=== PATIENT | male | born 1965 | race Caucasian/White ===

== ENCOUNTER → 2018-04-23 20:00 | Outpatient (CLI) | payer OTHER, SELFPAY | PROVIDERS: Family Provider Student in an Organized Health Care Education/Training Program; PCP Student in an Organized Health Care Education/Training Program; Visit Provider Student in an Organized Health Care Education/Training Program | DX: G47.33 Obstructive sleep apnea (adult) (pediatric) (principal); Z79.899 Other long term (current) drug therapy | CPT/HCPCS: 95811 ==

== ENCOUNTER → 2018-09-21 17:04 | Outpatient (CLI) | payer OTHER, SELFPAY ==
--- NOTE | 2018-09-21 17:30 | MRI_ITS ---
STUDY: MRI RIGHT KNEE REASON FOR EXAM: Male, 52 years old. Generalized right knee pain, osteoarthritis. TECHNIQUE: Standardized fat and water weighted pulse sequences were obtained in all 3 orthogonal planes. COMPARISON: None. FINDINGS: Several sequences are somewhat degraded by patient motion. There is an equivocal, small tear of the medial meniscus versus motion artifact seen only on series 3, proton density weighted sagittal images. There is equivocal extension to the inferior articular surface. Normal hyaline cartilage of the medial femorotibial compartment. Normal medial femoral condyle and tibial plateau. Normal medial collateral ligamentous complex (MCL). Normal distal semimembranosus, gracilis and semitendinosus tendons. Normal lateral meniscus. Normal hyaline cartilage of the lateral femorotibial compartment. Normal lateral femoral condyle and tibial plateau. Normal proximal tibiofibular articulation. Normal lateral collateral (fibular) ligament. Normal popliteus tendon. Normal biceps femoris tendon. Normal anterior cruciate ligament (ACL). Normal posterior cruciate ligament (PCL). Normal congruent patellofemoral articulation. Normal hyaline cartilage of the patellofemoral compartment. Normal medial and lateral patellar retinaculum. Normal quadriceps tendon. Normal patellar tendon. Normal Hoffa's fat pad. There is a small joint effusion. The soft tissues are unremarkable. The otherwise visualized osseous structures are unremarkable. MRI/Lower Ext Joint Only (Routine) IMPRESSION: 1. Equivocal medial meniscal tear versus motion artifact. 2. Small joint effusion, otherwise negative study. Electronically Signed: Beata Briggs MD at 23:53 EST Tel , Service support ,
== END ==
PROVIDERS: Family Provider Student in an Organized Health Care Education/Training Program; PCP Student in an Organized Health Care Education/Training Program; Referring Provider Physician Assistant Surgical; Visit Provider Physician Assistant Surgical
DX: M17.11 Unilateral primary osteoarthritis, right knee (principal)
CPT/HCPCS: 73721

== ENCOUNTER 2019-03-18 12:59 | Emergency (ER) | payer OTHER, SELFPAY ==
[2019-03-18 13:00] VITALS: BP 168/86; PULSE 86; RESP 15; TEMP 36.4; O2SAT 97; BMI 67.0
--- NOTE | 2019-03-18 13:17 | ED.VIS.GEN ---
History of Present Illness Chief Complaint: GI Bleed Informant: Patient Onset: Days - 3 Context: Onset with activity Timing: Continuous Current Severity: Mild Maximum Severity: Mild Narrative: Patient presents with painless GI bleeding. He is reporting red blood per rectum started about 3 days ago. He has a history of hemorrhoids but this does not feel like his external hemorrhoids. He has no weakness he does not feel lightheaded. He has no abdominal pain nausea or vomiting no recent diarrhea. He had a colonoscopy about 4 years ago and was told that it was okay and they would see him in 10 years. Past Medical History - Allergies and Home Meds Allergies/Adverse Reactions: Allergies No Known Allergies Allergy (Verified 08/04/17 11:03) Primary Care Physician: Nuno Lowe DO [Primary Care Provider] - Prior records reviewed: Yes Past Medical History: - - Noncontributory Surgical History: no surgical history Smoking Status: Current every day smoker Review of Systems General: Denies: Fever Cardiovascular: Denies: Chest pain Respiratory: Denies: Dyspnea Gastrointestinal: Reports: Hematochezia. Denies: Abdominal pain, Nausea Genitourinary: Denies: Dysuria Musculoskeletal: Denies: Myalgias Neurological: Denies: Weakness Hematologic: Denies: Easy bruising Physical Exam Vital Signs/Narrative: Vital Signs Temp Pulse Resp BP Pulse Ox 03/18/19 13:00 97.6 F L 86 15 168/86 H 97 General: Well nourished ENT: Moist mucous membranes Cardiovascular: Regular rate Respiratory: No distress, CTA bilaterally Abdomen: Soft, Nontender, Nondistended Rectal: - - External hemorrhoids are seen however nonbleeding. Back: Nontender. Negative for: Normal Inspection Extremities: Nontender Skin: Normal color, No rash. Negative for: Pallor Neurological: Alert Diagnostic/Tx/Re-eval - Medical Decision Making An anoscopy was performed by me. There is an anterior internal hemorrhoid which showed active bleeding especially with an anoscopy instrumentation. ED Disposition - Plan for ED Patient: Disposition: Home or Assisted Living Diagnosis: Internal hemorrhoid Instructions: Hemorrhoids Prescriptions: Docusate Sodium [Colace] 100 mg PO DAILY #30 cap Prescription Printed Referrals: Yusuf Hinojosa MD [NON-STAFF] - 3-5 Days
== END 2019-03-18 13:31 | disposition home or self-care (01) ==
LOC: ED 13:24
PROVIDERS: Emergency Provider Emergency Medicine; Family Provider Student in an Organized Health Care Education/Training Program; PCP Student in an Organized Health Care Education/Training Program
DX: K64.8 Other hemorrhoids (principal); F17.200 Nicotine dependence, unspecified, uncomplicated
CPT/HCPCS: 99282

== ENCOUNTER 2022-09-13 09:32 | Emergency (ER) | payer OTHER, SELFPAY ==
[2022-09-13 09:33] VITALS: BP 168/76; PULSE 84; RESP 14; TEMP 36.3; O2SAT 99; BMI 32.6
--- NOTE | 2022-09-13 10:09 | CT_ITS ---
STUDY: CT ABDOMEN AND PELVIS WITH CONTRAST REASON FOR EXAM: Male, 56 years old. One day history of abdominal pain. RADIATION DOSAGE (If Supplied By Facility): CTDIvol = ( 16.20 ) mGy, DLP = ( 1238.49 ) mGycm TECHNIQUE: Transaxial images were obtained from the dome of the diaphragm to the symphysis pubis without oral contrast. IV 100mL Isovue-300 was administered. Sagittal and coronal images were reconstructed. Individualized dose optimization techniques were used for this CT. COMPARISON: None. FINDINGS: Mild degree of increased linear markings at the lung bases suggest leveling atelectasis and/or scarring. Coronary artery calcification. Normal liver. Normal gallbladder and extrahepatic biliary system. Normal spleen. Normal pancreas. Normal bilateral adrenal glands. Normal right kidney. Normal left kidney. Normal visualized stomach. Normal small intestine. There is diverticulosis, with thickening of the colon wall, and pericolonic inflammation changes consistent with acute diverticulitis. The appendix is visualized and appears normal. There is diffuse atherosclerotic calcification of the abdominal aorta, without a demonstrated aneurysm. Normal inferior vena cava. Normal retroperitoneum. Normal urinary bladder. Normal abdominal wall. There are mild degenerative changes of the visualized lumbar spine. The patient is status post bilateral total hip replacement causing beam hardening artifact in the pelvis. CT/Abdomen/Pelvis W IV Cont ONLY IMPRESSION: Sigmoid diverticulosis with increased markings in the surrounding peritoneal fat in keeping with noncomplicated acute sigmoid diverticulitis. Electronically Signed: Cahpincito Prasad MD at 11:24 EST ,
--- NOTE | 2022-09-13 10:10 | EDS_ITS ---
HPI HPI - GI History of Present Illness Chief Complaint: Abd Pain Narrative Narrative: 56-year-old male presenting with abdominal pain. He states it began yesterday centrally in the midline of his lower abdomen. He states now it seems to radiate bilaterally to the lower abdomen. He has not had any diarrhea. He states he had a normal bowel movement today. He has a history of BPH but states he is able to urinate without difficulty and does not have any dysuria. Last night he noted he had a temperature of 100 ?F and took some Tylenol. This morning he woke up and stated he was feeling a little bit better until he started to walk and he noted the pain again in the lower abdomen. He states walking makes this worse. Sitting and resting makes it better. He states that when he stands up he has to stand up slowly because he feels like something is stretching. He has no history of abdominal surgeries. No history of diverticulitis. No black or bloody stools. PFSH PFSH Medical History no medical history Home Medications lisinopril 10 mg tablet 10 mg PO DAILY 05/24/15 [History Last Taken 08/08/17 05:00] simvastatin 40 mg tablet 40 mg PO QHS 05/24/15 [History Last Taken Unknown] Levothyroxine Sodium 112 mcg PO DAILY 05/17/17 [History Last Taken 05/31/17 06:15] cholecalciferol (vitamin D3) 50 mcg (2,000 unit) capsule (Vitamin D3) 4,000 unit PO DAILY 08/02/17 [History Last Taken Unknown] magnesium oxide 500 mg capsule 500 mg PO DAILY 08/02/17 [History Last Taken Unknown] docusate sodium 100 mg capsule 100 mg PO DAILY #30 caps 03/18/19 [Rx Last Taken Unknown] amoxicillin 875 mg-potassium clavulanate 125 mg tablet 1 tab PO BID 12 days #24 tabs 09/13/22 [Rx Last Taken Unknown] hydrocodone-acetaminophen 5-325mg 5mg-325mg 1 tab PO Q6H PRN pain 3 days #10 tabs 09/13/22 [Rx Last Taken Unknown] ondansetron 4 mg disintegrating tablet 4 mg PO Q8H PRN nausea and vomiting #10 tabs 09/13/22 [Rx Last Taken Unknown] Allergy/AdvReac Type Severity Reaction Status Date / Time No Known Allergies Allergy Verified 09/13/22 09:35 Surgical History no surgical history Social History Smoking Status: Current every day smoker tobacco type: cigarettes ROS ROS ED Review of Systems ROS Unobtainable: Denies due to encephalopathy Constitutional Constitutional ED: Reports fever(s) ENT ENT ED: Denies rhinorrhea or sore throat Cardiovascular Cardiovascular: Denies palpitations Respiratory/Chest Respiratory/Chest: Denies cough or dyspnea Gastrointestinal Gastrointestinal: Reports abdominal pain; Denies constipation, diarrhea, melena, nausea or vomiting Genitourinary Genitourinary ED: Denies dysuria or hematuria Musculoskeletal Musculoskeletal: Denies arthralgias Integumentary Denies abscess or Abrasions Neurologic Neurologic: Denies headache(s) or paresthesias Psychiatric Psychiatric: Denies anxiety or depression Endocrine Endocrinology: Denies polydipsia or polyphagia EXAM Physical Exam Const Vital Signs: 09/13/22 09:33 09/13/22 11:38 Temperature 97.3 F L 98.9 F Temperature Source Temporal Oral Pulse Rate 84 71 Respiratory Rate 14 19 H Blood Pressure 168/76 H Blood Pressure Mean 106 Pulse Ox 99 94 Oxygen Delivery Method Room Air Room Air Positive well nourished General Appearance ED: NAD; Negative for pallor HEENT Reports moist mucous membranes Eyes PERRL and EOMs intact bilaterally General Eye ED: Negative for pale conjunctiva or scleral icterus Neck no lymphadenopathy Resp normal respiratory effort and clear to auscultation bilaterally Cardio regular rate and regular rhythm GI GI Narrative: Tender in the bilateral lower quadrants and in the midline. Abdomen is nondistended. No rebound or guarding. Back/Spine no CVA tenderness Neuro CN's II-XII intact bilaterally Sensorium / Orientation: alert Motor Exam: strength 5/5 throughout Psych mental status grossly normal Skin no wounds General Skin Exam: Negative for jaundice or pallor MDM MDM MDM Narrative Medical decision making narrative: Patient presenting with abdominal pain. He is concerned that he had a temperature of 100 ?F last night. Has not had a return of this. He states initially this morning he thought his pain was getting better but as he was walked around he notices getting worse. He has pain throughout the lower abdomen. Patient was medicated with 4 mg of morphine and 4 mg of Zofran. CBC was obtained and there is no evidence of leukocytosis. Hemoglobin macular stable. Platelets are normal. Renal function electrolytes within normal limits. LFTs and lipase are also within normal limits. Urinalysis is negative for infection. CT of the abdomen pelvis with IV contrast was obtained and does show acute uncomplicated diverticulitis. Given the patient is well-appearing with normal vital signs and normal lab work-up I feel he is stable for discharge home. He is amenable to this. I will start him on Augmentin in the ER. He is given pain and nausea medicine for home. Impression: 1. Acute uncomplicated diverticulitis 2. Fever Lab Data Labs: Laboratory Results - last 24 hr 09/13/22 09/13/22 09/13/22 09:50 10:20 10:20 WBC 10.5 RBC 4.64 Hgb 14.6 Hct 43.1 MCV 92.9 MCH 31.5 MCHC 33.9 RDW Std Deviation 42.2 RDW Coeff of Joaquin 12.4 Plt Count 226 MPV 8.4 Immature Gran % (Auto) 0.300 Neut % (Auto) 66.5 Lymph % (Auto) 18.1 L [place] % (Auto) 13.1 H Eos % (Auto) 1.6 Baso % (Auto) 0.4 Absolute Neuts (auto) 7.0 Absolute Lymphs (auto) 1.89 Nucleated RBC % 0 Sodium 138 Potassium 3.9 Chloride 102 Carbon Dioxide 27.0 Anion Gap 9 BUN 19 H Creatinine 0.96 Estim Creat Clear Calc 82.14 Est GFR (MDRD) Af Amer 104 Est GFR (MDRD) Non-Af 86 BUN/Creatinine Ratio 19.8 Glucose 97 Calcium 9.4 Total Bilirubin 1.00 AST 19 ALT 33 Alkaline Phosphatase 65 Total Protein 7.3 Albumin 3.7 Globulin 3.6 Albumin/Globulin Ratio 1.0 Lipase 119 Urine Color Yellow Urine Clarity Sl Cldy Urine pH 7.0 Ur Specific [place] 1.005 Urine Protein Negative Urine Glucose (UA) Normal Urine Ketones Negative Urine Occult Blood Negative Urine Nitrite Negative Urine Bilirubin Negative Urine Urobilinogen 1 H Ur Leukocyte Esterase Negative Urine RBC 0 SEEN Urine WBC 0 SEEN Ur Squamous Epith Cells 0 SEEN Urine Bacteria 0 SEEN Urine Mucus 0 SEEN Radiography Diagnostic Testing: Clinical Impression(s) from Imaging Studies Abdomen/Pelvis CT 09/13/22 10:09 IMPRESSION: Sigmoid diverticulosis with increased markings in the surrounding peritoneal fat in keeping with noncomplicated acute sigmoid diverticulitis. Electronically Signed: [place] Prasad MD at 11:24 EST , Discharge Plan Triage Chief Complaint: Abd Pain ED Provider: Vikash King Dx/Rx/DC Orders Instructions: ED Diverticulitis Prescriptions: New amoxicillin-pot clavulanate 875-125 mg tablet 1 tab PO BID 12 Days Qty: 24 0RF hydrocodone-acetaminophen 5-325 mg tablet 1 tab PO Q6H PRN (Reason: pain) 3 Days Qty: 10 0RF ondansetron 4 mg tablet,disintegrating 4 mg PO Q8H PRN (Reason: nausea and vomiting) Qty: 10 0RF No Action simvastatin 40 MG tablet 40 mg PO QHS lisinopril 10 MG tablet 10 mg PO DAILY Levothyroxine Sodium 112 MCG tablet 112 mcg PO DAILY magnesium oxide 500 MG capsule 500 mg PO DAILY cholecalciferol (vitamin D3) [Vitamin D3] 2,000 UNIT capsule 4,000 unit PO DAILY docusate sodium 100 MG capsule 100 mg PO DAILY Qty: 30 0RF Primary Care Provider: Nuno Lowe Referrals: Nuno Lowe DO [Primary Care Provider] - Disposition Disposition: Home, Self Care
[2022-09-13] MEDS: Ondansetron 4 MG/2 ML Vial IV (10:20)
[2022-09-13] MEDS: Morphine 4 MG/ML Syringe IV (10:20)
[2022-09-13 10:27] LABS: Absolute Lymphocyte Count 1.89 X10^3/uL (0.83-4.51); Basophil# 0.04 X10^3/uL; Basophil% 0.4 % (0-1); Eosinophil# 0.17 X10^3/uL; Eosinophils% 1.6 % (0-5); Hematocrit 43.1 % (40-54); Hemoglobin 14.6 g/dL (13.0-16.5); Lymphocyte # 1.89 X10^3/ul (0.83-4.51); Lymphocyte % 18.1 % (19-41); Mean Corp Hgb Conc 33.9 g/dL (32-36); Mean Corpuscular Hgb 31.5 pg (27.0-32.0); Mean Corpuscular Volume 92.9 fL (80-94); Mean Platelet Vol. 8.4 fl (6.2-12.0); Monocyte# 1.37 X10^3/uL; Monocyte% 13.1 % (0-10); NRBC Flagged by Analyzer 0 % (0-5); Neutrophil # 6.97 X10^3/uL (2.7-7.7); Neutrophil % 66.5 % (47-70); Platelet Count 226 K/mm3 (150-450); RBC Distribution Width CV 12.4 % (11.6-14.6); RBC Distribution Width SD 42.2 fl (35.1-43.9); Red Blood Count 4.64 M/mm3 (4.6-6.2); White Blood Count 10.5 K/mm3 (4.4-11.0)
[2022-09-13 10:27] LABS: Bacteria 0 SEEN /hpf (None Seen); Mucous, Urine 0 SEEN /hpf (<or=2+); Red Blood Cells-Urine 0 SEEN /hpf (0-5); Squamous Epithelial Cells - UA 0 SEEN /hpf (0-5); White Blood Cells 0 SEEN /hpf (0-5)
[2022-09-13 10:34] LABS: Color, Urine Yellow (Yellow); Glucose, Dipstick Normal (Normal); Ketone-Dipstick Negative (Negative); Leukocyte Esterase-Dipstick Negative /ul (Negative); Nitrite-Dipstick Negative (Negative); Occult Blood-Urine Negative /ul (Negative); Protein-Dipstick Negative (Negative); Specific Gravity, Urine 1.005 (1.002-1.030); Urine Bilirubin Dipstick Negative (Negative); Urine Clarity Sl Cldy (Clear); Urine Urobilinogen 1 mg/dl (Normal)
[2022-09-13 10:45] LABS: AST(SGOT) 19 U/L (15-37); Alanine Aminotransfer ALT/SGPT 33 U/L (16-61); Albumin, Serum 3.7 g/dL (3.2-5.0); Alkaline Phosphatase 65 U/L (45-117); Anion Gap 9 (5-15); BUN 19 mg/dL (7-18); BUN/Creat Ratio 19.8 RATIO (10-20); Calcium,Total 9.4 mg/dL (8.5-10.1); Chloride 102 mmol/L (98-107); Creatinine, Serum 0.96 mg/dL (0.70-1.30); EST Glomerular Filtration Rate 86 mL/min (>60); Est Glom Filt Rate - Afr Amer 104 mL/min (>60); Estimated Creatinine Clearance 82.14 ml/min; Globulin 3.6 g/dL (2.2-4.2); Glucose 97 mg/dL (74-106); Lipase 119 U/L (73-393); Potassium 3.9 mmol/L (3.5-5.1); Protein, Total 7.3 g/dL (6.4-8.2); Sodium Level 138 mmol/L (136-145)
[2022-09-13 11:38] VITALS: PULSE 71; RESP 19; TEMP 37.2; O2SAT 94
[2022-09-13 12:10] VITALS: RESP 19; O2SAT 94
[2022-09-13] MEDS: Amox/Clavulanate 875 MG Tablet PO (12:17)
== END 2022-09-13 12:21 | disposition home or self-care (01) ==
PROVIDERS: Emergency Provider Student in an Organized Health Care Education/Training Program; PCP Student in an Organized Health Care Education/Training Program; Visit Provider Student in an Organized Health Care Education/Training Program
DX: K57.92 Diverticulitis of intestine, part unspecified, without perforation or abscess without bleeding (principal); F17.210 Nicotine dependence, cigarettes, uncomplicated; R11.0 Nausea
CPT/HCPCS: 74177; 80053; 81001; 83690; 85025; 96374; 96375; 99284; Q9967; A4216; J2405

== ENCOUNTER 2023-01-07 15:41 | Emergency (ER) | payer OTHER, SELFPAY ==
[2023-01-07 15:42] VITALS: BP 157/90; PULSE 89; RESP 16; TEMP 36.2; O2SAT 98; BMI 32.5
--- NOTE | 2023-01-07 16:09 | EDS_ITS ---
HPI History of Present Illness Chief Complaint: Wound Check Informant: patient and spouse/S.O. Narrative Narrative: Patient presents with 2 days of penile and scrotal redness/swelling. It is all itchy. It is sore where the swelling is around the thurman of the glans and base of the penis there just proximal to that, that is where the swelling is the worst. He saw urgent care and was prescribed clotrimazole, he has been using that for 1 day, and he states they prescribed him a antimicrobial topical to use if the first 1 does not work and diagnosed him with balanitis. He had regular vaginal intercourse with his significant other the night before this st arted. They have been for a long time and they are both monogamous with each other, with no history of STDs. She has used no agents in her vulva or vagina recently that she can think of, and she has had no discharge or infection. The patient presents here now saying that the swelling is more prominent, and in addition he has 2 patches of pruritic redness on his face that were not there yesterday. He states he spread the antibiotic cream on the patches on his face and came here. No fevers or chills, no systemic symptoms, no trouble urinating. He is not a diabetic. [facility] Medical History HTN (hypertension) Urinary bladder disorder Home Medications lisinopril 10 mg tablet 10 mg PO DAILY 05/24/15 [History Last Taken 08/08/17 05:00] simvastatin 40 mg tablet 40 mg PO QHS 05/24/15 [History Last Taken Unknown] Levothyroxine Sodium 112 mcg PO DAILY 05/17/17 [History Last Taken 05/31/17 06:15] cholecalciferol (vitamin D3) 50 mcg (2,000 unit) capsule (Vitamin D3) 4,000 unit PO DAILY 08/02/17 [History Last Taken Unknown] magnesium oxide 500 mg capsule 500 mg PO DAILY 08/02/17 [History Last Taken Unknown] fluconazole 150 mg tablet 150 mg PO DAILY #1 TAB 01/07/23 [Rx Last Taken Unknown] prednisone 20 mg tablet 40 mg PO DAILY #10 TABLETS 01/07/23 [Rx Last Taken Unknown] Allergy/AdvReac Type Severity Reaction Status Date / Time No Known Allergies Allergy Verified 01/07/23 15:44 Social History Smoking Status: Current every day smoker tobacco type: cigarettes ROS ROS ED Constitutional Constitutional ED: Reports chills and fever(s) Eyes Eyes: Denies blurry vision or change in vision Cardiovascular Cardiovascular: Denies chest pain or palpitations Respiratory/Chest Respiratory/Chest: Denies cough or dyspnea Gastrointestinal Gastrointestinal: Denies abdominal pain, diarrhea, melena, nausea or vomiting Genitourinary Genitourinary ED: Reports as per HPI; Denies dysuria or hematuria Musculoskeletal Musculoskeletal: Denies back pain, myalgias or neck pain Integumentary Denies abscess or rash Neurologic Neurologic: Denies headache(s), paresthesias or weakness EXAM Physical Exam Const Vital Signs: 01/07/23 15:42 Temperature 97.1 F L Temperature Source Temporal Pulse Rate 89 Respiratory Rate 16 Blood Pressure 157/90 H Blood Pressure Mean 112 Pulse Ox 98 Oxygen Delivery Method Room Air Positive well nourished and well developed General Appearance ED: well developed Eyes PERRL and EOMs intact bilaterally Resp normal respiratory effort GI normal to inspection, nondistended, normoactive bowel sounds, non-tender and non-distended Narrative: Mild diffuse swelling of the entire scrotum and penile shaft and erythema/hype remia, the most edematous area is in a ring at the shaft of the penis just proximal to the thurman radiata, and this area is mildly tender. There is no abscess. The erythema extends proximally onto the mons pubis, as well as into the groin bilaterally, with fairly well-circumscribed edges in these areas at the edges are a little more hyperemic, there is no discharge, and there is no tenderness in the groins or the mons. There is no tenderness in the scrotum, testicles, or in the perineum, nor is there any subcutaneous emphysema. No palpable hernias examined while standing. Back/Spine no CVA tenderness Back/Spine Narrative: F ROM Neuro oriented x3, CN's II-XII intact bilaterally and no sensory deficits noted Motor Exam: strength 5/5 throughout Psych mental status grossly normal Skin Skin Narrative: There are 2 nontender patches of erythema on his face, 1 on his left cheek and 1 at the angle of his right jaw, they are not well-circumscribed, they are slightly raised, and not fluctuant with no other rashes except for the exam see above. MDM MDM MDM Narrative Medical decision making narrative: The areas of erythema on the groin bilaterally and the mons pubis are consistent with tinea. It is unknown if this started on the glans or not, the patient states he noticed his penis and scrotum involved simultaneously when he first noticed this, I think it is probably all fungal and I agree with the topical clotrimazole. There is no way to know why he has 2 patches of itchy redness on his face and nowhere else. He does not have any systemic symptoms and his vital signs are unremarkable, a little hypertensive, but he is anxious as is his spouse understandably. I think putting him on prednisone may help with the symptoms, possibly the swelling. I am also prescribing him a clotrimazole. I do not think this is an acute bacterial infection, but we discussed the signs and symptoms of that, and if he gets worse on the prednisone to return to the ER immediately and discontinue it. Otherwise I would follow-up with urology if it does not resolve. Certainly some type of contact dermatitis is in the differential as well. I do not think he needs ancillary testing emergently at this time and this does not look like Dalton's gangrene. Discharge Plan Triage Chief Complaint: Wound Check ED Provider: Pantera Ji Dx/Rx/DC Orders Clinical Impression: Tinea of scrotum Instructions: ED Fungal Skin Infection (Tinea), ED Tinea Cruris, Jock Itch Prescriptions: New fluconazole 150 mg tablet 150 mg PO DAILY Qty: 1 0RF Rx Instructions: 1 tab po once prednisone 20 mg tablet 40 mg PO DAILY Qty: 10 0RF No Action simvastatin 40 MG tablet 40 mg PO QHS lisinopril 10 MG tablet 10 mg PO DAILY Levothyroxine Sodium 112 MCG tablet 112 mcg PO DAILY magnesium oxide 500 MG capsule 500 mg PO DAILY cholecalciferol (vitamin D3) [Vitamin D3] 2,000 UNIT capsule 4,000 unit PO DAILY Primary Care Provider: Nuno Lowe Referrals: Nuno Lowe DO [Primary Care Provider] - Goyo Cisneros MD [Med Staff - Active Staff] - 1 Week if not improving Activity Restrictions/Additional Instructions: Take the fluconazole when you get it. You already had a dose of prednisone for today 01/07, so start that prescription tomorrow. Continue the clotrimazole topically 2-3 times daily. Disposition Disposition: Home, Self Care
[2023-01-07] MEDS: predniSONE 20 MG Tablet 40 MG PO (16:29)
== END 2023-01-07 17:36 | disposition home or self-care (01) ==
PROVIDERS: Emergency Provider Emergency Medicine; PCP Student in an Organized Health Care Education/Training Program; Visit Provider Emergency Medicine
DX: N50.89 Other specified disorders of the male genital organs (principal); I10 Essential (primary) hypertension; F17.210 Nicotine dependence, cigarettes, uncomplicated; Z79.899 Other long term (current) drug therapy
CPT/HCPCS: 99282

== ENCOUNTER 2025-05-11 08:15 | Emergency (ER) | payer OTHER, SELFPAY ==
[2025-05-11 08:16] VITALS: BP 155/69; PULSE 67; RESP 17; TEMP 35.9; O2SAT 100; BMI 31.4
--- NOTE | 2025-05-11 08:19 | ED.VIS.BACK ---
HPI History of Present Illness Chief Complaint: [facility] Medical History HTN (hypertension) Urinary bladder disorder Home Medications ?Medication ?Instructions ?Recorded ?Last Taken ?Type lisinopril 10 mg tablet 10 mg PO DAILY 05/24/15 08/08/17 05:00 History simvastatin 40 mg tablet 40 mg PO QHS 05/24/15 Unknown History Levothyroxine Sodium 112 mcg PO DAILY 05/17/17 05/31/17 06:15 History cholecalciferol (vitamin D3) 50 4,000 unit PO DAILY 08/02/17 Unknown History mcg (2,000 unit) capsule (Vitamin D3) magnesium oxide 500 mg capsule 500 mg PO DAILY 08/02/17 Unknown History fluconazole 150 mg tablet 150 mg PO DAILY #1 TAB 01/07/23 Unknown Rx prednisone 20 mg tablet 40 mg (2 x 20 mg) PO DAILY #10 01/07/23 Unknown Rx TABLETS oxycodone 5 mg tablet 5 mg PO Q6H PRN pain 3 days #12 05/11/25 Unknown Rx tabs prednisone 50 mg tablet 50 mg PO DAILY 5 days #5 tabs 05/11/25 Unknown Rx prednisone 50 mg tablet 50 mg PO DAILY 5 days #5 tabs 05/11/25 Unknown Rx Allergy/AdvReac Type Severity Reaction Status Date / Time No Known Allergies Allergy Verified 01/07/23 15:44 Social History Smoking Status: Current every day smoker tobacco type: cigarettes EXAM Physical Exam Const Vital Signs: 05/11/25 08:16 Temperature 96.7 F L Temperature Source Temporal Pulse Rate 67 Respiratory Rate 17 Blood Pressure 155/69 H Blood Pressure Mean 97 Pulse Ox 100 Oxygen Delivery Method Room Air MDM MDM MDM Narrative Medical decision making narrative: HISTORY OF PRESENT ILLNESS: Chief complaint: Back pain 59-year-old male history of hypertension, hyperlipidemia presents with back pain. Denies injury. States back pain began a couple 3 weeks ago. Patient denies falls or trauma. Notes pain is worse with movement especially with minor movements or with coughing laughing twisting. Patient denies any saddle anesthesia, urinary retention, bowel or bladder incontinence, lower extremity weakness, fever or IV drug use, no recent spinal manipulation or surgery, no recent urinary catheterization. REVIEW OF SYSTEMS: Pertinent positives: Back pain Pertinent negatives: As per [facility] PHYSICAL EXAM: Nursing triage notes reviewed, Vital signs reviewed Constitutional: please see [facility] Lungs: Clear to auscultation, No wheezing or rales. No increased work of breathing, no conversational dyspnea, no accessory muscle use, no nasal flaring. No respiratory distress noted Heart: Regular rate and rhythm, No murmurs, No rubs and No gallops, 2+ distal pulses (radial, femoral, posterior tibial) in all extremities Abdomen: Soft, there is no tenderness, rigidity, rebound or guarding, no obvious peritoneal signs, no palpable pulsatile abdominal masses, no auscultated abdominal bruit : No CVAT Extremities: No edema Back: TTP over right back musculature approximately L1/L2 level. No step-off deformities noted to the spine Neuro: Intact sensation L1-S1 dermatomal distributions. Intact 5/5 strength in hip flexion (T12-L3). Knee extension (L2-L4). Ankle dorsiflexion (L4-L5). Ankle plantar flexion (S1). Great toe extension (L5). 2+ patellar and Achilles DTRs. Skin: No rash or lesions noted MEDICAL DECISION MAKING: Chief Complaint: please see [facility] External records reviewed: Reviewed prior imaging: Reviewed x-ray of the lumbar spine from 2015 which showed no acute fracture. Degenerative changes were noted at that time Factors affecting care: n as per [facility] Social determinants of health: Denies IV drugs History obtained from others: Consults: none [facility] Narrative: The patient was initially hemodynamically stable, afebrile and nontoxic-appearing. No concerning historical factors. Exam without obvious step-off deformities. No focal neurologic deficits. I considered the following differential diagnosis: Musculoskeletal back pain, back fracture/dislocation, space-occupying lesion spine (epidural abscess, epidural hematoma amongst others) Imaging is indicated this time as there is no trauma and patient has no focal deficits. Attempted symptomatic control with Tylenol, narcotics, anti-inflammatories. Patient noted he is on meloxicam I encouraged him to continue patient notes he has a follow-up with his primary doctor in 2 weeks. Strict return precautions will be discussed. No indication for admission or transfer at this time. The patient and/or family, caregivers express understanding. The patient and/or family, caregivers agrees with the plan. Shared decision making: I will have a discussion with the patient and or visitors regarding risk/benefits of further testing or admission. They will be made aware of of the risk/benefits inherent in this decision they will be given the opportunity to voice understanding. Total critical care time today provided was at least 0 minutes. This excludes separately billable procedures. Critical care time (if documented) is secondary to the patient having high probability of clinically significant/life threatening deterioration in the patient's condition which required my urgent intervention. Impression: 1. Low back pain 2. History of hypertension Dispo: Discharge home This note was generated with [employer] dictation software. It may contain incorrect words, spelling, and punctuation that were not noted in review of the chart prior to signing. Discharge Plan Triage Chief Complaint: Back ED Provider: Matti Wright Dx/Rx/DC Orders Instructions: Back Exercises: Lower Back Stretch, ED Back Pain (Acute or Chronic) Prescriptions: New prednisone 50 mg tablet 50 mg PO DAILY 5 Days Qty: 5 0RF oxycodone 5 mg tablet 5 mg PO Q6H PRN (Reason: pain) 3 Days Qty: 12 0RF prednisone 50 mg tablet 50 mg PO DAILY 5 Days Qty: 5 0RF No Action simvastatin 40 MG tablet 40 mg PO QHS lisinopril 10 MG tablet 10 mg PO DAILY Levothyroxine Sodium 112 MCG tablet 112 mcg PO DAILY magnesium oxide 500 MG capsule 500 mg PO DAILY cholecalciferol (vitamin D3) [Vitamin D3] 2,000 UNIT capsule 4,000 unit PO DAILY fluconazole 150 mg tablet 150 mg PO DAILY Qty: 1 0RF Rx Instructions: 1 tab po once prednisone 20 mg tablet 40 mg PO DAILY Qty: 10 0RF Primary Care Provider: Nuno Lowe Referrals: Lamine Sánchez MD [Med Staff - Active Staff] - Nuno Lowe DO [Primary Care Provider] - Activity Restrictions/Additional Instructions: Thank you for trusting us with your care today! Your presentation is consistent with musculoskeletal back pain. Please take Tylenol (2 pills, 650 mg) every 6 hours as needed for pain and fever control. Please continue take meloxicam for anti-inflammatory effect. Please begin taking prednisone which is also an anti-inflammatory. Please use lidocaine patches. You can obtain these from any pharmacy or drugstore under the brand name Salonpas. Please take oxycodone for breakthrough pain if the above regimen does not control your symptoms. Please return to the emergency department if your symptoms change or worsen. Specifically if you develop bowel or bladder incontinence, urinary retention, decreased movement or sensation in your arms or legs. Please begin doing very mild stretching exercises to improve mobility. Once your pain is under better control your mobility has increased please perform very mild strengthening exercises. Over the long-term losing weight will improve your back pain. Please follow with your primary care physician for further outpatient evaluation and management. Print Language: Citizen [place] Disposition Disposition: Home, Self Care
[2025-05-11] MEDS: Lidocaine 5% Patch 1 PATCH TOPICAL (08:42)
--- OUTSIDE RECORDS SUMMARY | 2025-05-11 08:45 | XMS RPT_ITS | CCD ---
Author Organization [facility] Care Team Providers Care Migr[employer] Name Role Phone Nuno Lowe DO Primary Care Provider Nuno Lowe Primary Care Unavailable Vikash King Attending Unavailable Nuno Lowe Primary Care Unavailable Pantera Ji Attending Unavailable Nuno Lowe DO Primary Care Provider Unavailable Primary Care Provider Unavailconnor e HEATHER LUZ THOMAZ A Attending Unavaila ble Nuno Lowe DO Primary Care Provider BOO RODRIGUEZAZ A Referring Unavaila ble LOWENUNO Primary Care Unavailable HEATHER LUZ, THOMAZ A Referring Unavaila ble LOWENUNO Primary Care Unavailable HEATHER LUZ, THOMAZ A Referring Unavaila ble LOWENUNO Primary Care Unavailable Nuno Lowe DO Primary Care Provider NUNO LOWE Primary Care Unavailable HEATHER LUZ, THOMAZ A Attending Unavaila ble LOWENUNO Primary Care Unavailable HEATHER LUZ, THOMAZ A Attending Unavaila ble MYNOR NUNO L Primary Care Unavailable LISA PÉREZ Attending Unavailable NUNO LOWE Primary Care Unavailable Montoya COMMERCIAL CONSTRUCTION SUPERINTENDENT.Marissa DEXTER Unavailable Nevaeh COMMERCIAL CONSTRUCTION SUPERINTENDENT.Astrid DEXTER Unavailable Montoya COMMERCIAL CONSTRUCTION SUPERINTENDENT.Marissa DEXTER Unavailable Danica COMMERCIAL CONSTRUCTION SUPERINTENDENT.Kaylin DEXTER Unavailable NUNO LOWE Primary Care Unavailable ALEXY ENRIQUEZ Attending Unavailabl e NUNO LOWE Referring Unavailable NUNO LOWE Primary Care Unavailable NUNO LOWE Attending Unavailable LOWE, NUNO L Primary Care Unavailable LOWENUNO L Primary Care Unavailable LOWENUNO L Referring Unavailable LOWENUNO L Primary Care Unavailable LOWENUNO L Referring Unavailable LOWENUNO L Primary Care Unavailable LOWE, NUNO L Referring Unavailable LOWE, NUNO L Primary Care Unavailable LOWENUNO L Referring Unavailable LOWENUNO L Primary Care Unavailable LOWENUNO L Referring Unavailable LOWENUNO L Primary Care Unavailable ALEXY ENRIQUEZ Attending UnavailFLORI Buchanan Attending Unava ilable NUNO LOWE Primary Care Unavailable LOWENUNO Referring Unavailable MARISSA MONTOYA Referring Unavailabl e LOWENUNO CHOU Primary Care Unavailable LOWENUNO SUAREZ Attending Unavailable LOWENUNO Primary Care Unavailable LOWENUNO Primary Care Unavailable ALEXY ENRIQUEZ Referring Unavailabl e LOWENUNO CHOU Primary Care Unavailable SELF Referring Unavailable NUNO LOWE Attending Unavailable Medications Current Medications Medication Drug Class(es) Dates Sig (Normalized) Sig (Original) amoxicillin 875 mg / clavulanate 125 mg oral tablet (16 sources) Penicillin-class Antibacterial Start: 10-23-2024 End: 11-02-2024 take 1 tablet by mouth twice daily amoxicillin-clav ulanate potassium (AUGMENTIN) 875-125 mg per tablet Indications: Acute otitis media, right Take 1 tablet by mouth two times a day for 10 days. 20 tablet 10/23/2024 11/02/2024 Active Start: 08-07-2024 End: 08-17-2024 take 1 tablet by mouth twice daily amoxicillin-clavulanate potassium (AUGMENTIN) 875-125 mg per tablet Indications: Acute otitis media, right Take 1 tablet by mouth two times a day for 10 days. 20 tablet 08/07/2024 08/17/2024 Start: 07-23-2024 End: 08-02-2024 take 1 tablet by mouth twice daily amoxicillin-clavulanate potassium (AUGMENTIN) 875-125 mg per tablet Indications: Acute otitis media, right Take 1 tablet by mouth two times a day for 10 days. 20 tablet 07/23/2024 08/02/2024 Active Start: 05-10-2023 End: 05-15-2023 take 1 tablet by mouth twice daily amoxicillin-clavulanic acid (AUGMENTIN) 875-125 mg per tablet Indications: Rhinosinusitis Take 1 tablet by mouth twice daily for 5 days. 10 tablet 0 05/10/2023 05/15/2023 Active Start: 10-19-2022 End: 10-29-2022 take 1 tablet by mouth twice daily amoxicillin-clavulanic acid (AUGMENTIN) 875-125 mg per tablet Take 1 tablet by mouth twice daily for 10 days. 20 tablet 0 10/19/2022 10/29/2022 Active Start: 09-13-2022 End: 10-19-2022 amoxicillin-clavulanic acid (AUGMENTIN) 875-125 mg per tablet Take by mouth. 0 09/13/2022 10/19/2022 Discontinued Start: 09-13-2022 take 1 tablet by roderick th twice daily Amoxicillin-Pot Clavulanate Active 1 TABLET PO TWICE A DAY 03 09September 13, 2022 12:00am Comment on above: Take by mouth. Take 1 tablet by roderick th twice daily for 10 days. Take 1 tablet by roderick th twice daily for 5 days. 12 hr buPROPion hydrochloride 100 mg extended release oral tablet (11 sources) Aminoketone Start: take 1 tablet by mouth twice daily buPROPion SR (WELLBUTRIN SR) 100 mg 12 hr tablet Take 1 tablet by mouth two times a day. 180 tablet 04/28/2025 Active Start: 04-28-2021 End: 04-19-2023 take 1 tablet by mouth once daily buPROPion XL (WELLBUTRIN XL) 150 mg 24 hr tablet Take 1 tablet by mouth once daily. 30 tablet 4 04/28/2021 04/19/2023 Discontinued Comment on above: Take 1 tablet by roderick th once daily. cholecalciferol 0.05 mg oral capsule (2 sources) Vitamin D Start: 017 take 2 capsules by mouth once daily Cholecalciferol (Vitamin D3) (Vitamin D3) 2,000 UNIT capsule Active 4000 UNIT PO DAILY August 02, 2017 1:00am citalopram 10 mg oral tablet (3 sources) Serotonin Reuptake Inhibitor Start: 025 take 1 tablet by mouth once daily in the evening, then take 2 tablets by mouth once daily at bedtime citalopram hydrobromide (CELEXA) 10 mg tablet Indications: Situational stress Take 1 tablet PO daily in the evening x 2 weeks then increase to 2 tablets PO daily at bedtime 180 tablet 1 01/29/2025 Active clotrimazole 10 mg/ml topical cream (7 sources) Azole Antifungal Start: clotrimazole (Lotrimin) 1 % cream APPLY TO THE AFFECTED AREA(S) TWICE DAILY FOR 7 DAYS 01/06/2023 Active COMPOUNDED PRESCRIPTION (20 sources) Start: 018 COMPOUNDED PRESCRIPTION Indications: LULU (obstructive sleep apnea) Bipap pressure settings 17/11 with F&P nasal mask interface and heated humidity Dx: LULU on Bipap 1 Device 05/01/2018 Active Start: 05-01-2018 COMPOUNDED PRE SCRIPTION Indications: LULU (obstructive sleep apnea) Bipap pressure settings 17/11 with F&P nasal mask interface and heated humidity Dx: LULU on Bipap 1 Device 0 05/01/2018 Active Comment on above: Bipap pressure setti ngs 17/11 with F&P nasal mask interface and heated humidity Dx: LULU on Bipap docusate sodium 100 mg oral capsule (1 source) Start: take 100 mg by mouth once daily Docusate Sodium Active 100 MG PO DAILY March 17, 2019 11:00pm finasteride 5 mg oral tablet (20 sources) 5-alpha Reductase Inhibitor Start: End: take 1 tablet by mouth once daily finasteride (Proscar) 5 mg tablet Take 1 tablet (5 mg) by mouth once daily. 10/17/2023 Active Comment on above: Take 1 tablet by roderick once daily. fluconazole 150 mg oral tablet (1 source) Azole Antifungal Start: take 1 tablet by mouth once daily Fluconazole Active 150 MG PO DAILY January 07, 2023 12:00am 1 tab po once fluticasone propionate 0.05 mg/actuat metered dose nasal spray (7 sources) Corticosteroid Start: End: take 2 spray(s) nasal route once daily at bedtime fluticasone (Flonase) 50 mcg/actuation nasal spray Indications: Nasal congestion Administer 2 sprays into each nostril once daily at bedtime. Shake gently. Before first use, prime pump. After use, clean tip and replace cap. 16 g 2 2023 Active Inhalational Spacing Device (1 source) Start: End: 023 Inhalational Spacing Device 1 Device one time only for 1 dose. 1 Each 0 05/10/2023 05/10/2023 Active Comment on above: 1 Device one time on ly for 1 dose. levothyroxine sodium 0.125 mg oral tablet (20 sources) l-Thyroxine Start: 024 levothyroxine (SYNTHROID) 125 mcg tablet Indications: Acquired hypothyroidism 2 tablets 2 days (Mon, Thurs) and 1 tablet 4 days a week. On an empty stomach. 114 tablet 3 07/23/2024 Active Start: 03-16-2023 levothyroxine (Synthroid, Levoxyl) 125 mcg tablet TAKE 2 TABLETS BY MOUTH MON, THURS, SAT AND 1 TABLET MON,MON,MON, MON A WEEK ON AN EMPTY STOMACH. 03/16/2023 Active Start: 09-17-2021 End: 07-23-2024 levothyroxine (SYNTHROID) 12 5 mcg tablet Indications: Acquired hypothyroidism 2 tablets 3 day (Mon, Thurs, Sat) and 1 tablet 4 days a week. On an empty stomach. 126 tablet 3 07/16/2024 07/23/2024 Discontinued Start: 05-17-2017 take 112 ug by mouth once daily Levothyroxine Sodium Active 112 MCG PO DAILY May 17, 2017 12:00am Comment on above: 2 tablets 3 day (Mon , Thurs, Sat) and 1 tablet 4 days a week. On an empty stomach. lisinopril 10 mg oral tablet (20 sources) Angiotensin Converting Enzyme Inhibitor Start: 5 End: 4 take 1 tablet by mouth once daily lisinopril (ZESTRIL) 10 mg tablet Indications: Essential hypertension Take 1 tablet by mouth once daily. 90 tablet 3 07/23/2024 Active Comment on above: Take 1 tablet by roderick once daily. magnesium oxide 500 mg oral capsule (2 sources) Start: 7 take 500 mg by mouth once daily Magnesium Oxide Active 500 MG PO DAILY August 02, 2017 1:00am meloxicam 15 mg oral tablet (20 sources) Nonsteroidal Anti-inflammatory Drug Start: 2 End: 4 take 1 tablet by mouth once daily at mealtime meloxicam (MOBIC) 15 mg tablet Take 1 tablet by mouth once daily. With food. 90 tablet 1 07/23/2024 Active Start: 05-17-2017 End: 06-01-2017 take 15 mg by mouth once daily Meloxicam Discontinued 15 MG PO DAILY May 17, 2017 12:00am June 01, 2017 9:49am Start: 04-21-2016 End: 05-05-2016 take 7.5 mg by mouth once daily Meloxicam Discontinued 7.5 MG PO DAILY April 21, 2016 12:00am May 05, 2016 9:36am Comment on above: Take 1 tablet by roderick th once daily. For sciatica, With food. Take 1 tablet by roderick th once daily. With food. olopatadine 1 mg/ml ophthalmic solution (1 source) Histamine-1 Receptor Inhibitor Start: 2 End: 2 take 1 drop(s) into the eye(s) twice daily olopatadine (PATANOL) 0.1 % ophthalmic solution Indications: Allergic conjunctivitis of right eye Use 1 Drop in the right eye twice daily for 30 days. 5 mL 0 12/15/2021 01/14/2022 Active Comment on above: Use 1 Drop in the ri ght eye twice daily for 30 days. predniSONE 20 mg oral tablet (2 sources) Start: 3 End: 3 take 2 tablets by mouth once daily predniSONE (DELTASONE) 20 mg tablet Indications: Acute cough Take 2 tablets by mouth once daily for 5 days. 10 tablet 0 05/10/2023 05/15/2023 Active Start: 01-07-2023 take 40 mg by mouth once daily Prednisone Active 40 MG PO DAILY January 07, 2023 12:00am Comment on above: Take 2 tablets by mo ut once daily for 5 days. simvastatin 20 mg oral tablet (20 sources) HMG-CoA Reductase Inhibitor Start: 3 End: 4 take 1 tablet by mouth once daily at bedtime simvastatin (ZOCOR) 20 mg tablet Indications: Familial combined hyperlipidemia Take 1 tablet by mouth daily at bedtime. 90 tablet 3 07/23/2024 Active Start: 09-17-2021 End: 04-19-2023 take 1 tablet by mouth once daily at bedtime simvastatin (Zocor) 10 mg tablet Take 1 tablet (10 mg) by mouth once daily at bedtime. 03/16/2023 Active Start: 05-24-2015 take 40 mg by mouth at bedtime Simvastatin Active 40 MG PO AT BEDTIME May 24, 2015 12:00am Comment on above: Take 1 tablet by roderick th daily at bedtime. solifenacin succinate 10 mg oral tablet (20 sources) Cholinergic Muscarinic Antagonist Start: End: take 1 tablet by mouth once daily solifenacin (VESICARE) 10 mg tablet Indications: Urinary frequency Take 1 tablet by mouth once daily. 90 tablet 3 01/28/2025 07/27/2025 Active Start: 07-04-2024 End: 01-19-2025 take 1 tablet by mouth once daily solifenacin (VESICARE) 10 mg tablet Take 1 tablet by mouth once daily. 90 tablet 3 07/23/2024 01/19/2025 Active Start: 01-03-2024 End: 07-01-2024 take 1 tablet by mouth once daily solifenacin (VESICARE) 10 mg tablet Take 1 tablet by mouth once daily. 30 tablet 5 01/03/2024 07/01/2024 Active Start: 10-27-2023 End: 02-24-2024 take 1 tablet by mouth once daily solifenacin (VESICARE) 5 mg tablet Take 1 tablet by mouth once daily. 30 tablet 3 10/27/2023 01/03/2024 Discontinued Comment on above: Take 1 tablet by roderick th once daily. tadalafil 20 mg oral tablet (2 sources) Phosphodiesterase 5 Inhibitor Start: End: take 1 tablet by mouth once daily as needed Tadalafil (CIALIS) 20 mg tablet Take 1 tablet by mouth once daily as needed. Take 1-2 hours before sexual activity. 15 tablet 1 03/05/2025 04/04/2025 Active tamsulosin hydrochloride 0.4 mg oral capsule (20 sources) alpha-Adrenergic Vika Start: 023 End: 025 take 1 capsule by mouth once daily tamsulosin (FLOMAX) 0.4 mg Indications: Benign prostatic hyperplasia with lower urinary tract symptoms, symptom details unspecified Take 1 capsule by mouth once daily. For urination 90 capsule 3 03/05/2025 Active Start: 10-12-2021 End: 10-19-2022 take 1 capsule by mouth twice daily tamsulosin (FLOMAX) 0.4 mg Take 1 capsule by mouth twice daily. For urination 180 capsule 3 10/12/2021 10/19/2022 Discontinued Comment on above: Take 1 capsule by mo [facility] twice daily. For urination Take 1 capsule by mo [facility] once daily. For urination terazosin 2 mg oral capsule (11 sources) alpha-Adrenergic Vika Start: 10-19-19 End: 04-19-20 take 1 capsule by mouth once daily at bedtime terazosin (Hytrin) 2 mg capsule TAKE 1 CAPSULE BY MOUTH DAILY AT BEDTIME. FOR PROSTATE 03/16/2023 Active Comment on above: Take 1 capsule by [facility] daily at bedtime. For prostate terbinafine 250 mg oral tablet (20 sources) Allylamine Antifungal Start: 04-19-20 End: 07-23-20 24 take 1 tablet by mouth once daily terbinafine HCl (LAMISIL) 250 mg tablet Indications: Onychomycosis Take 1 tablet by mouth once daily. For toenails 90 tablet 1 07/23/2024 Active Comment on above: Take 1 tablet by [facility] once daily. For toenails traZODone hydrochloride 50 mg oral tablet (20 sources) Serotonin Reuptake Inhibitor Start: 10-12-19 End: 07-23-20 24 take 1-3 tablets by mouth once daily at bedtime traZODone (DESYREL) 50 mg tablet Indications: Chronic insomnia Take 1-3 tablets by mouth daily at bedtime. 90 tablet 3 07/23/2024 Active Comment on above: Take 1-3 tablets by mouth daily at bedtime. Completed/Discontinued Medications Medication Drug Class(es) Dates Sig (Normalized) Sig (Original) acetaminophen 325 mg / HYDROcodone bitartrate 5 mg oral tablet (9 sources) Opioid Agonist Start: 09-13-2022 End: 04-19-2023 take 1 tablet by mouth every six hours as needed for pain HYDROcodone-acetami nophen (NORCO) 5-325 mg per tablet TAKE 1 TABLET BY MOUTH EVERY 6 HOURS NEEDED FOR PAIN FOR 3 DAYS 0 09/13/2022 04/19/2023 Discontinued Start: 09-13-2022 take 1 tablet by roderick th every six hours Hydrocodone-Acetaminophen Active 1 TABLE T PO EVERY 6 HOURS 10 September 13, 2022 Start: 05-17-2017 End: 06-01-2017 Hydrocodone-Acetaminophen (N orco 5-325 Tablet) 1 EACH tablet Discontinued 1 EACH PO EVERY 8 HOURS NEEDED May 17, 2017 12:00am June 01, 2017 9:50am Comment on above: TAKE 1 TABLET BY RODERICK TH EVERY 6 HOURS NEEDED FOR PAIN FOR 3 DAYS acetaminophen 325 mg / oxyCODONE hydrochloride 5 mg oral tablet (2 sources) Opioid Agonist Start: End: take 1 tablet by mouth every four hours as needed Oxycodone-Acetamino phen Discontinued 1 - 2 TABLET PO EVERY 4 HOURS NEEDED January 28, 2016 12:00am May 05, 2016 9:36am [id number] 200 actuat albuterol 0.09 mg/actuat metered dose inhaler (6 sources) beta2-Adrenergic Agonist Start: End: take 2 puff(s) by inhalation every six hours as needed for wheezing albuterol HFA (PROVENTIL HFA, VENTOLIN HFA) 90 mcg/actuation inhaler Indications: Acute cough Inhale 2 Puffs as instructed every 6 hours as needed for wheezing/shortness of breath. 1 Each 0 05/10/2023 10/23/2023 Discontinued Comment on above: Inhale 2 Puffs as in structed every 6 hours as needed for wheezing/shortness of breath. cephalexin 500 mg oral capsule (5 sources) Cephalosporin Antibacterial Start: End: cephALEXin 500 mg cap(s) (KEFLEX) Start: 01-03-2024 End: 01-03-2024 cephALEXin 500 mg cap(s) (KE FLEX) Start: 01-03-2024 End: 01-03-2024 cephALEXin 500 mg cap(s) (KE FLEX) diazePAM 10 mg oral tablet (6 sources) Benzodiazepine Start: 07-23-2024 End: 07-23-2024 take 1-2 tablets by mouth once diazePAM (VALIUM) 10 mg tablet Indications: Cognitive impairment, mild, so stated , Headache, worsening Take 1-2 tablets by mouth once in interventional radiology for 1 dose. Before MRI 2 tablet 07/23/2024 07/23/2024 Start: 11-29-2023 diazePAM (Hernan um) 2 mg tablet Indications: Anxiety prior to you CT scan. No driving allowed after you have taken this medication 1 tablet 11/29/2023 Active iohexol (OMNIPaque) 350 mg iodine/mL solution 68 mL (2 sources) Start: 12-08-2023 End: 12-08-2023 iohexol (OMNIPaque) 350 mg iodine/mL solution 68 mL iv contrast (will be provided with radiology test) (2 sources) Start: 07-23-2024 End: 07-24-2024 inject 1 dose intravenously once iv contrast (will be provided with radiology test) Indications: Cognitive impairment, mild, so stated , Headache, worsening , History of head injury MRI Brain Inject, intravenously, once for 1 dose.No IV access, insert saline lock prior to beginning of sedation, infusion, injection of imaging exam.Discontinue saline lock post exam. If Pt. has a central line or IVAD, may access for administration according to line specific nursing protocol.Once exam is complete flush line and de-access according to line specific nursing protocol in the MR contrast administration guidelines link 1 Each 07/23/2024 07/24/2024 Start: 07-23-2024 End: 07-24-2024 inject 1 dose intravenously once iv contrast (will be provided with radiology test) Indications: Cognitive impairment, mild, so stated , Headache, worsening , History of head injury MRI Brain Inject, intravenously, once for 1 dose.No IV access, insert saline lock prior to beginning of sedation, infusion, injection of imaging exam.Discontinue saline lock post exam. If Pt. has a central line or IVAD, may access for administration according to line specific nursing protocol.Once exam is complete flush line and de-access according to line specific nursing protocol in the MR contrast administration guidelines link 1 Each 07/23/2024 07/24/2024 Active lidocaine hydrochloride 0.02 mg/mg topical gel (5 sources) Antiarrhythmic, Amide Local Anesthetic Start: 01-11-2024 End: 02-10-2024 lidocaine urojet 2 % 11 mL topical gel (GLYDO) Start: 01-03-2024 End: 01-03-2024 lidocaine urojet 2 % 11 mL t opical gel (GLYDO) Start: 01-03-2024 End: 01-03-2024 lidocaine urojet 2 % 11 mL t opical gel (GLYDO) mupirocin 0.02 mg/mg topical ointment (8 sources) RNA Synthetase Inhibitor Antibacterial Start: 10-23-2023 End: 01-21-2024 mupirocin (BACTROBAN) 2 % ointment Apply to affected area once daily. 15 g 2 10/23/2023 01/21/2024 Discontinued (Discontinued by Patient) Start: 01-06-2023 End: 2023 mupirocin (Bactroban) 2 % oi ntment APPLY TO THE AFFECTED AREA(S) THREE TIMES DAILY FOR 10 DAYS 0 01/06/2023 2023 Discontinued (Therapy completed) Comment on above: Apply to affected ar ea once daily. ondansetron 4 mg disintegrating oral tablet (7 sources) Serotonin-3 Receptor Antagonist Start: End: ondansetron orally disintegrating (ZOFRAN ODT) 4 mg disintegrating tablet Take by mouth. 0 09/13/2022 04/19/2023 Discontinued Comment on above: Take by mouth. perflutren lipid microspheres 1.3 mL in NaCl (PF) 0.9% 10 mL injection (DEFINITY) (20 sources) Start: 023 End: perflutren lipid microspheres 1.3 mL in NaCl (PF) 0.9% 10 mL injection (DEFINITY) sildenafil 100 mg oral tablet (9 sources) Phosphodiesterase 5 Inhibitor Start: 024 End: sildenafil (VIAGRA) 100 mg tablet Indications: erectile dysfunction Take 1 tablet by mouth as needed (30-60 minutes prior to sexual activity). 10 tablet 2 08/14/2024 03/05/2025 Discontinued 125 ml sodium chloride 9 mg/ml prefilled syringe (20 sources) Start: End: sodium chloride 0.9 % (flush) 10 mL (BD POSIFLUSH) varenicline 0.5 mg oral tablet (18 sources) Partial Cholinergic Nicotinic Agonist Start: End: take 1 tablet by mouth once daily varenicline (CHANTIX STARTING MONTH BOX) 0.5 mg (11)- 1 mg (42) tablet Take 0.5 mg by mouth once daily on Days 1 through 3, THEN 0.5 mg twice daily on Days 4 through 7, THEN 1 mg twice daily on Day 8 and thereafter 53 tablet 04/19/2023 10/23/2023 Discontinued Start: 04-19-2023 End: 10-23-2023 take 1 tablet by mouth twice daily varenicline (CHANTIX CONTINUING MONTH BOX) 1 mg tablet Take 1 tablet by mouth twice daily. 60 tablet 11 04/19/2023 10/23/2023 Discontinued Comment on above: Take 0.5 mg by mouth once daily on Days 1 through 3, THEN 0.5 mg twice daily on Days 4 through 7, THEN 1 mg twice daily on Day 8 and thereafter Take 1 tablet by roderick th twice daily. Problems Active Problems Problem Classification Problem Date Documented Date Episodic/Chronic Adjustment disorders (3 sources) Stress; Translations: [Reaction to severe stress, unspecified] Onset: 01-29-2025 01-29-2025 Chronic Cardiac and circulatory congenital anomalies (1 source) Stenosis of abdominal aorta; Translations: [Coarctation of aorta] 08-02-2024 Chronic Disorders of lipid metabolism (20 sources) Familial combined hyperlipidemia; Translations: [Other hyperlipidemia] Onset: 04-28-2015 07-06-2016 Chronic Diverticulosis and diverticulitis (4 sources) Diverticulitis; Translations: [Diverticulitis of intestine, part unspecified, without perforation or abscess without bleeding] Onset: 09-14-2022 Chronic Essential hypertension (20 sources) Essential hypertension; Translations: [Essential (primary) hypertension] Onset: 04-28-2015 04-28-2015 Chronic Headache; including migraine (1 source) Headache; including migraine; Translations: [Headache, worsening] Onset: 07-27-2024 Hyperplasia of prostate (20 sources) Benign prostatic hyperplasia; Translations: [Benign prostatic hyperplasia with lower urinary tract symptoms] Onset: 01-18-2024 Chronic Immunizations and screening for infectious disease (1 source) Needs influenza immunization; Translations: [Encounter for immunization] Episodic Inflammation; infection of eye (except that caused by tuberculosis or sexually transmitteddisease) (1 source) Allergic conjunctivitis of right eye; Translations: [Acute atopic conjunctivitis, right eye] Episodic Miscellaneous mental health disorders (20 sources) Chronic insomnia; Translations: [Psychophysiologic insomnia] Onset: 07-27-2024 Chronic Nutritional deficiencies (7 sources) Vitamin D deficiency; Translations: [Vitamin D deficiency, unspecified] Onset: 10-24-2024 10-23-2024 Chronic Other connective tissue disease (2 sources) Swelling of left lower limb; Translations: [Other specified soft tissue disorders] 05-09-2016 Episodic Other diseases of bladder and urethra (6 sources) Overactive bladder; Translations: [Overactive bladder] 10-27-2023 Chronic Other diseases of bladder and urethra (1 source) Overactive bladder; Translations: [Overactive bladder] Onset: 01-18-2024 Chronic Other hereditary and degenerative nervous system conditions (20 sources) Impaired cognition; Translations: [Mild cognitive impairment, so stated] Onset: 07-27-2024 07-23-2024 Chronic Other hereditary and degenerative nervous system conditions (1 source) Mild cognitive impairment, so stated; Translations: [Cognitive impairment, mild, so stated] Onset: 07-27-2024 Chronic Other lower respiratory disease (2 sources) Cough; Translations: [Acute cough] 05-10-2023 Episodic Other lower respiratory disease (1 source) Dyspnea on exertion; Translations: [Other forms of dyspnea] 06-21-2023 Episodic Other male genital disorders (3 sources) Male erectile dysfunction, unspecified; Translations: [Impotence of organic origin] Onset: 03-05-2025 08-14-2024 Chronic Other male genital disorders (1 source) Other specified disorders of the male genital organs; Translations: [Other specified disorders of the male genital organs] Onset: 01-11-2023 Episodic Other nervous system disorders (1 source) Other chronic pain; Translations: [Chronic midline low back pain without sciatica] Onset: 07-23-2024 Chronic Other nutritional; endocrine; and metabolic disorders (7 sources) Obesity; Translations: [Other obesity due to excess calories] Onset: 12-27-2017 09-24-2021 Chronic Other nutritional; endocrine; and metabolic disorders (20 sources) Obesity caused by energy imbalance; Translations: [Other obesity due to excess calories] Onset: 12-27-2017 09-24-2021 Chronic Other nutritional; endocrine; and metabolic disorders (2 sources) Localized adiposity; Translations: [Localized adiposity] 05-10-2023 Chronic Other nutritional; endocrine; and metabolic disorders (1 source) Body mass index 30+ - obesity; Translations: [Body mass index (BMI) 34.0-34.9, adult] 2023 Chronic Other nutritional; endocrine; and metabolic disorders (2 sources) Body mass index (BMI) 34.0-34.9, adult; Translations: [Body mass index (BMI) 34.0-34.9, adult] Onset: 2023 Chronic Other nutritional; endocrine; and metabolic disorders (2 sources) Obesity, unspecified; Translations: [Obesity, unspecified] Onset: 04-15-2024 Chronic Other nutritional; endocrine; and metabolic disorders (2 sources) Body mass index (BMI) 33.0-33.9, adult; Translations: [Body mass index (BMI) 33.0-33.9, adult] Onset: 04-15-2024 Chronic Other screening for suspected conditions (not mental disorders or infectious disease) (20 sources) Patient encounter status; Translations: [Encounter for screening for malignant neoplasm of prostate] Onset: 12-27-2017 12-27-2017 Episodic Other upper respiratory disease (1 source) Chronic rhinitis; Translations: [Unspecified sinusitis (chronic)] 05-10-2023 Chronic Other upper respiratory disease (2 sources) Nasal congestion; Translations: [Nasal congestion] Onset: 2023 2023 Episodic Other upper respiratory disease (1 source) Nasal congestion; Translations: [Nasal congestion] Onset: 2023 Episodic Other upper respiratory disease (2 sources) Other specified disorders of nose and nasal sinuses; Translations: [Other specified disorders of nose and nasal sinuses] Onset: 03-27-2024 Episodic Residual codes; unclassified (20 sources) Sleep apnea; Translations: [Sleep apnea, unspecified] Onset: 04-28-2015 04-28-2015 Chronic Residual codes; unclassified (20 sources) Obstructive sleep apnea syndrome; Translations: [Obstructive sleep apnea (adult) (pediatric)] Onset: 07-11-2016 07-11-2016 Chronic Residual codes; unclassified (2 sources) Obstructive sleep apnea (adult) (pediatric); Translations: [Obstructive sleep apnea (adult) (pediatric)] Onset: 2023 Chronic Substance-related disorders (1 source) Smoker; Translations: [Nicotine dependence, unspecified, uncomplicated] 06-21-2023 Chronic Thyroid disorders (20 sources) Acquired hypothyroidism; Translations: [Hypothyroidism, unspecified] Onset: 04-28-2015 04-28-2015 Chronic Unclassified (1 source) F/U 3 Month Onset: 01-28-2025 Unclassified (1 source) Chronic midline low back pain without sciatica; Translations: [Chronic midline low back pain without sciatica] Onset: 07-23-2024 Past or Other Problems Problem Classification Problem Date Documented Da te Episodic/Chronic Diabetes mellitus without complication (7 sources) Hyperglycemia; Translations: [Hyperglycemia, unspecified] Onset: 10-24-2024 10-23-2024 Episodic Genitourinary symptoms and ill-defined conditions (20 sources) Increased frequency of urination; Translations: [Frequency of micturition] Onset: 12-27-2017 12-27-2017 Episodic Headache; including migraine (20 sources) Headache; Translations: [Headache, worsening] Onset: 07-27-2024 07-23-2024 Episodic Hemorrhoids (20 sources) Internal hemorrhoids; Translations: [Other hemorrhoids] Onset: 04-08-2019 04-08-2019 Episodic Mycoses (20 sources) Tinea cruris; Translations: [Tinea cruris] Onset: 07-27-2024 01-07-2023 Episodic Nutritional deficiencies (7 sources) Cobalamin deficiency; Translations: [Deficiency of other specified B group vitamins] Onset: 10-24-2024 10-23-2024 Episodic Other injuries and conditions due to external causes (20 sources) H/O: head injury; Translations: [Personal history of other (healed) physical injury and trauma] Onset: 07-27-2024 07-23-2024 Episodic Other injuries and conditions due to external causes (1 source) Personal history of other (healed) physical injury and trauma; Translations: [History of head injury] Onset: 07-27-2024 Episodic Other lower respiratory disease (20 sources) Persistent cough; Translations: [Persistent cough for 3 weeks or longer] Onset: 12-27-2017 12-27-2017 Episodic Other skin disorders (20 sources) Mass of neck; Translations: [Localized swelling, mass and lump, neck] Onset: 07-27-2024 2023 Episodic Other skin disorders (5 sources) Localized swelling, mass and lump, neck; Translations: [Localized swelling, mass and lump, neck] Onset: 2023 Episodic Other upper respiratory disease (1 source) Nasal obstruction; Translations: [Other specified disorders of nose and nasal sinuses] 03-27-2024 Episodic Otitis media and related conditions (8 sources) Acute right otitis media; Translations: [Otitis media, unspecified, right ear] Onset: 10-24-2024 07-23-2024 Episodic Residual codes; unclassified (20 sources) Family history of cancer of colon; Translations: [Family history of malignant neoplasm of digestive organs] Onset: 09-24-2021 09-24-2021 Episodic Residual codes; unclassified (8 sources) Poor short-term memory ; Translations: [Other amnesia] Onset: 10-24-2024 08-07-2024 Episodic Residual codes; unclassified (1 source) Other amnesia; Translations: [Memory loss, short term] Onset: 09-27-2024 Episodic Residual codes; unclassified (1 source) Acquired absence of other specified parts of digestive tract; Translations: [History of parotid gland excision] Onset: 07-27-2024 Episodic Screening and history of mental health and substance abuse codes (20 sources) Ex-smoker; Translations: [Personal history of nicotine dependence] Onset: 09-24-2021 09-24-2021 Episodic Skin and subcutaneous tissue infections (20 sources) Abscess of perineum; Translations: [Cutaneous abscess of perineum] Onset: 10-28-2016 10-28-2016 Episodic Spondylosis; intervertebral disc disorders; other back problems (20 sources) Acute back pain with sciatica; Translations: [Lumbago with sciatica, left side] Onset: 07-27-2024 Episodic Unclassified (7 sources) Onset: 2023 Resolved: 03-27-2024 2023 Results Test Name Value Interpretation Reference Range Facility [facility] GRUPO JACKSON ([id number]) 1965 M Date Time Provider Department 04/25/25 NUNO LOWE [facility] During your visit today, we recorded the following information about you: Ericka Badillo RN 04/25/2025 2:36 PM Signed Pt's called in and reports Pt was asking about quitting drinking and states he has talks to Dr Lowe about this before. She said she had recommended him starting on a medication to help with this. Please call and advise. BETH Gonzáles Jordan L, DO 04/28/2025 5:25 PM Signed He has been told to slowly work on cutting back on alcohol intake, not abruptly quit alcohol use since he is a most days a week alcohol intake person. If he abruptly quits drinking alcohol, he has a risk of seizures/wernicke encephalopathy and other complications. He is going to start a low dose of medication as below twice a day and f/u in office Nuno Lowe DO The following approved medication requests have been transmitted electronically. Requested Prescriptions Signed Prescriptions Disp Refills buPROPion SR (WELLBUTRIN SR) 100 mg 12 hr tablet 180 tablet 0 Sig: Take 1 tablet by mouth two times a day. Authorizing Provider: NUNO LOWE DO Babulski, Amanda, RN 04/28/2025 6:09 PM Signed Pt's called and is notified of providers message and instructions. She voices understanding. Pt scheduled with Dr Lowe 05/28/25. Ericka Badillo RN Allergies As of Date: 04/25/2025 (No Known Allergies) Date Reviewed: 03/05/2025 Reviewed by: Vikki Chambers MA - Fully Assessed Reason for Visit: Patient Update [1234] Order(s):buPROPion SR (WELLBUTRIN SR) 100 mg 12 hr tabletTake 1 tablet by mouth two times a day.Disp: 180 tabletRfl: 0 Prescriptions as of 04/28/2025 - buPROPion SR (WELLBUTRIN SR) 100 mg 12 hr tablet Take 1 tablet by mouth two times a day. - tamsulosin (FLOMAX) 0.4 mg Take 1 capsule by mouth once daily. For urination - citalopram hydrobromide (CELEXA) 10 mg tablet Take 1 tablet PO daily in the evening x 2 weeks then increase to 2 tablets PO daily at bedtime - solifenacin (VESICARE) 10 mg tablet Take 1 tablet by mouth once daily. - lisinopril (ZESTRIL) 10 mg tablet Take 1 tablet by mouth once daily. - simvastatin (ZOCOR) 20 mg tablet Take 1 tablet by mouth daily at bedtime. - terbinafine HCl (LAMISIL) 250 mg tablet Take 1 tablet by mouth once daily. For toenails - levothyroxine (SYNTHROID) 125 mcg tablet 2 tablets 2 days (Mon, Thurs) and 1 tablet 4 days a week. On an empty stomach. - meloxicam (MOBIC) 15 mg tablet Take 1 tablet by mouth once daily. With food. - traZODone (DESYREL) 50 mg tablet Take 1-3 tablets by mouth daily at bedtime. 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] 04/28/2015 Sleep apnea [G47.30] 04/28/2015 Essential hypertension [I10] LULU on CPAP [G47.33] 07/11/2016 Perineal abscess [L02.215] 10/28/2016 Class 1 obesity due to excess calories with bod*12/27/2017 Persistent cough for 3 weeks or longer [R05.3] 12/27/2017 Screening for prostate cancer [Z12.5] 12/27/2017 Urinary frequency [R35.0] 12/27/2017 LULU (obstructive sleep apnea) [G47.33] 06/26/2018 Colon cancer screening [Z12.11] 01/08/2019 Dyslipidemia [E78.5] 04/08/2019 Internal hemorrhoids [K64.8] 04/08/2019 Former smoker [Z87.891] 09/24/2021 Family hx of colon cancer [Z80.0] 09/24/2021 Cognitive impairment, mild, so stated [G31.84] 07/27/2024 Chronic insomnia [F51.04] 07/27/2024 Benign prostatic hyperplasia with lower urinary*07/27/2024 Onychomycosis [B35.1] 07/27/2024 Chronic midline low back pain without sciatica *07/27/2024 Headache, worsening [R51.9] 07/27/2024 History of head injury [Z87.828] 07/27/2024 Proteinuria [R80.9] 07/27/2024 History of parotid gland excision [Z90.49] 07/27/2024 Mass of right side of neck [R22.1] 07/27/2024 Memory loss, short term [R41.3] 10/24/2024 Acute otitis media, right [H66.91] 10/24/2024 Hyperglycemia [R73.9] 10/24/2024 Vitamin D deficiency [E55.9] 10/24/2024 Vitamin B12 deficiency [E53.8] 10/24/2024 Pure hypercholesterolemia [E78.00] 10/24/2024 Situational stress [F43.9] 01/29/2025 Prescriptions ordered this encounter Disp Refills Start End BUPROPION HCL SR 100 MG TABLET,12 HR* 180 * 0 04/28/2025 Route: PO Sig: Take 1 tablet by mouth two times a day. Encounter Status:Closed by ERICKA BADILLO on 04/28/25 [facility] CNOVon 03-05-2025 CNOV Office Visit (UROLMD ) -- GRUPO JACKSON ([id number]) 1965 M Date Time Provider Department 03/05/25 9:15 AM ALEXY ENRIQUEZ [facility]ROSEBASTIAN During your visit today, we recorded the following information about you: Weight Height 97.1 kg 1.727 m Alexy Enriquez MD 03/05/2025 6:33 PM Signed [facility] UROLOGY ESTABLISHED PATIENT [facility]IN[facility]IENT INFO: Grupo Jackson AGE: [age] year old PCP: Nuno Lowe DO IMPRESSION/PLAN: 1. Benign prostatic hyperplasia with lower urinary tract symptoms, symptom details unspecified - ICD9: 600.01, ICD10: N40.1 (primary diagnosis) - Continue taking Flomax (tamsulosin) one tablet at bedtime; refill has been sent to [facility]. - Continue taking solifenacin one tablet each morning to help control urinary frequency; contact the office when you need a refill. 2. Erectile dysfunction, unspecified erectile dysfunction type - ICD9: 607.84, ICD10: N52.9 - Trial tadalafil (Cialis) 20 mg--take one tablet in the afternoon as needed for erectile function; prescription sent to [facility] (french cost ~$10-$15 per tablet). 3. Screening for genitourinary condition - ICD9: V81.6, ICD10: Z13.89 REASON FOR VISIT: Medication review and follow-up regarding BPH and ED HPI: Grupo Jackson returns for continuing evaluation and management. BPH: - Last visit was in August. - Currently taking Flomax at bedtime and solifenacin in the morning. - Experiences urinary frequency, especially after consuming coffee. - Can go up to 2 hours without urination if staying busy and limiting fluid intake. - Drinks Gatorade frequently. - Reports occasional dry mouth. ED: - Currently taking sildenafil 100 mg PRN, minimal benefit. - Reports difficulty with timing due to the short duration of action. - Experiences difficulty achieving climax. - Previously on finasteride, which caused decreased ejaculate volume. INTERNATIONAL PROSTATE SYMPTOM SCORE (I-PSS) 1)INCOMPLETE EMPTYING Over the past month, how often have you had a sensation of not emptying your bladder completely after you finished urinating? SCORE: 0- Not at all 2)FREQUENCY Over the past month, how often have you had to urinate again less than two hours after you finished urinating? SCORE: 3- About half the time 3)INTERMITTENCY Over the past month, how often have you found you stopped and started again several times when you urinated? SCORE: 1- Less than 1 time in 5 4)URGENCY Over the past month, how often have you found it difficult to postpone urination? SCORE: 1- Less than 1 time in 5 5)WEAK STREAM Over the past month, how often have you had a weak stream? SCORE: 0- Not at all 6)STRAINING Over the past month, how often have you had to push or strain to begin urination SCORE: 0- Not at all 7)NOCTURIA Over the past month, how many times did you most typically get up to urinate from the time you went to bed at night until the time you get up in the morning? SCORE:1 TOTAL I-PSS SCORE: 6 QUALITY OF LIFE DUE TO URINARY SYMPTOMS If you were to spend the rest of yur life with your urinary condition just the way it is now, how would you feel about that? 2- Mostly Satisfied UROLOGICAL DATA: Urinalysis: GLUCOSE UA (POCT) Negative 03/05/2025 BILIRUBIN UA (POCT) Negative 03/05/2025 KETONE UA (POCT) Negative 03/05/2025 SPECIFIC GRAVITY UA (POCT) 1.020 03/05/2025 HEMOGLOBIN/BLOOD UA (POCT) Negative 03/05/2025 PH UA (POCT) 7.5 03/05/2025 PROTEIN UA (POCT) Negative 03/05/2025 UROBILINOGEN UA (POCT) 1.0 03/05/2025 NITRITE UA (POCT) Negative 03/05/2025 LEUKOCYTES UA (POCT) Negative 03/05/2025 COLOR UA (POCT) Yellow 03/05/2025 CLARITY UA (POCT) Clear 03/05/2025 Post Void Residual, Ultrasound: 0 cc, empties well OTHER DATA: PSA Screening (ng/mL) Date Value 01/23/2025 1.33 10/17/2023 0.61 10/08/2022 1.49 04/17/2021 1.66 11/21/2020 1.33 04/03/2019 1.75 02/08/2018 0.97 No results found for: ISOPSA Creatinine Date Value Ref Range Status 10/17/2024 0.91 0.73 - 1.22 mg/dL Final 07/18/2024 0.88 0.73 - 1.22 mg/dL Final 10/17/2023 0.98 0.73 - 1.22 mg/dL Final 04/10/2023 0.95 0.73 - 1.22 mg/dL Final No results found for: TESTOST, TESTFREE PMHx/PSHx: see above, otherwise unchanged Rx: reviewed and unchanged ROS: see above, otherwise unchanged Labs: None Imaging: None MEDICATIONS: Current Outpatient Medications Medication Sig citalopram hydrobromide (CELEXA) 10 mg tablet Take 1 tablet PO daily in the evening x 2 weeks then increase to 2 tablets PO daily at bedtime solifenacin (VESICARE) 10 mg tablet Take 1 tablet by mouth once daily. lisinopril (ZESTRIL) 10 mg tablet Take 1 tablet by mouth once daily. simvastatin (ZOCOR) 20 mg tablet Take 1 tablet by mouth daily at bedtime. terbinafin (more content not included)... Normal [facility] UA DIP, URINE (POC)on 2024 BILIRUBIN UA (POCT) Negative Negative [facility] CLARITY UA (POCT) Clear [facility] COLOR UA (POCT) Yellow [facility] GLUCOSE UA (POCT) Negative Negative mg/dL [facility] Hemoglobin Ql (U) Negative Negative [facility] KETONE UA (POCT) Negative Negative mg/dL [facility] LEUKOCYTES UA (POCT) Negative Negative [facility] NITRITE UA (POCT) Negative Negative [facility] PH UA (POCT) 7.5 4.5 - 8.0 [facility] Protein Ql (U) Negative Negative mg/dL [facility] SPECIFIC GRAVITY UA (POCT) 1.02 1.005 - 1.030 [facility] UROBILINOGEN UA (POCT) 1 Natalia l E.U./dL [facility] Location:[facility], [address], [place], [address] [facility] POINT OF CARE [facility] CNOVon 01-28-2025 CNOV Office Visit (FAMPWS ) -- GRUPO JACKSON ([id number]) 1965 M Date Time Provider Department 01/28/25 3:00 PM NUNO LOWE FAMPWS During your visit today, we recorded the following information about you: Temperature Pulse Respiration Blood pressure 97.4 degrees 64/minute 16/minute 110/60 Weight 97.5 kg Nuno Lowe, 01/29/2025 10:19 PM Signed CC:Grupo Javier Jackson is a 59 year old male who presents to the office for follow up HPI: Seen last in office on 07/23/2024 as below Memory concerns, sometimes forgetfulness with acute memory changes. Sometimes not remembering short term. Father was diagnosed with dementia- symptoms in early 60s- worsened after anesthesia from prostate surgery. Sister also with dementia in her mid/late 60s. Has been getting some intermittent headaches, also a few episodes of dizziness, no head injuries. No obvious concussions in the past. Hx of parotid tumor, right side of face/jaw, hx of resection by ENT, feels like this may be growing again BPH, stable, taking flomax LULU, use of CPAP, feels like this helps with sleep. Does have some daytime fatigue HTN, using medications as prescribed. No CP or dyspnea or palpitations or syncope. + dizziness + Fatigue Hypothyroidism, taking synthroid as prescribed. Has some fatigue HPL, taking zocor as prescribed at 20 mg at bedtime, no SE with medication Alcohol use, admits that he drinks too much alcohol and drinks alcohol on a daily /nightly basis a few beers. He isn't currently willing to cut back or down on use. Left ear pressure and mild dizziness the last few days, no head injuries, no fevers or chills. No head injuries Currently Memory concerns, was further evaluated by Neurologist and doesn't feel that he has dementia. He also wants him to cut back on his alcohol intake Alcohol use, states that he is slowly cutting back on alcohol intake. Has had some stressors recently with his daughter Susanne and feels this is affecting his coping ability. No SI or HI. Has a lot of stress with work as well. Willing to start on medication to help him with managing his symptoms. Susanne and her daughter are now living with him and his and younger daughter. BPH, stable, taking flomax LULU, use of CPAP, feels like this helps with sleep. Does have some daytime fatigue HTN, using medications as prescribed. No CP or dyspnea or palpitations or syncope. + dizziness + Fatigue Diagnosed with overactive bladder and started on vesicare with benefit. Did have bladder testing and saw Urologist. PAST MEDICAL HISTORY Diagnosis Date Acquired hypothyroidism Acute diverticulitis 08/2022 BPH (benign prostatic hyperplasia) Essential hypertension Hyperlipidemia LULU on CPAP [facility] PAST SURGICAL HISTORY Procedure Laterality Date ANESTHESIA TOTAL HIP ARTHROPLASTY Left 05/04/2016 Dr. Manjeet Smith ANESTHESIA TOTAL HIP ARTHROPLASTY Right 05/31/2017 Dr. Manjeet Smith; dx: R hip avascular necrosis COLONOSCOPY Herman COLONOSCOPY 10/04/2021 benign hyperplastic polyps. repeat in 5 years based on family history of colon cancer LIGATE INTERNAL HEMORRHOIDS; SINGLE 2019, banding, internal hemorrhoids, Dr. Joaquin PAST SURGICAL HISTORY OF 2002 left thumb PAST SURGICAL HISTORY OF Right 08/08/2017 total parotidectomy; Dr. De Souza Current Outpatient Medications Medication Sig solifenacin (VESICARE) 10 mg tablet Take 1 tablet by mouth once daily. sildenafil (VIAGRA) 100 mg tablet Take 1 tablet by mouth as needed (30-60 minutes prior to sexual activity). lisinopril (ZESTRIL) 10 mg tablet Take 1 tablet by mouth once daily. simvastatin (ZOCOR) 20 mg tablet Take 1 tablet by mouth daily at bedtime. terbinafine HCl (LAMISIL) 250 mg tablet Take 1 tablet by mouth once daily. For toenails levothyroxine (SYNTHROID) 125 mcg tablet 2 tablets 2 days (Mon, Thurs) and 1 tablet 4 days a week. On an empty stomach. tamsulosin (FLOMAX) 0.4 mg Take 1 capsule by mouth once daily. For urination meloxicam (MOBIC) 15 mg tablet Take 1 tablet by mouth once daily. With food. traZODone (DESYREL) 50 mg tablet Take 1-3 tablets by mouth daily at bedtime. COMPOUNDED PRESCRIPTION Bipap pressure settings 17/ with FANDP nasal mask interface and heated humidity Dx: LULU on Bipap (Patient taking differently: Bipap pressure settings 17/ with FANDP nasal mask interface and heated humidity Dx: LULU on Bipap Not using daily) No current facility-administered medications for this visit. ALLERGIES No Known Allergies Social History Tobacco Use Smoking status: Every Day Current packs/day: 0.00 Average packs/day: 0.3 packs/day for 44.0 years (13.2 ttl pk-yrs) Types: Cigarettes Start date: 09/11/1979 Last attempt to quit: 2023 Years since quittin.3 Passive exposure: Never Smokeless tobacco: Never Vaping Use Vaping (more content not included)... Normal [facility] 25(OH)D3 [facility] 25-hydroxyvitamin D3 [Mass/Vol] 46.7 ng/mL Normal 31.0-80.0 [facility] Comment on above: Order Comment: Amrita gonzalez Type: BLOOD SPECIMENOrdering Facility: [facility] Address: [address] [place] [address] Result Comment: Clas sification of 25 [place] Vitamin D status: Deficiency/Insufficiency: < or = 30 ng/ml. Sufficiency/Optimal Levels: 31-80 ng/mL Toxicity: > 100 ng/mL. Test performed by chemiluminescent immunoassay. Performed By: #### 1 989-3 ####[facility] LAB[facility] [id number] [place] [address] [place] HbA1c (Bld)on 01-23-2025 Average glucose Estimated from glycated hemoglobin (Bld) [Mass/Vol] 100 mg/dL Normal [facility] Comment on above: Order Comment: Amrita gonzalez Type: BLOOD SPECIMEN [facility] Address: [address] [place] [address] Result Comment: eAG: (Estimated average glucose) is a calculated value from HgbA1c and is sales representative electric service of the average blood glucose level in the last 2-3 month period. Performed By: #### 5 8410-2 #### [facility] CLIA [id number] [address] [place] [address] [place] HbA1c (Bld) [Mass fraction] 5.1 % Normal 4.3-5.6 [facility] Comment on above: Order Comment: Amrita gonzalez Type: BLOOD SPECIMEN [facility] Address: [address] [place] [address] Result Comment: Amer [place] Diabetes Association guidelines indicate that patients with HgbA1c in the range 5.7-6.4% are at increased risk for development of diabetes, and intervention by lifestyle modification may be beneficial. HgbA1c greater or equal to 6.5% is considered diagnostic of diabetes. Performed By: #### 5 8410-2 #### [facility] CLIA [id number] [address] [place] [address] [place] Lipid 1996 panelon 5 Cholesterol [Mass/Vol] 216 mg/dL High <200 [facility] Comment on above: Order Comment: Amrita gonzalez Type: BLOOD SPECIMEN [facility] Address: [address] [place] [address] Result Comment: <200 mg/dL, Desirable 200-239 mg/dL, Borderline high >239 mg/dL, High Performed By: #### 5 8410-2 #### [facility] CLIA [id number] [address] [place] [address] [place] Cholesterol in HDL [Mass/Vol] 58 mg/dL Normal >39 [facility] Comment on above: Order Comment: Amrita gonzalez Type: BLOOD SPECIMEN [facility] Address: [address] [place] [address] Result Comment: 40-5 9 mg/dL, Acceptable >59 mg/dL, High: Negative risk factor for coronary heart disease <40 mg/dL, Low: Positive risk factor for coronary heart disease Performed By: #### 5 8410-2 #### [facility] CLIA [id number] [address] [place] [address] [place] Cholesterol in LDL [Mass/Vol] 126 mg/dL High <100 [facility] Comment on above: Order Comment: Speci men Type: BLOOD SPECIMEN [facility] Address: [address] [place] [address] Result Comment: <100 mg/dL, Optimal 100-129 mg/dL, Near optimal/above optimal 130-159 mg/dL, Borderline high 160-189 mg/dL, High >189 mg/dL, Very high Secondary prevention optimal LDL Cholesterol levels are recommended to be <70 mg/dL LDL cholesterol is calculated using the Liang-NIH equation. Performed By: #### 5 8410-2 #### [facility] CLIA [id number] [address] [place] [address] [place] Cholesterol in LDL/Cholesterol in HDL [Mass ratio] 2.17 {ratio} Normal <2.54 [facility] Comment on above: Order Comment: Speci men Type: BLOOD SPECIMEN [facility] Address: [address] [place] [address] Result Comment: Evangelina leong: 1. National Cholesterol Education Program ATP III Guideline At-A-Glance Quick Desk Reference: National Heart, Lung, and Blood [place]. National Institutes of Health. 2001: NIH Publication No. 01-3305. 2. An International Atherosclerosis Society position paper: global recommendations for the management of dyslipidemia: executive summary, Atherosclerosis. 2014: 232(2):410-413. Performed By: #### 5 8410-2 #### [facility] CLIA [id number] [address] [place] [address] [place] Cholesterol in VLDL [Mass/Vol] 32 mg/dL High <30 [facility] Comment on above: Order Comment: Speci men Type: BLOOD SPECIMEN [facility] Address: [address] [place] [address] Performed By: #### 5 8410-2 #### [facility] CLIA [id number] [address] [place] [address] [place] Cholesterol non HDL [Mass/Vol] 158 mg/dL High <130 [facility] Comment on above: Order Comment: Speci men Type: BLOOD SPECIMEN [facility] Address: [address] [place] [address] Result Comment: <130 mg/dL, Optimal 130-159 mg/dL, Near optimal/above optimal 160-189 mg/dL, Borderline high 190-219 mg/dL, High >219 mg/dL, Very high Secondary prevention optimal non HDL Cholesterol levels are recommended to be <100 mg/dL Performed By: #### 5 8410-2 #### [facility] CLIA [id number] [address] [place] [address] [place] Cholesterol.total/Chol esterol in HDL [Mass ratio] 3.72 {ratio} Normal <5.10 [facility] Comment on above: Order Comment: Speci men Type: BLOOD SPECIMEN [facility] Address: [address] [place] [address] Performed By: #### 5 8410-2 #### [facility] CLIA [id number] [address] [place] [address] [place] FASTING TIME 12 hrs Normal [facility] Comment on above: Order Comment: Speci men Type: BLOOD SPECIMEN [facility] Address: [address] [place] [address] Performed By: #### 5 8410-2 #### [facility] CLIA [id number] [address] [place] [address] [place] Triglyceride [Mass/Vol] 185 mg/dL High <150 [facility] Comment on above: Order Comment: Speci men Type: BLOOD SPECIMEN [facility] Address: [address] [place], [place] [id number] Result Comment: <150 mg/dL, Normal 150-199 mg/dL, Borderline high 200-499 mg/dL, High >499 mg/dL, Very high Performed By: #### 5 8410-2 #### [facility] CLIA [id number] [address] [place] [address] [place] PSA/PROSTATE SPECIFIC ANTIGE N SCREENINGon 01-23-2025 Prostate specific Ag [Mass/Vol] 1.33 ng/mL Normal <2.60 [facility] Comment on above: Order Comment: Speci men Type: BLOOD SPECIMEN [facility] Address: [address] [place] [address] Result Comment: Tota l PSA test methodology used is the Electrochemiluminescence Immunoassay by Terrance Captora. Total PSA values by differing methodologies cannot be interchanged. Performed By: #### 5 8410-2 #### [facility] IA [id number] [address] [place] [address] [place] T4 Free SerPl-mCncon 025 Free T4 [Mass/Vol] 2.1 ng/dL High 0.9-1.7 [facility] Comment on above: Order Comment: Speci men Type: BLOOD SPECIMEN [facility] Address: [address] [place] [address] Performed By: #### 5 8410-2 #### [facility] IA [id number] [address] [place] [address] [place] TSH SerPl-aCncon 01-23-2025 TSH Qn 0.814 m[IU]/L Normal 0.270-4.200 [facility] Comment on above: Order Comment: Speci men Type: BLOOD SPECIMEN [facility] Address: [address] [place] [address] Performed By: #### 5 8410-2 #### [facility] IA [id number] [address] [place] [address] [place] Vit B12 SerPl-mCncon 025 Cobalamin (Vitamin B12) [Mass/Vol] 646 pg/mL Normal 232-1245 [facility] Comment on above: Order Comment: Speci men Type: BLOOD SPECIMEN [facility] Address: [address] [place] [address] Performed By: #### 5 8410-2 #### [facility] CLIA [id number] [address] [place] [address] [id number] [address] [place] [facility] CNOVon 10-23-2024 CNOV Office Visit (FAMPWS ) -- GRUPO JACKSON ([id number]) 1965 M Date Time Provider Department 10/23/24 3:00 PM [facility] your visit today, we recorded the following information about you: Pulse Respiration Blood pressure Weight 60/minute 16/minute 122/72 98.9 kg Nuno Lowe, 10/23/2024 3:27 PM Signed Klarissa technique on right ear Eustachian tube to help it drain. Nuno Lowe DO 10/24/2024 9:58 AM Signed CC: Grupo Javier Jackson is a 58 year old male who presents to the office for follow up HPI: Seen in the office last in Jul 2024 as below Memory concerns, sometimes forgetfulness with acute memory changes. Sometimes not remembering short term. Father was diagnosed with dementia- symptoms in early 60s- worsened after anesthesia from prostate surgery. Sister also with dementia in her mid/late 60s. Has been getting some intermittent headaches, also a few episodes of dizziness, no head injuries. No obvious concussions in the past. Hx of parotid tumor, right side of face/jaw, hx of resection by ENT, feels like this may be growing again BPH, stable, taking flomax LULU, use of CPAP, feels like this helps with sleep. Does have some daytime fatigue HTN, using medications as prescribed. No CP or dyspnea or palpitations or syncope. + dizziness + Fatigue Hypothyroidism, taking synthroid as prescribed. Has some fatigue HPL, taking zocor as prescribed at 20 mg at bedtime, no SE with medication Alcohol use, admits that he drinks too much alcohol and drinks alcohol on a daily /nightly basis a few beers. He isn't currently willing to cut back or down on use. Left ear pressure and mild dizziness the last few days, no head injuries, no fevers or chills. No head injuries Currently Right ear pressure, fullness feeling, present the last few weeks, did have URI. No fevers or chills or drainage from ears that he is aware of. Alcohol use. Has cut back to 1-2 tall boy beers 2-3 days a week. He isn't willing to quit yet. Feels better about the amount he is drinking Cognitive decline/memory loss- saw Neurologist for evaluation- feels that he liekly has normal aging related memory decline- not dementia at this time. Recommended that he cut back on alcohol use Urologist appt recently for BPH symptoms and urinary symptoms. Taking mediation as prescribed Some fatigue HTN, well controlled Hypothyroidism, taking synthroid PAST MEDICAL HISTORY Diagnosis Date Acquired hypothyroidism Acute diverticulitis 08/2022 BPH (benign prostatic hyperplasia) Essential hypertension Hyperlipidemia LULU on CPAP [facility] PAST SURGICAL HISTORY Procedure Laterality Date ANESTHESIA TOTAL HIP ARTHROPLASTY Left 05/04/2016 Dr. Manjeet Smith ANESTHESIA TOTAL HIP ARTHROPLASTY Right 05/31/2017 Dr. Manjeet Smith; dx: R hip avascular necrosis COLONOSCOPY Herman COLONOSCOPY 10/04/2021 benign hyperplastic polyps. repeat in 5 years based on family history of colon cancer LIGATE INTERNAL HEMORRHOIDS; SINGLE 2019, banding, internal hemorrhoids, Dr. Joaquin PAST SURGICAL HISTORY OF 2002 left thumb PAST SURGICAL HISTORY OF Right 08/08/2017 total parotidectomy; Dr. De Souza Current Outpatient Medications Medication Sig amoxicillin-clavulanate potassium (AUGMENTIN) 875-125 mg per tablet Take 1 tablet by mouth two times a day for 10 days. sildenafil (VIAGRA) 100 mg tablet Take 1 tablet by mouth as needed (30-60 minutes prior to sexual activity). lisinopril (ZESTRIL) 10 mg tablet Take 1 tablet by mouth once daily. simvastatin (ZOCOR) 20 mg tablet Take 1 tablet by mouth daily at bedtime. terbinafine HCl (LAMISIL) 250 mg tablet Take 1 tablet by mouth once daily. For toenails levothyroxine (SYNTHROID) 125 mcg tablet 2 tablets 2 days (Mon, Thurs) and 1 tablet 4 days a week. On an empty stomach. tamsulosin (FLOMAX) 0.4 mg Take 1 capsule by mouth once daily. For urination meloxicam (MOBIC) 15 mg tablet Take 1 tablet by mouth once daily. With food. traZODone (DESYREL) 50 mg tablet Take 1-3 tablets by mouth daily at bedtime. solifenacin (VESICARE) 10 mg tablet Take 1 tablet by mouth once daily. COMPOUNDED PRESCRIPTION Bipap pressure settings 17/ with FANDP nasal mask interface and heated humidity Dx: LULU on Bipap (Patient taking differently: Bipap pressure settings 17/ with FANDP nasal mask interface and heated humidity Dx: LULU on Bipap Not using daily) No current facility-administered medications for this visit. ALLERGIES No Known Allergies Social History Tobacco Use Smoking status: Every Day Current packs/day: 0.00 Average packs/day: 0.3 packs/day for 44.0 years (13.2 ttl pk-yrs) Types: Cigarettes Start date: 09/11/1979 Last attempt to quit: 2023 Years since quittin.1 Passive exposure: Never Smokeless tobacco: Never Vaping Use Vaping sta (more content not included)... Normal [facility] CBC W Auto Differential pane l (Bld)on 10-17-2024 Basophils (Bld) [#/Vol] 0.05 10*3/uL Normal <0.11 [facility] Comment on above: Order Comment: Speci men Type: BLOOD SPECIMEN [facility] Address: [address] [place] [address] Performed By: #### 5 8410-2 #### [facility] CLIA [id number] [address] [place], [place] [address] [address] [place] Basophils/100 WBC (Bld) 0.5 % Normal [facility] Comment on above: Order Comment: Speci men Type: BLOOD SPECIMEN [facility] Address: [address] [place] [address] Performed By: #### 5 8410-2 #### [facility] CLIA [id number] [address] [place] [address] [place] Differential cell count method Nom (Bld) Auto Normal [facility] Comment on above: Order Comment: Speci men Type: BLOOD SPECIMEN [facility] Address: [address] [place] [address] Performed By: #### 5 8410-2 #### [facility] CLIA [id number] [address] [place] [address] [place] Eosinophils (Bld) [#/Vol] 0.13 10*3/uL Normal <0.46 [facility] Comment on above: Order Comment: Speci men Type: BLOOD SPECIMEN [facility] Address: [address] [place] [address] Performed By: #### 5 8410-2 #### [facility] CLIA [id number] [address] [place] [address] [place] Eosinophils/100 WBC (Bld) 1.4 % Normal [facility] Comment on above: Order Comment: Speci men Type: BLOOD SPECIMEN [facility] Address: [address] [place] [address] Performed By: #### 5 8410-2 #### [facility] CLIA [id number] [address] [place] [address] [place] Erythrocyte distribution width (RBC) [Ratio] 11.8 % Normal 11.5-15.0 [facility] Comment on above: Order Comment: Speci men Type: BLOOD SPECIMEN [facility] Address: [address] [place] [address] Performed By: #### 5 8410-2 #### [facility] CLIA [id number] [address] [place] [address] [place] Hematocrit (Bld) [Volume fraction] 45.4 % Normal 39.0-51.0 [facility] Comment on above: Order Comment: Speci men Type: BLOOD SPECIMEN [facility] Address: [address] [place] [address] Performed By: #### 5 8410-2 #### [facility] CLIA [id number] [address] [place] [address] [place] Hemoglobin (Bld) [Mass/Vol] 15.2 g/dL Normal 13.0-17.0 [facility] Comment on above: Order Comment: Speci men Type: BLOOD SPECIMEN [facility] Address: [address] [place] [address] Performed By: #### 5 8410-2 #### [facility] CLIA [id number] [address] [place] [address] [place] Immature granulocytes (Bld) [#/Vol] 0.04 10*3/uL Normal <0.10 [facility] Comment on above: Order Comment: Speci men Type: BLOOD SPECIMEN [facility] Address: [address] [place] [address] Performed By: #### 5 8410-2 #### [facility] CLIA [id number] [address] [place] [address] [place] Immature granulocytes/100 WBC (Bld) 0.4 % Normal [facility] Comment on above: Order Comment: Speci men Type: BLOOD SPECIMEN [facility] Address: [address] [place] [address] Performed By: #### 5 8410-2 #### [facility] CLIA [id number] [address] [place] [address] [place] Lymphocytes (Bld) [#/Vol] 2.27 10*3/uL Normal 1.00-4.00 [facility] Comment on above: Order Comment: Speci men Type: BLOOD SPECIMEN [facility] Address: [address] [place] [address] Performed By: #### 5 8410-2 #### [facility] CLIA [id number] [address] [place] [address] [place] Lymphocytes/100 WBC (Bld) 24.5 % Normal [facility] Comment on above: Order Comment: Speci men Type: BLOOD SPECIMEN [facility] Address: [address] [place] [address] Performed By: #### 5 8410-2 #### [facility] CLIA [id number] [address] [place] [address] [place] MCH (RBC) [Entitic mass] 31.7 pg Normal 26.0-34.0 [facility] Comment on above: Order Comment: Speci men Type: BLOOD SPECIMEN [facility] Address: [address] [place] [address] Performed By: #### 5 8410-2 #### [facility] CLIA [id number] [address] [place] [address] [place] MCHC (RBC) [Mass/Vol] 33.5 g/dL Normal 30.5-36.0 [facility] Comment on above: Order Comment: Speci men Type: BLOOD SPECIMEN [facility] Address: [address] [place] [address] Performed By: #### 5 8410-2 #### [facility] CLIA [id number] [address] [place] [address] [place] MCV (RBC) [Entitic vol] 94.8 fL Normal 80.0-100.0 [facility] Comment on above: Order Comment: Speci men Type: BLOOD SPECIMEN [facility] Address: [address] [place] [address] Performed By: #### 5 8410-2 #### [facility] CLIA [id number] [address] [place] [address] [place] Monocytes (Bld) [#/Vol] 1.02 10*3/uL High <0.87 [facility] Comment on above: Order Comment: Speci men Type: BLOOD SPECIMEN [facility] Address: [address] [place] [address] Performed By: #### 5 8410-2 #### [facility] CLIA [id number] [address] [place] [address] [place] Monocytes/100 WBC (Bld) 11.0 % Normal [facility] Comment on above: Order Comment: Speci men Type: BLOOD SPECIMEN [facility] Address: [address] [place] [address] Performed By: #### 5 8410-2 #### [facility] CLIA [id number] [address] [place] [address] [place] Neutrophils (Bld) [#/Vol] 5.77 10*3/uL Normal 1.45-7.50 [facility] Comment on above: Order Comment: Speci men Type: BLOOD SPECIMEN [facility] Address: [address] [place] [address] Performed By: #### 5 8410-2 #### [facility] CLIA [id number] [address] [place] [address] [place] Neutrophils/100 WBC (Bld) 62.2 % Normal [facility] Comment on above: Order Comment: Speci men Type: BLOOD SPECIMEN [facility] Address: [address] [place] [address] Performed By: #### 5 8410-2 #### [facility] CLIA [id number] [address] [place] [address] [place] Nucleated RBC (Bld) [#/Vol] 10*3/uL Normal <0.01 [facility] Comment on above: Order Comment: Speci men Type: BLOOD SPECIMEN [facility] Address: [address] [place] [address] Performed By: #### 5 8410-2 #### [facility] CLIA [id number] [address] [place] [address] [place] Nucleated RBC/100 WBC (Bld) [Ratio] 0.0 /100 WBC Normal [facility] Comment on above: Order Comment: Speci men Type: BLOOD SPECIMEN [facility] Address: [address] [place] [address] Performed By: #### 5 8410-2 #### [facility] CLIA [id number] [address] [place] [address] [place] Platelet mean volume (Bld) [Entitic vol] 8.8 fL Low 9.0-12.7 [facility] Comment on above: Order Comment: Speci men Type: BLOOD SPECIMEN [facility] Address: [address] [place] [address] Performed By: #### 5 8410-2 #### [facility] CLIA [id number] [address] [place] [address] [place] Platelets (Bld) [#/Vol] 287 10*3/uL Normal 150-400 [facility] Comment on above: Order Comment: Speci men Type: BLOOD SPECIMEN [facility] Address: [address] [place] [address] Performed By: #### 5 8410-2 #### [facility] CLIA [id number] [address] [place] [address] [place] RBC (Bld) [#/Vol] 4.79 10*6/uL Normal 4.20-6.00 [facility] Comment on above: Order Comment: Speci men Type: BLOOD SPECIMEN [facility] Address: [address] [place] [address] Performed By: #### 5 8410-2 #### [facility] CLIA [id number] [address] [place] [address] [place] WBC (Bld) [#/Vol] 9.28 10*3/uL Normal 3.70-11.00 [facility] Comment on above: Order Comment: Speci men Type: BLOOD SPECIMEN [facility] Address: [address] [place] [address] Performed By: #### 5 8410-2 #### [facility] CLIA [id number] [address] [place] [address] [place] Comprehensive metabolic 2000 panelon 10-17-2024 Albumin [Mass/Vol] 4.5 g/dL Normal 3.9-4.9 [facility] Comment on above: Order Comment: Speci men Type: BLOOD SPECIMENOrdering Facility: [facility] Address: [address] [place] [address] Performed By: #### 2 4323-8, 2131-9, 4-7, 3016-3 ####[facility] [id number] [place] [address] [place] ALP [Catalytic activity/Vol] 77 U/L Normal 38-113 [facility] Comment on above: Order Comment: Speci men Type: BLOOD SPECIMENOrdering Facility: [facility] Address: [address] [place] [address] Performed By: #### 2 4323-8, 2131-9, 3023-7, 6-3 ####[facility] [id number] [place] [address] [place] ALT [Catalytic activity/Vol] 32 U/L Normal 10-54 [facility] Comment on above: Order Comment: Speci men Type: BLOOD SPECIMENOrdering Facility: [facility] Address: [address] [place] [address] Performed By: #### 2 4323-8, 2-9, 4-7, 3016-3 ####[facility] [id number] [place] [id number] [place] Anion gap [Moles/Vol] 12 mmol/L Normal 8-15 [facility] Comment on above: Order Comment: Speci men Type: BLOOD SPECIMENOrdering Facility: [facility] Address: [address] [place] [address] Performed By: #### 2 4323-8, 2-9, 3024-7, 3016-3 ####[facility] [id number] [place] [address] [place] AST [Catalytic activity/Vol] 22 U/L Normal 14-40 [facility] Comment on above: Order Comment: Speci men Type: BLOOD SPECIMENOrdering Facility: [facility] Address: [address] [place] [address] Performed By: #### 2 4323-8, 2-9, 4-7, 3016-3 ####[facility] [id number] [place] [address] [place] Bilirubin [Mass/Vol] 0.3 mg/dL Normal 0.2-1.3 [facility] Comment on above: Order Comment: Speci men Type: BLOOD SPECIMENOrdering Facility: [facility] Address: [address] [place] [address] Performed By: #### 2 4323-8, 2131-9, 3024-7, 3016-3 ####[facility] [id number] [place] [address] [place] Calcium [Mass/Vol] 9.9 mg/dL Normal 8.5-10.2 [facility] Comment on above: Order Comment: Speci men Type: BLOOD SPECIMENOrdering Facility: [facility] Address: [address] [place] [address] Performed By: #### 2 4323-8, 2-9, 3024-7, 3016-3 ####[facility] [id number] [place] [id number] [place] Chloride [Moles/Vol] 102 mmol/L Normal 98-107 [facility] Comment on above: Order Comment: Speci men Type: BLOOD SPECIMENOrdering Facility: [facility] Address: [address] [place] [address] Performed By: #### 2 4323-8, 2132-9, 3024-7, 3016-3 ####[facility] [id number] [place] [address] [place] CO2 [Moles/Vol] 26 mmol/L Normal 22-30 [facility] Comment on above: Order Comment: Speci men Type: BLOOD SPECIMENOrdering Facility: [facility] Address: [address] [place] [address] Performed By: #### 2 4323-8, 2132-9, 3024-7, 3016-3 ####[facility] [id number] [place] [address] [place] Creatinine [Mass/Vol] 0.91 mg/dL Normal 0.73-1.22 [facility] Comment on above: Order Comment: Speci men Type: BLOOD SPECIMENOrdering Facility: [facility] Address: [address] [place] [address] Performed By: #### 2 4323-8, 2132-9, 3024-7, 3016-3 ####[facility] [id number] [place] [address] [place] Creatinine and Glomerular filtration rate.predicted panel (S/P/Bld) 97 mL/min/1.73m??? Normal >=60 [facility] Comment on above: Order Comment: Speci men Type: BLOOD SPECIMENOrdering Facility: [facility] Address: [address] [place] [address] Result Comment: Kianna mated Glomerular Filtration Rate (eGFR) is calculated using the 2020 CKD-EPI creatinine equation. This equation utilizes serum creatinine, sex, and age as parameters. The creatinine assay has traceable calibration to isotope dilution-mass spectrometry. Refer to KDIGO guidelines for clinical interpretation. In patients with unstable renal function, e.g. those with acute kidney injury, the eGFR may not accurately reflect actual GFR. Performed By: #### 2 4323-8, 9, 3023-7, 6-3 ####[facility] LABCLIA [id number] [facility] [address] [address] [place] Glucose [Mass/Vol] 90 mg/dL Normal 74-99 [facility] Comment on above: Order Comment: Amrita gonzalez Type: BLOOD SPECIMENOrdering Facility: [facility] Address: [address] [place] [address] Result Comment: The [place] Diabetes Association (ADA) provides guidance for cutoff values for fasting glucose and random glucose. The ADA defines fasting as no caloric intake for at least 8 hours. Fasting plasma glucose results between 100 to 125 mg/dL indicate increased risk for diabetes (prediabetes). Fasting plasma glucose results greater than or equal to 126 mg/dL meet the criteria for diagnosis of diabetes. In the absence of unequivocal hyperglycemia, results should be confirmed by repeat testing. In a patient with classic symptoms of hyperglycemia or hyperglycemic crisis, random plasma glucose results greater than or equal to 200 mg/dL meet the criteria for diagnosis of diabetes. Reference: Standards of Medical Care in Diabetes 2016, [place] Diabetes Association. Diabetes Care. 2016.39(Suppl 1). Performed By: #### 2 4323-8, 9, 3023-7, 6-3 ####[facility] LABCLIA [id number] [facility] [address] [address] [place] Potassium [Moles/Vol] 4.2 mmol/L Normal 3.7-5.1 [facility] Comment on above: Order Comment: Amrita gonzalez Type: BLOOD SPECIMENOrdering Facility: [facility] Address: [address] [place] [address] Performed By: #### 2 4323-8, 9, 3023-7, 6-3 ####[facility] LABCLIA [id number] [address] [address] [place] Protein [Mass/Vol] 7.3 g/dL Normal 6.3-8.0 [facility] Comment on above: Order Comment: Speci men Type: BLOOD SPECIMENOrdering Facility: [facility] Address: [address] [place], [place] [address] Performed By: #### 2 4323-8, 2131-9, 3023-7, 6-3 ####[facility] LABCLIA [id number] [place] [id number] [place] Sodium [Moles/Vol] 140 mmol/L Normal 136-144 [facility] Comment on above: Order Comment: Speci men Type: BLOOD SPECIMENOrdering Facility: [facility] Address: [address] [place] [address] Performed By: #### 2 4323-8, 9, 3023-7, 6-3 ####[facility] LABCLIA [id number] [place] [id number] [place] Urea nitrogen [Mass/Vol] 18 mg/dL Normal 9-24 [facility] Comment on above: Order Comment: Speci men Type: BLOOD SPECIMENOrdering Facility: [facility] Address: [address] [place], [place] [address] Performed By: #### 2 4323-8, 2131-9, 3023-7, 6-3 ####[facility] LABCLIA [id number] [place] [id number] [place] T4 Free SerPl-mCncon 025 Free T4 [Mass/Vol] 1.8 ng/dL High 0.9-1.7 [facility] Comment on above: Order Comment: Speci men Type: BLOOD SPECIMENOrdering Facility: [facility] Address: [address] [place] [address] Performed By: #### 2 4323-8, 2131-9, 3023-7, 6-3 ####[facility] LABCLIA [id number] [place] [address] [place] TSH SerPl-aCncon 10-17-2024 TSH Qn 1.680 m[IU]/L Normal 0.270-4.200 [facility] Comment on above: Order Comment: Speci men Type: BLOOD SPECIMENOrdering Facility: [facility] Address: [address] [place] [address] Performed By: #### 2 4323-8, 2132-9, 3024-7, 3016-3 ####[facility] LABIA [id number] [place] [address] [facility] [place] Vit B12 SerPl-mCncon 025 Cobalamin (Vitamin B12) [Mass/Vol] 498 pg/mL Normal 232-1245 [facility] Comment on above: Order Comment: Speci men Type: BLOOD SPECIMENOrdering Facility: [facility] Address: [address] [place] [address] Performed By: #### 2 4323-8, 2132-9, 3024-7, 3016-3 ####[facility] LABIA [id number] [address] [place] CNPGloria 10-14-2024 [facility] GRUPO JACKSON ([id number]) 1965 M Date Time Provider Department 10/14/24 [facility] During your visit today, we recorded the following information about you: Tamiko Stone RN 10/15/2024 4:59 PM Signed See [employer] message from 10/14/24. Thank you. Marissa Montoya APRN.SEMICONDUCTOR MANUFACTURING TECHNICIAN 10/17/2024 8:10 AM Signed This was address in [facility]. Thank you, Marissa Montoya APRN.SEMICONDUCTOR MANUFACTURING TECHNICIAN Allergies As of Date: 10/14/2024 (No Known Allergies) Date Reviewed: 09/27/2024 Reviewed by: Monique Laureano MA - Fully Assessed Reason for Visit: Orders [681] Prescriptions as of 10/17/2024 - sildenafil (VIAGRA) 100 mg tablet Take 1 tablet by mouth as needed (30-60 minutes prior to sexual activity). - lisinopril (ZESTRIL) 10 mg tablet Take 1 tablet by mouth once daily. - simvastatin (ZOCOR) 20 mg tablet Take 1 tablet by mouth daily at bedtime. - terbinafine HCl (LAMISIL) 250 mg tablet Take 1 tablet by mouth once daily. For toenails - levothyroxine (SYNTHROID) 125 mcg tablet 2 tablets 2 days (Mon, Thurs) and 1 tablet 4 days a week. On an empty stomach. - tamsulosin (FLOMAX) 0.4 mg Take 1 capsule by mouth once daily. For urination - meloxicam (MOBIC) 15 mg tablet Take 1 tablet by mouth once daily. With food. - traZODone (DESYREL) 50 mg tablet Take 1-3 tablets by mouth daily at bedtime. - solifenacin (VESICARE) 10 mg tablet Take 1 tablet by mouth once daily. 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] 04/28/2015 Sleep apnea [G47.30] 04/28/2015 Essential hypertension [I10] LULU on CPAP [G47.33] 07/11/2016 Perineal abscess [L02.215] 10/28/2016 Class 1 obesity due to excess calories with bod*12/27/2017 Persistent cough for 3 weeks or longer [R05.3] 12/27/2017 Screening for prostate cancer [Z12.5] 12/27/2017 Urinary frequency [R35.0] 12/27/2017 LULU (obstructive sleep apnea) [G47.33] 06/26/2018 Colon cancer screening [Z12.11] 01/08/2019 Dyslipidemia [E78.5] 04/08/2019 Internal hemorrhoids [K64.8] 04/08/2019 Former smoker [Z87.891] 09/24/2021 Family hx of colon cancer [Z80.0] 09/24/2021 Cognitive impairment, mild, so stated [G31.84] 07/27/2024 Chronic insomnia [F51.04] 07/27/2024 Benign prostatic hyperplasia with lower urinary*07/27/2024 Onychomycosis [B35.1] 07/27/2024 Chronic midline low back pain without sciatica *07/27/2024 Headache, worsening [R51.9] 07/27/2024 History of head injury [Z87.828] 07/27/2024 Proteinuria [R80.9] 07/27/2024 History of parotid gland excision [Z90.49] 07/27/2024 Mass of right side of neck [R22.1] 07/27/2024 Encounter Status:Closed by MARISSA MONTOYA on 10/17/24 [facility] CNOVon 09-27-2024 CNOV Office Visit (NEURST ) -- GRUPO JACKSON ([id number]) 1965 M Date Time Provider Department 09/27/24 8:30 AM FLORI MARTIN During your visit today, we recorded the following information about you: Pulse Blood pressure Weight Height 64/minute 128/70 95 kg 1.727 m Monique Laureano MA 09/27/2024 9:31 AM Signed Flori Martin MD 09/27/2024 9:31 AM Signed 08:39 - 09:28 Chart Review Parenthetic [comments] and tinted emphasis mine. Consultation is requested for an opinion regarding the evaluation and treatment of Grupo Jackson. My final impression and recommendations will be communicated back to the referring physician by way of the shared medical record or letter via [place] mail. Grupo Jackson is referred by Dr. Nuno Lowe, 08/07/24, for short term memory loss and abnormal CT brain. Since then, MRI brain wwo has shown: No acute findings. No acute infarction, intracranial hemorrhage, intracranial mass lesion or abnormal intracranial enhancement...minimal chronic microvascular ischemia...mild generalized parenchymal volume loss.... ====== Problem List includes HTN, HLD, LULU (uses BiPAP - he has been doing better using it, per Ms. Jackson), and hypothyroidism (07/18/24 T4 mildly elevated at 2.0; T3 and TSH normal). Medication List includes trazodone (he takes this about half the time; he does not wake hung over from it; he did when he was using melatonin). and solifenacin (he did not note any change with its shinto a year ago). ====== He has not [facility] ====== With that preamble, Chief Complaint: Grupo Jackson is a 58 year old right handed male who presents with memory difficulty. History of Present Illness The patient's father began to develop dementia around age 60. The patient's sister has begun to develop memory problems at about age 70. Mrs. Jackson accompanies the patient, and thinks that it has been a problem the past 5 years. He won't remember things that his has told him - sometimes. He hasn't missed any scheduled things and consults his calendar. 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 He has no trouble with computers; he works crossword puzzles on his phone. He has always been quick with doing math with his head. PAST MEDICAL HISTORY Diagnosis Date Acquired hypothyroidism Acute diverticulitis 08/2022 BPH (benign prostatic hyperplasia) Essential hypertension Hyperlipidemia LULU on CPAP [facility] Current Outpatient Medications Medication Sig sildenafil (VIAGRA) 100 mg tablet Take 1 tablet by mouth as needed (30-60 minutes prior to sexual activity). lisinopril (ZESTRIL) 10 mg tablet Take 1 tablet by mouth once daily. simvastatin (ZOCOR) 20 mg tablet Take 1 tablet by mouth daily at bedtime. terbinafine HCl (LAMISIL) 250 mg tablet Take 1 tablet by mouth once daily. For toenails levothyroxine (SYNTHROID) 125 mcg tablet 2 tablets 2 days (Mon, Thurs) and 1 tablet 4 days a week. On an empty stomach. tamsulosin (FLOMAX) 0.4 mg Take 1 capsule by mouth once daily. For urination meloxicam (MOBIC) 15 mg tablet Take 1 tablet by mouth once daily. With food. traZODone (DESYREL) 50 mg tablet Take 1-3 tablets by mouth daily at bedtime. solifenacin (VESICARE) 10 mg tablet Take 1 tablet by mouth once daily. COMPOUNDED PRESCRIPTION Bipap pressure settings 17/11 with FANDP nasal mask interface and heated humidity Dx: LULU on Bipap (Patient taking differently: Bipap pressure settings 17/11 with FANDP nasal mask interface and heated humidity Dx: LULU on Bipap Not using daily) No current facility-administered medications for this visit. ALLERGIES No Known Allergies Social History Tobacco Use Smoking status: Every Day Current packs/day: 0.00 Average packs/day: 0.3 packs/day for 44.0 years (13.2 ttl pk-yrs) Types: Cigarettes Start date: 09/11/1979 Last attempt to quit: 2023 Years since quittin.0 Passive exposure: Never Smokeless tobacco: Never Vaping Use Vaping status: Never Used Substance Use Topics Alcohol use: Yes Comment: Occasional Drug use: No FAMILY HISTORY Problem Relation Age of Onset Cancer Mother Lung Diabetes Father Heart disease Father Valvular other (Other) Father 70 Dementia Alzheimer's Disease Sister 70 dementia Review of Systems: As above. PHYSICAL EXAM General: Alert, conversant, appropriate, middle aged, MALE, in no apparent distress. Vital Signs: BP 128/70 Pulse 64 Ht 172.7 cm (5' 8) Wt 95 kg (209 lb 7 oz) BMI 31.84 kg/m? - reviewed. Cardiovascular: Carotids 2 and symmetric without bruits. Neurologic: Cranial Nerves: Olfaction normal to orange extract. Monocular visual moore intact to finger counting. Funduscopic reveals flat disc (more content not included)... Normal [facility] HISTORY PHYSICALon HISTORY PHYSICAL HNO ID: [id number] Author: FLORI MARTIN MD Service: ? Author Type: Physician Type: H&P Filed: 09/27/2024 09:31 Note Text: 08:39 - 09:28 Chart Review Parenthetic [comments] and tinted emphasis mine. Consultation is requested for an opinion regarding the evaluation and treatment of Grupo Jackson. My final impression and recommendations will be communicated back to the referring physician by way of the shared medical record or letter via [place] mail. Grupo Jackson is referred by Dr. Nuno Lowe, 08/07/24, for short term memory loss and abnormal CT brain. Since then, MRI brain wwo has shown: No acute findings. No acute infarction, intracranial hemorrhage, intracranial mass lesion or abnormal intracranial enhancement...minimal chronic microvascular ischemia...mild generalized parenchymal volume loss.... ====== Problem List includes HTN, HLD, LULU (uses BiPAP - he has been doing better using it, per Ms. Jackson), and hypothyroidism (07/18/24 T4 mildly elevated at 2.0; T3 and TSH normal). Medication List includes trazodone (he takes this about half the time; he does not wake hung over from it; he did when he was using melatonin). and solifenacin (he did not note any change with its shinto a year ago). ====== He has not had a B12 level in [facility]. ====== With that preamble, Chief Complaint: Grupo Jackson is a 58 year old right handed male who presents with memory difficulty. History of Present Illness The patient's father began to develop dementia around age 60. The patient's sister has begun to develop memory problems at about age 70. Mrs. Jackson accompanies the patient, and thinks that it has been a problem the past 5 years. He won't remember things that his has told him - sometimes. He hasn't missed any scheduled things and consults his calendar. 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 He has no trouble with computers; he works crossword puzzles on his phone. He has always been quick with doing math with his head. PAST MEDICAL HISTORY Diagnosis Date Acquired hypothyroidism Acute diverticulitis 08/2022 BPH (benign prostatic hyperplasia) Essential hypertension Hyperlipidemia LULU on CPAP [facility] Current Outpatient Medications Medication Sig sildenafil (VIAGRA) 100 mg tablet Take 1 tablet by mouth as needed (30-60 minutes prior to sexual activity). lisinopril (ZESTRIL) 10 mg tablet Take 1 tablet by mouth once daily. simvastatin (ZOCOR) 20 mg tablet Take 1 tablet by mouth daily at bedtime. terbinafine HCl (LAMISIL) 250 mg tablet Take 1 tablet by mouth once daily. For toenails levothyroxine (SYNTHROID) 125 mcg tablet 2 tablets 2 days (Mon, Thurs) and 1 tablet 4 days a week. On an empty stomach. tamsulosin (FLOMAX) 0.4 mg Take 1 capsule by mouth once daily. For urination meloxicam (MOBIC) 15 mg tablet Take 1 tablet by mouth once daily. With food. traZODone (DESYREL) 50 mg tablet Take 1-3 tablets by mouth daily at bedtime. solifenacin (VESICARE) 10 mg tablet Take 1 tablet by mouth once daily. COMPOUNDED PRESCRIPTION Bipap pressure settings 17/11 with FANDP nasal mask interface and heated humidity Dx: LULU on Bipap (Patient taking differently: Bipap pressure settings 17/11 with FANDP nasal mask interface and heated humidity Dx: LULU on Bipap Not using daily) No current facility-administered medications for this visit. ALLERGIES No Known Allergies Social History Tobacco Use Smoking status: Every Day Current packs/day: 0.00 Average packs/day: 0.3 packs/day for 44.0 years (13.2 ttl pk-yrs) Types: Cigarettes Start date: 09/11/1979 Last attempt to quit: 2023 Years since quittin.0 Passive exposure: Never Smokeless tobacco: Never Vaping Use Vaping status: Never Used Substance Use Topics Alcohol use: Yes Comment: Occasional Drug use: No FAMILY HISTORY Problem Relation Age of Onset Cancer Mother Lung Diabetes Father Heart disease Father Valvular other (Other) Father 70 Dementia Alzheimer's Disease Sister 70 dementia Review of Systems: As above. PHYSICAL EXAM General: Alert, conversant, appropriate, middle aged, MALE, in no apparent distress. Vital Signs: BP 128/70 Pulse 64 Ht 172.7 cm (5' 8) Wt 95 kg (209 lb 7 oz) BMI 31.84 kg/m? - reviewed. Cardiovascular: Carotids 2 and symmetric without bruits. Neurologic: Cranial Nerves: Olfaction normal to orange extract. Monocular visual moore intact to finger counting. Funduscopic reveals flat discs. Pupils equal, round and reactive to light. Pursuit eye movements normal. Facial sensation normal to pin. Facies symmetric. Hearing normal to 1024 Hz tuning fork. Palatal movement, phonation, and resonation normal. Trapezius and SCM 5/5 and symmetric. Tongue movement symmetric. Sensory: Normal on testing pin, vibration, and j (more content not included)... Normal [facility] HISTORY PHYSICALon HISTORY PHYSICAL HNO ID: [id number] Author: FLORI MARTIN MD Service: ? Author Type: Physician Type: H&P Filed: 09/26/2024 18:23 Note Text: Chart Review Parenthetic [comments] and tinted emphasis mine. Consultation is requested for an opinion regarding the evaluation and treatment of Grupo Jackson. My final impression and recommendations will be communicated back to the referring physician by way of the shared medical record or letter via [place] mail. Grupo Jackson is referred by Dr. Nuno Lowe, 08/07/24, for short term memory loss and abnormal CT brain. Since then, MRI brain [facility] has shown: No acute findings. No acute infarction, intracranial hemorrhage, intracranial mass lesion or abnormal intracranial enhancement...minimal chronic microvascular ischemia...mild generalized parenchymal volume loss.... ====== Problem List includes HTN, HLD, LULU, and hypothyroidism (07/18/24 T4 mildly elevated at 2.0; T3 and TSH normal). Medication List includes trazodone and lolifenacin. ====== He has not had a B12 level in [facility] or [facility]. ====== Flori Martin MD Normal [facility] Sabrina [facility]20[facility] WILBERTGRUPO BENITES ([id number]) 1965 M Date Time Provider Department 08/26/24 NUNO LOWEWS During your visit today, we recorded the following information about you: Nuno Lowe DO 08/26/2024 12:54 PM Signed Please inform patient that his lumbar xray shows Minimal grade 1 retrolisthesis at L4-5. Mild disc space narrowing L4-5 and L2-3. Scattered osteophytes and facet arthrosis. 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 Can consider lumbar PHYSICAL THERAPY and pain mgmt for injections in future if needed. DO Jerry Cunningham Linda M, LPN 08/26/2024 2:31 PM Signed Spoke with pt gave information provided. Pt voices understanding. Allergies As of Date: 08/26/2024 (No Known Allergies) Date Reviewed: 08/14/2024 Reviewed by: Nery Barker LPN - Fully Assessed Prescriptions as of 08/26/2024 - sildenafil (VIAGRA) 100 mg tablet Take 1 tablet by mouth as needed (30-60 minutes prior to sexual activity). - lisinopril (ZESTRIL) 10 mg tablet Take 1 tablet by mouth once daily. - simvastatin (ZOCOR) 20 mg tablet Take 1 tablet by mouth daily at bedtime. - terbinafine HCl (LAMISIL) 250 mg tablet Take 1 tablet by mouth once daily. For toenails - levothyroxine (SYNTHROID) 125 mcg tablet 2 tablets 2 days (Mon, Th) and 1 tablet 4 days a week. On an empty stomach. - tamsulosin (FLOMAX) 0.4 mg Take 1 capsule by mouth once daily. For urination - meloxicam (MOBIC) 15 mg tablet Take 1 tablet by mouth once daily. With food. - traZODone (DESYREL) 50 mg tablet Take 1-3 tablets by mouth daily at bedtime. - solifenacin (VESICARE) 10 mg tablet Take 1 tablet by mouth once daily. 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] 04/28/2015 Sleep apnea [G47.30] 04/28/2015 Essential hypertension [I10] LULU on CPAP [G47.33] 07/11/2016 Perineal abscess [L02.215] 10/28/2016 Class 1 obesity due to excess calories with bod*12/27/2017 Persistent cough for 3 weeks or longer [R05.3] 12/27/2017 Screening for prostate cancer [Z12.5] 12/27/2017 Urinary frequency [R35.0] 12/27/2017 LULU (obstructive sleep apnea) [G47.33] 06/26/2018 Colon cancer screening [Z12.11] 01/08/2019 Dyslipidemia [E78.5] 04/08/2019 Internal hemorrhoids [K64.8] 04/08/2019 Former smoker [Z87.891] 09/24/2021 Family hx of colon cancer [Z80.0] 09/24/2021 Cognitive impairment, mild, so stated [G31.84] 07/27/2024 Chronic insomnia [F51.04] 07/27/2024 Benign prostatic hyperplasia with lower urinary*07/27/2024 Onychomycosis [B35.1] 07/27/2024 Chronic midline low back pain without sciatica *07/27/2024 Headache, worsening [R51.9] 07/27/2024 History of head injury [Z87.828] 07/27/2024 Proteinuria [R80.9] 07/27/2024 History of parotid gland excision [Z90.49] 07/27/2024 Mass of right side of neck [R22.1] 07/27/2024 Encounter Status:Closed by KAYLAH BRODERICK on 08/26/24 [facility] CNOVon 08-14-2024 CNOV Office Visit (UROLMD ) -- GRUPO JACKSON ([id number]) 1965 M Date Time Provider Department 08/14/24 9:00 AM ALEXY ENIRQUEZ UROSEBASTIAN During your visit today, we recorded the following information about you: Weight Height 95.3 kg 1.727 m Alexy Enriquez MD 10/06/2024 10:09 PM Signed [facility] UROLOGY ESTABLISHED PATIENT CLIN[facility] PATIENT INFO: Grupo Jackson AGE: [age] year old PCP: Nuno Lowe DO IMPRESSION/PLAN: 1. Overactive bladder - ICD9: 596.51, ICD10: N32.81 (primary diagnosis) Remain on Vesicare 2. Benign prostatic hyperplasia with lower urinary tract symptoms, symptom details unspecified - ICD9: 600.01, ICD10: N40.1 - Remain on Tamsulosin 3. Prostate cancer screening - ICD9: V76.44, ICD10: Z12.5 4. Erectile dysfunction, unspecified erectile dysfunction type - ICD9: 607.84, ICD10: N52.9 - Begin trial of Sildenafil Visit complexity inherent to evaluation and management associated with medical care services that serve as the continuing focal point for all needed health care services and/or with medical care services that are part of ongoing care related to a patient?s single, serious condition or a complex condition. REASON FOR VISIT: Follow up HPI: Grupo Jackson returns for continuing evaluation and management. He returns after 6 months. Remains compliant with current medication. Has been experiencing ED symptoms. Would like to begin some treatment. INTERNATIONAL PROSTATE SYMPTOM SCORE (I-PSS) 1)INCOMPLETE EMPTYING Over the past month, how often have you had a sensation of not emptying your bladder completely after you finished urinating? SCORE: 1- Less than 1 time in 5 2)FREQUENCY Over the past month, how often have you had to urinate again less than two hours after you finished urinating? SCORE: 4- More than half the time 3)INTERMITTENCY Over the past month, how often have you found you stopped and started again several times when you urinated? SCORE: 0- Not at all 4)URGENCY Over the past month, how often have you found it difficult to postpone urination? SCORE: 2- less than half the time 5)WEAK STREAM Over the past month, how often have you had a weak stream? SCORE: 2- less than half the time 6)STRAINING Over the past month, how often have you had to push or strain to begin urination SCORE: 0- Not at all 7)NOCTURIA Over the past month, how many times did you most typically get up to urinate from the time you went to bed at night until the time you get up in the morning? SCORE:1 TOTAL I-PSS SCORE: 13 QUALITY OF LIFE DUE TO URINARY SYMPTOMS If you were to spend the rest of yur life with your urinary condition just the way it is now, how would you feel about that? 3- Mixed- equally satisfied and dissatisfied UROLOGICAL DATA: Urinalysis: GLUCOSE UA (POCT) Negative 02/14/2024 BILIRUBIN UA (POCT) Negative 02/14/2024 KETONE UA (POCT) Negative 02/14/2024 SPECIFIC GRAVITY UA (POCT) 1.015 02/14/2024 HEMOGLOBIN/BLOOD UA (POCT) Negative 02/14/2024 PH UA (POCT) 7.0 02/14/2024 PROTEIN UA (POCT) Negative 02/14/2024 UROBILINOGEN UA (POCT) 4.0 02/14/2024 NITRITE UA (POCT) Negative 02/14/2024 LEUKOCYTES UA (POCT) Negative 02/14/2024 COLOR UA (POCT) Yellow 02/14/2024 CLARITY UA (POCT) Clear 02/14/2024 Post Void Residual, Ultrasound: 0 cc, empties well OTHER DATA: PSA Screening (ng/mL) Date Value 10/17/2023 0.61 10/08/2022 1.49 04/17/2021 1.66 11/21/2020 1.33 04/03/2019 1.75 02/08/2018 0.97 No results found for: ISOPSA Creatinine Date Value Ref Range Status 07/18/2024 0.88 0.73 - 1.22 mg/dL Final 10/17/2023 0.98 0.73 - 1.22 mg/dL Final 04/10/2023 0.95 0.73 - 1.22 mg/dL Final 10/08/2022 0.96 0.73 - 1.22 mg/dL Final No results found for: TESTOST, TESTFREE PMHx/PSHx: see above, otherwise unchanged Rx: reviewed and unchanged ROS: see above, otherwise unchanged Labs: None Imaging: None MEDICATIONS: Current Outpatient Medications Medication Sig lisinopril (ZESTRIL) 10 mg tablet Take 1 tablet by mouth once daily. simvastatin (ZOCOR) 20 mg tablet Take 1 tablet by mouth daily at bedtime. terbinafine HCl (LAMISIL) 250 mg tablet Take 1 tablet by mouth once daily. For toenails levothyroxine (SYNTHROID) 125 mcg tablet 2 tablets 2 days (Mon, Th) and 1 tablet 4 days a week. On an empty stomach. tamsulosin (FLOMAX) 0.4 mg Take 1 capsule by mouth once daily. For urination meloxicam (MOBIC) 15 mg tablet Take 1 tablet by mouth once daily. With food. traZODone (DESYREL) 50 mg tablet Take 1-3 tablets by mouth daily at bedtime. solifenacin (VESICARE) 10 mg tablet Take 1 tablet by mouth once daily. sildenafil (VIAGRA) 100 mg tablet Take 1 tablet by mouth as needed (30-60 minutes prior to sexual activity). COMPOUNDED PRESCRIPTION Bipap pressure settings 28/07 with FANDP calixto (more content not included)... Normal [facility] Abdominal Aorta for vladislav estevez 08-09-2024 IMPRESSION: No sonographic evidence of AAA. Skin Therapist: PSCB Transcribe Date/Time: Aug 09 2024 8:16A Dictated by : ATIYA ALEGRE MD This examination was interpreted and the report reviewed and electronically signed by: ATIYA ALEGRE MD on Aug 09 2024 8:17AM [facility] DIVISION OF RADIOLOGY * * *Final Report* * * DATE OF EXAM: Aug 09 2024 7:27AM [facility] 1028 - US SCREENING AAA / PROCEDURE REASON: Screening for AAA (abdominal aortic aneurysm) * * * * Physician Interpretation * * * * EXAMINATION: SCREENING ABDOMINAL AORTA ULTRASOUND HISTORY: Screening. TECHNIQUE: Sonography of the abdominal aorta was performed. Images were obtained and stored in a permanent archive. MQ: USAOS_1 COMPARISON: None RESULT: AORTA (AP x TV): Proximal: 1.8 cm x 2.0 cm Mid (level of renal arteries): 1.5 cm x 1.7 cm Distal:1.3 cm x 1.6 cm Common Iliac Arteries (AP x TV): Right:0.9 cm x 1.0 cm Left: 0.9 cm x 1.0 cm Atherosclerotic plaque: present DIVISION OF RADIOLOGY Provider, [facility] - 08/09/2024 * * *Final Report* * * DATE OF EXAM: Aug 09 2024 7:27AM [facility] 1028 - US SCREENING AAA / PROCEDURE REASON: Screening for AAA (abdominal aortic aneurysm) * * * * Physician Interpretation * * * * EXAMINATION: SCREENING ABDOMINAL AORTA ULTRASOUND HISTORY: Screening. TECHNIQUE: Sonography of the abdominal aorta was performed. Images were obtained and stored in a permanent archive. MQ: USAOS_1 COMPARISON: None RESULT: AORTA (AP x TV): Proximal: 1.8 cm x 2.0 cm Mid (level of renal arteries): 1.5 cm x 1.7 cm Distal:1.3 cm x 1.6 cm Common Iliac Arteries (AP x TV): Right:0.9 cm x 1.0 cm Left: 0.9 cm x 1.0 cm Atherosclerotic plaque: present IMPRESSION IMPRESSION: No sonographic evidence of AAA. Skin Therapist: PSCB Transcribe Date/Time: Aug 09 2024 8:16A Dictated by : ATIYA ALEGRE MD This examination was interpreted and the report reviewed and electronically signed by: ATIYA ALEGRE MD on Aug 09 2024 8:17AM EST [facility] Radiology Study observation (narrative) [facility] US Abdominal Aorta for scree ningOrdered By: [facility] Provider on 08-09-2024 [facility] US SCREENING AAAon US SCREENING AAA * * *Final Report* * * DATE OF EXAM: Aug 09 2024 7:27AM [facility] 1028 - US SCREENING AAA / PROCEDURE REASON: Screening for AAA (abdominal aortic aneurysm) * * * * Physician Interpretation * * * * EXAMINATION: SCREENING ABDOMINAL AORTA ULTRASOUND HISTORY: Screening. TECHNIQUE: Sonography of the abdominal aorta was performed. Images were obtained and stored in a permanent archive. MQ: USAOS_1 COMPARISON: None RESULT: AORTA (AP x TV): Proximal: 1.8 cm x 2.0 cm Mid (level of renal arteries): 1.5 cm x 1.7 cm Distal:1.3 cm x 1.6 cm Common Iliac Arteries (AP x TV): Right:0.9 cm x 1.0 cm Left: 0.9 cm x 1.0 cm Atherosclerotic plaque: present IMPRESSION: No sonographic evidence of AAA. Skin Therapist: PSCB Transcribe Date/Time: Aug 09 2024 8:16A Dictated by : ATIYA ALEGRE MD This examination was interpreted and the report reviewed and electronically signed by: ATIYA ALEGRE MD on Aug 09 2024 8:17AM EST [id number] Normal [facility] 08-07-2024 [facility] [place] ([id number]) 1965 M Date Time Provider Department 08/07/24 [facility] LOWE [facility] During your visit today, we recorded the following information about you: Caroline Garza LPN 08/07/2024 12:15 PM Addendum When patient was last into office he was diagnosed with a right ear infection and was treated with augmentin. He finished the antibiotic on Monday. Symptoms did improve while on antibiotics but within the last day the pain has returned. questions if he should start another antibiotic wait until after CT scan. CT is scheduled for today 2:00 PM. Please advise. Nuno Lowe DO 08/07/2024 12:37 PM Signed Okay to continue augmentin for 10 more days, sometimes this takes a longer course of rx Please inform Nuno Lowe DO The following approved medication requests have been transmitted electronically. Requested Prescriptions Signed Prescriptions Disp Refills amoxicillin-clavulanate potassium (AUGMENTIN) 875-125 mg per tablet 20 tablet 0 Sig: Take 1 tablet by mouth two times a day for 10 days. Authorizing Provider: NUNO LOWE DO Holiday, [place], MA 08/07/2024 12:40 PM Signed Pt informed, verbalized understanding Anya Flores MA Allergies As of Date: 08/07/2024 (No Known Allergies) Date Reviewed: 02/14/2024 Reviewed by: Vikki Chambers MA - Fully Assessed Reason for Visit: Ear Problem [38] Visit Diagnosis:Acute otitis media, right [H66.91] Order(s):amoxicillin-clavu lanate potassium (AUGMENTIN) 875-125 mg per tabletTake 1 tablet by mouth two times a day for 10 days.Disp: 20 tabletRfl: 0 Prescriptions as of 08/07/2024 - amoxicillin-clavulanate potassium (AUGMENTIN) 875-125 mg per tablet Take 1 tablet by mouth two times a day for 10 days. - lisinopril (ZESTRIL) 10 mg tablet Take 1 tablet by mouth once daily. - simvastatin (ZOCOR) 20 mg tablet Take 1 tablet by mouth daily at bedtime. - terbinafine HCl (LAMISIL) 250 mg tablet Take 1 tablet by mouth once daily. For toenails - levothyroxine (SYNTHROID) 125 mcg tablet 2 tablets 2 days (Mon, Th) and 1 tablet 4 days a week. On an empty stomach. - tamsulosin (FLOMAX) 0.4 mg Take 1 capsule by mouth once daily. For urination - meloxicam (MOBIC) 15 mg tablet Take 1 tablet by mouth once daily. With food. - traZODone (DESYREL) 50 mg tablet Take 1-3 tablets by mouth daily at bedtime. - solifenacin (VESICARE) 10 mg tablet Take 1 tablet by mouth once daily. 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] 04/28/2015 Sleep apnea [G47.30] 04/28/2015 Essential hypertension [I10] LULU on CPAP [G47.33] 07/11/2016 Perineal abscess [L02.215] 10/28/2016 Class 1 obesity due to excess calories with bod*12/27/2017 Persistent cough for 3 weeks or longer [R05.3] 12/27/2017 Screening for prostate cancer [Z12.5] 12/27/2017 Urinary frequency [R35.0] 12/27/2017 LULU (obstructive sleep apnea) [G47.33] 06/26/2018 Colon cancer screening [Z12.11] 01/08/2019 Dyslipidemia [E78.5] 04/08/2019 Internal hemorrhoids [K64.8] 04/08/2019 Former smoker [Z87.891] 09/24/2021 Family hx of colon cancer [Z80.0] 09/24/2021 Cognitive impairment, mild, so stated [G31.84] 07/27/2024 Chronic insomnia [F51.04] 07/27/2024 Benign prostatic hyperplasia with lower urinary*07/27/2024 Onychomycosis [B35.1] 07/27/2024 Chronic midline low back pain without sciatica *07/27/2024 Headache, worsening [R51.9] 07/27/2024 History of head injury [Z87.828] 07/27/2024 Proteinuria [R80.9] 07/27/2024 History of parotid gland excision [Z90.49] 07/27/2024 Mass of right side of neck [R22.1] 07/27/2024 Prescriptions ordered this encounter Disp Refills Start End AMOXICILLIN 875 MG-POTASSIUM CLAVULA* 20 t* 0 08/07/2024 08/17/2024 Route: ORAL Sig: Take 1 tablet by mouth two times a day for 10 days. Medications Discontinued During This Encounter Prescriptions - amoxicillin-clavulanate potassium (AUGMENTIN) 875-125 mg per tablet (Discontinued) Take 1 tablet by mouth two times a day for 10 days. Encounter Status:Closed by ANYA FLORES on 08/07/24 Normal [facility] Telephone ([facility]) -- [place] ([id number]) 1965 M Date Time Provider Department 08/07/24 NUNO LOWE [facility] During your visit today, we recorded the following information about you: Nuno Lowe DO 08/07/2024 2:50 PM Signed Please inform patient that his CTbrain showed Overall no acute findings but does show chronic findings as below Chronic Change: Scattered punctate foci of increased T2 and FLAIR signal are noted in the supratentorial white matter which is a nonspecific finding, but likely represents minimal chronic microvascular ischemia. Parenchyma: There is mild generalized parenchymal volume loss. The brain parenchyma is otherwise within normal limits of signal intensity and morphology. I would like him to see a Neurologist for further testing/evaluation to make sure no other testing such as MRI brain or neurologic studies in office are needed due to his family hx DO Jerry Cunningham Linda M, LPN 08/09/2024 10:56 AM Signed Spoke with pt gave information provided. Pt voices understanding. Please assist in scheduling with neurology. Carola Thakur 08/09/2024 2:54 PM Signed Patient contacted and scheduled in [facility] Allergies As of Date: 08/07/2024 (No Known Allergies) Date Reviewed: 02/14/2024 Reviewed by: Vikki Chambers MA - Fully Assessed Primary Visit Diagnosis:Memory loss, short term [R41.3] Other Visit Diagnosis:Abnormal CT of brain [R90.89] Order(s):CONSULT TO NEUROLOGY [9019] Order #: [id number]: 1 FUTURE Prescriptions as of 08/09/2024 - amoxicillin-clavulanate potassium (AUGMENTIN) 875-125 mg per tablet Take 1 tablet by mouth two times a day for 10 days. - lisinopril (ZESTRIL) 10 mg tablet Take 1 tablet by mouth once daily. - simvastatin (ZOCOR) 20 mg tablet Take 1 tablet by mouth daily at bedtime. - terbinafine HCl (LAMISIL) 250 mg tablet Take 1 tablet by mouth once daily. For toenails - levothyroxine (SYNTHROID) 125 mcg tablet 2 tablets 2 days (Mon, Th) and 1 tablet 4 days a week. On an empty stomach. - tamsulosin (FLOMAX) 0.4 mg Take 1 capsule by mouth once daily. For urination - meloxicam (MOBIC) 15 mg tablet Take 1 tablet by mouth once daily. With food. - traZODone (DESYREL) 50 mg tablet Take 1-3 tablets by mouth daily at bedtime. - solifenacin (VESICARE) 10 mg tablet Take 1 tablet by mouth once daily. 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] 04/28/2015 Sleep apnea [G47.30] 04/28/2015 Essential hypertension [I10] LULU on CPAP [G47.33] 07/11/2016 Perineal abscess [L02.215] 10/28/2016 Class 1 obesity due to excess calories with bod*12/27/2017 Persistent cough for 3 weeks or longer [R05.3] 12/27/2017 Screening for prostate cancer [Z12.5] 12/27/2017 Urinary frequency [R35.0] 12/27/2017 LULU (obstructive sleep apnea) [G47.33] 06/26/2018 Colon cancer screening [Z12.11] 01/08/2019 Dyslipidemia [E78.5] 04/08/2019 Internal hemorrhoids [K64.8] 04/08/2019 Former smoker [Z87.891] 09/24/2021 Family hx of colon cancer [Z80.0] 09/24/2021 Cognitive impairment, mild, so stated [G31.84] 07/27/2024 Chronic insomnia [F51.04] 07/27/2024 Benign prostatic hyperplasia with lower urinary*07/27/2024 Onychomycosis [B35.1] 07/27/2024 Chronic midline low back pain without sciatica *07/27/2024 Headache, worsening [R51.9] 07/27/2024 History of head injury [Z87.828] 07/27/2024 Proteinuria [R80.9] 07/27/2024 History of parotid gland excision [Z90.49] 07/27/2024 Mass of right side of neck [R22.1] 07/27/2024 Encounter Status:Closed by CAROLA THAKUR on 08/09/[address] [facility] [address] NECK SOFT TISSUE WO IVCON on 08-07-2024 CT NECK SOFT TISSUE WO IVCON * * *Final Report* * * DATE OF EXAM: Aug 07 2024 2:25PM [facility] 0509 - CT NECK SOFT TISSUE WO IVCON / PROCEDURE REASON: multiple diagnoses * * * * Physician Interpretation * * * * Examination: CT scan of the soft tissue neck without contrast. Dose-Length Product (DLP): 926 mGy*cm. CT Dose Reduction Employed: Automated exposure control(AEC) and iterative recon Clinical indication: History of prior lesion. Comparison: 07/12/[address] Findings: Postoperative/posttreatmen t changes: Postoperative changes consisting of partial resection of the RIGHT parotid gland. Along the margins of the operative site there is loss of normal tissue planes as well as linear soft tissue thickening which most likely reflects scar tissue. When compared with the previous preoperative examination, there has been gross total resection of the previously identified large parotid mass. Nasal and oral cavities are unremarkable. Pharyngeal mucosal space is normal. Parotid and submandibular glands are otherwise unremarkable. Thyroid gland is homogeneous. Subcentimeter punctate calcification present within the RIGHT lobe of thyroid. Remainder of the fascial spaces of the neck and their contents are normal. There is no lymphadenopathy by size criteria. Imaged intracranial contents are unremarkable. Imaged portions of the lungs are grossly clear. Infraglottic airway is patent. Osseous structures are unremarkable. Remote nasal bone fracture. Imaged paranasal sinuses are clear. Skull base and orbits unremarkable. Impression: Postoperative changes as above. No lymphadenopathy or mass. Skin Therapist: ОЛЬГА Transcribe Date/Time: Aug 07 2024 3:51P Dictated by : HARRIET RUDD MD This examination was interpreted and the report reviewed and electronically signed by: HARRIET RUDD MD on Aug 07 2024 4:18PM EST [id number] Normal [facility] CT Neck WO contraston 2023 * * *Final Report* * * DATE OF EXAM: Aug 07 2024 2:25PM [facility] 0[facility] - CT NECK SOFT TISSUE WO IVCON / PROCEDURE REASON: multiple diagnoses * * * * Physician Interpretation * * * * Examination: CT scan of the soft tissue neck without contrast. Dose-Length Product (DLP): 926 mGy*cm. CT Dose Reduction Employed: Automated exposure control(AEC) and iterative recon Clinical indication: History of prior lesion. Comparison: 07/12/[address] Findings: Postoperative/posttreatmen t changes: Postoperative changes consisting of partial resection of the RIGHT parotid gland. Along the margins of the operative site there is loss of normal tissue planes as well as linear soft tissue thickening which most likely reflects scar tissue. When compared with the previous preoperative examination, there has been gross total resection of the previously identified large parotid mass. Nasal and oral cavities are unremarkable. Pharyngeal mucosal space is normal. Parotid and submandibular glands are otherwise unremarkable. Thyroid gland is homogeneous. Subcentimeter punctate calcification present within the RIGHT lobe of thyroid. Remainder of the fascial spaces of the neck and their contents are normal. There is no lymphadenopathy by size criteria. Imaged intracranial contents are unremarkable. Imaged portions of the lungs are grossly clear. Infraglottic airway is patent. Osseous structures are unremarkable. Remote nasal bone fracture. Imaged paranasal sinuses are clear. Skull base and orbits unremarkable. Impression: Postoperative changes as above. No lymphadenopathy or mass. Skin Therapist: [facility] Transcribe Date/Time: Aug 07 2024 3:51P Dictated by : HARRIET RUDD MD This examination was interpreted and the report reviewed and electronically signed by: HARRIET RUDD MD on Aug 07 2024 4:18PM [facility] DIVISION OF RADIOLOGY Provider, Abbi Villarreal - 08/07/2024 * * *Final Report* * * DATE OF EXAM: Aug 07 2024 2:25PM [facility] - CT NECK SOFT TISSUE WO IVCON / PROCEDURE REASON: multiple diagnoses * * * * Physician Interpretation * * * * Examination: CT scan of the soft tissue neck without contrast. Dose-Length Product (DLP): 926 mGy*cm. CT Dose Reduction Employed: Automated exposure control(AEC) and iterative recon Clinical indication: History of prior lesion. Comparison: 07/12/[address] Findings: Postoperative/posttreatmen t changes: Postoperative changes consisting of partial resection of the RIGHT parotid gland. Along the margins of the operative site there is loss of normal tissue planes as well as linear soft tissue thickening which most likely reflects scar tissue. When compared with the previous preoperative examination, there has been gross total resection of the previously identified large parotid mass. Nasal and oral cavities are unremarkable. Pharyngeal mucosal space is normal. Parotid and submandibular glands are otherwise unremarkable. Thyroid gland is homogeneous. Subcentimeter punctate calcification present within the RIGHT lobe of thyroid. Remainder of the fascial spaces of the neck and their contents are normal. There is no lymphadenopathy by size criteria. Imaged intracranial contents are unremarkable. Imaged portions of the lungs are grossly clear. Infraglottic airway is patent. Osseous structures are unremarkable. Remote nasal bone fracture. Imaged paranasal sinuses are clear. Skull base and orbits unremarkable. Impression: Postoperative changes as above. No lymphadenopathy or mass. Skin Therapist: PSCB Transcribe Date/Time: Aug 07 2024 3:51P Dictated by : HARRIET RUDD MD This examination was interpreted and the report reviewed and electronically signed by: HARRIET RUDD MD on Aug 07 2024 4:18PM EST [facility] CT Neck WO contrastOrdered B y: [facility] Provider on 08-07-2024 [facility] MR Brain WO and W contrast I Von 08-07-2024 IMPRESSION: No acute findings. No acute infarction, intracranial hemorrhage, intracranial mass lesion or abnormal intracranial enhancement. . Skin Therapist: ОЛЬГА Transcribe Date/Time: Aug 07 2024 2:39P Dictated by : ALEX GONZALEZ MD This examination was interpreted and the report reviewed and electronically signed by: ALEX GONZALEZ MD on Aug 07 2024 2:45PM [facility] DIVISION OF RADIOLOGY * * *Final Report* * * DATE OF EXAM: Aug 07 2024 1:55PM [facility] - MRI BRAIN WO/W IVCON / PROCEDURE REASON: multiple diagnoses * * * * Physician Interpretation * * * * EXAMINATION: MRI BRAIN WO/W IVCON HISTORY: Cognitive impairment, mild, so stated Headache, worsening History of head injury TECHNIQUE: Routine brain MRI protocol without and with contrast including diffusion and gradient echo images. M: [id number] MR Contrast: Dotarem Contrast Dose: 19 cc Route of Administration: IV COMPARISON: None. RESULT: Acute Change: No evidence of an acute intracranial process. Hemorrhage: No evidence of prior parenchymal hemorrhage on the susceptibility weighted sequences. Mass Lesion/ Mass Effect: No evidence of an intracranial mass or extra-axial fluid collection. No significant mass effect.. There is no evidence of abnormal intracranial enhancement. Chronic Change: Scattered punctate foci of increased T2 and FLAIR signal are noted in the supratentorial white matter which is a nonspecific finding, but likely represents minimal chronic microvascular ischemia. Parenchyma: There is mild generalized parenchymal volume loss. The brain parenchyma is otherwise within normal limits of signal intensity and morphology. Ventricles: Ventriculomegaly corresponds to the degree of parenchymal volume loss. Skull Base: Hypothalamic and pituitary region are grossly normal. Craniocervical junction is normal. No significant marrow replacement process. Vasculature: Major intracranial arterial structures and dural venous sinuses demonstrate typical flow voids, suggesting patency by spin echo criteria. Other: Small retention cyst in the inferior aspect of left maxillary sinus. The visualized paranasal sinuses and mastoid air cells are otherwise clear. The orbits and extracranial soft tissues are unremarkable. DIVISION OF RADIOLOGY Provider, Abbi Villarreal - 08/07/2024 * * *Final Report* * * DATE OF EXAM: Aug 07 2024 1:55PM [facility] - MRI BRAIN WO/W IVCON / PROCEDURE REASON: multiple diagnoses * * * * Physician Interpretation * * * * EXAMINATION: MRI BRAIN WO/W IVCON HISTORY: Cognitive impairment, mild, so stated Headache, worsening History of head injury TECHNIQUE: Routine brain MRI protocol without and with contrast including diffusion and gradient echo images. M: [id number] MR Contrast: Dotarem Contrast Dose: 19 cc Route of Administration: IV COMPARISON: None. RESULT: Acute Change: No evidence of an acute intracranial process. Hemorrhage: No evidence of prior parenchymal hemorrhage on the susceptibility weighted sequences. Mass Lesion/ Mass Effect: No evidence of an intracranial mass or extra-axial fluid collection. No significant mass effect.. There is no evidence of abnormal intracranial enhancement. Chronic Change: Scattered punctate foci of increased T2 and FLAIR signal are noted in the supratentorial white matter which is a nonspecific finding, but likely represents minimal chronic microvascular ischemia. Parenchyma: There is mild generalized parenchymal volume loss. The brain parenchyma is otherwise within normal limits of signal intensity and morphology. Ventricles: Ventriculomegaly corresponds to the degree of parenchymal volume loss. Skull Base: Hypothalamic and pituitary region are grossly normal. Craniocervical junction is normal. No significant marrow replacement process. Vasculature: Major intracranial arterial structures and dural venous sinuses demonstrate typical flow voids, suggesting patency by spin echo criteria. Other: Small retention cyst in the inferior aspect of left maxillary sinus. The visualized paranasal sinuses and mastoid air cells are otherwise clear. The orbits and extracranial soft tissues are unremarkable. IMPRESSION IMPRESSION: No acute findings. No acute infarction, intracranial hemorrhage, intracranial mass lesion or abnormal intracranial enhancement. . Skin Therapist: ОЛЬГА Transcribe Date/Time: Aug 07 2024 2:39P Dictated by : ALEX GONZALEZ MD This examination was interpreted and the report reviewed and electronically signed by: ALEX GONZALEZ MD on Aug 07 2024 2:45PM [facility] MR Brain WO and W contrast I VOrdered By: Ccf Provider on 08-07-2024 [facility] MRI BRAIN WO/W IVCONon 08-07 MRI BRAIN WO/W IVCON * * *Final Report* * * DATE OF EXAM: Aug 07 2024 1:55PM [facility] 0295 - MRI BRAIN WO/W IVCON / PROCEDURE REASON: multiple diagnoses * * * * Physician Interpretation * * * * EXAMINATION: MRI BRAIN WO/W IVCON HISTORY: Cognitive impairment, mild, so stated Headache, worsening History of head injury TECHNIQUE: Routine brain MRI protocol without and with contrast including diffusion and gradient echo images. M: [id number] MR Contrast: Dotarem Contrast Dose: 19 cc Route of Administration: IV COMPARISON: None. RESULT: Acute Change: No evidence of an acute intracranial process. Hemorrhage: No evidence of prior parenchymal hemorrhage on the susceptibility weighted sequences. Mass Lesion/ Mass Effect: No evidence of an intracranial mass or extra-axial fluid collection. No significant mass effect.. There is no evidence of abnormal intracranial enhancement. Chronic Change: Scattered punctate foci of increased T2 and FLAIR signal are noted in the supratentorial white matter which is a nonspecific finding, but likely represents minimal chronic microvascular ischemia. Parenchyma: There is mild generalized parenchymal volume loss. The brain parenchyma is otherwise within normal limits of signal intensity and morphology. Ventricles: Ventriculomegaly corresponds to the degree of parenchymal volume loss. Skull Base: Hypothalamic and pituitary region are grossly normal. Craniocervical junction is normal. No significant marrow replacement process. Vasculature: Major intracranial arterial structures and dural venous sinuses demonstrate typical flow voids, suggesting patency by spin echo criteria. Other: Small retention cyst in the inferior aspect of left maxillary sinus. The visualized paranasal sinuses and mastoid air cells are otherwise clear. The orbits and extracranial soft tissues are unremarkable. IMPRESSION: No acute findings. No acute infarction, intracranial hemorrhage, intracranial mass lesion or abnormal intracranial enhancement. . Skin Therapist: PSCB Transcribe Date/Time: Aug 07 2024 2:39P Dictated by : ALEX GONZALEZ MD This examination was interpreted and the report reviewed and electronically signed by: ALEX GONZALEZ MD on Aug 07 2024 2:45PM EST [id number] Normal [facility] No Panel Informationon 08-07 Radiology Study observation (narrative) [facility] Sabrina 08-02-2024 ISACCN Telephone (COUMWS) -- GRUPO JACKSON ([id number]) 1965 Curt Date Time Provider Department 08/02/24 NUNO LOWE COUMWS During your visit today, we recorded the following information about you: Estefania Veragra RN 08/02/2024 8:37 AM Signed Patients spouse is calling in asking for results on patients xray that he had completed on 07/23/24. Please review and advise and contact spouse back with information. Nuno Lowe, 08/02/2024 9:41 AM Signed Please inform patient or spouse that his lumbar xray shows some osteoarthritis and degenerative disc changes of the spine as below. It also shows concerns for plaque in the aorta. Would recommend abdominal US to make sure no start on an abdominal aneurysm as well. Xrays also document a previous fracture of a rib in the past as well as his hip surgeries Can consider PHYSICAL THERAPY or pain mgmt for injections in low back if interested Xr lumbar: Minimal grade 1 retrolisthesis at L4-5. Mild disc space narrowing L4-5 and L2-3. Scattered osteophytes and facet arthrosis. Atheromatous calcification of the aorta. Partially imaged bilateral acetabular screws in this patient who has known bilateral hip arthroplasties. Remote fracture deformity of the right 10th posterior rib. DO Jerry Cunningham Linda M, [place] 08/02/2024 2:23 PM Signed Left message to return call. Gaetano Rosales RN 08/02/2024 2:31 PM Signed Patient calls and notified of results and providers instructions. Patient verbalizes understanding. Transferred to schedule US. BETH Newman Krystle, RN 08/02/2024 2:49 PM Signed Spouse returns call to review results and message. Reviewed and all questions answered. US scheduled for 08/09/2024. Spouse will call back if any further questions or if patient decides to want to go forward with physical therapy or pain injections. Gaetano Rosales RN Allergies As of Date: 08/02/2024 (No Known Allergies) Date Reviewed: 02/14/2024 Reviewed by: Vikki Chambers MA - Fully Assessed Reason for Visit: Results [95] Cmt: xray from 07/23 Primary Visit Diagnosis:Stenosis of abdominal aorta [Q25.1] Order(s):US ABD AORTA [[id number]] Order #: [id number] FUTURE Prescriptions as of 08/02/2024 - lisinopril (ZESTRIL) 10 mg tablet Take 1 tablet by mouth once daily. - simvastatin (ZOCOR) 20 mg tablet Take 1 tablet by mouth daily at bedtime. - terbinafine HCl (LAMISIL) 250 mg tablet Take 1 tablet by mouth once daily. For toenails - levothyroxine (SYNTHROID) 125 mcg tablet 2 tablets 2 days (Mon, Th) and 1 tablet 4 days a week. On an empty stomach. - tamsulosin (FLOMAX) 0.4 mg Take 1 capsule by mouth once daily. For urination - meloxicam (MOBIC) 15 mg tablet Take 1 tablet by mouth once daily. With food. - traZODone (DESYREL) 50 mg tablet Take 1-3 tablets by mouth daily at bedtime. - solifenacin (VESICARE) 10 mg tablet Take 1 tablet by mouth once daily. - amoxicillin-clavulanate potassium (AUGMENTIN) 875-125 mg per tablet Take 1 tablet by mouth two times a day for 10 days. 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] 04/28/2015 Sleep apnea [G47.30] 04/28/2015 Essential hypertension [I10] LULU on CPAP [G47.33] 07/11/2016 Perineal abscess [L02.215] 10/28/2016 Class 1 obesity due to excess calories with bod*12/27/2017 Persistent cough for 3 weeks or longer [R05.3] 12/27/2017 Screening for prostate cancer [Z12.5] 12/27/2017 Urinary frequency [R35.0] 12/27/2017 LULU (obstructive sleep apnea) [G47.33] 06/26/2018 Colon cancer screening [Z12.11] 01/08/2019 Dyslipidemia [E78.5] 04/08/2019 Internal hemorrhoids [K64.8] 04/08/2019 Former smoker [Z87.891] 09/24/2021 Family hx of colon cancer [Z80.0] 09/24/2021 Cognitive impairment, mild, so stated [G31.84] 07/27/2024 Chronic insomnia [F51.04] 07/27/2024 Benign prostatic hyperplasia with lower urinary*07/27/2024 Onychomycosis [B35.1] 07/27/2024 Chronic midline low back pain without sciatica *07/27/2024 Headache, worsening [R51.9] 07/27/2024 History of head injury [Z87.828] 07/27/2024 Proteinuria [R80.9] 07/27/2024 History of parotid gland excision [Z90.49] 07/27/2024 Mass of right side of neck [R22.1] 07/27/2024 Encounter Status:Closed by GAETANO ROSALES on 08/02/24 [facility] CNOVon 07-23-2024 CNOV Office Visit (FAMPWS ) -- WILBERTKAMARIGRUPO Javier ([id number]) 1965 M Date Time Provider Department 07/23/24 8:40 AM NUNO LOWE FAMPWS During your visit today, we recorded the following information about you: Temperature Pulse Respiration Blood pressure 97.4 degrees 80/minute 20/minute 128/64 Weight 97.5 kg Nuno Lowe DO 07/27/2024 11:01 AM Signed CC: Grupo Herrera Renetta is a 58 year old male who presents to the office for follow up HPI: Memory concerns, sometimes forgetfulness with acute memory changes. Sometimes not remembering short term. Father was diagnosed with dementia- symptoms in early 60s- worsened after anesthesia from prostate surgery. Sister also with dementia in her mid/late 60s. Has been getting some intermittent headaches, also a few episodes of dizziness, no head injuries. No obvious concussions in the past. Hx of parotid tumor, right side of face/jaw, hx of resection by ENT, feels like this may be growing again BPH, stable, taking flomax LULU, use of CPAP, feels like this helps with sleep. Does have some daytime fatigue HTN, using medications as prescribed. No CP or dyspnea or palpitations or syncope. + dizziness + Fatigue Hypothyroidism, taking synthroid as prescribed. Has some fatigue HPL, taking zocor as prescribed at 20 mg at bedtime, no SE with medication Alcohol use, admits that he drinks too much alcohol and drinks alcohol on a daily /nightly basis a few beers. He isn't currently willing to cut back or down on use. Left ear pressure and mild dizziness the last few days, no head injuries, no fevers or chills. No head injuries PAST MEDICAL HISTORY Diagnosis Date Acquired hypothyroidism Acute diverticulitis 08/2022 BPH (benign prostatic hyperplasia) Essential hypertension Hyperlipidemia LULU on CPAP [facility] PAST SURGICAL HISTORY Procedure Laterality Date ANESTHESIA TOTAL HIP ARTHROPLASTY Left 05/04/2016 Dr. Manjeet Smith ANESTHESIA TOTAL HIP ARTHROPLASTY Right 05/31/2017 Dr. Manjeet Smith; dx: R hip avascular necrosis COLONOSCOPY Herman COLONOSCOPY 10/04/2021 benign hyperplastic polyps. repeat in 5 years based on family history of colon cancer LIGATE INTERNAL HEMORRHOIDS; SINGLE 2019, banding, internal hemorrhoids, Dr. Joaquin PAST SURGICAL HISTORY OF 2001 left thumb PAST SURGICAL HISTORY OF Right 08/08/2017 total parotidectomy; Dr. De Souza Current Outpatient Medications Medication Sig levothyroxine (SYNTHROID) 125 mcg tablet 2 tablets 3 day (Mon, Th, Sat) and 1 tablet 4 days a week. On an empty stomach. solifenacin (VESICARE) 10 mg tablet Take 1 tablet by mouth once daily. terbinafine HCl (LAMISIL) 250 mg tablet Take 1 tablet by mouth once daily. For toenails traZODone (DESYREL) 50 mg tablet Take 1-3 tablets by mouth daily at bedtime. finasteride (PROSCAR) 5 mg tablet Take 1 tablet by mouth once daily. lisinopril (ZESTRIL) 10 mg tablet Take 1 tablet by mouth once daily. tamsulosin (FLOMAX) 0.4 mg Take 1 capsule by mouth once daily. For urination simvastatin (ZOCOR) 20 mg tablet Take 1 tablet by mouth daily at bedtime. meloxicam (MOBIC) 15 mg tablet Take 1 tablet by mouth once daily. With food. COMPOUNDED PRESCRIPTION Bipap pressure settings 17/ with FANDP nasal mask interface and heated humidity Dx: LULU on Bipap (Patient taking differently: Bipap pressure settings 17/ with FANDP nasal mask interface and heated humidity Dx: LULU on Bipap Not using daily) Current Facility-Administered Medications Medication Dose Route Frequency perflutren lipid microspheres 1.3 mL in NaCl (PF) 0.9% 10 mL injection (DEFINITY) INTRAVENOUS DIRECTED PRN sodium chloride 0.9 % (flush) 10 mL (BD POSIFLUSH) 10 mL INTRAVENOUS DIRECTED PRN ALLERGIES No Known Allergies Social History Tobacco Use Smoking status: Every Day Current packs/day: 0.00 Average packs/day: 0.3 packs/day for 44.0 years (13.2 ttl pk-yrs) Types: Cigarettes Start date: 09/11/1979 Last attempt to quit: 2023 Years since quittin.8 Passive exposure: Never Smokeless tobacco: Never Vaping Use Vaping status: Never Used Substance Use Topics Alcohol use: Yes Comment: Occasional Drug use: No ROS: See HPI PE: BP 128/64 Pulse 80 Temp (Src) 97.4 (Temporal) Resp 20 Wt 215 lb (97.5kg) Gen: AANDOX3, NAD, non-toxic appearing HEENT: PERRLA, EOMs intact b/l, nares without drainage, pharynx without erythema, exudate, lesions, or drainage. Uvula midline. MMM, EAC wnl b/l, left TM wnl, right TM with erythema and fluid Neck: No LAD, no thyromegaly, no meningismus. + thickening and mass like area at angle of right jaw and inferior to right jaw with TTP without signs of warmth or abscess CV: RRR, no murmur, normal s1s2 Lungs: CTA b/l, no wheezing Obese central No edema legs, normal peripheral pulses Skin: No rashe (more content not included)... Normal [facility] Urinalysis complete panel (U )on 07-23-2024 Bacteria LM.HPF (Urine sed) [#/Area] Negative Negative /HPF [facility] Bilirubin Ql (U) Negative Negative [facility] Clarity (Unsp spec) Clear Clear [facility] Color (U) Yellow Yellow [facility] Epithelial cells LM.HPF (Urine sed) [#/Area] None Seen /HPF [facility] Glucose Test strip (U) [Mass/Vol] Negative Negative [facility] Hemoglobin Ql (U) Negative Negative [facility] Hyaline casts (Urine sed) [#/Area] 0 /[LPF] 0 /LPF [facility] Interpretation and review of laboratory results Abnormal [facility] Ketones Ql (U) Negative Negative [facility] Leukocyte esterase Test strip Ql (U) Negative Negative [facility] Nitrite Ql (U) Negative Negative [facility] pH (U) 8.0 [pH] NINF - 8.5 [facility] Protein (U) [Mass/Vol] Trace Abnormal Negative [facility] RBC LM.HPF (Urine sed) [#/Area] 0-2 /HPF 0-2 /HPF [facility] Specific gravity (U) [Rel density] 1.020 1.005 - 1.030 [facility] Urobilinogen Ql (U) 1.0 EU/dL 0.2-1.0 EU/dL [facility] WBC LM.HPF (Urine sed) [#/Area] 0-5 /HPF 0-5 /HPF [facility] This test was marion thompson and its performance characteristics determined by [facility] Pathology and Laboratory Medicine [place] ([facility]). It has not been cleared or approved by the FDA. -[facility] is regulated under CLIA as qualified to perform high-complexity testing. This test is used for clinical purposes. It should not be regarded as investigational or for research. [facility] Bacteria LM.HPF (Urine sed) [#/Area] Negative Normal Negative [facility] Comment on above: Order Comment: Speci men Type: URINE SPECIMENOrdering Facility: [facility] Address: [address] [place] [address] Performed By: #### 2 4356-8 ####[facility] LABCLIA [id number] [place] [address] [place] Bilirubin Ql (U) Negative Normal Negative [facility] Comment on above: Order Comment: Speci men Type: URINE SPECIMENOrdering Facility: [facility] Address: [address] [place] [address] Performed By: #### 2 4356-8 ####[facility] LABCLIA [id number] [place] [address] [place] Clarity (Unsp spec) Clear Normal Clear [facility] Comment on above: Order Comment: Speci men Type: URINE SPECIMENOrdering Facility: [facility] Address: [address] [place] [address] Performed By: #### 2 4356-8 ####[facility] LABIA [id number] [place] [address] [place] Color (U) Yellow Normal Yellow [facility] Comment on above: Order Comment: Speci men Type: URINE SPECIMENOrdering Facility: [facility] Address: [address] [place] [address] Performed By: #### 2 4356-8 ####[facility] LABIA [id number] [place] [address] [place] Epithelial cells LM.HPF (Urine sed) [#/Area] None Seen Normal [facility] Comment on above: Order Comment: Speci men Type: URINE SPECIMENOrdering Facility: [facility] Address: [address] [place] [address] Performed By: #### 2 4356-8 ####[facility] LABIA [id number] [place] [address] [place] Glucose Test strip (U) [Mass/Vol] Negative Normal Negative [facility] Comment on above: Order Comment: Speci men Type: URINE SPECIMENOrdering Facility: [facility] Address: [address] [place] [address] Performed By: #### 2 4356-8 ####[facility] LABCLIA [id number] [place] [address] [place] Hemoglobin Ql (U) Negative Normal Negative [facility] Comment on above: Order Comment: Speci men Type: URINE SPECIMENOrdering Facility: [facility] Address: [address] [place] [address] Performed By: #### 2 4356-8 ####[facility] LABCLIA [id number] [place] [address] [place] Hyaline casts (Urine sed) [#/Area] 0 /[LPF] Normal 0 /LPF [facility] Comment on above: Order Comment: Speci men Type: URINE SPECIMENOrdering Facility: [facility] Address: [address] [place] [address] Performed By: #### 2 4356-8 ####[facility] LABCLIA [id number] [place] [address] [place] Ketones Ql (U) Negative Normal Negative [facility] Comment on above: Order Comment: Speci men Type: URINE SPECIMENOrdering Facility: [facility] Address: [address] [place] [address] Performed By: #### 2 4356-8 ####[facility] LABCLIA [id number] [place] [address] [place] Leukocyte esterase Test strip Ql (U) Negative Normal Negative [facility] Comment on above: Order Comment: Speci men Type: URINE SPECIMENOrdering Facility: [facility] Address: [address] [place] [address] Performed By: #### 2 4356-8 ####[facility] LABCLIA [id number] [place] [address] [place] Nitrite Ql (U) Negative Normal Negative [facility] Comment on above: Order Comment: Speci men Type: URINE SPECIMENOrdering Facility: [facility] Address: [address] [place] [address] Performed By: #### 2 4356-8 ####[facility] LABIA [id number] [place] [address] [place] pH (U) 8.0 [pH] Normal <8.5 [facility] Comment on above: Order Comment: Speci men Type: URINE SPECIMENOrdering Facility: [facility] Address: [address] [place] [address] Performed By: #### 2 4356-8 ####[facility] LABIA [id number] [place] [address] [place] Protein (U) [Mass/Vol] Trace Abnormal Negative [facility] Comment on above: Order Comment: Speci men Type: URINE SPECIMENOrdering Facility: [facility] Address: [address] [place] [address] Performed By: #### 2 4356-8 ####[facility] LABIA [id number] [place] [address] [place] RBC LM.HPF (Urine sed) [#/Area] 0-2 /HPF Normal 0-2 /HPF [facility] Comment on above: Order Comment: Speci men Type: URINE SPECIMENOrdering Facility: [facility] Address: [address] [place] [address] Performed By: #### 2 4356-8 ####[facility] LABIA [id number] [place] [address] [place] Specific gravity (U) [Rel density] 1.020 Normal 1.005-1.030 [facility] Comment on above: Order Comment: Speci men Type: URINE SPECIMENOrdering Facility: [facility] Address: [address] [place] [address] Performed By: #### 2 4356-8 ####[facility] LABIA [id number] [place] [address] [place] Urobilinogen Ql (U) 1.0 EU/dL Normal 0.2-1.0 EU/dL [facility] Comment on above: Order Comment: Speci men Type: URINE SPECIMENOrdering Facility: [facility] Address: [address] [place] [address] Performed By: #### 2 4356-8 ####[facility] LABCLIA [id number] [address] [place] WBC LM.HPF (Urine sed) [#/Area] 0-5 /HPF Normal 0-5 /HPF [facility] Comment on above: Order Comment: Speci men Type: URINE SPECIMENOrdering Facility: [facility] Address: [address] [place] [address] Performed By: #### 2 4356-8 ####[facility] LABIA [id number] [address] [place] XR LUMBAR 3V AP/LAT/L5-S1on 07-23-2024 XR LUMBAR 3V AP/LAT/L5-S1 * * *Final Report* * * DATE OF EXAM: Jul 23 2024 10:14AM WOX [id number] - XR LUMBAR 3V AP/LAT/L5-S1 / PROCEDURE REASON: multiple diagnoses * * * * Physician Interpretation * * * * EXAMINATION / TECHNIQUE: XR LUMBAR 3V AP/LAT/L5-S1 HISTORY: pain fro 6 weeks all across lower lumbar no inj Chronic midline low back pain without sciatica Chronic midline low back pain without sciatica . COMPARISON: CT abdomen/pelvis 12/12/17 RESULT: Lumbar vertebrae demonstrate normal height. Minimal grade 1 retrolisthesis at L4-5. Mild disc space narrowing L4-5 and L2-3. Scattered osteophytes and facet arthrosis. Atheromatous calcification of the aorta. Partially imaged bilateral acetabular screws in this patient who has known bilateral hip arthroplasties. Remote fracture deformity of the right 10th posterior rib. Scattered colonic stool. Counting reference: Lumbosacral junction. For the purposes of this report, L4-5 is considered the level of the iliac crest and assume there are 5 lumbar-type vertebrae. Anatomic variant: None. IMPRESSION: Degenerative changes without acute osseous findings. Skin Therapist: ОЛЬГА Transcribe Date/Time: Jul 28 2024 8:04A Dictated by : ANDRES SALMERON MD This examination was interpreted and the report reviewed and electronically signed by: ANDRES SALMERON MD on Jul 28 2024 8:08AM EST [id number] Normal [facility] CBC panel Auto (Bld)on 07-18 Erythrocyte distribution width (RBC) [Ratio] 11.9 % Normal 11.5-15.0 [facility] Comment on above: Order Comment: Speci men Type: BLOOD SPECIMEN [facility] Address: [address] [place] [address] Performed By: #### 5 8410-2 #### [facility] CLIA [id number] [address] [place] [address] [place] Hematocrit (Bld) [Volume fraction] 48.9 % Normal 39.0-51.0 [facility] Comment on above: Order Comment: Speci men Type: BLOOD SPECIMEN [facility] Address: [address] [place] [address] Performed By: #### 5 8410-2 #### [facility] CLIA [id number] [address] [place] [address] [place] Hemoglobin (Bld) [Mass/Vol] 16.0 g/dL Normal 13.0-17.0 [facility] Comment on above: Order Comment: Speci men Type: BLOOD SPECIMEN [facility] Address: [address] [place] [address] Performed By: #### 5 8410-2 #### [facility] CLIA [id number] [address] [place] [address] [place] MCH (RBC) [Entitic mass] 31.7 pg Normal 26.0-34.0 [facility] Comment on above: Order Comment: Speci men Type: BLOOD SPECIMEN [facility] Address: [address] [place], [place] [address] Performed By: #### 5 8410-2 #### [facility] CLIA [id number] [address] [place] [address] [place] MCHC (RBC) [Mass/Vol] 32.7 g/dL Normal 30.5-36.0 [facility] Comment on above: Order Comment: Speci men Type: BLOOD SPECIMEN [facility] Address: [address] [place] [address] Performed By: #### 5 8410-2 #### [facility] CLIA [id number] [address] [place] [address] [place] MCV (RBC) [Entitic vol] 97.0 fL Normal 80.0-100.0 [facility] Comment on above: Order Comment: Speci men Type: BLOOD SPECIMEN [facility] Address: [address] [place] [address] Performed By: #### 5 8410-2 #### [facility] CLIA [id number] [address] [place] [address] [place] Nucleated RBC (Bld) [#/Vol] 10*3/uL Normal <0.01 [facility] Comment on above: Order Comment: Speci men Type: BLOOD SPECIMEN [facility] Address: [address] [place] [address] Performed By: #### 5 8410-2 #### [facility] CLIA [id number] [address] [place] [address] [place] Platelet mean volume (Bld) [Entitic vol] 8.9 fL Low 9.0-12.7 [facility] Comment on above: Order Comment: Speci men Type: BLOOD SPECIMEN [facility] Address: [address] [place] [address] Performed By: #### 5 8410-2 #### [facility] CLIA [id number] [address] [place] [address] [place] Platelets (Bld) [#/Vol] 279 10*3/uL Normal 150-400 [facility] Comment on above: Order Comment: Speci men Type: BLOOD SPECIMEN [facility] Address: [address] [place] [address] Performed By: #### 5 8410-2 #### [facility] CLIA [id number] [address] [place] [address] [place] RBC (Bld) [#/Vol] 5.04 10*6/uL Normal 4.20-6.00 [facility] Comment on above: Order Comment: Speci men Type: BLOOD SPECIMEN [facility] Address: [address] [place] [address] Performed By: #### 5 8410-2 #### [facility] CLIA [id number] [address] [place] [address] [place] WBC (Bld) [#/Vol] 7.13 10*3/uL Normal 3.70-11.00 [facility] Comment on above: Order Comment: Speci men Type: BLOOD SPECIMEN [facility] Address: [address] [place] [address] Performed By: #### 5 8410-2 #### [facility] CLIA [id number] [address] [place] [address] [place] Comprehensive metabolic 2000 panelon 07-18-2024 Albumin [Mass/Vol] 4.5 g/dL Normal 3.9-4.9 [facility] Comment on above: Order Comment: Speci men Type: BLOOD SPECIMENOrdering Facility: [facility] Address: [address] [place] [address] Performed By: #### 3 051-0, 3024-7, 64496-1, 79981-5 ####[facility] [id number] [place] [address] [place] ALP [Catalytic activity/Vol] 71 U/L Normal 38-113 [facility] Comment on above: Order Comment: Speci men Type: BLOOD SPECIMENOrdering Facility: [facility] Address: [address] [place] [address] Performed By: #### 3 051-0, 3024-7, 19326-8, 66341-7 ####[facility] [id number] [place] [address] [place] ALT [Catalytic activity/Vol] 26 U/L Normal 10-54 [facility] Comment on above: Order Comment: Speci men Type: BLOOD SPECIMENOrdering Facility: [facility] Address: [address] [place] [address] Performed By: #### 3 051-0, 3024-7, 76258-4, 63699-7 ####[facility]IA [id number] [place] [address] [place] Anion gap [Moles/Vol] 14 mmol/L Normal 8-15 [facility] Comment on above: Order Comment: Speci men Type: BLOOD SPECIMENOrdering Facility: [facility] Address: [address] [place] [address] Performed By: #### 3 051-0, 3024-7, 45382-7, 68864-9 ####[facility] [id number] [place] [address] [place] AST [Catalytic activity/Vol] 24 U/L Normal 14-40 [facility] Comment on above: Order Comment: Speci men Type: BLOOD SPECIMENOrdering Facility: [facility] Address: [address] [place] [address] Performed By: #### 3 051-0, 3024-7, 41985-1, 90510-8 ####[facility]IA [id number] [place] [address] [place] Bilirubin [Mass/Vol] 0.4 mg/dL Normal 0.2-1.3 [facility] Comment on above: Order Comment: Speci men Type: BLOOD SPECIMENOrdering Facility: [facility] Address: [address] [place] [address] Performed By: #### 3 051-0, 3024-7, 49310-8, 43624-6 ####[facility] [id number] [place] [address] [place] Calcium [Mass/Vol] 9.7 mg/dL Normal 8.5-10.2 [facility] Comment on above: Order Comment: Speci men Type: BLOOD SPECIMENOrdering Facility: [facility] Address: [address] [place] [address] Performed By: #### 3 051-0, 3024-7, 54423-3, 63800-6 ####[facility] [id number] [place] [address] [place] Chloride [Moles/Vol] 101 mmol/L Normal 98-107 [facility] Comment on above: Order Comment: Speci men Type: BLOOD SPECIMENOrdering Facility: [facility] Address: [address] [place] [address] Performed By: #### 3 051-0, 3024-7, 11253-0, 81880-0 ####[facility] [id number] [place] [address] [place] CO2 [Moles/Vol] 25 mmol/L Normal 22-30 [facility] Comment on above: Order Comment: Speci men Type: BLOOD SPECIMENOrdering Facility: [facility] Address: [address] [place] [address] Performed By: #### 3 051-0, 3024-7, 31702-2, 20009-1 ####[facility] [id number] [facility] [place] [address] [place] Creatinine [Mass/Vol] 0.88 mg/dL Normal 0.73-1.22 [facility] Comment on above: Order Comment: Amrita gonzalez Type: BLOOD SPECIMENOrdering Facility: [facility] Address: [address] [place] [address] Performed By: #### 3 051-0, 3024-7, 30611-4, 90327-6 ####[facility] [id number] [place] [address] [place] Creatinine and Glomerular filtration rate.predicted panel (S/P/Bld) 99 mL/min/1.73m??? Normal >=60 [facility] Comment on above: Order Comment: Amrita gonzalez Type: BLOOD SPECIMENOrdering Facility: [facility] Address: [address] [place] [address] Result Comment: Kianna mated Glomerular Filtration Rate (eGFR) is calculated using the 2020 CKD-EPI creatinine equation. This equation utilizes serum creatinine, sex, and age as parameters. The creatinine assay has traceable calibration to isotope dilution-mass spectrometry. Refer to KDIGO guidelines for clinical interpretation. In patients with unstable renal function, e.g. those with acute kidney injury, the eGFR may not accurately reflect actual GFR. Performed By: #### 3 051-0, 3024-7, 03374-3, 39051-4 ####[facility] [id number] [place] [address] [place] Glucose [Mass/Vol] 98 mg/dL Normal 74-99 [facility] Comment on above: Order Comment: Amrita gonzalez Type: BLOOD SPECIMENOrdering Facility: [facility] Address: [address] [place] [address] Result Comment: The [place] Diabetes Association (ADA) provides guidance for cutoff values for fasting glucose and random glucose. The ADA defines fasting as no caloric intake for at least 8 hours. Fasting plasma glucose results between 100 to 125 mg/dL indicate increased risk for diabetes (prediabetes). Fasting plasma glucose results greater than or equal to 126 mg/dL meet the criteria for diagnosis of diabetes. In the absence of unequivocal hyperglycemia, results should be confirmed by repeat testing. In a patient with classic symptoms of hyperglycemia or hyperglycemic crisis, random plasma glucose results greater than or equal to 200 mg/dL meet the criteria for diagnosis of diabetes. Reference: Standards of Medical Care in Diabetes 2016, [place] [employer] Association. Diabetes Care. 2016.39(Suppl 1). Performed By: #### 3 051-0, 3024-7, 64861-2, 93091-6 ####[facility] [id number] [place] [address] [place] Potassium [Moles/Vol] 4.2 mmol/L Normal 3.7-5.1 [facility] Comment on above: Order Comment: Speci men Type: BLOOD SPECIMENOrdering Facility: [facility] Address: [address] [place] [address] Performed By: #### 3 051-0, 3024-7, 32985-0, 75667-0 ####[facility] [id number] [place] [address] [place] Protein [Mass/Vol] 7.0 g/dL Normal 6.3-8.0 [facility] Comment on above: Order Comment: Amrita gonzalez Type: BLOOD SPECIMENOrdering Facility: [facility] Address: [address] [place] [address] Performed By: #### 3 051-0, 3024-7, 61359-4, 40825-2 ####[facility] [id number] [place] [address] [place] Sodium [Moles/Vol] 140 mmol/L Normal 136-144 [facility] Comment on above: Order Comment: Codyi men Type: BLOOD SPECIMENOrdering Facility: [facility] Address: [address] [place] [address] Performed By: #### 3 051-0, 3024-7, 93094-7, 17585-4 ####[facility]IA [id number] [place] [address] [place] Urea nitrogen [Mass/Vol] 16 mg/dL Normal 9-24 [facility] Comment on above: Order Comment: Speci men Type: BLOOD SPECIMENOrdering Facility: [facility] Address: [address] [place] [address] Performed By: #### 3 051-0, 3024-7, 24977-1, 91225-6 ####[facility]IA [id number] [place] [address] [place] Lipid 1996 panelon 4 Cholesterol [Mass/Vol] 211 mg/dL High <200 [facility] Comment on above: Order Comment: Speci men Type: BLOOD SPECIMENOrdering Facility: [facility] Address: [address] [place] [address] Result Comment: <200 mg/dL, Desirable 200-239 mg/dL, Borderline high >239 mg/dL, High Performed By: #### 3 051-0, 3024-7, 68016-3, 23643-6 ####[facility] [id number] [address] [place] Cholesterol in HDL [Mass/Vol] 53 mg/dL Normal >39 [facility] Comment on above: Order Comment: Speci men Type: BLOOD SPECIMENOrdering Facility: [facility] Address: [address] [place] [address] Result Comment: 40-5 9 mg/dL, Acceptable >59 mg/dL, High: Negative risk factor for coronary heart disease <40 mg/dL, Low: Positive risk factor for coronary heart disease Performed By: #### 3 051-0, 3024-7, 54658-1, 18052-5 ####[facility] [id number] [address] [place] Cholesterol in LDL [Mass/Vol] 124 mg/dL High <100 [facility] Comment on above: Order Comment: Speci men Type: BLOOD SPECIMENOrdering Facility: [facility] Address: [address] [place], [place] [address] Result Comment: <100 mg/dL, Optimal 100-129 mg/dL, Near optimal/above optimal 130-159 mg/dL, Borderline high 160-189 mg/dL, High >189 mg/dL, Very high Secondary prevention optimal LDL Cholesterol levels are recommended to be < 70 mg/dL Performed By: #### 3 051-0, 3024-7, 82486-7, 99476-9 ####[facility] [id number] [place] [address] [place] Cholesterol in LDL/Cholesterol in HDL [Mass ratio] 2.34 {ratio} Normal <2.54 [facility] Comment on above: Order Comment: Speci men Type: BLOOD SPECIMENOrdering Facility: [facility] Address: [address] [place] [address] Result Comment: Refe donnace: 1. National Cholesterol Education Program ATP III Guideline At-A-Glance Quick Desk Reference: National Heart, Lung, and Blood [place]. National Institutes of Health. 2001: NIH Publication No. 01-3305. 2. An International Atherosclerosis Society position paper: global recommendations for the management of dyslipidemia: executive summary, Atherosclerosis. 2014: 232(2):410-413. Performed By: #### 3 051-0, 3024-7, 60884-1, 24175-5 ####[facility] [id number] [place] [address] [place] Cholesterol in VLDL [Mass/Vol] 34 mg/dL High <30 [facility] Comment on above: Order Comment: Speci men Type: BLOOD SPECIMENOrdering Facility: [facility] Address: [address] [place] [address] Performed By: #### 3 051-0, 302-7, 85832-3, 40132-6 ####[facility] [id number] [facility] [place] [address] [place] Cholesterol non HDL [Mass/Vol] 158 mg/dL High <130 [facility] Comment on above: Order Comment: Speci men Type: BLOOD SPECIMENOrdering Facility: [facility] Address: [address] [place] [address] Result Comment: <130 mg/dL, Optimal 130-159 mg/dL, Near optimal/above optimal 160-189 mg/dL, Borderline high 190-219 mg/dL, High >219 mg/dL, Very high Secondary prevention optimal non HDL Cholesterol levels are recommended to be <100 mg/dL Performed By: #### 3 051-0, 3024-7, 86865-5, 69308-5 ####[facility]IA [id number] [place] [address] [place] Cholesterol.total/Chol esterol in HDL [Mass ratio] 3.98 {ratio} Normal <5.10 [facility] Comment on above: Order Comment: Speci men Type: BLOOD SPECIMENOrdering Facility: [facility] Address: [address] [place] [address] Performed By: #### 3 051-0, 3024-7, 69195-3, 56310-4 ####[facility]IA [id number] [place] [address] [place] FASTING TIME 12 hrs Normal [facility] Comment on above: Order Comment: Speci men Type: BLOOD SPECIMENOrdering Facility: [facility] Address: [address] [place] [address] Performed By: #### 3 051-0, 3024-7, 85505-3, 74872-0 ####[facility]IA [id number] [place] [address] [place] Triglyceride [Mass/Vol] 169 mg/dL High <150 [facility] Comment on above: Order Comment: Speci men Type: BLOOD SPECIMENOrdering Facility: [facility] Address: [address] [place] [address] Result Comment: <150 mg/dL, Normal 150-199 mg/dL, Borderline high 200-499 mg/dL, High >499 mg/dL, Very high Performed By: #### 3 051-0, 3024-7, 10485-1, 81811-7 ####[facility]CLIA [id number] [place] [address] [place] T3Free SerPl-mCncon 07-18-20 24 Free T3 [Mass/Vol] 2.5 pg/mL Normal 2.3-4.1 [facility] Comment on above: Order Comment: Speci men Type: BLOOD SPECIMEN [facility] Address: [address] [place] [address] Performed By: #### 5 8410-2 #### [facility] CLIA [id number] [address] [place] [address] [place] T4 Free SerPl-mCncon 024 Free T4 [Mass/Vol] 2.0 ng/dL High 0.9-1.7 [facility] Comment on above: Order Comment: Speci men Type: BLOOD SPECIMENOrdering Facility: [facility] Address: [address] [place] [address] Performed By: #### 3 051-0, 3024-7, 05725-4, 76052-4 ####[facility]CLIA [id number] [place] [address] [place] TSH SerPl-aCncon 07-18-2024 TSH Qn 1.840 m[IU]/L Normal 0.270-4.200 [facility] Comment on above: Order Comment: Speci men Type: BLOOD SPECIMENOrdering Facility: [facility] Address: [address] [place] [address] Performed By: #### 3 016-3 ####[facility] [id number] [place] [address] [place] UA DIP, URINE (POC)on 2023 BILIRUBIN UA (POCT) Negative Negative [facility] CLARITY UA (POCT) Clear [facility] COLOR UA (POCT) Yellow [facility] GLUCOSE UA (POCT) Negative Negative mg/dL [facility] Hemoglobin Ql (U) Negative Negative [facility] Interpretation and review of laboratory results Abnormal [facility] KETONE UA (POCT) Negative Negative mg/dL [facility] LEUKOCYTES UA (POCT) Negative Negative [facility] NITRITE UA (POCT) Negative Negative [facility] PH UA (POCT) 7.0 4.5 - 8.0 [facility] Protein Ql (U) Negative Negative mg/dL [facility] SPECIFIC GRAVITY UA (POCT) 1.015 1.005 - 1.030 [facility] UROBILINOGEN UA (POCT) 4.0 Abnormal Natalia l E.U./dL [facility] Location:[address], [address] [place] [address] POINT OF CARE [facility] CNOVon 01-18-2024 CNOV Office Visit (UROLAE ) -- GRUPO JACKSON ([id number]) 1965 M Date Time Provider Department 01/18/24 1:00 PM PROC URODYNAMICS UROLAE During your visit today, we recorded the following information about you: Katharine Vargas RN 01/18/2024 12:47 PM Signed POST PROCEDURE INSTRUCTIONS [employer] January 18, 2024 Increase your fluid intake. FOLLOW UP APPOINTMENT: 02/14/24 at 9:[address] Lara in the [address] [place] [address] office. WHEN TO CALL THE DOCTOR: If you develop fever (over 101 degrees) or chills. If you cannot urinate or empty your bladder. If you develop symptoms of a urinary tract infection such as burning or pain with urination, increased frequency of urination or foul smelling urine If you have any other questions or problems. Office phone number; [phone] Katharine Vargas RN 01/18/2024 1:42 PM Signed [employer] [id number] 1965 January 18, 2024 Diagnoses: Urinary Urgency Urinary Frequency UA done: No Procedure Performed: Multichannel urodynamic testing including multichannel cystometrogram, uroflowmetry, pressure voiding study, and EMG. Was a uroflow done at some point during the study: Yes Was a cystometrogram performed: Yes Was a UPP done: No Was an EMG done: Yes Was an intraabdominal pressure recorded: Yes Where were pressure catheters placed: Bladder and Rectum Procedure: The patient verified medications and allergies. The procedure was explained to the patient. Immediately prior to the test the patient was given Keflex 500 mg #1 by mouth and Lidocaine 2% jelly 11 ml to urethra per order. UNIVERSAL PROTOCOL / SAFETY CHECKLIST A moment to CARE: Completed Procedure to be performed: Urodynamics Sign in Communication: Completed Time Out: Team Confirms the Correct Patient, Correct Procedure, Correct Site and Site Marking, Correct Position (if applicable), Prep and Dry Time (if applicable). Time: 1300 Affirmation of Time Out: N/A Sign Out Discussion: Completed Urodynamic Findings: Uroflow : Patient arrived with a minaya catheter- No. Patient voided 109.1 ml; Curve: Intermittent Post void residual 25 ml QMAX 38.5 ; QAVG 9.5 . Cystometrogram: The patient had a cystometrogram EMG: Yes First Sensation 131 ml First desire 172 ml Strong Desire 255 ml Capacity 268 ml The patient did not leak with cough. no destrusor contractions Instability associated with urge: No Instability associated with leakage: No Pressure-Flow Voiding Study: EMG: Yes Void 300.6 ml; Curve: Intermittent Post void residual: <10 ml Maximum detrusor pressure 51.5 Cm H20 Maximum flow rate: 22.2 ml/sec Average flow rate: 11.4 ml/sec UDS notes: Patient off Vesicare x7 days Plan: Patient will follow up with provider to discuss plan of care and results. Patient tolerated the procedure well. Home going instructions given. Patient able to repeat back understanding of instructions. Katharine Vargas RN cc: MD Serg Baldwin Petar, MD 01/22/2024 8:07 AM Signed [facility] PHYSICIAN INTERPRETATION: Urodynamics Interpretation: A 6 Fr catheter was placed and secured to the patient's penis with tape and a separate rectal catheter was placed for intra-abdominal pressure measurements. The study was then run to yield results as follows: Uroflow: Intermittent and large voided volume PVR: Low CMG: The FS and FD: normal range Bladder compliance: normal Detrusor overactivity: terminal Total tolerated volume was 269ml Stress incontinence demonstrated with Valsalva during filling: No PRESSURE-FLOW VOIDING STUDY: Voided: 300ml Maximum flow rate - 22.2 ml/sec Average flow rate - 11.4 ml/sec Max voiding detrusor pressure of 51.5 cm/H2O Pressure Flow phase: Pdet max with flow was normal Abdominal strain:No and Yes EMG: DESD or abnormal patterns noted: No Impression: PFS favors unobstructed flow Terminal detrusor overactivity with low capacity Dx OAB Continue OAB pathway Héctor Ulrich MD Allergies As of Date: 01/18/2024 (No Known Allergies) Date Reviewed: 01/18/2024 Reviewed by: Katharine Vargas RN - Fully Assessed Reason for Visit: Urinary Frequency [1086] Cmt: UDS Urinary Urgency [2827] Primary Visit Diagnosis:Benign prostatic hyperplasia with lower urinary tract symptoms, symptom details unspecified [N40.1] Other Visit Diagnoses:Overactive bladder [N32.81] Urgency of urination [R39.15] Prescriptions as of 01/22/2024 - traZODone (DESYREL) 50 mg tablet Take 1-3 tablets by mouth daily at bedtime. - solifenacin (VESICARE) 10 mg tablet Take 1 tablet by mouth once daily. - finasteride (PROSCAR) 5 mg tablet Take 1 tablet by mouth once daily. - lisinopril (ZESTRIL) 10 mg tablet Take 1 tablet by mouth once daily. - levothyroxine (SYNTHROID) 125 mcg tablet 2 tablets (more content not included)... Normal [facility] UA DIP, URINE (POC)on 2023 BILIRUBIN UA (POCT) Negative Negative [facility] CLARITY UA (POCT) Clear [facility] COLOR UA (POCT) Yellow [facility] GLUCOSE UA (POCT) Negative Negative mg/dL [facility] Hemoglobin Ql (U) Negative Negative [facility] KETONE UA (POCT) Negative Negative mg/dL [facility] LEUKOCYTES UA (POCT) Negative Negative [facility] NITRITE UA (POCT) Negative Negative [facility] PH UA (POCT) 7.0 4.5 - 8.0 [facility] Protein Ql (U) Negative Negative mg/dL [facility] SPECIFIC GRAVITY UA (POCT) 1.015 1.005 - 1.030 [facility] UROBILINOGEN UA (POCT) 1.0 Natalia l E.U./dL [facility] Location:[facility], [address] [place], [address] [facility] POINT OF CARE [facility] US Prostate transrectalon [facility] Radiology Study observation (narrative) [facility] CT SOFT TISSUE NECK W IV CON TRASTon 11-22-2023 CT SOFT TISSUE NECK W IV CONTRAST Interpreted By: Cora Maloney, STUDY: CT SOFT TISSUE NECK W IV CONTRAST INDICATION: Signs/Symptoms:right neck mass COMPARISON: None ACCESSION NUMBER(S): [id number] ORDERING CLINICIAN: LELO LUZ TECHNIQUE: Helically acquired axial CT images of the neck after administration of intravenous contrast, with sagittal and coronal reformats. FINDINGS: SOFT TISSUES: No evidence of any solid or cystic masses in the neck. ORAL CAVITY: Oral cavity appears normal. PHARYNX/HYPOPHARYNX/LARYNX : Normal mucosal contours. No abnormal enhancement. SALIVARY GLANDS: Status post right parotidectomy. Soft tissue density along the resection cavity margins are thought to represent postsurgical changes. No focal mass visualized though evaluation is limited given lack of previous imaging. Left parotid gland and bilateral submandibular glands are normal. LYMPH NODES: There is no lymphadenopathy by imaging size criteria. THYROID GLAND: Thyroid tissue is atrophic. Subcentimeter calcified nodules noted. VASCULATURE: Atherosclerotic disease of bilateral carotid bifurcations with at least moderate luminal stenosis on the right in mild luminal stenosis on the left. VISUALIZED BRAIN: Limited evaluation demonstrates no acute abnormalities. ORBITS: Unremarkable. BONES: Visualized osseous structures demonstrate no acute abnormalities. The visualized paranasal sinuses, tympanic cavities, and mastoid air cells are clear. UPPER CHEST: Visualized upper lungs are clear. IMPRESSION: Status post right parotidectomy.Soft tissue density along the resection cavity margins are thought to represent postsurgical changes. No focal mass visualized though evaluation is limited given lack of previous imaging. No focal neck mass visualized. Thyroid tissue is atrophic. Subcentimeter calcified nodules noted. Atherosclerotic disease of bilateral carotid bifurcations with at least moderate luminal stenosis on the right in mild luminal stenosis on the left. Signed by: Cora Maloney 12/08/2023 2:35 PM Dictation workstation: [id number] [facility] UA DIP, URINE (POC)on 2023 BILIRUBIN UA (POCT) Negative Negative [facility] CLARITY UA (POCT) Clear [facility] COLOR UA (POCT) Yellow [facility] GLUCOSE UA (POCT) Negative Negative mg/dL [facility] Hemoglobin Ql (U) Negative Negative [facility] KETONE UA (POCT) Negative Negative mg/dL [facility] LEUKOCYTES UA (POCT) Negative Negative [facility] NITRITE UA (POCT) Negative Negative [facility] PH UA (POCT) 7.0 4.5 - 8.0 [facility] Protein Ql (U) Negative Negative mg/dL [facility] SPECIFIC GRAVITY UA (POCT) 1.025 1.005 - 1.030 [facility] UROBILINOGEN UA (POCT) 1.0 E.U./dL Natalia l E.U./dL [facility] CNPNon 06-27-2023 CNPN Telephone (AGCARDPOB ) -- WILBERTGRUPO BENITES Javier ( ) 1965 M Date Time Provider Department 06/27/23 BALJEET LOCK During your visit today, we recorded the following information about you: Madai Cruz LPN 06/27/2023 4:55 PM Signed ----- Message from Baljeet Lock MD sent at 06/27/2023 4:33 PM EDT ----- Can you please let Mr. Jackson know that his Echocardiogram revealed normal LV function and no significant valve disease. Thanks, MD Nancy Zhao Taylor, LPN 06/27/2023 4:58 PM Signed Left message for Mr. Jackson to call [facility] for test results. [facility] phone number provided. BARRINGTON Singh Susan M, RN 06/28/2023 8:18 AM Signed Spoke with patient and notified of Dr. Lock's message. Patient voiced understanding. Gutierrez Hall RN Allergies As of Date: 06/27/2023 (No Known Allergies) Date Reviewed: 06/21/2023 Reviewed by: Clemente Hidalgo MD - Fully Assessed Reason for Visit: Results [95] Prescriptions as of 06/28/2023 - albuterol HFA (PROVENTIL HFA, VENTOLIN HFA) 90 mcg/actuation inhaler Inhale 2 Puffs as instructed every 6 hours as needed for wheezing/shortness of breath. - simvastatin (ZOCOR) 20 mg tablet Take 1 tablet by mouth daily at bedtime. - finasteride (PROSCAR) 5 mg tablet Take 1 tablet by mouth once daily. - varenicline (CHANTIX STARTING MONTH BOX) 0.5 mg (11)- 1 mg (42) tablet Take 0.5 mg by mouth once daily on Days 1 through 3, THEN 0.5 mg twice daily on Days 4 through 7, THEN 1 mg twice daily on Day 8 and thereafter - varenicline (CHANTIX CONTINUING MONTH BOX) 1 mg tablet Take 1 tablet by mouth twice daily. - terbinafine HCl (LAMISIL) 250 mg tablet Take 1 tablet by mouth once daily. For toenails - tamsulosin (FLOMAX) 0.4 mg Take 1 capsule by mouth once daily. For urination - meloxicam (MOBIC) 15 mg tablet Take 1 tablet by mouth once daily. With food. - traZODone (DESYREL) 50 mg tablet Take 1-3 tablets by mouth daily at bedtime. - lisinopril (ZESTRIL) 10 mg tablet Take 1 tablet by mouth once daily. - levothyroxine (SYNTHROID) 125 mcg tablet 2 tablets 3 day (Mon, Thurs, Sat) and 1 tablet 4 days a week. On an empty stomach. - meloxicam (MOBIC) 15 mg tablet Take 1 tablet by mouth once daily. For sciatica, With food. 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] 04/28/2015 Sleep apnea [G47.30] 04/28/2015 Essential hypertension [I10] LULU on CPAP [G47.33] 07/11/2016 Perineal abscess [L02.215] 10/28/2016 Class 1 obesity due to excess calories with bod*12/27/2017 Persistent cough for 3 weeks or longer [R05.3] 12/27/2017 Screening for prostate cancer [Z12.5] 12/27/2017 Urinary frequency [R35.0] 12/27/2017 LULU (obstructive sleep apnea) [G47.33] 06/26/2018 Colon cancer screening [Z12.11] 01/08/2019 Dyslipidemia [E78.5] 04/08/2019 Internal hemorrhoids [K64.8] 04/08/2019 Former smoker [Z87.891] 09/24/2021 Family hx of colon cancer [Z80.0] 09/24/2021 Encounter Status:Closed by GUTIERREZ HALL on 06/28/23 Normal [facility] ECG COMPLETEon 06-21-2023 Atrial Rate 74 BPM [facility] Calculated P Champion 19 degrees [facility] Calculated R Champion 85 degrees [facility] Calculated T Champion 50 degrees [facility] P-R Interval 130 ms [facility] QRS Duration 96 ms [facility] QT Interval 386 ms [facility] QTC Calculation (Bazett) 428 ms [facility] Ventricular Rate 74 BPM [facility] XR CHEST 2V FRONTAL/LATon [facility] XR Chest PA and Lateralon IMPRESSION: Stable exam without acute findings. Skin Therapist: ОЛЬГА Transcribe Date/Time: May 10 2023 8:21A Dictated by : ATIYA ALEGRE MD This examination was interpreted and the report reviewed and electronically signed by: ATIYA ALEGRE MD on May 10 2023 8:22AM [facility] DIVISION OF RADIOLOGY * * *Final Report* * * DATE OF EXAM: May 10 2023 8:08AM WOX [id number] - XR CHEST 2V FRONTAL/LAT / PROCEDURE REASON: Acute cough * * * * Physician Interpretation * * * * EXAMINATION: CHEST RADIOGRAPH (2 VIEW FRONTAL & LATERAL) CLINICAL HISTORY: Acute cough MQ: XC2_6 EXAM DATE/TIME: 05/10/2023 8:08 AM COMPARISON: Chest x-ray on 11/03/2017 RESULT: Lines, tubes, and devices: None. Lungs and pleura: No consolidation. No lung mass. No pleural effusion. No pneumothorax. Left-sided large pericardial fat pad is noted. Cardiomediastinal silhouette: Stable cardiomediastinal silhouette. Bones and soft tissues: There are degenerative changes in the spine. DIVISION OF RADIOLOGY Provider, [facility] - 05/10/2023 * * *Final Report* * * DATE OF EXAM: May 10 2023 8:08AM WOX [id number] - XR CHEST 2V FRONTAL/LAT / PROCEDURE REASON: Acute cough * * * * Physician Interpretation * * * * EXAMINATION: CHEST RADIOGRAPH (2 VIEW FRONTAL & LATERAL) CLINICAL HISTORY: Acute cough MQ: XC2_6 EXAM DATE/TIME: 05/10/2023 8:08 AM COMPARISON: Chest x-ray on 11/03/2017 RESULT: Lines, tubes, and devices: None. Lungs and pleura: No consolidation. No lung mass. No pleural effusion. No pneumothorax. Left-sided large pericardial fat pad is noted. Cardiomediastinal silhouette: Stable cardiomediastinal silhouette. Bones and soft tissues: There are degenerative changes in the spine. IMPRESSION IMPRESSION: Stable exam without acute findings. Skin Therapist: ОЛЬГА Transcribe Date/Time: May 10 2023 8:21A Dictated by : ATIYA AELGRE MD This examination was interpreted and the report reviewed and electronically signed by: ATIYA ALEGRE MD on May 10 2023 8:22AM EST [facility] Radiology Study observation (narrative) [facility] XR Chest PA and LateralOrder ed By: [facility] Provider on 05-10-2023 [facility] Emergency Department Summary on 01-07-2023 Emergency Department Summary [facility] Medical Records Department [address] [place] [address] Emergency Department Summary 01/07/23 MR#: [id number] Acct: [id number] Name: BOYD JACKSON Rep #: [id number] : 1965 57 From: Pantera Ji MD PCP: Dr. Nuno Lowe, DO Status:REG ER Location: ED HPI History of Present Illness Chief Complaint: Wound Check Informant: patient and spouse/S.O. Narrative Narrative: Patient presents with 2 days of penile and scrotal redness/swelling. It is all itchy. It is sore where the swelling is around the thurman of the glans and base of the penis there just proximal to that, that is where the swelling is the worst. He saw urgent care and was prescribed clotrimazole, he has been using that for 1 day, and he states they prescribed him a antimicrobial topical to use if the first 1 does not work and diagnosed him with balanitis. He had regular vaginal intercourse with his significant other the night before this started. They have been for a long time and they are both monogamous with each other, with no history of STDs. She has used no agents in her vulva or vagina recently that she can think of, and she has had no discharge or infection. The patient presents here now saying that the swelling is more prominent, and in addition he has 2 patches of pruritic redness on his face that were not there yesterday. He states he spread the antibiotic cream on the patches on his face and came here. No fevers or chills, no systemic symptoms, no trouble urinating. He is not a diabetic. [facility] Medical History HTN (hypertension) Urinary bladder disorder Home Medications lisinopril 10 mg tablet 10 mg PO DAILY 05/24/15 [History Last Taken 08/08/17 05:00] simvastatin 40 mg tablet 40 mg PO QHS 05/24/15 [History Last Taken Unknown] Levothyroxine Sodium 112 mcg PO DAILY 05/17/17 [History Last Taken 05/31/17 06:15] cholecalciferol (vitamin D3) 50 mcg (2,000 unit) capsule (Vitamin D3) 4,000 unit PO DAILY 08/02/17 [History Last Taken Unknown] magnesium oxide 500 mg capsule 500 mg PO DAILY 08/02/17 [History Last Taken Unknown] fluconazole 150 mg tablet 150 mg PO DAILY #1 TAB 01/07/23 [Rx Last Taken Unknown] prednisone 20 mg tablet 40 mg PO DAILY #10 TABLETS 01/07/23 [Rx Last Taken Unknown] Allergy/AdvReac Type Severity Reaction Status Date / Time No Known Allergies Allergy Verified 01/07/23 15:44 Social History Smoking Status: Current every day smoker tobacco type: cigarettes ROS ROS ED Constitutional Constitutional ED: Reports chills and fever(s) Eyes Eyes: Denies blurry vision or change in vision Cardiovascular Cardiovascular: Denies chest pain or palpitations Respiratory/Chest Respiratory/Chest: Denies cough or dyspnea Gastrointestinal Gastrointestinal: Denies abdominal pain, diarrhea, melena, nausea or vomiting Genitourinary Genitourinary ED: Reports as per HPI; Denies dysuria or hematuria Musculoskeletal Musculoskeletal: Denies back pain, myalgias or neck pain Integumentary Denies abscess or rash Neurologic Neurologic: Denies headache(s), paresthesias or weakness EXAM Physical Exam Const Vital Signs: 01/07/23 15:42 Temperature 97.1 F L Temperature Source Temporal Pulse Rate 89 Respiratory Rate 16 Blood Pressure 157/90 H Blood Pressure Mean 112 Pulse Ox 98 Oxygen Delivery Method Room Air Positive well nourished and well developed General Appearance ED: well developed Eyes PERRL and EOMs intact bilaterally Resp normal respiratory effort GI normal to inspection, nondistended, normoactive bowel sounds, non-tender and non-distended Narrative: Mild diffuse swelling of the entire scrotum and penile shaft and erythema/hyperemia, the most edematous area is in a ring at the shaft of the penis just proximal to the thurman radiata, and this area is mildly tender. There is no abscess. The erythema extends proximally onto the mons pubis, as well as into the groin bilaterally, with fairly well-circumscribed edges in these areas at the edges are a little more hyperemic, there is no discharge, and there is no tenderness in the groins or the mons. There is no tenderness in the scrotum, testicles, or in the perineum, nor is there any subcutaneous emphysema. No palpable hernias examined while standing. Back/Spine no CVA tenderness Back/Spine Narrative: F ROM Neuro oriented x3, CN's II-XII intact bilaterally and no sensory deficits noted Motor Exam: strength 5/5 throughout Psych mental status grossly normal Skin Skin Narrative: There are 2 nontender patches of erythema on his face, 1 on his left cheek and 1 at the angle of his right jaw, they are not well-circumscribed, they are slightly (more content not included)... Normal [facility] Abdomen/Pelvis W IV Cont ONL Yon 09-13-2022 Abdomen/Pelvis W IV Cont ONLY [facility] Imaging Services [address] [place] [address] Abdomen/Pelvis W IV Cont ONLY MR#: [id number] Acct: [id number] Name: BOYD JACKSON Rep #: [id number] : 1965 M 56 From: Chapincito santana MD PCP: Dr. Nuno Lowe, Status: PRE ER Study: Abdomen/Pelvis W IV Cont ONLY Date of Exam: Exam# [id number] Ordering Dr: Vikash King DO STUDY: CT ABDOMEN AND PELVIS WITH CONTRAST REASON FOR EXAM: Male, 56 years old. One day history of abdominal pain. RADIATION DOSAGE (If Supplied By Facility): CTDIvol = ( 16.20 ) mGy, DLP = ( 1238.49 ) mGycm TECHNIQUE: Transaxial images were obtained from the dome of the diaphragm to the symphysis pubis without oral contrast. IV 100mL Isovue-300 was administered. Sagittal and coronal images were reconstructed. Individualized dose optimization techniques were used for this CT. COMPARISON: None. FINDINGS: Mild degree of increased linear markings at the lung bases suggest leveling atelectasis and/or scarring. Coronary artery calcification. Normal liver. Normal gallbladder and extrahepatic biliary system. Normal spleen. Normal pancreas. Normal bilateral adrenal glands. Normal right kidney. Normal left kidney. Normal visualized stomach. Normal small intestine. There is diverticulosis, with thickening of the colon wall, and pericolonic inflammation changes consistent with acute diverticulitis. The appendix is visualized and appears normal. There is diffuse atherosclerotic calcification of the abdominal aorta, without a demonstrated aneurysm. Normal inferior vena cava. Normal retroperitoneum. Normal urinary bladder. Normal abdominal wall. There are mild degenerative changes of the visualized lumbar spine. The patient is status post bilateral total hip replacement causing beam hardening artifact in the pelvis. CT/Abdomen/Pelvis W IV Cont ONLY IMPRESSION: Sigmoid diverticulosis with increased markings in the surrounding peritoneal fat in keeping with noncomplicated acute sigmoid diverticulitis. Electronically Signed: Chapincito Prasad MD at 11:24 EST , CC: Dr. Vikash King, DO; Dr. Nuno Lowe, DO Skin Therapist: Signed Normal [facility] Absolute lymphocyte countOrd ered By: Dr. King on 09-13-2022 Lymphocytes Auto (Unsp spec) [#/Vol] 1.89 10*3/uL 0.83-4.51 [facility] Basophil percentageOrdered B y: Dr. King on 09-13-2022 Basophils/100 WBC (Bld) 0.4 % 0-1 [facility] Bilirubin [Mass/Vol] 1.00 mg/dL 0.20-1.00 [facility] Comment on above: For patients on eltr ombopag therapy, use of Dimension Comstock TBIL is not recommended. Chloride [Moles/Vol] 102 mmol/L 98-107 [facility] Eosinophils/100 WBC (Bld) 1.6 % 0-5 [facility] Glucose [Mass/Vol] 97 mg/dL 74-106 [facility] Neutrophils (Bld) [#/Vol] 7.0 10*3/uL 2.0-7.7 [facility] Neutrophils/100 WBC (Bld) 66.5 % 47-70 [facility] Potassium [Moles/Vol] 3.9 mmol/L 3.5-5.1 [facility] Protein [Mass/Vol] 7.3 g/dL 6.4-8.2 [facility] Sodium [Moles/Vol] 138 mmol/L 136-145 [facility] WBC (Bld) [#/Vol] 10.5 10*3/uL 4.4-11.0 [facility] Basophil percentage 0 SEEN /hpf 0-5 [facility] Bilirubin Test strip Ql (U)O rdered By: Dr. King on 09-13-2022 Bilirubin Ql (U) Negative Negative [facility] Blood erythrocytes count (nu mber/volume)Ordered By: Dr. King on 09-13-2022 RBC (Bld) [#/Vol] 4.64 10*6/uL 4.6-6.2 [facility] Blood hemoglobin measurement (mass/volume)Ordered By: Dr. King on 09-13-2022 Hemoglobin (Bld) [Mass/Vol] 14.6 g/dL 13.0-16.5 [facility] Blood lymphocytes/100 leukoc ytesOrdered By: Dr. King on 09-13-2022 Lymphocytes/100 WBC (Bld) 18.1 % 19-41 [facility] Blood monocytes/100 leukocyt esOrdered By: Dr. King on 09-13-2022 Monocytes/100 WBC (Bld) 13.1 % 0-10 [facility] Blood platelet mean volumeOr dered By: Dr. King on 09-13-2022 Platelet mean volume (Bld) [Entitic vol] 8.4 fL 6.2-12.0 [facility] CBC W/Diff, Automatedon Absolute Lymph 1.89 X10 3/uL Normal 0.83-4.51 [facility] Comment on above: Performed By: #### L 100.0100, L501.2450, L500.4050 #### [facility] [address] [place], [place] [address], [address] Absolute Neut 7.0 X10 3/uL Normal 2.0-7.7 [facility] Comment on above: Performed By: #### L 100.0100, L501.2450, L500.4050 #### [facility] [address] [place], [address] Basophils/100 WBC (Bld) 0.4 % Normal 0-1 [facility] Comment on above: Performed By: #### L 100.0100, L501.2450, L500.4050 #### [facility] [address] [place], [address] Eosinophils/100 WBC (Bld) 1.6 % Normal 0-5 [facility] Comment on above: Performed By: #### L 100.0100, L501.2450, L500.4050 #### [facility] [address] [place], [address] Erythrocyte distribution width (RBC) [Ratio] 12.4 % Normal 11.6-14.6 [facility] Comment on above: Performed By: #### L 100.0100, L501.2450, L500.4050 #### [facility] [address] [place], [address] Hematocrit (Bld) [Volume fraction] 43.1 % Normal 40-54 [facility] Comment on above: Performed By: #### L 100.0100, L501.2450, L500.4050 #### [facility] [address] [place], [address] Hemoglobin (Bld) [Mass/Vol] 14.6 g/dL Normal 13.0-16.5 [facility] Comment on above: Performed By: #### L 100.0100, L501.2450, L500.4050 #### [facility] [address] [place], [address] IG% 0.300 Normal 0.0-0.9 [facility] Comment on above: Result Comment: IG% - Immature Granulocytes (promyelocytes, myelocytes and metamyelocytes) > 1% indicates that a LEFT SHIFT is Present. Performed By: #### L 100.0100, L501.2450, L500.4050 #### [facility] [address] [place], [address] Lymphocytes/100 WBC (Bld) 18.1 % Low 19-41 [facility] Comment on above: Performed By: #### L 100.0100, L501.2450, L500.4050 #### [facility] [address] [place], [address] MCH (RBC) [Entitic mass] 31.5 pg Normal 27.0-32.0 [facility] Comment on above: Performed By: #### L 100.0100, [id number], L500.4050 #### [facility] [address] [place], [address] MCHC (RBC) [Mass/Vol] 33.9 g/dL Normal 32-36 [facility] Comment on above: Performed By: #### L 100.0100, [id number], L500.4050 #### [facility] [address] [place], [address] MCV (RBC) [Entitic vol] 92.9 fL Normal 80-94 [facility] Comment on above: Performed By: #### L 100.0100, [id number], L500.4050 #### [facility] [address] [place], [address] Monocytes/100 WBC (Bld) 13.1 % High 0-10 [facility] Comment on above: Performed By: #### L 100.0100, [id number], L500.4050 #### [facility] [address] [place], [address] Neutrophils/100 WBC (Bld) 66.5 % Normal 47-70 [facility] Comment on above: Performed By: #### L 100.0100, [id number], L500.4050 #### [facility] [address] [place], [address] Nucleated RBC (Bld) [#/Vol] 0 10*3/uL Normal 0-5 [facility] Comment on above: Performed By: #### L 100.0100, [id number], L500.4050 #### [facility] [address] [place], [address] Platelet mean volume (Bld) [Entitic vol] 8.4 fL Normal 6.2-12.0 [facility] Comment on above: Performed By: #### L 100.0100, L501.2450, L500.4050 #### [facility] [address] [place], [address] Platelets (Bld) [#/Vol] 226 10*3/uL Normal 150-450 [facility] Comment on above: Performed By: #### L 100.0100, L501.2450, L500.4050 #### [facility] [address] [place], [address] RBC (Bld) [#/Vol] 4.64 10*6/uL Normal 4.6-6.2 [facility] Comment on above: Performed By: #### L 100.0100, L501.2450, L500.4050 #### [facility] [address] [place], [address] RDW SD 42.2 fl Normal 35.1-43.9 [facility] Comment on above: Performed By: #### L 100.0100, [id number], L500.4050 #### [facility] [address] [place], [address] WBC (Bld) [#/Vol] 10.5 10*3/uL Normal 4.4-11.0 [facility] Comment on above: Performed By: #### L 100.0100, L501.2450, L500.4050 #### [facility] [address] [place], [address] Comprehensive Metabolic Prof ilon 09-13-2022 Albumin [Mass/Vol] 3.7 g/dL Normal 3.2-5.0 [facility] Comment on above: Performed By: #### L 100.0100, L501.2450, L500.4050 #### [facility] [address] [place], [address] Albumin/Globulin [Mass ratio] 1.0 {ratio} Normal 0.9-2.4 [facility] Comment on above: Performed By: #### L 100.0100, L501.2450, L500.4050 #### [facility] [address] [place], [address] ALK P 65 U/L Normal 45-117 [facility] Comment on above: Performed By: #### L 100.0100, [id number], L500.4050 #### [facility] [address] [place], [address] ALT [Catalytic activity/Vol] 33 U/L Normal 16-61 [facility] [facility] Comment on above: Performed By: #### L 100.0100, L501.2450, L500.4050 #### [facility] [address] [place], [address] AST [Catalytic activity/Vol] 19 U/L Normal 15-37 [facility] Comment on above: Performed By: #### L 100.0100, L501.2450, [id number] #### [facility] [address] [place], [address] Bilirubin [Mass/Vol] 1.00 mg/dL Normal 0.20-1.00 [facility] Comment on above: Result Comment: For patients on eltrombopag therapy, use of Dimension [place] TBIL is not recommended. Performed By: #### L 100.0100, L501.2450, [id number] #### [facility] [address] [place], [address] BUN/CRE 19.8 RATIO Normal 10-20 [facility] Comment on above: Performed By: #### L 100.0100, L501.2450, [id number] #### [facility] [address] [place], [address] CA,Total 9.4 mg/dL Normal 8.5-10.1 [facility] Comment on above: Performed By: #### L 100.0100, L501.2450, [id number] #### [facility] [address] [place], [address] Chloride [Moles/Vol] 102 mmol/L Normal 98-107 [facility] Comment on above: Performed By: #### L 100.0100, L501.2450, [id number] #### [facility] [address] [place], [address] CO2 [Moles/Vol] 27.0 mmol/L Normal 21.0-32.0 [facility] Comment on above: Performed By: #### L 100.0100, L501.2450, [id number] #### [facility] [address] [place], [address] Creatinine [Mass/Vol] 0.96 mg/dL Normal 0.70-1.30 [facility] Comment on above: Result Comment: The validity of the calculated GFR GFRAA in patients over 70 years has not been determined. Clinical correlation is essential. Performed By: #### L 100.0100, L501.2450, [id number] #### [facility] [address] [place], [address] ECRCL 82.14 ml/min Normal [facility] Comment on above: Performed By: #### L 100.0100, L501.2450, [id number] #### [facility] [address] [place], [address] EST GFR - AA 104 mL/min Normal >60 [facility] Comment on above: Result Comment: Afri can Bruneian GFR Calc Performed By: #### L 100.0100, L501.2450, [id number] #### [facility] [address] [place], [address] GAP 9 Normal 5-15 [facility] Comment on above: Performed By: #### L 100.0100, L501.2450, [id number] #### [facility] [address] [place], [address] GFR/1.73 sq M.predicted among non-blacks MDRD (S/P/Bld) [Vol rate/Area] 86 mL/min/{1.73_m2} Normal >60 [facility] Comment on above: Result Comment: Non- GFR Calc Performed By: #### L 100.0100, L501.2450, [id number] #### [facility] [address] [place], [address] Globulin (S) [Mass/Vol] 3.6 g/dL Normal 2.2-4.2 [facility] Comment on above: Performed By: #### L 100.0100, L501.2450, [id number] #### [facility] [address] [place], [address] Glucose [Mass/Vol] 97 mg/dL Normal 74-106 [facility] Comment on above: Performed By: #### L 100.0100, [id number], [id number] #### [facility] [address] [place], [address] Potassium [Moles/Vol] 3.9 mmol/L Normal 3.5-5.1 [facility] Comment on above: Performed By: #### L 100.0100, [id number], [id number] #### [facility] [address] [place], [address] Sodium [Moles/Vol] 138 mmol/L Normal 136-145 [facility] Comment on above: Performed By: #### L 100.0100, [id number], [id number] #### [facility] [address] [place], [address] T PROT 7.3 g/dL Normal 6.4-8.2 [facility] Comment on above: Performed By: #### L 100.0100, [id number], [id number] #### [facility] [address] [place], [address] Urea nitrogen [Mass/Vol] 19 mg/dL High 7-18 [facility] Comment on above: Performed By: #### L 100.0100, L501.2450, [id number] #### [facility] [address] [place], [address] Determination of erythrocyte mean corpuscular volume (MCV)Ordered By: Dr. King on 09-13-2022 MCV (RBC) [Entitic vol] 92.9 fL 80-94 [facility] Emergency Department Summary on 09-13-2022 Emergency Department Summary [facility] Medical Records Department [address] [place] [address] Emergency Department Summary 09/13/22 MR#: [id number] Acct: [id number] Name: BOYD JACKSON PATRICIA Rep #: [id number] : 1965 56 From: Vikash King DO PCP: Dr. Nuno Lowe, DO Status:REG ER Location: ED HPI HPI - GI History of Present Illness Chief Complaint: Abd Pain Narrative Narrative: 56-year-old male presenting with abdominal pain. He states it began yesterday centrally in the midline of his lower abdomen. He states now it seems to radiate bilaterally to the lower abdomen. He has not had any diarrhea. He states he had a normal bowel movement today. He has a history of BPH but states he is able to urinate without difficulty and does not have any dysuria. Last night he noted he had a temperature of 100 ???F and took some Tylenol. This morning he woke up and stated he was feeling a little bit better until he started to walk and he noted the pain again in the lower abdomen. He states walking makes this worse. Sitting and resting makes it better. He states that when he stands up he has to stand up slowly because he feels like something is stretching. He has no history of abdominal surgeries. No history of diverticulitis. No black or bloody stools. [facility] Medical History no medical history Home Medications lisinopril 10 mg tablet 10 mg PO DAILY 05/24/15 [History Last Taken 08/08/17 05:00] simvastatin 40 mg tablet 40 mg PO QHS 05/24/15 [History Last Taken Unknown] Levothyroxine Sodium 112 mcg PO DAILY 05/17/17 [History Last Taken 05/31/17 06:15] cholecalciferol (vitamin D3) 50 mcg (2,000 unit) capsule (Vitamin D3) 4,000 unit PO DAILY 08/02/17 [History Last Taken Unknown] magnesium oxide 500 mg capsule 500 mg PO DAILY 08/02/17 [History Last Taken Unknown] docusate sodium 100 mg capsule 100 mg PO DAILY #30 caps 03/18/19 [Rx Last Taken Unknown] amoxicillin 875 mg-potassium clavulanate 125 mg tablet 1 tab PO BID 12 days #24 tabs 09/13/22 [Rx Last Taken Unknown] hydrocodone-acetaminophen 5-325mg 5mg-325mg 1 tab PO Q6H PRN pain 3 days #10 tabs 09/13/22 [Rx Last Taken Unknown] ondansetron 4 mg disintegrating tablet 4 mg PO Q8H PRN nausea and vomiting #10 tabs 09/13/22 [Rx Last Taken Unknown] Allergy/AdvReac Type Severity Reaction Status Date / Time No Known Allergies Allergy Verified 09/13/22 09:35 Surgical History no surgical history Social History Smoking Status: Current every day smoker tobacco type: cigarettes ROS ROS ED Review of Systems ROS Unobtainable: Denies due to encephalopathy Constitutional Constitutional ED: Reports fever(s) ENT ENT ED: Denies rhinorrhea or sore throat Cardiovascular Cardiovascular: Denies palpitations Respiratory/Chest Respiratory/Chest: Denies cough or dyspnea Gastrointestinal Gastrointestinal: Reports abdominal pain; Denies constipation, diarrhea, melena, nausea or vomiting Genitourinary Genitourinary ED: Denies dysuria or hematuria Musculoskeletal Musculoskeletal: Denies arthralgias Integumentary Denies abscess or Abrasions Neurologic Neurologic: Denies headache(s) or paresthesias Psychiatric Psychiatric: Denies anxiety or depression Endocrine Endocrinology: Denies polydipsia or polyphagia EXAM Physical Exam Const Vital Signs: 09/13/22 09:33 09/13/22 11:38 Temperature 97.3 F L 98.9 F Temperature Source Temporal Oral Pulse Rate 84 71 Respiratory Rate 14 19 H Blood Pressure 168/76 H Blood Pressure Mean 106 Pulse Ox 99 94 Oxygen Delivery Method Room Air Room Air Positive well nourished General Appearance ED: NAD; Negative for pallor HEENT Reports moist mucous membranes Eyes PERRL and EOMs intact bilaterally General Eye ED: Negative for pale conjunctiva or scleral icterus Neck no lymphadenopathy Resp normal respiratory effort and clear to auscultation bilaterally Cardio regular rate and regular rhythm GI GI Narrative: Tender in the bilateral lower quadrants and in the midline. Abdomen is nondistended. No rebound or guarding. Back/Spine no CVA tenderness Neuro CN's II-XII intact bilaterally Sensorium / Orientation: alert Motor Exam: strength 5/5 throughout Psych mental status grossly normal Skin no wounds General Skin Exam: Negative for jaundice or pallor MDM MDM MDM Narrative Medical decision making narrative: Patient presenting with abdominal pain. He is concerned that he had a temperature of 100 ???F last night. Has not had a return of this. He states initially this morning he thought his pain was getting better but as he was walked around he notices getting worse. He has pain throughout the lower abdomen. Patient was medicated with 4 mg of morphine and 4 mg of Zofran. CBC was obtained (more content not included)... Normal [facility] Hematocrit Auto (Bld) [Volum e fraction]Ordered By: Dr. King on 09-13-2022 Hematocrit (Bld) [Volume fraction] 43.1 % 40-54 [facility] Ketones Test strip Ql (U)Ord ered By: Dr. King on 09-13-2022 Ketones Ql (U) Negative Negative [facility] - Chemistry and C hemistry - challengeOrdered By: Dr. King on 09-13-2022 ALP [Catalytic activity/Vol] 65 U/L 45-117 [facility] ALT [Catalytic activity/Vol] 33 U/L 16-61 [facility] CO2 [Moles/Vol] 27.0 mmol/L 21.0-32.0 [facility] Globulin (S) [Mass/Vol] 3.6 g/dL 2.2-4.2 [facility] Lipase [Catalytic activity/Vol] 119 U/L 73-393 [facility] Urea nitrogen/Creatinine [Mass ratio] 19.8 mg/mg 10-20 [facility] - Hematology and Cell countsOrdered By: Dr. King on 09-13-2022 Erythrocyte distribution width (RBC) [Entitic vol] 42.2 fL 35.1-43.9 [facility] Erythrocyte distribution width (RBC) [Ratio] 12.4 % 11.6-14.6 [facility] Immature granulocytes/100 WBC (Bld) 0.300 % 0.0-0.9 [facility] Comment on above: IG% - Immature Granu locytes (promyelocytes, myelocytes and metamyelocytes) > 1% indicates that a LEFT SHIFT is Present. MCH (RBC) [Entitic mass] 31.5 pg 27.0-32.0 [facility] Nucleated RBC/100 WBC (Bld) [Ratio] 0 % 0-5 [facility] Lipaseon 09-13-2022 Lipase [Catalytic activity/Vol] 119 U/L Normal 73-393 [facility] Comment on above: Performed By: #### L 100.0100, L501.2450, L500.4050 #### [facility] [address] [place], [address] MCHC Auto (RBC) [Mass/Vol]Or dered By: Dr. King on 09-13-2022 MCHC (RBC) [Mass/Vol] 33.9 g/dL 32-36 [facility] Mucus LM Ql (Urine sed)Order ed By: Dr. King on 09-13-2022 Mucus Ql (Urine sed) 0 SEEN /hpf [facility] Nitrite Test strip Ql (U)Ord ered By: Dr. King on 09-13-2022 Nitrite Ql (U) Negative Negative [facility] No Panel InformationOrdered By: Dr. King on 09-13-2022 Estimated Creatinine Clearance Calc 82.14 ml/min [facility] Estimated GFR (MDRD) Amer 104 mL/min >60 [facility] Comment on above: GFR Calc Estimated GFR (MDRD) Non-Af Amer 86 mL/min >60 [facility] Comment on above: Non- GFR Calc Platelets bldOrdered By: Dr. King on 09-13-2022 Platelets (Bld) [#/Vol] 226 10*3/uL 150-450 [facility] Protein Test strip Ql (U)Ord ered By: Dr. King on 09-13-2022 Protein Ql (U) Negative Negative [facility] Serum or plasma albumin carmel urement (mass/volume)Ordered By: Dr. King on 09-13-2022 Albumin [Mass/Vol] 3.7 g/dL 3.2-5.0 [facility] Serum or plasma albumin/glob ulin mass ratioOrdered By: Dr. King on 09-13-2022 Albumin/Globulin [Mass ratio] 1.0 {ratio} 0.9-2.4 [facility] Serum or plasma calcium carmel urement (mass/volume)Ordered By: Dr. King on 09-13-2022 Calcium [Mass/Vol] 9.4 mg/dL 8.5-10.1 [facility] Serum or plasma creatinine m easurement (mass/volume)Ordered By: Dr. King on 09-13-2022 Creatinine [Mass/Vol] 0.96 mg/dL 0.70-1.30 [facility] Comment on above: The validity of the calculated GFR & GFRAA in patients over 70 years has not been determined. Clinical correlation is essential. Serum or plasma urea nitroge n measurement (mass/volume)Ordered By: Dr. King on 09-13-2022 Urea nitrogen [Mass/Vol] 19 mg/dL 7-18 [facility] Squamous epithelial cells de tection in urine sediment by light microscopyOrdered By: Dr. King on 09-13-2022 Epithelial cells.squamous LM Ql (Urine sed) 0 SEEN /hpf 0-5 [facility] Thin prep Papanicolaou smear with manual screeningOrdered By: Dr. King on 09-13-2022 Thin prep Papanicolaou smear with manual screening 19 U/L 15-37 [facility] Thin prep Papanicolaou smear with manual screening 9 5-15 [facility] Urinalysis, Completeon 09-13 BACTERIA 0 SEEN Normal None Seen [facility] Comment on above: Order Comment: CLEAN CATCH Performed By: #### L 400.0001 #### [facility] [address] [place], [address] EPI,SQUAMOUS 0 SEEN Normal 0-5 [facility] Comment on above: Order Comment: CLEAN CATCH Performed By: #### L 400.0001 #### [facility] [address] [place], [address] Mucus Ql (Urine sed) 0 SEEN Normal [facility] Comment on above: Order Comment: CLEAN CATCH Performed By: #### L 400.0001 #### [facility] [address] [place], [address] RBC 0 SEEN Normal 0-5 [facility] Comment on above: Order Comment: CLEAN CATCH Performed By: #### L 400.0001 #### [facility] [address] [place], [address] WBC 0 SEEN Normal 0-5 [facility] Comment on above: Order Comment: CLEAN CATCH Performed By: #### L 400.0001 #### [facility] [address] [place], [address] Urine blood detectionOrdered By: Dr. King on 09-13-2022 RBC Ql (U) Negative Negative [facility] RBC Ql (U) 0 SEEN /hpf 0-5 [facility] Urine clarityOrdered By: Dr. King on 09-13-2022 Clarity (U) Sl Cldy Clear [facility] Urine color determinationOrd ered By: Dr. King on 09-13-2022 Color (U) Yellow Yellow [facility] Urine glucose detectionOrder ed By: Dr. King on 09-13-2022 Glucose Ql (U) Normal mg/dl Normal [facility] Urine leukocyte esterase det ection by dipstickOrdered By: Dr. King on 09-13-2022 Leukocyte esterase Test strip Ql (U) Negative Negative [facility] Urine pHOrdered By: Dr. Remi crowe on 09-13-2022 pH (U) 7.0 [pH] 5.0 - 8.0 [facility] Urine sediment bacteria coun t by microscopy (number/high power field)Ordered By: Dr. King on 09-13-2022 Bacteria LM.HPF (Urine sed) [#/Area] 0 /[HPF] None Seen [facility] Urine specific gravity measu rementOrdered By: Dr. King on 09-13-2022 Specific gravity (U) [Rel density] 1.005 1.002-1.030 [facility] Urobilinogen Auto test strip Ql (U)Ordered By: Dr. King on 09-13-2022 Urobilinogen Ql (U) 1 mg/dl Normal [facility] ANES POSTPROC EVALon 022 ANES POSTPROC EVAL HNO ID: [id number] Author: Rowan Xavier MD Service: Anesthesiology Author Type: Anesthesiologist Type: Anesthesia Postprocedure Evaluation Filed: 10/04/2021 10:32 AM Note Text: POST ANESTHESIA EVALUATION NOTE : 1965 Procedure Summary Date: 10/04/21 Room / Location: [facility] Anesthesia Start: 911 Anesthesia Stop: 945 Procedure: COLONOSCOPY DIAGNOSTIC Diagnosis: Family history of colon cancer Internal hemorrhoid (Screening in patient at increased risk: FH of 1st-deg relative with colon cancer) Scheduled Providers: Manny Joaquin MD; ALEXA Denise Responsible Provider: Rowan Xavier MD Anesthesia Type: MAC ASA Status: 2 Anesthesia Type: MAC Last Vitals Vitals Value Taken Time BP 128/72 10/04/21 1009 Temp 36.3 ?C (97.3 ?F) 10/04/21 1000 Pulse 76 10/04/21 1009 Resp 24 10/04/21 1009 SpO2 98 % 10/04/21 1009 Post Anesthesia Patient Status Patient Evaluation: PACU. PACU/ICU Patient Condition: stable. Anticipated Disposition: phase 2 then home. Neurological Status: aware and responsive. Pulmonary Status: breathing comfortably on room air Airway Control: returned to baseline unsupported. Cardiovascular Status: stable. Pain Management: clinically adequate - multimodal analgesia pain management approach Postoperative Hydration: acceptable. Intraoperative Events: no significant anesthesia events Post Operative Nausea/Vomiting Status: no significant post operative nausea or vomiting Anesthetic Observations: Recommendation: continue current plan of care. Anesthesia Observations No Documentation SIGNATURE: Rowan Xavier MD PATIENT NAME: Grupo Jackson DATE: October 04, 2021 TIME: 10:31 AM CSN: [id number] Normal [facility] ANES PRE-OPon 10-04-2021 ANES PRE-OP HNO ID: [id number] Author: Rowan Xavier MD Service: Anesthesiology Author Type: Anesthesiologist Type: Anesthesia Preprocedure Evaluation Filed: 10/04/2021 8:27 AM Note Text: ANESTHESIOLOGY DAY OF SURGERY NOTE : 1965 Procedure Information Date/Time: 10/04/21 1010 Scheduled providers: Manny Joaquin MD; ALEXA Denise Procedure: COLONOSCOPY DIAGNOSTIC Location: [facility] Estimated body mass index is 33.6 kg/m? as calculated from the following: Height as of 09/24/21: 172.7 cm (5' 8). Weight as of 09/24/21: 100.2 kg (221 lb). Most recent hematocrit and potassium results: Hematocrit 47.6 04/17/2021 Potassium 4.3 04/17/2021 Relevant Problems ANESTHESIA (+) LULU (obstructive sleep apnea) (+) LULU on CPAP (+) Sleep apnea CARDIO (+) Essential hypertension (+) Internal hemorrhoids (+) Unspecified essential hypertension ENDO (+) Acquired hypothyroidism PULMONARY (+) LULU (obstructive sleep apnea) (+) LULU on CPAP (+) Sleep apnea I - PHYSICAL EVALUATION AIRWAY Patient intubated: No. Tracheostomy tube not present Mallampati: III. TM distance: >3 FB. Neck ROM: full ROM without neurological symptoms. Mouth opening: adequate. Short neck: no. Thick neck: no DENTAL Dental findings: teeth intact. Additional exam findings: yes. CARDIOVASCULAR Rhythm: regular PULMONARY Breath sounds clear to auscultation. II - ANESTHESIA PLAN ASA Score: 2 Anesthetic Plan: MAC The patient is not a current smoker. Monitoring plan: standard ASA. Postoperative analgesic plan: multimodal analgesia. Anesthetic Risks, Benefits, Alternatives, Personnel Discussed. Consent obtained from: patient.Patient / Surrogate agrees to blood products: blood products not planned DNR status not reviewed with patient and/or family prior to surgery. Significant changes in the patient condition since the History and Physical, not otherwise documented in primary service progress note: no. Potential Anesthesia issues that may suggest increased risk of complications or contraindication to planned procedure: none. No vitals data found for the desired time range. Outpatient Medications as of 10/04/2021 Medication Sig - lisinopril (ZESTRIL) 10 mg tablet Take 1 tablet by mouth once daily. - levothyroxine (SYNTHROID) 125 mcg tablet 2 tablets 3 day (Mon, , Mon) and 1 tablet 4 days a week. On an empty stomach. - simvastatin (ZOCOR) 10 mg tablet Take 1 tablet by mouth daily at bedtime. - buPROPion XL (WELLBUTRIN XL) 150 mg 24 hr tablet Take 1 tablet by mouth once daily. - tamsulosin (FLOMAX) 0.4 mg Take 1 capsule by mouth daily at bedtime. For urination - traZODone (DESYREL) 50 mg tablet Take 1-3 tablets by mouth daily at bedtime. - COMPOUNDED PRESCRIPTION Bipap pressure settings 17/ with FANDP nasal mask interface and heated humidity Dx: LULU on Bipap (Patient taking differently: Bipap pressure settings 17/11 with FANDP nasal mask interface and heated humidity Dx: LULU on Bipap Not using daily ) Facility-Administered Medications as of 10/04/2021 Medication Dose Route Frequency - lactated ringers iv infusion 30 mL/hr INTRAVENOUS CONTINUOUS I have interviewed and examined the patient. I have reviewed the medical record and/or the pre-anesthesia evaluation, pertinent labs, and test results. This contains updated information obtained within 48 hours of Surgery/Procedure. SIGNATURE: Rowan Xavier MD PATIENT NAME: Grupo Jackson DATE: October 04, 2021 TIME: 8:26 AM CSN: [id number] [facility] HISTORY PHYSICALon HISTORY PHYSICAL HNO ID: [id number] Author: Manny Joaquin MD Service: General Surgery Author Type: Physician Type: HANDP Filed: 10/04/2021 8:31 AM Note Text: HISTORY AND PHYSICAL ? Grupo Herrera Neece 1965 ? REFERRING PHYSICIAN: Nuno Lowe, DO ? CHIEF COMPLAINT: Consult (Colonoscopy) ? HPI: The patient is a 55 year old male referred for endoscopy. Grupo notes no colon complaints other than history of hemorrhoids-has had banding procedures in the past by Dr. Joaquin. Patient denies any change in bowel habits, weight changes, blood in stools, black tarry stools or abdominal pain. NOTES family history of colon cancer-father diagnosed in his early 50s. The patient notes no upper GI complaints. ? Grupo has undergone prior endoscopy-thinks his last was done around age 44 without concerning findings. ? Patient's past medical history is significant for hypothyroidism, hypertension, sleep apnea, insomnia. He follows with Dr. Lowe for his chronic medical conditions. Denies problems with sedation in the past. ? ? PAST MEDICAL HISTORY PAST MEDICAL HISTORY Diagnosis Date - Acquired hypothyroidism ? - Essential hypertension ? - Hyperlipidemia ? - LULU on CPAP ? ? [facility] ? ? PAST SURGICAL HISTORY PAST SURGICAL HISTORY Procedure Laterality Date - ANESTHESIA TOTAL HIP ARTHROPLASTY Left 05/04/2016 ? Dr. Manjeet Smith - ANESTHESIA TOTAL HIP ARTHROPLASTY Right 05/31/2017 ? Dr. Manjeet Smith; dx: R hip avascular necrosis - COLONOSCOPY ? ? ? [facility] - LIGATE INTERNAL HEMORRHOIDS; SINGLE ? ? ? 2019, banding, internal hemorrhoids, Dr. Joaquin - PAST SURGICAL HISTORY OF ? 2001 ? left thumb - PAST SURGICAL HISTORY OF Right 08/08/2017 ? total parotidectomy; Dr. De [facility] ? ? ? CURRENT MEDICATIONS Current Outpatient Medications Medication Sig - buPROPion XL (WELLBUTRIN XL) 150 mg 24 hr tablet Take 1 tablet by mouth once daily. - tamsulosin (FLOMAX) 0.4 mg Take 1 capsule by mouth daily at bedtime. For urination - traZODone (DESYREL) 50 mg tablet Take 1-3 tablets by mouth daily at bedtime. - varenicline (CHANTIX STARTING MONTH BOX) 0.5 mg (11)- 1 mg (42) tablet Take 0.5 mg by mouth once daily on Days 1 through 3, THEN 0.5 mg twice daily on Days 4 through 7, THEN 1 mg twice daily on Day 8 and thereafter - varenicline (CHANTIX CONTINUING MONTH BOX) 1 mg tablet Take 1 tablet by mouth twice daily. - varenicline (CHANTIX) 0.5 mg tablet Take 1 tablet daily Days 1 through 3. Then take 1 tablet twice daily on Days 4 through 7 - varenicline (CHANTIX) 1 mg tablet Take 1 tablet twice daily as continuing therapy(after completing 0.5 mg) - levothyroxine (SYNTHROID) 125 mcg tablet 2 tablets 3 day (Mon, , Mon) and 1 tablet 4 days a week. On an empty stomach. - simvastatin (ZOCOR) 10 mg tablet Take 1 tablet by mouth daily at bedtime. - lisinopril (ZESTRIL) 10 mg tablet Take 1 tablet by mouth once daily. - COMPOUNDED PRESCRIPTION Bipap pressure settings 17/11 with FANDP nasal mask interface and heated humidity Dx: LULU on Bipap (Patient taking differently: Bipap pressure settings 17/11 with FANDP nasal mask interface and heated humidity Dx: LULU on Bipap ? Not using daily ) ? No current facility-administered medications for this visit. ? ? ALLERGIES: Patient has no known allergies. ? PERSONAL HISTORY: SOCIAL HISTORY Social History ? Tobacco Use - Smoking status: Current Every Day Smoker ? ? Packs/day: 0.30 ? ? Start date: 09/11/1979 - Smokeless tobacco: Never Used - Tobacco comment: 5-6 cigarettes a day, 01/22/18. TO. Parents smoked in childhood home. Vaping Use - Vaping Use: Never used Substance Use Topics - Alcohol use: Yes ? ? Comment: Occasional - Drug use: No ? FAMILY HISTORY: FAMILY HISTORY FAMILY HISTORY Problem Relation Age of Onset - Cancer Mother ? ? Lung - Diabetes Father ? - Heart disease Father ? ? Valvular - other (Other) Father ? ? Dementia ? ? REVIEW OF SYMPTOMS: The review of systems data was entered by the nurse and reviewed by me ? Nursing Notes: Sherry Cox 07/12/2021 10:28 AM Signed REVIEW OF SYSTEMS: General: The patient denies fatigue, denies weight loss, denies weight gain, denies feeling hot, and denies feelings of cold. Eyes: The patient denies glaucoma, denies eye injury/surgery, does not wear glasses or contacts. Ear/Nose/Throat: The patient denies allergies, denies hayfever, denies ear infections, and denies bloody noses. Cardiovascular: The patient denies chest pain, denies heart disease, NOTES high blood pressure,denies cardiac stent, denies prior heart attack, denies irregular heart beat, NOTES high cholesterol, denies poor circulation, denies heart failure, other cardiac issues, denies claudication, denies cold feet, denies peripheral arterial stent. Respiratory: The patient denies tuberculosis, denies pneumonia, denies freq (more content not included)... Normal [facility] SURGICAL PATHOLOGYon 022 SURGICAL PATHOLOGY Specimen originated from [facility] Specimen #: [id number] Submitting Physician: Manny Joaquin M.D. FINAL DIAGNOSIS 1. Colon, hepatic flexure, polypectomy (A) - Minute hyperplastic polyp. 2. Rectum, polypectomy (B) - Hyperplastic polyp. AEB/abhijit 10/05/2021 COMMENT Additional histologic levels have been performed on part A. Adenomatous changes are not identified. Arianna Mckenna M.D. (Electronic Signature) SPECIMEN SUBMITTED A: HEPATIC FLEXURE POLYP B: RECTAL POLYP CLINICAL DATA FAMILY HISTORY COLON CA GROSS DESCRIPTION A. Received in formalin is one piece of allison, soft tissue mixed with yellow-green material measuring 0.5 x 0.3 x 0.1 cm. Totally submitted in one cassette. B. Received in formalin is one piece of allison, soft tissue measuring 0.6 x 0.2 x 0.2 cm. Totally submitted in one cassette. Gross examination performed at [facility], [address] [place] [address] 10/04/2021 5:03:04 PM Date of Report: 10/06/2021 Date of Procedure: 10/04/2021 Date of Receipt: 10/04/2021 Submitted by: Manny Joaquin M.D. Location: [facility] Diagnostic interpretation performed at [place] [address]. [place] Number: [id number] [facility] Vital Signs Date Time Vital Sign Value Performing Clinician Jaden feliciano 03-05-2025 08:56-0400 Body height 172.7 cm Alexy Enriquez MD Work Phone: [facility] 03-05-2025 08:56-0400 Body mass index (BMI) [Ratio] 32.54 kg/m2 Alexy Enriquez MD Work Phone: [facility] 03-05-2025 08:56-0400 Body weight 97.07 kg Alexy Enriquez MD Work Phone: [facility] 10-23-2024 14:52-0500 Body mass index (BMI) [Ratio] 33.15 kg/m2 Nuno Lowe DO Work Phone: [facility] 10-23-2024 14:52-0500 Body weight 98.88 kg Nuno Lowe DO Work Phone: [facility] 10-23-2024 14:52-0500 Diastolic blood pressure 72 mm[Hg] Nuno Lowe DO Work Phone: [facility] 10-23-2024 14:52-0500 Heart rate 60 /min Nuno Lowe DO Work Phone: [facility] 10-23-2024 14:52-0500 Respiratory rate 16 /min Nuno Lowe DO Work Phone: [facility] 10-23-2024 14:52-0500 Systolic blood pressure 122 mm[Hg] Nuno Lowe DO Work Phone: [facility] 09-27-2024 08:22-0500 Body height 172.7 cm Flori Martin MD Work Phone: [facility] 09-27-2024 08:22-0500 Body mass index (BMI) [Ratio] 31.84 kg/m2 Flori Martin MD Work Phone: [facility] 09-27-2024 08:22-0500 Body weight 95 kg Flori Martin MD Work Phone: [facility] 09-27-2024 08:22-0500 Diastolic blood pressure 70 mm[Hg] Flori Martin MD Work Phone: [facility] 09-27-2024 08:22-0500 Heart rate 64 /min Flori Martin MD Work Phone: [facility] 09-27-2024 08:22-0500 Systolic blood pressure 128 mm[Hg] Flori Martin MD Work Phone: [facility] 08-14-2024 09:22-0500 Body height 172.7 cm Alexy Enriquez MD Work Phone: [facility] 08-14-2024 09:22-0500 Body mass index (BMI) [Ratio] 31.93 kg/m2 Alexy Enriquez MD Work Phone: [facility] 08-14-2024 09:22-0500 Body weight 95.25 kg Alexy Enriquez MD Work Phone: [facility] 07-23-2024 08:36-0500 Body mass index (BMI) [Ratio] 32.69 kg/m2 Nuno Lowe DO Work Phone: [facility] 07-23-2024 08:36-0500 Body temperature 97.39 [degF] Nuno Lowe DO Work Phone: [facility] 07-23-2024 08:36-0500 Body weight 97.52 kg Nuno Lowe DO Work Phone: [facility] 07-23-2024 08:36-0500 Diastolic blood pressure 64 mm[Hg] Nuno Lowe DO Work Phone: [facility] 07-23-2024 08:36-0500 Heart rate 80 /min Nuno Lowe DO Work Phone: [facility] 07-23-2024 08:36-0500 Respiratory rate 20 /min Nuno Lowe DO Work Phone: [facility] 07-23-2024 08:36-0500 Systolic blood pressure 128 mm[Hg] Nuno Lowe DO Work Phone: [facility] 03-27-2024 11:02-0400 Body height 172.7 cm Lelo Luz MD Work Phone: [facility] 03-27-2024 11:02-0400 Body mass index (BMI) [Ratio] 33.33 kg/m2 Lelo Luz MD Work Phone: [facility] 03-27-2024 11:02-0400 Body temperature 97.2 [degF] Lelo Luz MD Work Phone: [facility] 03-27-2024 11:02-0400 Body weight 99.43 kg Lelo Luz MD Work Phone: [facility] 02-14-2024 09:35-0400 Body height 172.7 cm Alexy Enriquez MD Work Phone: [facility] 02-14-2024 09:35-0400 Body mass index (BMI) [Ratio] 33.91 kg/m2 Alexy Enriquez MD Work Phone: [facility] 02-14-2024 09:35-0400 Body weight 101.15 kg Alexy Enriquez MD Work Phone: [facility] 01-03-2024 08:25-0400 Body height 172.7 cm Alexy Enriquez MD Work Phone: [facility] 01-03-2024 08:25-0400 Body mass index (BMI) [Ratio] 34.06 kg/m2 Alexy Enriquez MD Work Phone: [facility] 01-03-2024 08:25-0400 Body weight 101.61 kg Alexy Enriquez MD Work Phone: [facility] 01-03-2024 08:25-0400 Diastolic blood pressure 99 mm[Hg] Alexy Enriquez MD Work Phone: [facility] 01-03-2024 08:25-0400 Heart rate 92 /min Alexy Enriquez MD Work Phone: [facility] 01-03-2024 08:25-0400 Respiratory rate 14 /min Alexy Enriquez MD Work Phone: [facility] 01-03-2024 08:25-0400 Systolic blood pressure 166 mm[Hg] Alexy Enriquez MD Work Phone: [facility] 12-27-2023 13:00-0400 Body height 172.7 cm Alexy Enriquez MD Work Phone: [facility] 12-27-2023 13:00-0400 Body weight 99.79 kg Alexy Enriquez MD Work Phone: [facility] 2023 12:54-0500 Body height 172.7 cm Lelo Luz MD Work Phone: [facility] 2023 12:54-0500 Body mass index (BMI) [Ratio] 34.91 kg/m2 Lelo Luz MD Work Phone: [facility] 2023 12:54-0500 Body temperature 98.1 [degF] Lelo Luz MD Work Phone: [facility] 2023 12:54-0500 Body weight 104.15 kg Lleo Luz MD Work Phone: [facility] 2023 12:54-0500 Diastolic blood pressure 75 mm[Hg] Lelo Luz MD Work Phone: [facility] 2023 12:54-0500 Heart rate 93 /min Lelo Luz MD Work Phone: [facility] 2023 12:54-0500 Respiratory rate 20 /min Lelo Luz MD Work Phone: [facility] 2023 12:54-0500 SaO2% (BldA) [Mass fraction] 96 % Lelo Luz MD Work Phone: [facility] 2023 12:54-0500 Systolic blood pressure 112 mm[Hg] Lelo Luz MD Work Phone: [facility] 10-27-2023 14:36-0500 Body height 172.7 cm Alexy Enriquez MD Work Phone: [facility] 10-27-2023 14:36-0500 Body weight 102.06 kg Alexy Enriquez MD Work Phone: [facility] 10-23-2023 14:45-0500 Body height 170 cm Nuno Lowe DO Work Phone: [facility] 10-23-2023 14:45-0500 Body temperature 97.59 [degF] Nuno Lowe DO Work Phone: [facility] 10-23-2023 14:45-0500 Body weight 101.15 kg Nuno Lowe DO Work Phone: [facility] 10-23-2023 14:45-0500 Diastolic blood pressure 76 mm[Hg] Nuno Lowe DO Work Phone: [facility] 10-23-2023 14:45-0500 Heart rate 80 /min Nuno Lowe DO Work Phone: [facility] 10-23-2023 14:45-0500 Respiratory rate 16 /min Nuno Lowe DO Work Phone: [facility] 10-23-2023 14:45-0500 Systolic blood pressure 120 mm[Hg] Nuno Lowe DO Work Phone: [facility] 06-21-2023 13:21-0400 Body height 172.7 cm Clemente Hidalgo MD Work Phone: [facility] 06-21-2023 13:21-0400 Body weight 103.42 kg Clemente Hidalgo MD Work Phone: [facility] 06-21-2023 13:21-0400 Diastolic blood pressure 78 mm[Hg] Clemente Hidalgo MD Work Phone: [facility] 06-21-2023 13:21-0400 Heart rate 88 /min Clemente Hidalgo MD Work Phone: [facility] 06-21-2023 13:21-0400 SaO2% (BldA) [Mass fraction] 95 % Clemente Hidalgo MD Work Phone: [facility] 06-21-2023 13:21-0400 Systolic blood pressure 137 mm[Hg] Clemente Hidalgo MD Work Phone: [facility] 05-10-2023 07:20-0400 Body temperature 98.29 [degF] Chiqui Mejia APRN.SEMICONDUCTOR MANUFACTURING TECHNICIAN Work Phone: [facility] 05-10-2023 07:20-0400 Body weight 102.42 kg Chiqui Mejia APRN.SEMICONDUCTOR MANUFACTURING TECHNICIAN Work Phone: [facility] 05-10-2023 07:20-0400 Diastolic blood pressure 72 mm[Hg] Chiqui Mejia APRN.SEMICONDUCTOR MANUFACTURING TECHNICIAN Work Phone: [facility] 05-10-2023 07:20-0400 Heart rate 73 /min Chiqui Mejia APRN.SEMICONDUCTOR MANUFACTURING TECHNICIAN Work Phone: [facility] 05-10-2023 07:20-0400 Respiratory rate 16 /min Chiqui Mejia APRN.SEMICONDUCTOR MANUFACTURING TECHNICIAN Work Phone: [facility] 05-10-2023 07:20-0400 SaO2% (BldA) [Mass fraction] 95 % Chiqui Mejia APRN.SEMICONDUCTOR MANUFACTURING TECHNICIAN Work Phone: [facility] 05-10-2023 07:20-0400 Systolic blood pressure 128 mm[Hg] Chiqui Mejia APRN.SEMICONDUCTOR MANUFACTURING TECHNICIAN Work Phone: [facility] 04-19-2023 08:04-0400 Body temperature 97.81 [degF] Nuno Lowe DO Work Phone: [facility] 04-19-2023 08:04-0400 Body weight 100.25 kg Nuno Lowe DO Work Phone: [facility] 04-19-2023 08:04-0400 Diastolic blood pressure 70 mm[Hg] Nuno Lowe DO Work Phone: [facility] 04-19-2023 08:04-0400 Heart rate 76 /min Nuno Lowe DO Work Phone: [facility] 04-19-2023 08:04-0400 Respiratory rate 16 /min Nuno Lowe DO Work Phone: [facility] 04-19-2023 08:04-0400 Systolic blood pressure 120 mm[Hg] Nuno Lowe DO Work Phone: [facility] 01-07-2023 15:42-0400 Body height 172.72 cm [facility] 01-07-2023 15:42-0400 Body mass index (BMI) [Ratio] 32.5 kg/m2 [facility] 01-07-2023 15:42-0400 Body temperature 97.1 [degF] [facility] 01-07-2023 15:42-0400 Body weight 97.25 kg [facility] 01-07-2023 15:42-0400 Diastolic blood pressure 90 mm[Hg] [facility] 01-07-2023 15:42-0400 Heart rate 89 /min [facility] 01-07-2023 15:42-0400 Respiratory rate 16 /min [facility] 01-07-2023 15:42-0400 SaO2% (BldA) [Mass fraction] 98 % [facility] 01-07-2023 15:42-0400 Systolic blood pressure 157 mm[Hg] [facility] 10-19-2022 16:15-0500 Body temperature 98.1 [degF] Nuno Lowe DO Work Phone: [facility] 10-19-2022 16:15-0500 Body weight 97.98 kg Nuno Lowe DO Work Phone: [facility] 10-19-2022 16:15-0500 Diastolic blood pressure 70 mm[Hg] Nuno Lowe DO Work Phone: [facility] 10-19-2022 16:15-0500 Heart rate 80 /min Nuno Lowe DO Work Phone: [facility] 10-19-2022 16:15-0500 Respiratory rate 16 /min Nuno Lowe DO Work Phone: [facility] 10-19-2022 16:15-0500 Systolic blood pressure 130 mm[Hg] Nuno Lowe DO Work Phone: [facility] 09-16-2022 14:21-0500 Body temperature 98.8 [degF] Astrid Nevaeh COMMERCIAL CONSTRUCTION SUPERINTENDENT.SEMICONDUCTOR MANUFACTURING TECHNICIAN Work Phone: [facility] 09-16-2022 14:21-0500 Body weight 97.07 kg Astrid Nevaeh COMMERCIAL CONSTRUCTION SUPERINTENDENT.SEMICONDUCTOR MANUFACTURING TECHNICIAN Work Phone: [facility] 09-16-2022 14:21-0500 Diastolic blood pressure 80 mm[Hg] Astrid Nevaeh COMMERCIAL CONSTRUCTION SUPERINTENDENT.SEMICONDUCTOR MANUFACTURING TECHNICIAN Work Phone: [facility] 09-16-2022 14:21-0500 Heart rate 86 /min Astrid Nevaeh COMMERCIAL CONSTRUCTION SUPERINTENDENT.SEMICONDUCTOR MANUFACTURING TECHNICIAN Work Phone: [facility] 09-16-2022 14:21-0500 Respiratory rate 16 /min Astrid Herring COMMERCIAL CONSTRUCTION SUPERINTENDENT.SEMICONDUCTOR MANUFACTURING TECHNICIAN Work Phone: [facility] 09-16-2022 14:21-0500 SaO2% (BldA) [Mass fraction] 94 % Astrid Herring COMMERCIAL CONSTRUCTION SUPERINTENDENT.SEMICONDUCTOR MANUFACTURING TECHNICIAN Work Phone: [facility] 09-16-2022 14:21-0500 Systolic blood pressure 122 mm[Hg] Astrid Christopherman COMMERCIAL CONSTRUCTION SUPERINTENDENT.SEMICONDUCTOR MANUFACTURING TECHNICIAN Work Phone: [facility] 09-13-2022 12:10-0500 Respiratory rate 19 /min [facility] 09-13-2022 12:10-0500 SaO2% (BldA) [Mass fraction] 94 % [facility] 09-13-2022 11:38-0500 Body temperature 98.9 [degF] [facility] 09-13-2022 11:38-0500 Heart rate 71 /min [facility] 09-13-2022 09:33-0500 Body height 172.72 cm [facility] Work Phone: 09-13-2022 09:33-0500 Body mass index (BMI) [Ratio] 32.6 kg/m2 [facility] 09-13-2022 09:33-0500 Body weight 97.52 kg [facility] 09-13-2022 09:33-0500 Diastolic blood pressure 76 mm[Hg] [facility] 09-13-2022 09:33-0500 Systolic blood pressure 168 mm[Hg] [facility] 04-13-2022 14:54-0400 Body temperature 97.11 [degF] Nuno Lowe DO Work Phone: [facility] 04-13-2022 14:54-0400 Body weight 93.89 kg Nuno Lowe DO Work Phone: [facility] 04-13-2022 14:54-0400 Diastolic blood pressure 60 mm[Hg] Nuno Lowe DO Work Phone: [facility] 04-13-2022 14:54-0400 Heart rate 80 /min Nuno Lowe DO Work Phone: [facility] 04-13-2022 14:54-0400 Respiratory rate 16 /min Nuno Lowe DO Work Phone: [facility] 04-13-2022 14:54-0400 Systolic blood pressure 100 mm[Hg] Nuno Lowe DO Work Phone: [facility] 12-15-2021 07:09-0400 Body temperature 97.3 [degF] Monique Praisler-Wood COMMERCIAL CONSTRUCTION SUPERINTENDENT.SEMICONDUCTOR MANUFACTURING TECHNICIAN Work Phone: [facility] 12-15-2021 07:09-0400 Body weight 94.71 kg Monique Praisler-Wood COMMERCIAL CONSTRUCTION SUPERINTENDENT.SEMICONDUCTOR MANUFACTURING TECHNICIAN Work Phone: [facility] 12-15-2021 07:09-0400 Diastolic blood pressure 88 mm[Hg] Monique Praisler-Wood COMMERCIAL CONSTRUCTION SUPERINTENDENT.SEMICONDUCTOR MANUFACTURING TECHNICIAN Work Phone: [facility] 12-15-2021 07:09-0400 Heart rate 78 /min Monique Praisler-Wood COMMERCIAL CONSTRUCTION SUPERINTENDENT.SEMICONDUCTOR MANUFACTURING TECHNICIAN Work Phone: [facility] 12-15-2021 07:09-0400 Respiratory rate 18 /min Monique Praisler-Wood COMMERCIAL CONSTRUCTION SUPERINTENDENT.SEMICONDUCTOR MANUFACTURING TECHNICIAN Work Phone: [facility] 12-15-2021 07:09-0400 SaO2% (BldA) [Mass fraction] 98 % Monique Praisler-Wood COMMERCIAL CONSTRUCTION SUPERINTENDENT.SEMICONDUCTOR MANUFACTURING TECHNICIAN Work Phone: [facility] 12-15-2021 07:09-0400 Systolic blood pressure 140 mm[Hg] Monique Praisler-Wood COMMERCIAL CONSTRUCTION SUPERINTENDENT.SEMICONDUCTOR MANUFACTURING TECHNICIAN Work Phone: [facility] Encounters Encounter Date Encounter Type Care Provider Facility Start: 04-25-2025 End: 04-28-2025 Telephone encounter Nuno Lowe DO Work Phone: [facility] [place] Comment on above: Patient Update Start: 03-19-2025 End: 03-19-2025 Refill Nuno Lowe DO Work Phone: [facility] [place] Comment on above: Refill Request Start: 03-05-2025 End: 03-05-2025 Patient encounter procedure Alexy Enriquez MD Work Phone: Urology Comment on above: Benign prostatic hyp erplasia with lower urinary tract symptoms, symptom details unspecified (Primary Dx); Erectile dysfunction, unspecified erectile dysfunction type; Screening for genitourinary condition Start: 03-05-2025 End: 03-05-2025 ambulatory NUNO L LOWE Facility:[facility] Start: 01-28-2025 End: 01-28-2025 ambulatory NUNO L LOWE Facility:[facility] Start: 01-23-2025 End: 01-23-2025 ambulatory NUNO L LOWE Facility:[facility] Start: 10-23-2024 End: 10-23-2024 ambulatory NUNO L LOWE Facility:[facility] Start: 10-23-2024 End: 10-23-2024 Patient encounter procedure Nuno L Lowe DO Work Phone: [facility] [place] Comment on above: Acquired hypothyroid ism (Primary Dx); Essential hypertension; Pure hypercholesterolemia; Vitamin B12 deficiency; Vitamin D deficiency; Hyperglycemia; Acute otitis media, right; Memory loss, short term; Familial combined hyperlipidemia; Cognitive impairment, mild, so stated Start: 10-19-2024 End: 12-19-2024 Follow-up encounter Flori Martin MD Work Phone: Neurology Start: 10-17-2024 End: 10-17-2024 ambulatory MARISSA MONTOYA Facility:[facility] Start: 10-14-2024 End: 10-14-2024 ambulatory Nuno L Lowe DO Work Phone: [facility] [place] Comment on above: lab work? Start: 10-14-2024 End: 10-17-2024 Telephone encounter Nuno Shraifrison DO Work Phone: [facility] [place] Comment on above: Orders Start: 09-27-2024 End: 09-27-2024 ambulatory FLORI MARTIN Facility:[facility] Start: 09-27-2024 End: 09-27-2024 Patient encounter procedure Flori Martin MD Work Phone: Neurology Comment on above: Memory loss, short t erm (Primary Dx); Abnormal CT of brain Start: 09-26-2024 End: 09-26-2024 Chart abstracting Flori Martin MD Work Phone: Neurology Start: 08-26-2024 End: 08-26-2024 Telephone encounter Nuno Brewsteron DO Work Phone: [facility] Start: 08-14-2024 End: 08-14-2024 ambulatory NUNO Herrera LOWE Facility:[facility] Start: 08-14-2024 End: 08-14-2024 Patient encounter procedure Alexy Enriquez MD Work Phone: Urology Comment on above: Overactive bladder ( Primary Dx); Benign prostatic hyperplasia with lower urinary tract symptoms, symptom details unspecified; Prostate cancer screening; Erectile dysfunction, unspecified erectile dysfunction type Start: 08-09-2024 End: 08-09-2024 ambulatory NUNO L LOWE Facility:[facility] Start: 08-09-2024 End: 08-09-2024 Subsequent hospital visit by physician [facility] Work Phone: Radiology Comment on above: Screening for AAA (a bdominal aortic aneurysm) [Z13.6] Start: 08-07-2024 End: 08-09-2024 Telephone encounter Nuno Lowe DO Work Phone: [facility] Comment on above: Ear Problem Start: 08-07-2024 End: 08-07-2024 ambulatory NUNO Herrera LOWE Facility:[facility] Start: 08-07-2024 End: 08-07-2024 Subsequent hospital visit by physician [facility] Work Phone: Cat Scan Comment on above: History of parotid g land excision [Z90.49] Cognitive impairment , mild, so stated [G31.84] Start: 08-02-2024 End: 08-02-2024 Telephone encounter Nuno Brewsteron DO Work Phone: [facility] [place] Comment on above: Results (xray from 09/22) Start: 07-23-2024 End: 07-23-2024 Subsequent hospital visit by physician Camilo [facility] [place] Work Phone: Radiology Comment on above: Chronic midline low back pain without sciatica [M54.50, G89.29] Start: 07-23-2024 End: 07-23-2024 ambulatory NUNO SHARIFRISON Facility:[facility] Start: 07-23-2024 End: 07-23-2024 ambulatory NUNO L LOWE Facility:[facility] Start: 07-23-2024 End: 07-23-2024 Patient encounter procedure Nuno Lowe DO Work Phone: [facility] [place] Comment on above: Cognitive impairment , mild, so stated (Primary Dx); Essential hypertension; Familial combined hyperlipidemia; Onychomycosis; Acquired hypothyroidism; Benign prostatic hyperplasia with lower urinary tract symptoms, symptom details unspecified; Chronic insomnia; Headache, worsening; Chronic midline low back pain without sciatica; Proteinuria, unspecified type; History of head injury; History of parotid gland excision; Mass of right side of neck; Acute otitis media, right Start: 07-18-2024 End: 07-18-2024 ambulatory NUNO SHARIFRISON Facility:[facility] Start: 07-16-2024 End: 07-16-2024 Refill Nuno Lowe DO Work Phone: [facility] [place] Comment on above: Refill Request Start: 07-02-2024 End: 07-04-2024 Refill Alexy Enriquez MD Work Phone: Urology Comment on above: Refill Request Start: 04-26-2024 Telephone encounter Nnuo ramos DO Work Phone: [facility] [place] Comment on above: Patient Question Start: 04-15-2024 End: 04-15-2024 ambulatory [facility] Start: 03-27-2024 End: 03-27-2024 Office outpatient visit 25 minutes Lelo Luz MD Work Phone: [facility] Comment on above: Nasal obstruction (P rimary Dx) Start: 03-27-2024 End: 03-27-2024 ambulatory [facility] Start: 03-06-2024 Refill Nuno alcantara DO Work Phone: [facility] [place] Comment on above: Refill Request Start: 02-15-2024 ambulatory Nuno alcantara DO Work Phone: [facility] [place] Comment on above: Urine Test results Start: 02-15-2024 Telephone encounter Nuno ramos DO Work Phone: [facility] [place] Comment on above: Patient Question Start: 02-14-2024 End: 02-14-2024 Patient encounter procedure Alexy Enriquez MD Work Phone: Urology Comment on above: Overactive bladder ( Primary Dx); Benign prostatic hyperplasia with lower urinary tract symptoms, symptom details unspecified; Prostate cancer screening Start: 01-18-2024 End: 01-18-2024 ambulatory NUNO LOWE [facility] Start: 01-18-2024 End: 01-18-2024 Patient encounter procedure Proc [employer] Work Phone: Urology Comment on above: Benign prostatic hyp erplasia with lower urinary tract symptoms, symptom details unspecified (Primary Dx); Overactive bladder; Urgency of urination Start: 01-17-2024 End: 01-17-2024 Office outpatient visit 25 minutes Lelo Luz MD Work Phone: [facility] Comment on above: LULU (obstructive sle ep apnea) (Primary Dx) Start: 01-17-2024 End: 01-17-2024 ambulatory LELO [facility] Ambulatory Start: 01-16-2024 Refill Nuno alcantara DO Work Phone: [facility] [place] Comment on above: Refill Request Start: 01-10-2024 Orders Only Alexy padilla MD Work Phone: Urology Comment on above: Benign prostatic hyp erplasia with lower urinary tract symptoms, symptom details unspecified (Primary Dx) Start: 01-03-2024 End: 01-03-2024 Patient encounter procedure Alexy Enriquez MD Work Phone: Urology Comment on above: Benign prostatic hyp erplasia with lower urinary tract symptoms, symptom details unspecified (Primary Dx); Urgency of urination; Overactive bladder Start: 12-27-2023 End: 12-27-2023 Patient encounter procedure Alexy Enriquez MD Work Phone: Urology Comment on above: Benign prostatic hyp erplasia with lower urinary tract symptoms, symptom details unspecified (Primary Dx); Urgency of urination; Overactive bladder Start: 12-18-2023 End: 12-18-[facility] Start: 12-08-2023 End: 12-09-2023 ambulatory [facility] Start: 12-08-2023 End: 12-08-2023 Subsequent hospital visit by physician Willy Sawant [facility] Comment on above: Arrived Start: 11-22-2023 End: 11-23-2023 ambulatory [facility] Start: 11-22-2023 End: 11-22-2023 Subsequent hospital visit by physician Willy Sawant [facility] Comment on above: Mass of right side o f neck Start: 2023 End: 2023 ambulatory LELO [facility] Start: 2023 End: 2023 Office outpatient visit 25 minutes Lelo Luz MD Work Phone: [facility] [address] Comment on above: BMI 34.0-34.9,adult; LULU (obstructive sleep apnea); Mass of right side of neck; Nasal congestion Start: 10-27-2023 End: 10-27-2023 Patient encounter procedure Alexy Enriquez MD Work Phone: Urology Comment on above: Benign prostatic hyp erplasia with lower urinary tract symptoms, symptom details unspecified (Primary Dx); Overactive bladder; Prostate cancer screening Start: 10-23-2023 End: 10-23-2023 Patient encounter procedure Nuno Lowe DO Work Phone: [facility] [place] Comment on above: Well adult exam (Rosita sofy Dx); LULU on CPAP; Benign prostatic hyperplasia with lower urinary tract symptoms, symptom details unspecified; Essential hypertension; Acquired hypothyroidism; Familial combined hyperlipidemia Start: 10-23-2023 End: 10-23-2023 Patient encounter status Nuno Lowe DO Work Phone: [facility] Work Phone: Start: 10-17-2023 Refill Nuno alcantara DO Work Phone: [facility] [place] Comment on above: Refill Request Start: 06-27-2023 Telephone encounter Baljeet quigley MD Work Phone: [facility] Cardiology [place] Comment on above: Results Start: 06-22-2023 Telephone encounter David vazquez MD Work Phone: [facility] [place] Comment on above: Forms Start: 06-21-2023 End: 06-21-2023 Patient encounter procedure Clemente Hidalgo MD Work Phone: Cardiology Comment on above: Primary hypertension (Primary Dx); Fat pad; Smoker; Dyslipidemia; MOORE (dyspnea on exertion) Start: 05-10-2023 End: 05-10-2023 Subsequent hospital visit by physician Xr [facility] [place] Work Phone: Radiology Comment on above: Acute cough [R05.1] Start: 05-10-2023 End: 05-10-2023 Patient encounter procedure Chiqui Mejia APRN.CNP Work Phone: [facility] Comment on above: Acute cough (Primary Dx); Rhinosinusitis; Fat pad Start: 04-19-2023 End: 04-19-2023 Refill Nuno Lowe DO Work Phone: [facility] [place] Comment on above: Refill Request Benign prostatic hyp erplasia with lower urinary tract symptoms, symptom details unspecified (Primary Dx); Familial combined hyperlipidemia; Screening for prostate cancer; Acquired hypothyroidism; Onychomycosis Start: 01-07-2023 End: 01-07-2023 Emergency department patient visit [facility] Facility:[facility] Start: 01-07-2023 End: 01-07-2023 Emergency department patient visit [facility]-Emergency Department Start: 10-20-2022 Telephone encounter Nuno Javier ramos DO Work Phone: [facility] Comment on above: Appointment Start: 10-19-2022 End: 10-19-2022 Patient encounter procedure Nuno Lowe DO Work Phone: [facility] Comment on above: Acquired hypothyroid ism (Primary Dx); Chronic insomnia; Essential hypertension; Familial combined hyperlipidemia; LULU on CPAP; Benign prostatic hyperplasia with lower urinary tract symptoms, symptom details unspecified Start: 09-20-2022 Refill Nuno alcantara DO Work Phone: [facility] Comment on above: Refill Request Start: 09-16-2022 End: 09-16-2022 Patient encounter procedure Astrid Herring APRN.SEMICONDUCTOR MANUFACTURING TECHNICIAN Work Phone: [facility] Comment on above: Diverticulitis (Prim selena Dx) Start: 09-13-2022 End: 09-13-2022 Emergency department patient visit Nuno Mynor Facility:[facility] Start: 09-13-2022 End: 09-13-2022 Emergency department patient visit [facility]-Emergency Department Start: 08-19-2022 Refill Nuno alcantara DO Work Phone: [facility] Comment on above: Refill Request Start: 08-16-2022 End: 08-16-2022 Nursing evaluation of patient and report Mi Nurse Work Phone: [facility] Comment on above: Need for influenza v accination (Primary Dx) Start: 04-13-2022 End: 04-13-2022 Patient encounter procedure Nuno Lowe DO Work Phone: [facility] Comment on above: Acute bilateral low back pain with left-sided sciatica (Primary Dx); Essential hypertension; Acquired hypothyroidism; Familial combined hyperlipidemia; Screening for prostate cancer Start: 12-15-2021 End: 12-15-2021 Patient encounter procedure Monique Wahl APRN.SEMICONDUCTOR MANUFACTURING TECHNICIAN Work Phone: [facility] Comment on above: Allergic conjunctivi tis of right eye (Primary Dx) Procedures Date Procedure Procedure Detail Performing Clinician Start: 03-05-2025 Urnls dip stick/tablet rgnt auto w/o microscopy Alexy Enriquez MD Work Phone: Start: 01-23-2025 Lipid 1996 panel - Serum or Plasma Alexy Enriquez MD Work Phone: Start: 08-09-2024 Us abdominal aorta real time screen study aaa Blanche Cain PA-C Work Phone: Start: 08-07-2024 Mri brain brain stem w/o w/contrast material Nuno L Lowe DO Work Phone: Start: 08-07-2024 Ct soft tissue neck w/o contrast material Nuno L Lowe DO Work Phone: Start: 07-27-2024 H/O: surgery History of parotid gland excision Nuno Lowe DO Work Phone: Start: 07-18-2024 Lipid 1996 panel - Serum or Plasma Xr [place] Work Phone: Start: 02-14-2024 Urnls dip stick/tablet rgnt auto w/o microscopy Alexy Enriquez MD Work Phone: Start: 01-03-2024 Us transrct prstate vol brachytx plnning spx Alexy Enriquez MD Work Phone: Start: 01-03-2024 Urnls dip stick/tablet rgnt auto w/o microscopy Alexy Enriquez MD Work Phone: Start: 12-08-2023 CT SOFT TISSUE NECK W IV CONTRAST LELO LUZ Start: 12-08-2023 Ct soft tissue neck w/contrast material Lelo Luz MD Work Phone: Start: 2023 HOME SLEEP APNEA TEST (HSAT) LELO LUZ Start: 10-27-2023 Urnls dip stick/tablet rgnt auto w/o microscopy Alexy Enriquez MD Work Phone: Start: 10-17-2023 Lipid 1996 panel - Serum or Plasma Nuno Lowe DO Work Phone: Start: 10-17-2023 Thyrotropin [Units/volume] in Serum or Plasma Lelo Luz MD Work Phone: Start: 06-21-2023 Ecg routine ecg w/least 12 lds i&r only [facility] Provider Start: 05-10-2023 Radiologic exam chest 2 views Chiqui Mejia APRN.SEMICONDUCTOR MANUFACTURING TECHNICIAN Work Phone: Start: 04-10-2023 Lipid 1996 panel - Serum or Plasma Clemente Hidalgo MD Work Phone: Start: 09-13-2022 Computed tomography of abdomen and pelvis with intravenous contrast Start: 08-16-2022 INFLUENZA VACCINE QUADRIVALENT 6 MO - 64 YRS IM Nuno Lowe DO Work Phone: Start: 04-13-2022 Adult depression screening assessment Nuno Lowe DO Work Phone: Start: 10-04-2021 Colonoscopy Monique Wahl APRN.SEMICONDUCTOR MANUFACTURING TECHNICIAN Work Phone: Start: 04-13-2021 Adult depression screening assessment Monique Wahl APRN.SEMICONDUCTOR MANUFACTURING TECHNICIAN Work Phone: H/O: surgery History of parot id gland excision Nuno Lowe DO Work Phone: H/O: surgery History of parot id gland excision Ct ([facility]) Work Phone: Plan of Treatment Date Care Activity Detail Author Start: 11-11-2039 RSV Vaccine (1 - 1-dose 75+ series) RSV Vaccine (1 - 1-dose 75+ series) [facility] Start: 01-23-2030 Lipid panel Lipid Screening [facility] Start: 01-23-2030 Prostate specific antigen measurement Prostate Cancer Screening Discussion [facility] Start: 07-18-2029 Lipid panel Lipid Screening [facility] Start: 10-17-2028 Lipid panel Lipid Screening [facility] Start: 10-17-2028 Prostate specific antigen measurement Prostate Cancer Screening Discussion [facility] Start: 06-25-2028 DTaP/Tdap/Td Vaccines (2 - Td or Tdap) DTaP/Tdap/Td Vaccines (2 - Td or Tdap) [facility] Start: 06-25-2028 Urine microalbumin profile [facility] Start: 04-10-2028 Lipid 1996 panel - Serum or Plasma Lipid Screening [facility] Start: 04-10-2028 Lipid panel Lipid Screening [facility] Start: 04-10-2028 LIPID SCREEN LIPID SCREEN [facility] Start: 01-24-2028 Diabetes Screening Diabetes Screening [facility] Start: 10-17-2027 Diabetes Screening Diabetes Screening [facility] Start: 10-08-2027 LIPID SCREEN LIPID SCREEN [facility] Start: 10-08-2027 PROSTATE CANCER SCREENING DISCUSSION PROSTATE CANCER SCREENING DISCUSSION [facility] Start: 10-08-2027 Prostate specific antigen measurement Prostate Cancer Screening Discussion [facility] Start: 07-18-2027 Diabetes Screening Diabetes Screening [facility] Start: 04-12-2027 LIPID SCREEN LIPID SCREEN [facility] Start: 10-17-2026 Diabetes Screening Diabetes Screening [facility] Start: 10-09-2026 LIPID SCREEN LIPID SCREEN [facility] Start: 10-04-2026 Colonoscopy COLONOSCOPY [facility] Start: 10-04-2026 COLORECTAL CANCER SCREENING COLORECTAL CANCER SCREENING [facility] Start: 10-04-2026 Screening for malignant neoplasm of colon [facility] Start: 04-10-2026 DIABETES SCREEN DIABETES SCREEN [facility] Start: 04-10-2026 Diabetes Screening Diabetes Screening [facility] Start: 01-28-2026 Annual PCP Team Chronic Disease Visit Annual PCP Team Chronic Disease Visit [facility] Start: 11-21-2025 PROSTATE CANCER SCREENING DISCUSSION PROSTATE CANCER SCREENING DISCUSSION [facility] Start: 10-23-2025 Annual PCP Team Chronic Disease Visit Annual PCP Team Chronic Disease Visit [facility] Start: 10-23-2025 BP Controlled (<130/80) BP Controlled (<130/80) [facility] Start: 10-08-2025 DIABETES SCREEN DIABETES SCREEN [facility] Start: 09-27-2025 BP Controlled (<130/80) BP Controlled (<130/80) [facility] Start: 09-24-2025 End: 09-24-2025 Patient encounter procedure Urology Comment on above: follow up 28 weeks Start: 08-01-2025 End: 08-01-2025 Patient encounter procedure 08/01/2025 3:00 PM EST Office Visit [facility] [place] [address] [facility] [place] [address] Nuno Lowe, [address] [facility] [place] [id number] Physical [facility] [place] Comment on above: Physical Start: 07-23-2025 Annual PCP Team Chronic Disease Visit Annual PCP Team Chronic Disease Visit [facility] Start: 07-23-2025 BP Controlled (<130/80) BP Controlled (<130/80) [facility] Start: 07-23-2025 Covid-19 Vaccine () Covid-19 Vaccine () [facility] Comment on above: Postponed from 05/12/2024 (Declined at t his time) Start: 05-28-2025 End: 05-28-2025 Patient encounter procedure 05/28/2025 7:00 PM EDT Office Visit Family [facility] [place] [address] [facility] [place] [address] Nuno Lowe DO [address] [facility] [place] [place] [address] Medication check. See TE 04/25/25. Family [facility] [place] Comment on above: Medication check. See TE 04/25/25. Start: 05-12-2025 Influenza vaccination Influenza Vaccine (#1) [facility] Start: 03-05-2025 End: 03-05-2025 Patient encounter procedure 03/05/2025 9:15 AM EDT Office Visit Urology [address] [address] Alexy Enriquez MD [address] [place] [address] 6 month FU Urology Comment on above: 6 month FU Start: 02-19-2025 End: 02-19-2025 Patient encounter procedure 02/19/2025 9:00 AM EDT Office Visit Urology [address] [address] Alexy Enriquez MD [address] [place] [address] 6 month FU Urology Comment on above: 6 month FU Start: 01-28-2025 End: 01-28-2025 Patient encounter procedure 01/28/2025 3:00 PM EDT Office Visit Family Medicine [place] [address] [facility], [place] [id number] Nuno Lowe DO [address] [facility] [place] [address] 3-4 month follow up [facility] [place] Comment on above: 3-4 month follow up Start: 01-20-2025 End: 04-21-2025 25-hydroxyvitamin D3 [Mass/volume] in Serum or Plasma VITAMIN D 25 HYDROXY Lab Routine Vitamin D deficiency Expected: 01/20/2025, Expires: 04/21/2025 [facility] Comment on above: Expected: 01/20/2025, Expires: Start: 01-20-2025 End: 04-21-2025 Cobalamin (Vitamin B12) [Mass/volume] in Serum or Plasma VITAMIN B12 Lab Routine Vitamin B12 deficiency Expected: 01/20/2025, Expires: 04/21/2025 [facility] Work Phone: Comment on above: Expected: 01/20/2025, Expires: Start: 01-20-2025 End: 04-21-2025 Hemoglobin A1c in Blood HEMOGLOBIN A1C Lab Routine Hyperglycemia Expected: 01/20/2025, Expires: 04/21/2025 [facility] Comment on above: Expected: 01/20/2025, Expires: Start: 01-20-2025 End: 04-21-2025 Lipid 1996 panel - Serum or Plasma LIPID PANEL BASIC Lab Routine Pure hypercholesterolemia Expected: 01/20/2025, Expires: 04/21/2025 [facility] Comment on above: Expected: 01/20/2025, Expires: Start: 01-20-2025 End: 04-21-2025 Thyrotropin [Units/volume] in Serum or Plasma THYROID STIMULATING HORMONE Lab Routine Acquired hypothyroidism Expected: 01/20/2025, Expires: 04/21/2025 [facility] Comment on above: Expected: 01/20/2025, Expires: Start: 01-20-2025 End: 04-21-2025 Thyroxine (T4) free [Mass/volume] in Serum or Plasma T4 FREE/FREE THYROXINE Lab Routine Acquired hypothyroidism Expected: 01/20/2025, Expires: 04/21/2025 [facility] Comment on above: Expected: 01/20/2025, Expires: Start: 01-09-2025 End: 04-10-2025 PSA/PROSTATE SPECIFIC ANTIGEN SCREENING PSA/PROSTATE SPECIFIC ANTIGEN SCREENING Lab Routine Prostate cancer screening Expected: 01/09/2025, Expires: 04/10/2025 [facility] Comment on above: Expected: 01/09/2025, Expires: Start: 10-23-2024 End: 10-23-2024 Patient encounter procedure 10/23/2024 3:00 PM EST Office Visit Family Jose David Hatch [address] [place] [address] Nuno Lowe, [address] [place] [address] 3 month follow up Family [facility] [place] Comment on above: 3 month follow up Start: 10-23-2024 Annual PCP Team Chronic Disease Visit Annual PCP Team Chronic Disease Visit [facility] Start: 10-23-2024 BP Controlled (<130/80) BP Controlled (<130/80) [facility] in Start: 10-17-2024 Thyroid stimulating hormone measurement TSH Level [facility] Start: 10-09-2024 DIABETES SCREEN DIABETES SCREEN [facility] Start: 09-27-2024 End: 12-27-2024 Cobalamin (Vitamin B12) [Mass/volume] in Serum or Plasma VITAMIN B12 Lab Routine Memory loss, short term Expected: 09/27/2024, Expires: 12/27/2024 [facility] Work Phone: Comment on above: Expected: 09/27/2024, Expires: Start: 09-27-2024 End: 09-27-2024 Patient encounter procedure 09/27/2024 8:30 AM EST Office Visit Neurology [address] [place] [address] [place] [address] [place] [address] Memory loss, short term [R41.3]; Abnormal CT of brain [R90.89] Neurology Comment on above: Memory loss, short term [R41.3]; Abnorma l CT of brain [R90.89] Start: 08-14-2024 End: 08-14-2024 Patient encounter procedure 08/14/2024 9:00 AM EST Office Visit Urology [address] [address] Alexy Enriquez MD [address] [place] [address] 6 mo follow up Urology Comment on above: 6 mo follow up Start: 08-09-2024 End: 08-09-2024 Patient encounter procedure 08/09/2024 7:00 AM EST Appointment Radiology [address] [place] [address] Stenosis of abdominal aorta [Q25.1 Radiology Comment on above: Stenosis of abdominal aorta [Q25.1 Start: 08-07-2024 End: 08-07-2024 Patient encounter procedure Radiology Comment on above: Cognitive impairment, mild, so stated [G 31.84]; Headache, worsening [R51.9]; History of head injury [Z87.828] History of parotid g land excision [Z90.49]; Mass of right side of neck [R22.1] Start: 07-27-2024 End: 10-26-2024 CBC panel - Blood by Automated count COMPLETE BLOOD COUNT Lab Routine Essential hypertension Expected: 07/27/2024 (Approximate), Expires: 10/26/2024 [facility] Comment on above: Expected: 07/27/2024 (Approximate), Expi res: 10/26/2024 Start: 07-27-2024 End: 10-26-2024 Comprehensive metabolic 2000 panel - Serum or Plasma COMPREHENSIVE METABOLIC PANEL Lab Routine Essential hypertension Expected: 07/27/2024 (Approximate), Expires: 10/26/2024 [facility] Comment on above: Expected: 07/27/2024 (Approximate), Expi res: 10/26/2024 Start: 07-27-2024 End: 10-26-2024 Lipid 1996 panel - Serum or Plasma LIPID PANEL BASIC Lab Routine Dyslipidemia Expected: 07/27/2024 (Approximate), Expires: 10/26/2024 [facility] Comment on above: Expected: 07/27/2024 (Approximate), Expi res: 10/26/2024 Start: 07-27-2024 End: 10-26-2024 Thyrotropin [Units/volume] in Serum or Plasma THYROID STIMULATING HORMONE Lab Routine Acquired hypothyroidism Expected: 07/27/2024 (Approximate), Expires: 10/26/2024 [facility] Work Phone: Comment on above: Expected: 07/27/2024 (Approximate), Expi res: 10/26/2024 Start: 07-27-2024 End: 10-26-2024 Thyroxine (T4) free [Mass/volume] in Serum or Plasma T4 FREE/FREE THYROXINE Lab Routine Acquired hypothyroidism Expected: 07/27/2024 (Approximate), Expires: 10/26/2024 [facility] Comment on above: Expected: 07/27/2024 (Approximate), Expi res: 10/26/2024 Start: 07-27-2024 End: 10-26-2024 Triiodothyronine (T3) Free [Mass/volume] in Serum or Plasma T3, FREE Lab Routine Acquired hypothyroidism Expected: 07/27/2024 (Approximate), Expires: 10/26/2024 [facility] Comment on above: Expected: 07/27/2024 (Approximate), Expi res: 10/26/2024 Start: 07-23-2024 End: 07-23-2024 Patient encounter procedure 07/23/2024 8:40 AM EST Office Visit [facility] [address] [place] [address] Nuno Lowe DO [address] [place] [address] 6 month follow up (aditi did not schedule appt so more than 6 months) [facility] Comment on above: 6 month follow up (perlaisband did not sche dule appt so more than 6 months) Start: 05-20-2024 End: 05-20-2024 Patient encounter procedure 05/20/2024 10:00 AM EDT Office Visit [place] [address] [place] [address] Kunal Servin MD [address] [facility] [address] [place], [place] [id number] [facility] Start: 05-12-2024 Covid-19 Vaccine ( season) Covid-19 Vaccine ( season) [facility] Start: 05-12-2024 Covid-19 Vaccine ( season) Covid-19 Vaccine ( season) [facility] Start: 05-12-2024 Influenza vaccination Influenza Vaccine (#1) [facility] Start: 05-10-2024 BP CONTROLLED (<130/80) BP CONTROLLED (<130/80) [facility] Start: 04-19-2024 ANNUAL PCP TEAM CHRONIC DISEASE VISIT ANNUAL PCP TEAM CHRONIC DISEASE VISIT [facility] Start: 04-19-2024 BP CONTROLLED (<130/80) BP CONTROLLED (<130/80) [facility] Start: 04-15-2024 End: 04-15-2024 Patient encounter procedure 04/15/2024 10:30 AM EDT Office Visit [place] [address] [place] [id number] Lisa Pérez, COMMERCIAL CONSTRUCTION SUPERINTENDENT-SEMICONDUCTOR MANUFACTURING TECHNICIAN [address] [facility] [address] [place] [address] [facility] Start: 03-27-2024 End: 03-27-2024 Patient encounter procedure 03/27/2024 10:45 AM EDT Procedure Visit [facility] [address] [place] [address] Lelo Rodriguez MD [address] [place] [address] [facility] Start: 02-14-2024 End: 02-14-2024 Patient encounter procedure 02/14/2024 9:45 AM EDT Office Visit Urology [address] [address] Alexy Enriquez MD [address] [place] [address] 2 MONTH FOLLOW UP Urology Comment on above: 2 MONTH FOLLOW UP Start: 01-18-2024 End: 01-18-2024 Patient encounter procedure 01/18/2024 1:00 PM EDT Office Visit Urology [address] [place] [address] [facility], Proc [address] [place] [address] [facility] Comment on above: [facility] Start: 2023 End: 11-09-2024 CT Neck W contrast IV CT soft tissue neck w IV contrast Imaging Routine Mass of right side of neck Expected: 2023, Expires: 11/09/2024 [facility] Service Area Work Phone: Comment on above: Expected: 2023, Expires: Start: 10-20-2023 End: 12-20-2023 CBC panel - Blood by Automated count CBC Lab Routine Familial combined hyperlipidemia Expected: 10/20/2023, Expires: 12/20/2023 [facility] Work Phone: Comment on above: Expected: 10/20/2023, Expires: Start: 10-20-2023 End: 12-20-2023 Comprehensive metabolic 2000 panel - Serum or Plasma COMP METABOLIC PANEL Lab Routine Familial combined hyperlipidemia Expected: 10/20/2023, Expires: 12/20/2023 [facility] Work Phone: Comment on above: Expected: 10/20/2023, Expires: Start: 10-20-2023 End: 12-20-2023 Lipid 1996 panel - Serum or Plasma LIPID PANEL BASIC Lab Routine Familial combined hyperlipidemia Expected: 10/20/2023, Expires: 12/20/2023 [facility] Work Phone: Comment on above: Expected: 10/20/2023, Expires: Start: 10-20-2023 End: 12-20-2023 PSA/PROSTSPECAG SCRN PSA/PROSTSPECAG SCRN Lab Routine Benign prostatic hyperplasia with lower urinary tract symptoms, symptom details unspecified Screening for prostate cancer Expected: 10/20/2023, Expires: 12/20/2023 [facility] Work Phone: Comment on above: Expected: 10/20/2023, Expires: Start: 10-20-2023 End: 12-20-2023 Thyrotropin [Units/volume] in Serum or Plasma TSH BLD Lab Routine Acquired hypothyroidism Expected: 10/20/2023, Expires: 12/20/2023 [facility] Work Phone: Comment on above: Expected: 10/20/2023, Expires: Start: 10-20-2023 End: 12-20-2023 Thyroxine (T4) free [Mass/volume] in Serum or Plasma T4 FREE/FREE THYROX Lab Routine Acquired hypothyroidism Expected: 10/20/2023, Expires: 12/20/2023 [facility] Work Phone: Comment on above: Expected: 10/20/2023, Expires: Start: 10-20-2023 End: 12-20-2023 Triiodothyronine (T3) Free [Mass/volume] in Serum or Plasma T3 FREE BLD Lab Routine Acquired hypothyroidism Expected: 10/20/2023, Expires: 12/20/2023 [facility] Work Phone: Comment on above: Expected: 10/20/2023, Expires: 4 Start: 10-19-2023 ANNUAL PCP TEAM CHRONIC DISEASE VISIT ANNUAL PCP TEAM CHRONIC DISEASE VISIT [facility] Start: 09-16-2023 ANNUAL PCP TEAM CHRONIC DISEASE VISIT ANNUAL PCP TEAM CHRONIC DISEASE VISIT [facility] Start: 09-11-2023 Behavioral Health Screening Behavioral Health Screening [facility] Start: 09-11-2023 Depression Assessment Depression Assessment [facility] Start: 06-21-2023 End: 08-21-2023 Lipid 1996 panel - Serum or Plasma LIPID PANEL BASIC Lab Routine Dyslipidemia Expected: 06/21/2023, Expires: 08/21/2023 [facility] Work Phone: Comment on above: Expected: 06/21/2023, Expires: 3 Start: 05-12-2023 Covid-19 Vaccine () Covid-19 Vaccine () [facility] Start: 05-12-2023 Influenza vaccination [facility] Start: 04-18-2023 End: 06-18-2023 Comprehensive metabolic 2000 panel - Serum or Plasma COMP METABOLIC PANEL Lab Routine Familial combined hyperlipidemia Expected: 04/18/2023, Expires: 06/18/2023 [facility] Work Phone: Comment on above: Expected: 04/18/2023, Expires: 3 Start: 04-18-2023 End: 06-18-2023 Hemoglobin A1c in Blood HGB A1C Lab Routine Familial combined hyperlipidemia Expected: 04/18/2023, Expires: 06/18/2023 [facility] Work Phone: Comment on above: Expected: 04/18/2023, Expires: 3 Start: 04-18-2023 End: 06-18-2023 Lipid 1996 panel - Serum or Plasma LIPID PANEL BASIC Lab Routine Familial combined hyperlipidemia Expected: 04/18/2023, Expires: 06/18/2023 [facility] Work Phone: Comment on above: Expected: 04/18/2023, Expires: 3 Start: 04-13-2023 Adult depression screening assessment DEPRESSION SCREENING [facility] Start: 04-13-2023 ANNUAL PCP TEAM CHRONIC DISEASE VISIT ANNUAL PCP TEAM CHRONIC DISEASE VISIT [facility] Start: 04-13-2023 BP CONTROLLED (<130/80) BP CONTROLLED (<130/80) [facility] Start: 10-14-2022 End: 12-14-2022 CBC panel - Blood by Automated count CBC Lab Routine Essential hypertension Expected: 10/14/2022, Expires: 12/14/2022 [facility] Work Phone: Comment on above: Expected: 10/14/2022, Expires: Start: 10-14-2022 End: 12-14-2022 Comprehensive metabolic 2000 panel - Serum or Plasma COMP METABOLIC PANEL Lab Routine Essential hypertension Expected: 10/14/2022, Expires: 12/14/2022 [facility] Work Phone: Comment on above: Expected: 10/14/2022, Expires: 3 Start: 10-14-2022 End: 12-14-2022 Lipid 1996 panel - Serum or Plasma LIPID PANEL BASIC Lab Routine Familial combined hyperlipidemia Expected: 10/14/2022, Expires: 12/14/2022 [facility] Work Phone: Comment on above: Expected: 10/14/2022, Expires: 3 Start: 10-14-2022 End: 12-14-2022 PSA/PROSTSPECAG SCRN PSA/PROSTSPECAG SCRN Lab Routine Screening for prostate cancer Expected: 10/14/2022, Expires: 12/14/2022 [facility] Work Phone: Comment on above: Expected: 10/14/2022, Expires: 3 Start: 10-14-2022 End: 04-05-2023 Thyrotropin [Units/volume] in Serum or Plasma TSH BLD Lab Routine Acquired hypothyroidism Expected: 10/14/2022, Expires: 12/14/2022 [facility] Work Phone: Comment on above: Expected: 10/14/2022, Expires: 3 Start: 10-14-2022 End: 12-14-2022 Thyroxine (T4) free [Mass/volume] in Serum or Plasma T4 FREE/FREE THYROX Lab Routine Acquired hypothyroidism Expected: 10/14/2022, Expires: 12/14/2022 [facility] Work Phone: Comment on above: Expected: 10/14/2022, Expires: 3 Start: 10-12-2022 ANNUAL PCP TEAM CHRONIC DISEASE VISIT ANNUAL PCP TEAM CHRONIC DISEASE VISIT [facility] Start: 09-17-2022 PNEUMOCOCCAL (2 - PCV) PNEUMOCOCCAL (2 - PCV) [facility] ic Start: 09-17-2022 Pneumococcal vaccination [facility] c Start: 09-17-2022 Pneumococcal Vaccine: 50+ (2 of 2 - PCV) Pneumococcal Vaccine: 50+ (2 of 2 - PCV) [facility] Start: 09-17-2022 Pneumococcal Vaccine: Pediatrics (0 to 5 Years) and At-Risk Patients (6 to 64 Years) (2 - PCV) Pneumococcal Vaccine: Pediatrics (0 to 5 Years) and At-Risk Patients (6 to 64 Years) (2 - PCV) [facility] Start: 09-11-2022 DEPRESSION ASSESSMENT DEPRESSION ASSESSMENT [facility] Start: 05-12-2022 Influenza vaccination INFLUENZA (#1) [facility] Start: 04-13-2022 Adult depression screening assessment DEPRESSION SCREENING [facility] Start: 12-26-2021 COVID-19 VACCINE (4 - Booster for Moderna series) COVID-19 VACCINE (4 - Booster for Moderna series) [facility] Start: 10-22-2021 COVID-19 VACCINE (4 - Booster for Moderna series) COVID-19 VACCINE (4 - Booster for Moderna series) [facility] Start: 10-22-2021 COVID-19 VACCINE (4 - Moderna series) COVID-19 VACCINE (4 - Moderna series) [facility] Start: 09-11-2021 DEPRESSION ASSESSMENT DEPRESSION ASSESSMENT [facility] Start: 06-25-2019 BP CONTROLLED (<130/80) BP CONTROLLED (<130/80) [facility] Start: 2009 COLOGUARD (FIT-DNA) COLOGUARD (FIT-DNA) [facility] Start: [address] COLONOGRAPHY [facility] Start: 2009 FECAL OCCULT BLOOD FECAL OCCULT BLOOD [facility] Start: 2009 Screening for malignant neoplasm of colon [facility] Start: 2009 SIGMOIDOSCOPY SIGMOIDOSCOPY [facility] Start: 08-12-2009 MMR Vaccines (1 of 1 - Standard series) MMR Vaccines (1 of 1 - Standard series) [facility] Start: 11-11-1983 Hepatitis B Vaccines (1 of 3 - 19+ 3-dose series) Hepatitis B Vaccines (1 of 3 - 19+ 3-dose series) [facility] Start: 1982 Anxiety Screening Anxiety Screening [facility] Start: 1982 Depression Screening Depression Screening [facility] Start: 1982 HEPATITIS C SCREENING HEPATITIS C SCREENING [facility] Start: 1982 Hepatitis C screening Hepatitis C Screening [facility] Start: 1982 HIV SCREENING HIV SCREENING [facility] Start: 1982 HIV screening HIV Screening [facility] Start: 1964 HEPATITIS B (1 of 3 - 3-dose series) HEPATITIS B (1 of 3 - 3-dose series) [facility] Start: 1964 Hepatitis B Vaccine (1 of 3 - 3-dose series) Hepatitis B Vaccine (1 of 3 - 3-dose series) [facility] Start: 1964 Hepatitis B Vaccines (1 of 3 - 3-dose series) Hepatitis B Vaccines (1 of 3 - 3-dose series) [facility] Start: 1964 HIV screening HIV Screening [facility] Start: 1964 Lipid panel Lipid Panel [facility] Start: 1964 Screening for malignant neoplasm of colon [facility] Start: 1964 Yearly Adult Physical Yearly Adult Physical [facility] BLADDER SCAN BLADDER SCAN Pro cedures Routine Benign prostatic hyperplasia with lower urinary tract symptoms, symptom details unspecified Ordered: 10/27/2023 [facility] Work Phone: Comment on above: Ordered: 10/27/2023 BLADDER SCAN BLADDER SCAN Pro cedures Routine Benign prostatic hyperplasia with lower urinary tract symptoms, symptom details unspecified Ordered: 12/27/2023 [facility] Work Phone: Comment on above: Ordered: 12/27/2023 BLADDER SCAN BLADDER SCAN Pro cedures Routine Overactive bladder Benign prostatic hyperplasia with lower urinary tract symptoms, symptom details unspecified Prostate cancer screening Ordered: 08/14/2024 [facility] Work Phone: Comment on above: Ordered: 08/14/2024 End: 11-22-2023 CT Neck W contrast IV CT soft tissue neck w IV contrast Imaging Routine Mass of right side of neck Once for 1 Occurrences starting 11/22/2023 until 11/22/2023 [facility] Service Area Work Phone: Comment on above: Once for 1 Occurrences starting 11/22/19 until 11/22/2023 End: 08-22-2025 CT Neck WO contrast CT NECK SOFT TISSUE WO IVCON Radiology Routine History of parotid gland excision Mass of right side of neck 1 Occurrences starting 07/23/2024 until 08/22/2025 [facility] Comment on above: 1 Occurrences starting 07/23/2024 until 08/22/2025 CYSTO/TRUS ONLY CYSTO/TRUS ONLY Procedures Routine Benign prostatic hyperplasia with lower urinary tract symptoms, symptom details unspecified Ordered: 12/27/2023 [facility] Work Phone: Comment on above: Ordered: 12/27/2023 End: 06-20-2024 ECG COMPLETE ECG COMPLETE ECG Routine Primary hypertension 1 Occurrences starting 06/21/2023 until 06/20/2024 [facility] Work Phone: Comment on above: 1 Occurrences starting 06/21/2023 until 06/20/2024 End: 06-21-2024 Echocardiography ECHO Cardiology Routine Smoker MOORE (dyspnea on exertion) 1 Occurrences starting 06/21/2023 until 06/21/2024 [facility] Work Phone: Comment on above: 1 Occurrences starting 06/21/2023 until 06/21/2024 Home sleep test Home sleep test Sleep Center Routine LULU (obstructive sleep apnea) Ordered: [address] [facility] Work Phone: Comment on above: Ordered: 2023 End: 08-22-2025 MR Brain WO and W contrast IV MRI BRAIN WO/W IVCON Radiology Routine Cognitive impairment, mild, so stated Headache, worsening History of head injury 1 Occurrences starting 07/23/2024 until 08/22/2025 [facility] Work Phone: Comment on above: 1 Occurrences starting 07/23/2024 until 08/22/2025 Patient Education [facility] Work Phone: Patient referral [facility] Work Phone: End: 05-13-2023 Radex spine lumbosacral 2/3 views XR LUMBAR GENERAL 3V AP/LAT/L5-S1 Radiology Routine Acute bilateral low back pain with left-sided sciatica 1 Occurrences starting 04/13/2022 until 05/13/2023 [facility] Work Phone: Comment on above: 1 Occurrences starting 04/13/2022 until 05/13/2023 URODYNAMICS URODYNAMICS Proc edures Routine Overactive bladder Ordered: 01/03/2024 [facility] Work Phone: Comment on above: Ordered: 01/03/2024 End: 09-01-2025 US Abdominal Aorta US ABD AORTA Radiology Routine Stenosis of abdominal aorta 1 Occurrences starting 08/02/2024 until 09/01/2025 [facility] Work Phone: Comment on above: 1 Occurrences starting 08/02/2024 until 09/01/2025 XR Lumbar spine 3 Views XR LUMBA R GENERAL 3V AP/LAT/L5-S1 Radiology Routine Chronic midline low back pain without sciatica 07/23/2024 10:14 AM EST [facility] [employer] Work Phone: End: 08-22-2025 XR Lumbar spine 3 Views XR LUMBAR GENERAL 3V AP/LAT/L5-S1 Radiology Routine Chronic midline low back pain without sciatica 1 Occurrences starting 07/23/2024 until 08/22/2025 [facility] Comment on above: 1 Occurrences starting 07/23/2024 until 08/22/2025 [facility] Immunizations Immunization Date Immunization Notes Care Provider Zulay rivera 06-28-2024 influenza, seasonal, injectable Xr [place] Work Phone: [facility] 06-28-2024 influenza virus vacc ine, unspecified formulation Nuno Lowe DO Work Phone: [facility] 06-30-2023 influenza virus vacc ine, unspecified formulation Lelo Luz MD Work Phone: [facility] Work Phone: 08-16-2022 influenza, injectabl e, quadrivalent, contains preservative Mi Nurse Work Phone: [facility] Work Phone: 08-16-2022 influenza virus vacc ine, unspecified formulation Clemente Hidalgo MD Work Phone: [facility] 09-17-2021 influenza, injectabl e, quadrivalent, contains preservative Monique Praisler-Wood COMMERCIAL CONSTRUCTION SUPERINTENDENT.SEMICONDUCTOR MANUFACTURING TECHNICIAN Work Phone: [facility] 09-17-2021 pneumococcal polysaccharide vaccine, 23 valent Monique Praisler-Wood COMMERCIAL CONSTRUCTION SUPERINTENDENT.SEMICONDUCTOR MANUFACTURING TECHNICIAN Work Phone: [facility] 07-09-2019 influenza, injectabl e, quadrivalent, contains preservative Monique Praisler-Wood COMMERCIAL CONSTRUCTION SUPERINTENDENT.SEMICONDUCTOR MANUFACTURING TECHNICIAN Work Phone: [facility] Work Phone: 04-08-2019 zoster vaccine recombinant Monique Praisler-Wood COMMERCIAL CONSTRUCTION SUPERINTENDENT.SEMICONDUCTOR MANUFACTURING TECHNICIAN Work Phone: [facility] Work Phone: 01-07-2019 zoster vaccine recombinant Monique Praisler-Wood COMMERCIAL CONSTRUCTION SUPERINTENDENT.SEMICONDUCTOR MANUFACTURING TECHNICIAN Work Phone: [facility] Work Phone: 06-25-2018 influenza, injectabl e, quadrivalent, contains preservative Monique Praisler-Wood COMMERCIAL CONSTRUCTION SUPERINTENDENT.[facility] Work Phone: [facility] Work Phone: 06-25-2018 tetanus toxoid, redu clarence diphtheria toxoid, and acellular pertussis vaccine, adsorbed Monique Pralglydia-Tank COMMERCIAL CONSTRUCTION SUPERINTENDENT.[facility] Work Phone: [facility] Work Phone: 06-28-2017 influenza, injectabl e, quadrivalent, contains preservative Monique Pralglydia-Wood COMMERCIAL CONSTRUCTION SUPERINTENDENT.[facility] Work Phone: [facility] Work Phone: 06-22-2016 influenza, seasonal, injectable Monique Pralglydia-Wood COMMERCIAL CONSTRUCTION SUPERINTENDENT.[facility] Work Phone: [facility] Work Phone: Payers Date Payer Category Payer Private Health Insurance MMO S [id number] 2023 Unknown [id number] 2022 Self-pay [id number] 2022 Unknown [id number] 2022 Unknown [employer] PPO [id number] 2022-Present [phone] [address] [place] [address] PPO [id number] 2022 Unknown [id number] 2019 Unknown [employer] PPO [id number] 2019-Present [phone] [address] [place] [address] PPO [id number] 2015 Private Health Insurance [facility] [id number] 1964 Unknown [id number] 1964 Unknown [id number] 1964 Unknown [id number] 1964 Unknown [id number] 1964 Unknown [id number] 1964 Unknown [id number] 1964 Unknown [id number] Unknown [id number] Unknown [id number] Social History Date Type Detail Facility Start: 09-24-2021 End: 01-17-2024 Tobacco smoking status MSIS Ex-smoker [facility] Work Phone: Start: 09-11-1979 End: 2023 History of tobacco use Current smoker [facility] Work Phone: Start: 09-24-2021 End: 04-19-2023 Cigarettes smoked current (pack per day) - Reported 0.3 [facility] Work Phone: Start: 09-24-2021 End: 07-23-2024 Tobacco use and exposure Smokeless tobacco non-user [facility] Work Phone: Start: 12-15-2021 End: 03-05-2025 Alcohol intake Current drinker of alcohol (finding) [facility] Start: 04-28-2015 End: 2023 History SDOH Alcohol Comment occasional [facility] Start: 1965 Sex Assigned At Male [facility] Start: 12-05-2021 End: 03-27-2024 Exposure to SARS-CoV-2 (event) Not sure [facility] Work Phone: Start: 09-11-1979 End: 2023 History of tobacco use Cigarette Smoker [facility] Work Phone: Start: 09-13-2022 End: 01-07-2023 Tobacco smoking status [facility] Unknown if ever smoked [facility] Start: 09-13-2022 Occasional [facility] Start: 09-13-2022 None [facility] Start: 09-13-2022 Non-smoker [facility] Start: 09-11-1979 End: 07-23-2024 Tobacco smoking status NHIS Smokes tobacco daily [facility] Work Phone: Start: 04-19-2023 End: 10-23-2023 Tobacco use panel [facility] Work Phone: Start: 08-12-2012 Adult Depression Screening Assessment 0 [facility] Work Phone: Start: 01-01-2019 Gender identity Identifies as male gender (finding) [facility] Start: 01-01-2019 Sexual orientation Heterosexual (danette burton) [facility] How often to you hav e a drink containing alcohol? 2-3 time sa week [facility] Work Phone: How many standard drinks containing alcohol do you have on a typical day? 3 or [address] [facility] Work Phone: How often do you hav e 6 or more drinks on 1 occasion? Never [facility] Work Phone: (I/We) worried whether (my/our) food would run out before (I/we) got money to buy more. Never true [facility] Work Phone: Start: 1965 Sex Assigned At Not on file [facility] Work Phone: NEGATED: Highlighted rowStart: DILIA History of tobacco use Passive smoker [facility] Functional Status Date Assessment Result Facility 07-07-2014 Are you deaf, or do you have serious difficulty hearing No 07/07/2014 2:37 PM Shauna Early RN No [facility] 07-07-2014 Are you blind, or do you have serious difficulty seeing, even when wearing glasses No 07/07/2014 2:37 PM Shauna Early RN No [facility] 07-07-2014 Do you have serious difficulty walking or climbing stairs No 07/07/2014 2:37 PM Shauna Early RN No [facility] 07-07-2014 Do you have difficul ty dressing or bathing No 07/07/2014 2:37 PM Shauna Early RN No [facility] 07-07-2014 Because of a physica l, mental, or emotional condition, do you have difficulty doing errands alone such as visiting a physician's office or shopping No 07/07/2014 2:37 PM Shauna Early RN No [facility] Mental Status Date Assessment Result Facility 07-07-2014 Because of a physica l, mental, or emotional condition, do you have serious difficulty concentrating, remembering, or making decisions No 07/07/2014 2:37 PM Shauna Early RN No [facility] Clinical Notes 12-15-2021 to 04-28-2025 Telephone Encounter - Ericka Badillo RN - 04/28/2025 6:09 PM EDTTelephone Encounter - Ericka Badillo RN - 04/28/2025 6:09 PM EDTTelephone Encounter - Yeyo Summers MD - 03/19/2025 9:27 AM EDT Note Date & Type Note Facility 04-28-2025 Telephone encounter Note Pt's called and is notified of providers message and instructions. She voices understanding. Pt scheduled with Dr Lowe 05/28/25. Ericka Badillo RN [facility] 04-28-2025 Miscellaneous Notes Pt's called and is notified of providers message and instructions. She voices understanding. Pt scheduled with Dr Lowe 05/28/25. 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 If he abruptly quits drinking alcohol, he has a risk of seizures/wernicke encephalopathy and other complications. He is going to start a low dose of medication as below twice a day and f/u in office Nuno Lowe DO The following approved medication requests have been transmitted electronically. Requested Prescriptions Signed Prescriptions Disp Refills buPROPion SR (WELLBUTRIN SR) 100 mg 12 hr tablet 180 tablet 0 Sig: Take 1 tablet by mouth two times a day. Authorizing Provider: NUNO LOWE DO Pt's called in and reports Pt was asking about quitting drinking and states he has talks to Dr Lowe about this before. She said she had recommended him starting on a medication to help with this. Please call and advise. 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 If he abruptly quits drinking alcohol, he has a risk of seizures/wernicke encephalopathy and other complications. He is going to start a low dose of medication as below twice a day and f/u in office Nuno Lowe DO The following approved medication requests have been transmitted electronically. Requested Prescriptions Signed Prescriptions Disp Refills buPROPion SR (WELLBUTRIN SR) 100 mg 12 hr tablet 180 tablet 0 Sig: Take 1 tablet by mouth two times a day. Authorizing Provider: NUNO LOWE DO [facility] 04-25-2025 Telephone encounter Note Pt's called in and reports Pt was asking about quitting drinking and states he has talks to Dr Lowe about this before. She said she had recommended him starting on a medication to help with this. Please call and advise. Ericka Badillo RN [facility] 03-19-2025 Telephone encounter Note Pt's called and is notified of providers message and instructions. She voices understanding. She states his toenails are lots better, so maybe he doesn't need to do anything. Reiterated using the tea tree oil to the cuticles. Ericka Badillo RN [facility] 03-19-2025 Miscellaneous Notes Pt's called and is notified of providers message and instructions. She voices understanding. She states his toenails are lots better, so maybe he doesn't need to do anything. Reiterated using the tea tree oil to the cuticles. Ericka Badillo RN Usually for toenails, you do not stay on the medication indefinitely. I usually follow the oral med with something topical like tea tree oil to the cuticles etc untit the nails grow out. It may take up to a year for that to happen. (I personally treat fingernails for six weeks and toenails for 12 weeks with meds only) Pt's reports he is out of medication. The patient has been identified by name and date of : Yes Caregiver verified no other encounters exist for this prescription request: Yes Caregiver confirmed with patient/requestor that no other refills are due, in the near future, with this provider at this time: Yes The last office visit in the department: 01/28/2025 Does the patient have a future office visit with this provider/department: Yes 08/01/2025 Requested Prescriptions Pending Prescriptions Disp Refills terbinafine HCl (LAMISIL) 250 mg tablet 90 tablet 1 Sig: Take 1 tablet by mouth once daily. For toenails Ericka Badillo RN March 19, 2025 8:39 AM documented in this encounter [facility] 03-19-2025 Telephone encounter Note Usually for toenails, you do not stay on the medication indefinitely. I usually follow the oral med with something topical like tea tree oil to the cuticles etc untit the nails grow out. It may take up to a year for that to happen. (I personally treat fingernails for six weeks and toenails for 12 weeks with meds only) [facility] Work Phone: 03-19-2025 Telephone encounter Note Pt's reports he is out of medication. The patient has been identified by name and date of : Yes Caregiver verified no other encounters exist for this prescription request: Yes Caregiver confirmed with patient/requestor that no other refills are due, in the near future, with this provider at this time: Yes The last office visit in the department: 01/28/2025 Does the patient have a future office visit with this provider/department: Yes 08/01/2025 Requested Prescriptions Pending Prescriptions Disp Refills terbinafine HCl (LAMISIL) 250 mg tablet 90 tablet 1 Sig: Take 1 tablet by mouth once daily. For toenails Ericka Badillo RN March 19, 2025 8:39 AM [facility] 03-05-2025 Note HNO ID: [id number] Author: ALEXY ENRIQUEZ MD Service: ? Author Type: Physician Type: Progress Notes Filed: 03/05/2025 18:33 Note Text: [facility] UROLOGY ESTABLISHED PATIENT CLINIC NOTE UROL [facility] PATIENT INFO: Grupo Jackson AGE: [age] year old PCP: Nuno Lowe DO IMPRESSION/PLAN: 1. Benign prostatic hyperplasia with lower urinary tract symptoms, symptom details unspecified - ICD9: 600.01, ICD10: N40.1 (primary diagnosis) - Continue taking Flomax (tamsulosin) one tablet at bedtime; refill has been sent to [facility]. - Continue taking solifenacin one tablet each morning to help control urinary frequency; contact the office when you need a refill. 2. Erectile dysfunction, unspecified erectile dysfunction type - ICD9: 607.84, ICD10: N52.9 - Trial tadalafil (Cialis) 20 mg--take one tablet in the afternoon as needed for erectile function; prescription sent to [facility] (french cost ~$10-$15 per tablet). 3. Screening for genitourinary condition - ICD9: V81.6, ICD10: Z13.89 REASON FOR VISIT: Medication review and follow-up regarding BPH and ED HPI: Grupo Jackson returns for continuing evaluation and management. BPH: - Last visit was in August. - Currently taking Flomax at bedtime and solifenacin in the morning. - Experiences urinary frequency, especially after consuming coffee. - Can go up to 2 hours without urination if staying busy and limiting fluid intake. - Drinks Gatorade frequently. - Reports occasional dry mouth. ED: - Currently taking sildenafil 100 mg PRN, minimal benefit. - Reports difficulty with timing due to the short duration of action. - Experiences difficulty achieving climax. - Previously on finasteride, which caused decreased ejaculate volume. INTERNATIONAL PROSTATE SYMPTOM SCORE (I-PSS) 1)INCOMPLETE EMPTYING Over the past month, how often have you had a sensation of not emptying your bladder completely after you finished urinating? SCORE: 0- Not at all 2)FREQUENCY Over the past month, how often have you had to urinate again less than two hours after you finished urinating? SCORE: 3- About half the time 3)INTERMITTENCY Over the past month, how often have you found you stopped and started again several times when you urinated? SCORE: 1- Less than 1 time in 5 4)URGENCY Over the past month, how often have you found it difficult to postpone urination? SCORE: 1- Less than 1 time in 5 5)WEAK STREAM Over the past month, how often have you had a weak stream? SCORE: 0- Not at all 6)STRAINING Over the past month, how often have you had to push or strain to begin urination SCORE: 0- Not at all 7)NOCTURIA Over the past month, how many times did you most typically get up to urinate from the time you went to bed at night until the time you get up in the morning? SCORE:1 TOTAL I-PSS SCORE: 6 QUALITY OF LIFE DUE TO URINARY SYMPTOMS If you were to spend the rest of yur life with your urinary condition just the way it is now, how would you feel about that? 2- Mostly Satisfied UROLOGICAL DATA: Urinalysis: GLUCOSE UA (POCT) Negative 03/05/2025 BILIRUBIN UA (POCT) Negative 03/05/2025 KETONE UA (POCT) Negative 03/05/2025 SPECIFIC GRAVITY UA (POCT) 1.020 03/05/2025 HEMOGLOBIN/BLOOD UA (POCT) Negative 03/05/2025 PH UA (POCT) 7.5 03/05/2025 PROTEIN UA (POCT) Negative 03/05/2025 UROBILINOGEN UA (POCT) 1.0 03/05/2025 NITRITE UA (POCT) Negative 03/05/2025 LEUKOCYTES UA (POCT) Negative 03/05/2025 COLOR UA (POCT) Yellow 03/05/2025 CLARITY UA (POCT) Clear 03/05/2025 Post Void Residual, Ultrasound: 0 cc, empties well OTHER DATA: PSA Screening (ng/mL) Date Value 01/23/2025 1.33 10/17/2023 0.61 10/08/2022 1.49 04/17/2021 1.66 11/21/2020 1.33 04/03/2019 1.75 02/08/2018 0.97 No results found for: ISOPSA Creatinine Date Value Ref Range Status 10/17/2024 0.91 0.73 - 1.22 mg/dL Final 07/18/2024 0.88 0.73 - 1.22 mg/dL Final 10/17/2023 0.98 0.73 - 1.22 mg/dL Final 04/10/2023 0.95 0.73 - 1.22 mg/dL Final No results found for: TESTOST, TESTFREE PMHx/PSHx: see above, otherwise unchanged Rx: reviewed and unchanged ROS: see above, otherwise unchanged Labs: None Imaging: None MEDICATIONS: Current Outpatient Medications Medication Sig citalopram hydrobromide (CELEXA) 10 mg tablet Take 1 tablet PO daily in the evening x 2 weeks then increase to 2 tablets PO daily at bedtime solifenacin (VESICARE) 10 mg tablet Take 1 tablet by mouth once daily. lisinopril (ZESTRIL) 10 mg tablet Take 1 tablet by mouth once daily. simvastatin (ZOCOR) 20 mg tablet Take 1 tablet by mouth daily at bedtime. terbinafine HCl (LAMISIL) 250 mg tablet Take 1 tablet by mouth once daily. For toenails levothyroxine (SYNTHROID) 125 mcg tablet 2 tablets 2 days (Mon, Thurs) and 1 tablet 4 days a week. On an empty stomach. meloxicam (MOBIC) 15 mg tablet T (more content not included)... [facility] 03-05-2025 History of Present illness Narrative Images from the original note were not included. [facility] UROLOGY ESTABLISHED PATIENT CLINIC NOTE UROL [facility] PATIENT INFO: Grupo Jackson AGE: [age] year old PCP: Nuno Lowe, IMPRESSION/PLAN: 1. Benign prostatic hyperplasia with lower urinary tract symptoms, symptom details unspecified - ICD9: 600.01, ICD10: N40.1 (primary diagnosis) - Continue taking Flomax (tamsulosin) one tablet at bedtime; refill has been sent to [facility]. - Continue taking solifenacin one tablet each morning to help control urinary frequency; contact the office when you need a refill. 2. Erectile dysfunction, unspecified erectile dysfunction type - ICD9: 607.84, ICD10: N52.9 - Trial tadalafil (Cialis) 20 mg--take one tablet in the afternoon as needed for erectile function; prescription sent to [facility] (french cost ~$10-$15 per tablet). 3. Screening for genitourinary condition - ICD9: V81.6, ICD10: Z13.89 REASON FOR VISIT: Medication review and follow-up regarding BPH and ED HPI: Grupo Jackson returns for continuing evaluation and management. BPH: - Last visit was in August. - Currently taking Flomax at bedtime and solifenacin in the morning. - Experiences urinary frequency, especially after consuming coffee. - Can go up to 2 hours without urination if staying busy and limiting fluid intake. - Drinks Gatorade frequently. - Reports occasional dry mouth. ED: - Currently taking sildenafil 100 mg PRN, minimal benefit. - Reports difficulty with timing due to the short duration of action. - Experiences difficulty achieving climax. - Previously on finasteride, which caused decreased ejaculate volume. INTERNATIONAL PROSTATE SYMPTOM SCORE (I-PSS) 1)INCOMPLETE EMPTYING Over the past month, how often have you had a sensation of not emptying your bladder completely after you finished urinating? SCORE: 0- Not at all 2)FREQUENCY Over the past month, how often have you had to urinate again less than two hours after you finished urinating? SCORE: 3- About half the time 3)INTERMITTENCY Over the past month, how often have you found you stopped and started again several times when you urinated? SCORE: 1- Less than 1 time in 5 4)URGENCY Over the past month, how often have you found it difficult to postpone urination? SCORE: 1- Less than 1 time in 5 5)WEAK STREAM Over the past month, how often have you had a weak stream? SCORE: 0- Not at all 6)STRAINING Over the past month, how often have you had to push or strain to begin urination SCORE: 0- Not at all 7)NOCTURIA Over the past month, how many times did you most typically get up to urinate from the time you went to bed at night until the time you get up in the morning? SCORE:1 TOTAL I-PSS SCORE: 6 QUALITY OF LIFE DUE TO URINARY SYMPTOMS If you were to spend the rest of yur life with your urinary condition just the way it is now, how would you feel about that? 2- Mostly Satisfied UROLOGICAL DATA: Urinalysis: GLUCOSE UA (POCT) Negative 03/05/2025 BILIRUBIN UA (POCT) Negative 03/05/2025 KETONE UA (POCT) Negative 03/05/2025 SPECIFIC GRAVITY UA (POCT) 1.020 03/05/2025 HEMOGLOBIN/BLOOD UA (POCT) Negative 03/05/2025 PH UA (POCT) 7.5 03/05/2025 PROTEIN UA (POCT) Negative 03/05/2025 UROBILINOGEN UA (POCT) 1.0 03/05/2025 NITRITE UA (POCT) Negative 03/05/2025 LEUKOCYTES UA (POCT) Negative 03/05/2025 COLOR UA (POCT) Yellow 03/05/2025 CLARITY UA (POCT) Clear 03/05/2025 Post Void Residual, Ultrasound: 0 cc, empties well OTHER DATA: PSA Screening (ng/mL) Date Value 01/23/2025 1.33 10/17/2023 0.61 10/08/2022 1.49 04/17/2021 1.66 11/21/2020 1.33 04/03/2019 1.75 02/08/2018 0.97 No results found for: ISOPSA Creatinine Date Value Ref Range Status 10/17/2024 0.91 0.73 - 1.22 mg/dL Final 07/18/2024 0.88 0.73 - 1.22 mg/dL Final 10/17/2023 0.98 0.73 - 1.22 mg/dL Final 04/10/2023 0.95 0.73 - 1.22 mg/dL Final No results found for: TESTOST, TESTFREE PMHx/PSHx: see above, otherwise unchanged Rx: reviewed and unchanged ROS: see above, otherwise unchanged Labs: None Imaging: None MEDICATIONS: Current Outpatient Medications Medication Sig citalopram hydrobromide (CELEXA) 10 mg tablet Take 1 tablet PO daily in the evening x 2 weeks then increase to 2 tablets PO daily at bedtime solifenacin (VESICARE) 10 mg tablet Take 1 tablet by mouth once daily. lisinopril (ZESTRIL) 10 mg tablet Take 1 tablet by mouth once daily. simvastatin (ZOCOR) 20 mg tablet Take 1 tablet by mouth daily at bedtime. terbinafine HCl (LAMISIL) 250 mg tablet Take 1 tablet by mouth once daily. For toenails levothyroxine (SYNTHROID) 125 mcg tablet 2 tablets 2 days (Mon, Th) and 1 tablet 4 days a week. On an empty stomach. meloxicam (MOBIC) 15 mg tablet Take 1 tablet by mouth once daily. With food. traZODone (DESYREL) 50 mg tablet Take 1-3 tablets by mouth daily at bedtime. COMPOUNDED PRESCRIPTION Bipap pressure settings 17/11 with F&P nasal mask interface and heated humidity Dx: LULU on Bipap tamsulosin (FLOMAX) 0.4 mg Take 1 capsule by mouth once daily. For urination Tadalafil (CIALIS) 20 mg tablet Take 1 tablet by mouth once daily as needed. Take 1-2 hours before sexual activity. No current facility-administered medications for this visit. PHYSICAL EXAM: Ht 172.7 cm (5' 8) Wt 97.1 kg (214 lb) BMI 32.54 kg/m Body mass index is 32.54 kg/m . General: Well masculinized, well nourished male Psych: euthymic, NAD Neuro: A&Ox3 Inguinal: No lesions, adenopathy, or hernias Phallus: normal, circumcised, no lesions Meatus: orthotopic, patent, no discharge Scrotum: no lesions, normal rugae Testes: Descended, nontender, and no masses bilaterally L: nl R:nl Epididymides: L nl R nl Vas deferens: palpable bilaterally Varicocele: none ALEK reveals a normal prostate approximately 20 g without nodularity or tenderness, normal anal sphincter tone EXTREMITIES: warm, no dependent edema, no malformations SKIN: no abnormal bruising, no rashes, no cyanosis NEUROLOGIC: normal gait, good manual dexterity, no paralysis Visit complexity inherent to evaluation and management associated with medical care services that serve as the continuing focal point for all needed health care services and/or with medical care services that are part of ongoing care related to a patient s single, serious condition or a complex condition. Alexy Enriquez M.D, MS Associate Staff [facility] [place] [facility] documented in this encounter [facility] 01-29-2025 Note HNO ID: [id number] Author: NUNO LOWE, DO Service: ? Author Type: Physician Type: Progress Notes Filed: 01/29/2025 22:19 Note Text: CC:Grupo Jackson is a 59 year old male who presents to the office for follow up HPI: Seen last in office on 07/23/2024 as below Memory concerns, sometimes forgetfulness with acute memory changes. Sometimes not remembering short term. Father was diagnosed with dementia- symptoms in early 60s- worsened after anesthesia from prostate surgery. Sister also with dementia in her mid/late 60s. Has been getting some intermittent headaches, also a few episodes of dizziness, no head injuries. No obvious concussions in the past. Hx of parotid tumor, right side of face/jaw, hx of resection by ENT, feels like this may be growing again BPH, stable, taking flomax LULU, use of CPAP, feels like this helps with sleep. Does have some daytime fatigue HTN, using medications as prescribed. No CP or dyspnea or palpitations or syncope. + dizziness + Fatigue Hypothyroidism, taking synthroid as prescribed. Has some fatigue HPL, taking zocor as prescribed at 20 mg at bedtime, no SE with medication Alcohol use, admits that he drinks too much alcohol and drinks alcohol on a daily /nightly basis a few beers. He isn't currently willing to cut back or down on use. Left ear pressure and mild dizziness the last few days, no head injuries, no fevers or chills. No head injuries Currently Memory concerns, was further evaluated by Neurologist and doesn't feel that he has dementia. He also wants him to cut back on his alcohol intake Alcohol use, states that he is slowly cutting back on alcohol intake. Has had some stressors recently with his daughter Susanne and feels this is affecting his coping ability. No SI or HI. Has a lot of stress with work as well. Willing to start on medication to help him with managing his symptoms. Susanne and her daughter are now living with him and his and younger daughter. BPH, stable, taking flomax LULU, use of CPAP, feels like this helps with sleep. Does have some daytime fatigue HTN, using medications as prescribed. No CP or dyspnea or palpitations or syncope. + dizziness + Fatigue Diagnosed with overactive bladder and started on vesicare with benefit. Did have bladder testing and saw Urologist. PAST MEDICAL HISTORY Diagnosis Date Acquired hypothyroidism Acute diverticulitis 08/2022 BPH (benign prostatic hyperplasia) Essential hypertension Hyperlipidemia LULU on CPAP [facility] PAST SURGICAL HISTORY Procedure Laterality Date ANESTHESIA TOTAL HIP ARTHROPLASTY Left 05/04/2016 Dr. Manjeet Smith ANESTHESIA TOTAL HIP ARTHROPLASTY Right 05/31/2017 Dr. Manjeet Smith; dx: R hip avascular necrosis COLONOSCOPY Herman COLONOSCOPY 10/04/2021 benign hyperplastic polyps. repeat in 5 years based on family history of colon cancer LIGATE INTERNAL HEMORRHOIDS; SINGLE 2019, banding, internal hemorrhoids, Dr. Joaquin PAST SURGICAL HISTORY OF 2002 left thumb PAST SURGICAL HISTORY OF Right 08/08/2017 total parotidectomy; Dr. De Souza Current Outpatient Medications Medication Sig solifenacin (VESICARE) 10 mg tablet Take 1 tablet by mouth once daily. sildenafil (VIAGRA) 100 mg tablet Take 1 tablet by mouth as needed (30-60 minutes prior to sexual activity). lisinopril (ZESTRIL) 10 mg tablet Take 1 tablet by mouth once daily. simvastatin (ZOCOR) 20 mg tablet Take 1 tablet by mouth daily at bedtime. terbinafine HCl (LAMISIL) 250 mg tablet Take 1 tablet by mouth once daily. For toenails levothyroxine (SYNTHROID) 125 mcg tablet 2 tablets 2 days (Mon, Thurs) and 1 tablet 4 days a week. On an empty stomach. tamsulosin (FLOMAX) 0.4 mg Take 1 capsule by mouth once daily. For urination meloxicam (MOBIC) 15 mg tablet Take 1 tablet by mouth once daily. With food. traZODone (DESYREL) 50 mg tablet Take 1-3 tablets by mouth daily at bedtime. COMPOUNDED PRESCRIPTION Bipap pressure settings 28/07 with FANDP nasal mask interface and heated humidity Dx: LULU on Bipap (Patient taking differently: Bipap pressure settings 17/ with FANDP nasal mask interface and heated humidity Dx: LULU on Bipap Not using daily) No current facility-administered medications for this visit. ALLERGIES No Known Allergies Social History Tobacco Use Smoking status: Every Day Current packs/day: 0.00 Average packs/day: 0.3 packs/day for 44.0 years (13.2 ttl pk-yrs) Types: Cigarettes Start date: 09/11/1979 Last attempt to quit: 2023 Years since quittin.3 Passive exposure: Never Smokeless tobacco: Never Vaping Use Vaping status: Never Used Substance Use Topics Alcohol use: Yes Comment: Occasional Drug use: No ROS: See HPI PE: BP 110/60 Pulse 64 Temp (Src) 97.4 (Left Tympanic) Resp 16 Wt 215 lb (97.5kg) Gen: AANDOX3, NAD, non-toxic appearing HEENT: PERRLA, EOMs intact b/l, nares without drainage (more content not included)... [facility] 10-24-2024 Note HNO ID: [id number] Author: NUNO LOWE, DO Service: ? Author Type: Physician Type: Progress Notes Filed: 10/24/2024 09:58 Note Text: CC: Grupo Herrera Neece is a 58 year old male who presents to the office for follow up HPI: Seen in the office last in Jul 2024 as below Memory concerns, sometimes forgetfulness with acute memory changes. Sometimes not remembering short term. Father was diagnosed with dementia- symptoms in early 60s- worsened after anesthesia from prostate surgery. Sister also with dementia in her mid/late 60s. Has been getting some intermittent headaches, also a few episodes of dizziness, no head injuries. No obvious concussions in the past. Hx of parotid tumor, right side of face/jaw, hx of resection by ENT, feels like this may be growing again BPH, stable, taking flomax LULU, use of CPAP, feels like this helps with sleep. Does have some daytime fatigue HTN, using medications as prescribed. No CP or dyspnea or palpitations or syncope. + dizziness + Fatigue Hypothyroidism, taking synthroid as prescribed. Has some fatigue HPL, taking zocor as prescribed at 20 mg at bedtime, no SE with medication Alcohol use, admits that he drinks too much alcohol and drinks alcohol on a daily /nightly basis a few beers. He isn't currently willing to cut back or down on use. Left ear pressure and mild dizziness the last few days, no head injuries, no fevers or chills. No head injuries Currently Right ear pressure, fullness feeling, present the last few weeks, did have URI. No fevers or chills or drainage from ears that he is aware of. Alcohol use. Has cut back to 1-2 tall boy beers 2-3 days a week. He isn't willing to quit yet. Feels better about the amount he is drinking Cognitive decline/memory loss- saw Neurologist for evaluation- feels that he liekly has normal aging related memory decline- not dementia at this time. Recommended that he cut back on alcohol use Urologist appt recently for BPH symptoms and urinary symptoms. Taking mediation as prescribed Some fatigue HTN, well controlled Hypothyroidism, taking synthroid PAST MEDICAL HISTORY Diagnosis Date Acquired hypothyroidism Acute diverticulitis 08/2022 BPH (benign prostatic hyperplasia) Essential hypertension Hyperlipidemia LULU on CPAP [facility] PAST SURGICAL HISTORY Procedure Laterality Date ANESTHESIA TOTAL HIP ARTHROPLASTY Left 05/04/2016 Dr. Manjeet Smith ANESTHESIA TOTAL HIP ARTHROPLASTY Right 05/31/2017 Dr. Manjeet Smith; dx: R hip avascular necrosis COLONOSCOPY [facility] COLONOSCOPY 10/04/2021 benign hyperplastic polyps. repeat in 5 years based on family history of colon cancer LIGATE INTERNAL HEMORRHOIDS; SINGLE 2019, banding, internal hemorrhoids, Dr. Joaquin PAST SURGICAL HISTORY OF 2001 left thumb PAST SURGICAL HISTORY OF Right 08/08/2017 total parotidectomy; Dr. De Souza Current Outpatient Medications Medication Sig amoxicillin-clavulanate potassium (AUGMENTIN) 875-125 mg per tablet Take 1 tablet by mouth two times a day for 10 days. sildenafil (VIAGRA) 100 mg tablet Take 1 tablet by mouth as needed (30-60 minutes prior to sexual activity). lisinopril (ZESTRIL) 10 mg tablet Take 1 tablet by mouth once daily. simvastatin (ZOCOR) 20 mg tablet Take 1 tablet by mouth daily at bedtime. terbinafine HCl (LAMISIL) 250 mg tablet Take 1 tablet by mouth once daily. For toenails levothyroxine (SYNTHROID) 125 mcg tablet 2 tablets 2 days (Mon, Thurs) and 1 tablet 4 days a week. On an empty stomach. tamsulosin (FLOMAX) 0.4 mg Take 1 capsule by mouth once daily. For urination meloxicam (MOBIC) 15 mg tablet Take 1 tablet by mouth once daily. With food. traZODone (DESYREL) 50 mg tablet Take 1-3 tablets by mouth daily at bedtime. solifenacin (VESICARE) 10 mg tablet Take 1 tablet by mouth once daily. COMPOUNDED PRESCRIPTION Bipap pressure settings 17/11 with FANDP nasal mask interface and heated humidity Dx: LULU on Bipap (Patient taking differently: Bipap pressure settings 17/11 with FANDP nasal mask interface and heated humidity Dx: LULU on Bipap Not using daily) No current facility-administered medications for this visit. ALLERGIES No Known Allergies Social History Tobacco Use Smoking status: Every Day Current packs/day: 0.00 Average packs/day: 0.3 packs/day for 44.0 years (13.2 ttl pk-yrs) Types: Cigarettes Start date: 09/11/1979 Last attempt to quit: 2023 Years since quittin.1 Passive exposure: Never Smokeless tobacco: Never Vaping Use Vaping status: Never Used Substance Use Topics Alcohol use: Yes Comment: Occasional Drug use: No ROS: See HPI PE: BP 122/72 Pulse 60 Resp 16 Wt 218 lb (98.9kg) Gen: AANDOX3, NAD, non-toxic appearing HEENT: PERRLA, EOMs intact b/l, nares without drainage, pharynx without erythema, exudate, lesions, or drainage. Uvula midline. MMM, Right TM with erythema and bulging, EAC wnl, (more content not included)... [facility] 10-24-2024 History of Present illness Narrative CC: Grupo Herrera Neece is a 58 year old male who presents to the office for follow up HPI: Seen in the office last in Jul 2024 as below Memory concerns, sometimes forgetfulness with acute memory changes. Sometimes not remembering short term. Father was diagnosed with dementia- symptoms in early 60s- worsened after anesthesia from prostate surgery. Sister also with dementia in her mid/late 60s. Has been getting some intermittent headaches, also a few episodes of dizziness, no head injuries. No obvious concussions in the past. Hx of parotid tumor, right side of face/jaw, hx of resection by ENT, feels like this may be growing again BPH, stable, taking flomax LULU, use of CPAP, feels like this helps with sleep. Does have some daytime fatigue HTN, using medications as prescribed. No CP or dyspnea or palpitations or syncope. + dizziness + Fatigue Hypothyroidism, taking synthroid as prescribed. Has some fatigue HPL, taking zocor as prescribed at 20 mg at bedtime, no SE with medication Alcohol use, admits that he drinks too much alcohol and drinks alcohol on a daily /nightly basis a few beers. He isn't currently willing to cut back or down on use. Left ear pressure and mild dizziness the last few days, no head injuries, no fevers or chills. No head injuries Currently Right ear pressure, fullness feeling, present the last few weeks, did have URI. No fevers or chills or drainage from ears that he is aware of. Alcohol use. Has cut back to 1-2 tall boy beers 2-3 days a week. He isn't willing to quit yet. Feels better about the amount he is drinking Cognitive decline/memory loss- saw Neurologist for evaluation- feels that he liekly has normal aging related memory decline- not dementia at this time. Recommended that he cut back on alcohol use Urologist appt recently for BPH symptoms and urinary symptoms. Taking mediation as prescribed Some fatigue HTN, well controlled Hypothyroidism, taking synthroid PAST MEDICAL HISTORY Diagnosis Date Acquired hypothyroidism Acute diverticulitis 08/2022 BPH (benign prostatic hyperplasia) Essential hypertension Hyperlipidemia LULU on CPAP [facility] PAST SURGICAL HISTORY Procedure Laterality Date ANESTHESIA TOTAL HIP ARTHROPLASTY Left 05/04/2016 Dr. Manjeet Smith ANESTHESIA TOTAL HIP ARTHROPLASTY Right 05/31/2017 Dr. Manjeet Smith; dx: R hip avascular necrosis COLONOSCOPY [facility] COLONOSCOPY 10/04/2021 benign hyperplastic polyps. repeat in 5 years based on family history of colon cancer LIGATE INTERNAL HEMORRHOIDS; SINGLE 2019, banding, internal hemorrhoids, Dr. Joaquin PAST SURGICAL HISTORY OF 2002 left thumb PAST SURGICAL HISTORY OF Right 08/08/2017 total parotidectomy; Dr. De Souza Current Outpatient Medications Medication Sig amoxicillin-clavulanate potassium (AUGMENTIN) 875-125 mg per tablet Take 1 tablet by mouth two times a day for 10 days. sildenafil (VIAGRA) 100 mg tablet Take 1 tablet by mouth as needed (30-60 minutes prior to sexual activity). lisinopril (ZESTRIL) 10 mg tablet Take 1 tablet by mouth once daily. simvastatin (ZOCOR) 20 mg tablet Take 1 tablet by mouth daily at bedtime. terbinafine HCl (LAMISIL) 250 mg tablet Take 1 tablet by mouth once daily. For toenails levothyroxine (SYNTHROID) 125 mcg tablet 2 tablets 2 days (Mon, Th) and 1 tablet 4 days a week. On an empty stomach. tamsulosin (FLOMAX) 0.4 mg Take 1 capsule by mouth once daily. For urination meloxicam (MOBIC) 15 mg tablet Take 1 tablet by mouth once daily. With food. traZODone (DESYREL) 50 mg tablet Take 1-3 tablets by mouth daily at bedtime. solifenacin (VESICARE) 10 mg tablet Take 1 tablet by mouth once daily. COMPOUNDED PRESCRIPTION Bipap pressure settings 17/11 with F&P nasal mask interface and heated humidity Dx: LULU on Bipap (Patient taking differently: Bipap pressure settings 17/11 with F&P nasal mask interface and heated humidity Dx: LULU on Bipap Not using daily) No current facility-administered medications for this visit. ALLERGIES No Known Allergies Social History Tobacco Use Smoking status: Every Day Current packs/day: 0.00 Average packs/day: 0.3 packs/day for 44.0 years (13.2 ttl pk-yrs) Types: Cigarettes Start date: 09/11/1979 Last attempt to quit: 2023 Years since quittin.1 Passive exposure: Never Smokeless tobacco: Never Vaping Use Vaping status: Never Used Substance Use Topics Alcohol use: Yes Comment: Occasional Drug use: No ROS: See HPI PE: BP 122/72 Pulse 60 Resp 16 Wt 218 lb (98.9kg) Gen: A&OX3, NAD, non-toxic appearing HEENT: PERRLA, EOMs intact b/l, nares without drainage, pharynx without erythema, exudate, lesions, or drainage. Uvula midline. MMM, Right TM with erythema and bulging, EAC wnl, left TM wnl Neck: No LAD, no thyromegaly, no meningismus. CV: RRR, no murmur Lungs: CTA b/l, no wheezing Skin: No rashes, lesions, or wounds on exposed skin. Central overweight No edema legs ,normal pulses ASSESSMENT/PLAN: 1. Acquired hypothyroidism - ICD9: 244.9, ICD10: E03.9 (primary diagnosis) - Instructed patient on importance of taking on an empty stomach either first thing in the morning or at bedtime. - continue current dose of Synthroid - THYROID STIMULATING HORMONE - T4 FREE/FREE THYROXINE 2. Essential hypertension - ICD9: 401.9, ICD10: I10 - Controlled - Continue current medications - Recommend home blood pressure monitoring, to bring results to next visit - Encouraged sodium restriction, DASH or Mediterranean diet - Recommend regular aerobic exercise - Discussed need for and benefit of weight loss. BMI 33.15 kg/(m^2) 3. Pure hypercholesterolemia - ICD9: 272.0, ICD10: E78.00 Recheck labs Need for weight loss - LIPID PANEL BASIC 4. Vitamin B12 deficiency - ICD9: 266.2, ICD10: E53.8 Take supplement as d/w him today - VITAMIN B12 5. Vitamin D deficiency - ICD9: 268.9, ICD10: E55.9 Continue supplement - VITAMIN D 25 HYDROXY 6. Hyperglycemia - ICD9: 790.29, ICD10: R73.9 Recheck labs Need for weight loss - HEMOGLOBIN A1C 7. Acute otitis media, right - ICD9: 382.9, ICD10: H66.91 - Will begin treatment with as per antibiotic as written, see orders - Supportive care with plenty of fluids, rest, and analgesia prn. - AMOXICILLIN 875 MG-POTASSIUM CLAVULANATE 125 MG TABLET 8. Memory loss, short term - ICD9: 780.93, ICD10: R41.3 Normal aging related loss per specialist/neurologist Continue brain healthy activity 9. 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 Cognitive impairment, mild, so stated - ICD9: 331.83, ICD10: G31.84 See above Nuno Lowe DO Return if no improvement. Follow up with Nuno Lowe DO. To ER if develops chest pain, shortness of breath,. Discussed risks, benefits, alternatives, and potential side effects of medications. Patient/Guardian expressed understanding and agreed with the plan. See patient instructions. Nuno Lowe DO [address] [place] [address] documented in this encounter [facility] 10-23-2024 Instructions Nuno Lowe DO - 10/23/2024 3:27 PM EST Klarissa technique on right ear Eustachian tube to help it drain. documented in this encounter [facility] 10-17-2024 Telephone encounter Note This was address in [employer]. Thank you, Marissa Montoya APRN.SEMICONDUCTOR MANUFACTURING TECHNICIAN [facility] Work Phone: 10-17-2024 Miscellaneous Notes This was address in [employer]. Thank you, Marissa Montoya APRN.SEMICONDUCTOR MANUFACTURING TECHNICIAN See [employer] message from 10/14/24. Thank you. documented in this encounter [facility] 10-15-2024 Telephone encounter Note See [employer] message from 10/14/24. Thank you. [facility] 10-14-2024 Telephone encounter Note Copied from my elia: andi. i just want to confirm if there is an order for bloodwork to be taken before the 10-23-24 appointment? And if so, is do i need to be fasting? The only think in labs pending ids a b 12c would you like anything else? [facility] 10-14-2024 Miscellaneous Notes Copied from my elia: andi. i just want to confirm if there is an order for bloodwork to be taken before the 10-23-24 appointment? And if so, is do i need to be fasting? The only think in labs pending ids a b 12c would you like anything else? documented in this encounter [facility] 09-27-2024 History and physical note 08:39 - 09:28 Chart Review Parenthetic [comments] and tinted emphasis mine. Consultation is requested for an opinion regarding the evaluation and treatment of Grupo Jackson. My final impression and recommendations will be communicated back to the referring physician by way of the shared medical record or letter via [place] mail. Grupo Jackson is referred by Dr. Nuno Lowe, 08/07/24, for short term memory loss and abnormal CT brain. Since then, [facility]: No acute findings. No acute infarction, intracranial hemorrhage, intracranial mass lesion or abnormal intracranial enhancement...minimal chronic microvascular ischemia...mild generalized parenchymal volume loss.... ====== Problem List includes HTN, HLD, LULU (uses BiPAP - he has been doing better using it, per Ms. Jackson), and hypothyroidism (07/18/24 T4 mildly elevated at 2.0; T3 and TSH normal). Medication List includes trazodone (he takes this about half the time; he does not wake hung over from it; he did when he was using melatonin). and solifenacin (he did not note any change with its shinto a year ago). ====== He has not had a B12 level in [facility] or [facility]. ====== With that preamble, Chief Complaint: Grupo Jackson is a 58 year old right handed male who presents with memory difficulty. History of Present Illness The patient's father began to develop dementia around age 60. The patient's sister has begun to develop memory problems at about age 70. Mrs. Jackson accompanies the patient, and thinks that it has been a problem the past 5 years. He won't remember things that his has told him - sometimes. He hasn't missed any scheduled things and consults his calendar. 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 He has no trouble with computers; he works crossword puzzles on his phone. He has always been quick with doing math with his head. PAST MEDICAL HISTORY Diagnosis Date Acquired hypothyroidism Acute diverticulitis 08/2022 BPH (benign prostatic hyperplasia) Essential hypertension Hyperlipidemia LULU on CPAP [facility] Current Outpatient Medications Medication Sig sildenafil (VIAGRA) 100 mg tablet Take 1 tablet by mouth as needed (30-60 minutes prior to sexual activity). lisinopril (ZESTRIL) 10 mg tablet Take 1 tablet by mouth once daily. simvastatin (ZOCOR) 20 mg tablet Take 1 tablet by mouth daily at bedtime. terbinafine HCl (LAMISIL) 250 mg tablet Take 1 tablet by mouth once daily. For toenails levothyroxine (SYNTHROID) 125 mcg tablet 2 tablets 2 days (Mon, Thurs) and 1 tablet 4 days a week. On an empty stomach. tamsulosin (FLOMAX) 0.4 mg Take 1 capsule by mouth once daily. For urination meloxicam (MOBIC) 15 mg tablet Take 1 tablet by mouth once daily. With food. traZODone (DESYREL) 50 mg tablet Take 1-3 tablets by mouth daily at bedtime. solifenacin (VESICARE) 10 mg tablet Take 1 tablet by mouth once daily. COMPOUNDED PRESCRIPTION Bipap pressure settings 28/07 with F&P nasal mask interface and heated humidity Dx: LULU on Bipap (Patient taking differently: Bipap pressure settings 28/07 with F&P nasal mask interface and heated humidity Dx: LULU on Bipap Not using daily) No current facility-administered medications for this visit. ALLERGIES No Known Allergies Social History Tobacco Use Smoking status: Every Day Current packs/day: 0.00 Average packs/day: 0.3 packs/day for 44.0 years (13.2 ttl pk-yrs) Types: Cigarettes Start date: 09/11/1979 Last attempt to quit: 2023 Years since quittin.0 Passive exposure: Never Smokeless tobacco: Never Vaping Use Vaping status: Never Used Substance Use Topics Alcohol use: Yes Comment: Occasional Drug use: No FAMILY HISTORY Problem Relation Age of Onset Cancer Mother Lung Diabetes Father Heart disease Father Valvular other (Other) Father 70 Dementia Alzheimer's Disease Sister 70 dementia Review of Systems: As above. PHYSICAL EXAM General: Alert, conversant, appropriate, middle aged, MALE, in no apparent distress. Vital Signs: BP 128/70 Pulse 64 Ht 172.7 cm (5' 8) Wt 95 kg (209 lb 7 oz) BMI 31.84 kg/m - reviewed. Cardiovascular: Carotids 2 and symmetric without bruits. Neurologic: Cranial Nerves: Olfaction normal to orange extract. Monocular visual moore intact to finger counting. Funduscopic reveals flat discs. Pupils equal, round and reactive to light. Pursuit eye movements normal. Facial sensation normal to pin. Facies symmetric. Hearing normal to 1024 Hz tuning fork. Palatal movement, phonation, and resonation normal. Trapezius and SCM 5/5 and symmetric. Tongue movement symmetric. Sensory: Normal on testing pin, vibration, and joint position sense. Simultaneous light touch of the hands found no extinction. Motor: Strength was 5/5 and symmetric on testing finger abduction, finger extension, elbow flexion, elbow extension, shoulder abduction, toe dorsiflexion, ankle dorsiflexion, ankle plantar flexion, knee flexion, knee extension, and hip flexion. Tone was normal. Posture was normal. There was no atrophy. There were no fasciculations. Coordination: Mild intention tremor on [id number]-iwhtax bilaterally. Finger and toe wiggling rapid alternating movements were normal. Standing in Romberg's position with eyes open and closed was normal. Tandem gait was normal. Gait: Normal. Deep Tendon Reflexes: Plantars were flexor bilaterally. Biceps 2 and symmetric. Triceps 2 and symmetric. Patellar 2 and symmetric. Achilles 2 and symmetric. Mental Status: MMSE 29/29 (county is not a fair question as he is from [place]). IMPRESSION AND PLAN: Mr. Jackson has some qvx-ce-fmo-mill, age-related, memory problems. I do not see anything on neurologic exam to concern me about dementia, despite his family history. I am not concerned about the age-related changes on brain imaging. A population based study which imaged a town of patients (only those over 45 thought to be neurologically normal) found that 96% had such non-specific white matter changes. Mild volume loss is also par for the course. We lose brain cells every day of our life - a frightening proposition - but do pretty well anyway. Age-related memory difficulty is the clinical correlate. I have suggested that Boyd use his BiPAP religiously; avoid drinking to excess; and take an 'ordinary' B complex vitamin. I have ordered a B12 level just to be sure he is not deficient. Sincerely, Flori Martin MD Staff, General Neurology I spent 49 minutes in this visit face to face with the patient, with more than 50% of the time devoted to patient counseling with regard to the impression, patient education, interpretation of the studies, the diagnosis, treatment options, the need for further diagnostic testing, and coordination of care. [facility] 09-27-2024 History and physical note 08:39 - 09:28 Chart Review Parenthetic [comments] and tinted emphasis mine. Consultation is requested for an opinion regarding the evaluation and treatment of Grupo Jackson. My final impression and recommendations will be communicated back to the referring physician by way of the shared medical record or letter via [place] mail. Grupo Jackson is referred by Dr. Nuno Lowe, 08/07/24, for short term memory loss and abnormal CT brain. Since then, [facility]: No acute findings. No acute infarction, intracranial hemorrhage, intracranial mass lesion or abnormal intracranial enhancement...minimal chronic microvascular ischemia...mild generalized parenchymal volume loss.... ====== Problem List includes HTN, HLD, LULU (uses BiPAP - he has been doing better using it, per Ms. Jackson), and hypothyroidism (07/18/24 T4 mildly elevated at 2.0; T3 and TSH normal). Medication List includes trazodone (he takes this about half the time; he does not wake hung over from it; he did when he was using melatonin). and solifenacin (he did not note any change with its shinto a year ago). ====== He has not had a B12 level in [facility] or [facility]. ====== With that preamble, Chief Complaint: Grupo Jackson is a 58 year old right handed male who presents with memory difficulty. History of Present Illness The patient's father began to develop dementia around age 60. The patient's sister has begun to develop memory problems at about age 70. Mrs. Jackson accompanies the patient, and thinks that it has been a problem the past 5 years. He won't remember things that his has told him - sometimes. He hasn't missed any scheduled things and consults his calendar. 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 He has no trouble with computers; he works crossword puzzles on his phone. He has always been quick with doing math with his head. PAST MEDICAL HISTORY Diagnosis Date Acquired hypothyroidism Acute diverticulitis 08/2022 BPH (benign prostatic hyperplasia) Essential hypertension Hyperlipidemia LULU on CPAP [facility] Current Outpatient Medications Medication Sig sildenafil (VIAGRA) 100 mg tablet Take 1 tablet by mouth as needed (30-60 minutes prior to sexual activity). lisinopril (ZESTRIL) 10 mg tablet Take 1 tablet by mouth once daily. simvastatin (ZOCOR) 20 mg tablet Take 1 tablet by mouth daily at bedtime. terbinafine HCl (LAMISIL) 250 mg tablet Take 1 tablet by mouth once daily. For toenails levothyroxine (SYNTHROID) 125 mcg tablet 2 tablets 2 days (Mon, Thurs) and 1 tablet 4 days a week. On an empty stomach. tamsulosin (FLOMAX) 0.4 mg Take 1 capsule by mouth once daily. For urination meloxicam (MOBIC) 15 mg tablet Take 1 tablet by mouth once daily. With food. traZODone (DESYREL) 50 mg tablet Take 1-3 tablets by mouth daily at bedtime. solifenacin (VESICARE) 10 mg tablet Take 1 tablet by mouth once daily. COMPOUNDED PRESCRIPTION Bipap pressure settings 17/ with F&P nasal mask interface and heated humidity Dx: LULU on Bipap (Patient taking differently: Bipap pressure settings 17/ with F&P nasal mask interface and heated humidity Dx: LULU on Bipap Not using daily) No current facility-administered medications for this visit. ALLERGIES No Known Allergies Social History Tobacco Use Smoking status: Every Day Current packs/day: 0.00 Average packs/day: 0.3 packs/day for 44.0 years (13.2 ttl pk-yrs) Types: Cigarettes Start date: 09/11/1979 Last attempt to quit: 2023 Years since quittin.0 Passive exposure: Never Smokeless tobacco: Never Vaping Use Vaping status: Never Used Substance Use Topics Alcohol use: Yes Comment: Occasional Drug use: No FAMILY HISTORY Problem Relation Age of Onset Cancer Mother Lung Diabetes Father Heart disease Father Valvular other (Other) Father 70 Dementia Alzheimer's Disease Sister 70 dementia Review of Systems: As above. PHYSICAL EXAM General: Alert, conversant, appropriate, middle aged, MALE, in no apparent distress. Vital Signs: BP 128/70 Pulse 64 Ht 172.7 cm (5' 8) Wt 95 kg (209 lb 7 oz) BMI 31.84 kg/m - reviewed. Cardiovascular: Carotids 2 and symmetric without bruits. Neurologic: Cranial Nerves: Olfaction normal to orange extract. Monocular visual moore intact to finger counting. Funduscopic reveals flat discs. Pupils equal, round and reactive to light. Pursuit eye movements normal. Facial sensation normal to pin. Facies symmetric. Hearing normal to 1024 Hz tuning fork. Palatal movement, phonation, and resonation normal. Trapezius and SCM 5/5 and symmetric. Tongue movement symmetric. Sensory: Normal on testing pin, vibration, and joint position sense. Simultaneous light touch of the hands found no extinction. Motor: Strength was 5/5 and symmetric on testing finger abduction, finger extension, elbow flexion, elbow extension, shoulder abduction, toe dorsiflexion, ankle dorsiflexion, ankle plantar flexion, knee flexion, knee extension, and hip flexion. Tone was normal. Posture was normal. There was no atrophy. There were no fasciculations. Coordination: Mild intention tremor on [id number] bilaterally. Finger and toe wiggling rapid alternating movements were normal. Standing in Romberg's position with eyes open and closed was normal. Tandem gait was normal. Gait: Normal. Deep Tendon Reflexes: Plantars were flexor bilaterally. Biceps 2 and symmetric. Triceps 2 and symmetric. Patellar 2 and symmetric. Achilles 2 and symmetric. Mental Status: MMSE 29/29 (county is not a fair question as he is from [place]). IMPRESSION AND PLAN: Mr. Jackson has some dpy-ga-itd-mill, age-related, memory problems. I do not see anything on neurologic exam to concern me about dementia, despite his family history. I am not concerned about the age-related changes on brain imaging. A population based study which imaged a town of patients (only those over 45 thought to be neurologically normal) found that 96% had such non-specific white matter changes. Mild volume loss is also par for the course. We lose brain cells every day of our life - a frightening proposition - but do pretty well anyway. Age-related memory difficulty is the clinical correlate. I have suggested that Body use his BiPAP religiously; avoid drinking to excess; and take an 'ordinary' B complex vitamin. I have ordered a B12 level just to be sure he is not deficient. Sincerely, Flori Martin MD Staff, General Neurology I spent 49 minutes in this visit face to face with the patient, with more than 50% of the time devoted to patient counseling with regard to the impression, patient education, interpretation of the studies, the diagnosis, treatment options, the need for further diagnostic testing, and coordination of care. documented in this encounter [facility] 09-27-2024 Note HNO ID: [id number] Author: MONIQUE LAUREANO MA Service: ? Author Type: Moth Exterminator Type: Progress Notes Filed: 09/27/2024 09:31 Note Text: [facility] 09-27-2024 History of Present illness Narrative documented in this encounter [facility] 09-26-2024 History and physical note Chart Review Parenthetic [comments] and tinted emphasis mine. Consultation is requested for an opinion regarding the evaluation and treatment of Grupo Jackson. My final impression and recommendations will be communicated back to the referring physician by way of the shared medical record or letter via [place] mail. Grupo Jackson is referred by Dr. Nuno Lowe, 08/07/24, for short term memory loss and abnormal CT brain. Since then, MRI brain wwo has shown: No acute findings. No acute infarction, intracranial hemorrhage, intracranial mass lesion or abnormal intracranial enhancement...minimal chronic microvascular ischemia...mild generalized parenchymal volume loss.... ====== Problem List includes HTN, HLD, LULU, and hypothyroidism (07/18/24 T4 mildly elevated at 2.0; T3 and TSH normal). Medication List includes trazodone and lolifenacin. ====== He has not had a B12 level in [facility] or [facility]. ====== Flori Martin MD [facility] Work Phone: 09-26-2024 History and physical note Chart Review Parenthetic [comments] and tinted emphasis mine. Consultation is requested for an opinion regarding the evaluation and treatment of Grupo Jackson. My final impression and recommendations will be communicated back to the referring physician by way of the shared medical record or letter via [place] mail. Grupo Jackson is referred by Dr. Nuno Lowe, 08/07/24, for short term memory loss and abnormal CT brain. Since then, MRI brain wwo has shown: No acute findings. No acute infarction, intracranial hemorrhage, intracranial mass lesion or abnormal intracranial enhancement...minimal chronic microvascular ischemia...mild generalized parenchymal volume loss.... ====== Problem List includes HTN, HLD, LULU, and hypothyroidism (07/18/24 T4 mildly elevated at 2.0; T3 and TSH normal). Medication List includes trazodone and lolifenacin. ====== He has not had a B12 level in [facility] or [facility]. ====== Flori Martin MD documented in this encounter [facility] 08-26-2024 Telephone encounter Note Spoke with pt gave information provided. Pt voices understanding. [facility] 08-26-2024 Miscellaneous Notes Spoke with pt gave information provided. Pt voices understanding. Please inform patient that his lumbar xray shows Minimal grade 1 retrolisthesis at L4-5. Mild disc space narrowing L4-5 and L2-3. Scattered osteophytes and facet arthrosis. 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 Can consider lumbar PHYSICAL THERAPY and pain mgmt for injections in future if needed. Nuno Lowe DO documented in this encounter [facility] 08-26-2024 Telephone encounter Note Please inform patient that his lumbar xray shows Minimal grade 1 retrolisthesis at L4-5. Mild disc space narrowing L4-5 and L2-3. Scattered osteophytes and facet arthrosis. 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 Can consider lumbar PHYSICAL THERAPY and pain mgmt for injections in future if needed. Nuno Lowe DO [facility] 08-14-2024 Nurse Note Bladder scan obtained 0 ml of urine [facility] 08-14-2024 Nurse Note Bladder scan obtained 0 ml of urine documented in this encounter [facility] 08-14-2024 Note HNO ID: [id number] Author: ALEXY ENRIQUEZ MD Service: ? Author Type: Physician Type: Progress Notes Filed: 10/06/2024 22:09 Note Text: [facility] UROLOGY ESTABLISHED PATIENT CLINIC NOTE UROL [facility] PATIENT INFO: Grupo Jackson AGE: [age] year old PCP: Nuno Lowe DO IMPRESSION/PLAN: 1. Overactive bladder - ICD9: 596.51, ICD10: N32.81 (primary diagnosis) Remain on Vesicare 2. Benign prostatic hyperplasia with lower urinary tract symptoms, symptom details unspecified - ICD9: 600.01, ICD10: N40.1 - Remain on Tamsulosin 3. Prostate cancer screening - ICD9: V76.44, ICD10: Z12.5 4. Erectile dysfunction, unspecified erectile dysfunction type - ICD9: 607.84, ICD10: N52.9 - Begin trial of Sildenafil Visit complexity inherent to evaluation and management associated with medical care services that serve as the continuing focal point for all needed health care services and/or with medical care services that are part of ongoing care related to a patient?s single, serious condition or a complex condition. REASON FOR VISIT: Follow up HPI: Grupo Jackson returns for continuing evaluation and management. He returns after 6 months. Remains compliant with current medication. Has been experiencing ED symptoms. Would like to begin some treatment. INTERNATIONAL PROSTATE SYMPTOM SCORE (I-PSS) 1)INCOMPLETE EMPTYING Over the past month, how often have you had a sensation of not emptying your bladder completely after you finished urinating? SCORE: 1- Less than 1 time in 5 2)FREQUENCY Over the past month, how often have you had to urinate again less than two hours after you finished urinating? SCORE: 4- More than half the time 3)INTERMITTENCY Over the past month, how often have you found you stopped and started again several times when you urinated? SCORE: 0- Not at all 4)URGENCY Over the past month, how often have you found it difficult to postpone urination? SCORE: 2- less than half the time 5)WEAK STREAM Over the past month, how often have you had a weak stream? SCORE: 2- less than half the time 6)STRAINING Over the past month, how often have you had to push or strain to begin urination SCORE: 0- Not at all 7)NOCTURIA Over the past month, how many times did you most typically get up to urinate from the time you went to bed at night until the time you get up in the morning? SCORE:1 TOTAL I-PSS SCORE: 13 QUALITY OF LIFE DUE TO URINARY SYMPTOMS If you were to spend the rest of yur life with your urinary condition just the way it is now, how would you feel about that? 3- Mixed- equally satisfied and dissatisfied UROLOGICAL DATA: Urinalysis: GLUCOSE UA (POCT) Negative 02/14/2024 BILIRUBIN UA (POCT) Negative 02/14/2024 KETONE UA (POCT) Negative 02/14/2024 SPECIFIC GRAVITY UA (POCT) 1.015 02/14/2024 HEMOGLOBIN/BLOOD UA (POCT) Negative 02/14/2024 PH UA (POCT) 7.0 02/14/2024 PROTEIN UA (POCT) Negative 02/14/2024 UROBILINOGEN UA (POCT) 4.0 02/14/2024 NITRITE UA (POCT) Negative 02/14/2024 LEUKOCYTES UA (POCT) Negative 02/14/2024 COLOR UA (POCT) Yellow 02/14/2024 CLARITY UA (POCT) Clear 02/14/2024 Post Void Residual, Ultrasound: 0 cc, empties well OTHER DATA: PSA Screening (ng/mL) Date Value 10/17/2023 0.61 10/08/2022 1.49 04/17/2021 1.66 11/21/2020 1.33 04/03/2019 1.75 02/08/2018 0.97 No results found for: ISOPSA Creatinine Date Value Ref Range Status 07/18/2024 0.88 0.73 - 1.22 mg/dL Final 10/17/2023 0.98 0.73 - 1.22 mg/dL Final 04/10/2023 0.95 0.73 - 1.22 mg/dL Final 10/08/2022 0.96 0.73 - 1.22 mg/dL Final No results found for: TESTOST, TESTFREE PMHx/PSHx: see above, otherwise unchanged Rx: reviewed and unchanged ROS: see above, otherwise unchanged Labs: None Imaging: None MEDICATIONS: Current Outpatient Medications Medication Sig lisinopril (ZESTRIL) 10 mg tablet Take 1 tablet by mouth once daily. simvastatin (ZOCOR) 20 mg tablet Take 1 tablet by mouth daily at bedtime. terbinafine HCl (LAMISIL) 250 mg tablet Take 1 tablet by mouth once daily. For toenails levothyroxine (SYNTHROID) 125 mcg tablet 2 tablets 2 days (Mon, Thurs) and 1 tablet 4 days a week. On an empty stomach. tamsulosin (FLOMAX) 0.4 mg Take 1 capsule by mouth once daily. For urination meloxicam (MOBIC) 15 mg tablet Take 1 tablet by mouth once daily. With food. traZODone (DESYREL) 50 mg tablet Take 1-3 tablets by mouth daily at bedtime. solifenacin (VESICARE) 10 mg tablet Take 1 tablet by mouth once daily. sildenafil (VIAGRA) 100 mg tablet Take 1 tablet by mouth as needed (30-60 minutes prior to sexual activity). COMPOUNDED PRESCRIPTION Bipap pressure settings 17/11 with FANDP nasal mask interface and heated humidity Dx: LULU on Bipap (Patient taking differently: Bipap pressure settings 17/11 with FANDP nasal mask interface and heated humidity Dx: LULU on Bipap Not using daily) No current facility-adminis (more content not included)... [facility] 08-14-2024 History of Present illness Narrative Images from the original note were not included. [facility] UROLOGY ESTABLISHED PATIENT CLINIC NOTE UROL [facility] PATIENT INFO: Grupo Jackson AGE: [age] year old PCP: Nuno Lowe DO IMPRESSION/PLAN: 1. Overactive bladder - ICD9: 596.51, ICD10: N32.81 (primary diagnosis) Remain on Vesicare 2. Benign prostatic hyperplasia with lower urinary tract symptoms, symptom details unspecified - ICD9: 600.01, ICD10: N40.1 - Remain on Tamsulosin 3. Prostate cancer screening - ICD9: V76.44, ICD10: Z12.5 4. Erectile dysfunction, unspecified erectile dysfunction type - ICD9: 607.84, ICD10: N52.9 - Begin trial of Sildenafil Visit complexity inherent to evaluation and management associated with medical care services that serve as the continuing focal point for all needed health care services and/or with medical care services that are part of ongoing care related to a patient s single, serious condition or a complex condition. REASON FOR VISIT: Follow up HPI: Grupo Jackson returns for continuing evaluation and management. He returns after 6 months. Remains compliant with current medication. Has been experiencing ED symptoms. Would like to begin some treatment. INTERNATIONAL PROSTATE SYMPTOM SCORE (I-PSS) 1)INCOMPLETE EMPTYING Over the past month, how often have you had a sensation of not emptying your bladder completely after you finished urinating? SCORE: 1- Less than 1 time in 5 2)FREQUENCY Over the past month, how often have you had to urinate again less than two hours after you finished urinating? SCORE: 4- More than half the time 3)INTERMITTENCY Over the past month, how often have you found you stopped and started again several times when you urinated? SCORE: 0- Not at all 4)URGENCY Over the past month, how often have you found it difficult to postpone urination? SCORE: 2- less than half the time 5)WEAK STREAM Over the past month, how often have you had a weak stream? SCORE: 2- less than half the time 6)STRAINING Over the past month, how often have you had to push or strain to begin urination SCORE: 0- Not at all 7)NOCTURIA Over the past month, how many times did you most typically get up to urinate from the time you went to bed at night until the time you get up in the morning? SCORE:1 TOTAL I-PSS SCORE: 13 QUALITY OF LIFE DUE TO URINARY SYMPTOMS If you were to spend the rest of yur life with your urinary condition just the way it is now, how would you feel about that? 3- Mixed- equally satisfied and dissatisfied UROLOGICAL DATA: Urinalysis: GLUCOSE UA (POCT) Negative 02/14/2024 BILIRUBIN UA (POCT) Negative 02/14/2024 KETONE UA (POCT) Negative 02/14/2024 SPECIFIC GRAVITY UA (POCT) 1.015 02/14/2024 HEMOGLOBIN/BLOOD UA (POCT) Negative 02/14/2024 PH UA (POCT) 7.0 02/14/2024 PROTEIN UA (POCT) Negative 02/14/2024 UROBILINOGEN UA (POCT) 4.0 02/14/2024 NITRITE UA (POCT) Negative 02/14/2024 LEUKOCYTES UA (POCT) Negative 02/14/2024 COLOR UA (POCT) Yellow 02/14/2024 CLARITY UA (POCT) Clear 02/14/2024 Post Void Residual, Ultrasound: 0 cc, empties well OTHER DATA: PSA Screening (ng/mL) Date Value 10/17/2023 0.61 10/08/2022 1.49 04/17/2021 1.66 11/21/2020 1.33 04/03/2019 1.75 02/08/2018 0.97 No results found for: ISOPSA Creatinine Date Value Ref Range Status 07/18/2024 0.88 0.73 - 1.22 mg/dL Final 10/17/2023 0.98 0.73 - 1.22 mg/dL Final 04/10/2023 0.95 0.73 - 1.22 mg/dL Final 10/08/2022 0.96 0.73 - 1.22 mg/dL Final No results found for: TESTOST, TESTFREE PMHx/PSHx: see above, otherwise unchanged Rx: reviewed and unchanged ROS: see above, otherwise unchanged Labs: None Imaging: None MEDICATIONS: Current Outpatient Medications Medication Sig lisinopril (ZESTRIL) 10 mg tablet Take 1 tablet by mouth once daily. simvastatin (ZOCOR) 20 mg tablet Take 1 tablet by mouth daily at bedtime. terbinafine HCl (LAMISIL) 250 mg tablet Take 1 tablet by mouth once daily. For toenails levothyroxine (SYNTHROID) 125 mcg tablet 2 tablets 2 days (Mon, Thurs) and 1 tablet 4 days a week. On an empty stomach. tamsulosin (FLOMAX) 0.4 mg Take 1 capsule by mouth once daily. For urination meloxicam (MOBIC) 15 mg tablet Take 1 tablet by mouth once daily. With food. traZODone (DESYREL) 50 mg tablet Take 1-3 tablets by mouth daily at bedtime. solifenacin (VESICARE) 10 mg tablet Take 1 tablet by mouth once daily. sildenafil (VIAGRA) 100 mg tablet Take 1 tablet by mouth as needed (30-60 minutes prior to sexual activity). COMPOUNDED PRESCRIPTION Bipap pressure settings 28/07 with F&P nasal mask interface and heated humidity Dx: LULU on Bipap (Patient taking differently: Bipap pressure settings 28/07 with F&P nasal mask interface and heated humidity Dx: LULU on Bipap Not using daily) No current facility-administered medications for this visit. PHYSICAL EXAM: Ht 172.7 cm (5' 8) Wt 95.3 kg (210 lb) BMI 31.93 kg/m Body mass index is 31.93 kg/m . General: Well masculinized, well nourished male Psych: euthymic, NAD Neuro: A&Ox3 Inguinal: No lesions, adenopathy, or hernias exam deferred FOLLOW UP: 6 months Alexy Enriquez M.D, MS Associate Staff [facility] [place] [facility] documented in this encounter [facility] 08-09-2024 Telephone encounter Note Patient contacted and scheduled in [place] [facility] Work Phone: 08-09-2024 Miscellaneous Notes Patient contacted and scheduled in [place] Spoke with pt gave information provided. Pt voices understanding. Please assist in scheduling with neurology. Please inform patient that his CTbrain showed Overall no acute findings but does show chronic findings as below Chronic Change: Scattered punctate foci of increased T2 and FLAIR signal are noted in the supratentorial white matter which is a nonspecific finding, but likely represents minimal chronic microvascular ischemia. Parenchyma: There is mild generalized parenchymal volume loss. The brain parenchyma is otherwise within normal limits of signal intensity and morphology. I would like him to see a Neurologist for further testing/evaluation to make sure no other testing such as MRI brain or neurologic studies in office are needed due to his family hx Nuno Lowe DO documented in this encounter [facility] 08-09-2024 Telephone encounter Note Spoke with pt gave information provided. Pt voices understanding. Please assist in scheduling with neurology. [facility] 08-09-2024 History of Present illness Narrative Radiology Service Progress Note PATIENT NAME: Grupo Jackson DATE OF SERVICE: August 09, 2024 TIME: 7:26 AM PATIENT IDENTITY VERIFICATION COMPLETED USING TWO (2) IDENTIFIERS: Name and Date of confirmed by patient verbally. FALL SCREENING: Has the patient had 2 falls in the last year or 1 fall with injury or currently using an Ambulatory Assistive Device (Walker, Cane, Wheelchair, Crutches, etc.)? No PATIENT GENDER DATA: Male PATIENT RELEVANT IMPLANT DATA REVIEWED: Not Applicable PATIENT PRESENTS WITH AN IMPLANTABLE OR ATTACHED SALARY AND WAGE ADMINISTRATOR: No RADIOLOGY DEPARTMENT: Ultrasound PERIPHERAL IV DATA: Not applicable SIGNED BY: Marissa Carlos RDMS August 09, 2024 7:26 AM documented in this encounter [facility] 08-09-2024 Note HNO ID: [id number] Author: MARISSA CARLOS RDMS Service: ? Author Type: Crystal Syrup Maker Type: Progress Notes Filed: 08/09/2024 07:26 Note Text: Radiology Service Progress Note PATIENT NAME: Grupo Jackson DATE OF SERVICE: August 09, 2024 TIME: 7:26 AM PATIENT IDENTITY VERIFICATION COMPLETED USING TWO (2) IDENTIFIERS: Name and Date of confirmed by patient verbally. FALL SCREENING: Has the patient had 2 falls in the last year or 1 fall with injury or currently using an Ambulatory Assistive Device (Walker, Cane, Wheelchair, Crutches, etc.)? No PATIENT GENDER DATA: Male PATIENT RELEVANT IMPLANT DATA REVIEWED: Not Applicable PATIENT PRESENTS WITH AN IMPLANTABLE OR ATTACHED SALARY AND WAGE ADMINISTRATOR: No RADIOLOGY DEPARTMENT: Ultrasound PERIPHERAL IV DATA: Not applicable SIGNED BY: Marissa Carlos RDMS August 09, 2024 7:26 AM [facility] 08-07-2024 Telephone encounter Note Please inform patient that his CTbrain showed Overall no acute findings but does show chronic findings as below Chronic Change: Scattered punctate foci of increased T2 and FLAIR signal are noted in the supratentorial white matter which is a nonspecific finding, but likely represents minimal chronic microvascular ischemia. Parenchyma: There is mild generalized parenchymal volume loss. The brain parenchyma is otherwise within normal limits of signal intensity and morphology. I would like him to see a Neurologist for further testing/evaluation to make sure no other testing such as MRI brain or neurologic studies in office are needed due to his family hx Nuno Lowe DO [facility] 08-07-2024 History of Present illness Narrative Radiology Service Progress Note PATIENT NAME: Grupo Jackson DATE OF SERVICE: August 07, 2024 TIME: 2:47 PM PATIENT IDENTITY VERIFICATION COMPLETED USING TWO (2) IDENTIFIERS: Name and Date of confirmed by patient verbally. FALL SCREENING: Has the patient had 2 falls in the last year or 1 fall with injury or currently using an Ambulatory Assistive Device (Walker, Cane, Wheelchair, Crutches, etc.)? No PATIENT GENDER DATA: Male PATIENT RELEVANT IMPLANT DATA REVIEWED: Yes PATIENT PRESENTS WITH AN IMPLANTABLE OR ATTACHED SALARY AND WAGE ADMINISTRATOR: No RADIOLOGY DEPARTMENT: CT; Exam(s) Completed: Neck PERIPHERAL IV DATA: Not applicable SIGNED BY: RT Kyleigh(R) August 07, 2024 2:47 PM documented in this encounter [facility] 08-07-2024 Note HNO ID: [id number] Author: AGNIESZKA BUENO RT(R) Service: ? Author Type: Crystal Syrup Maker Type: Progress Notes Filed: 08/07/2024 14:48 Note Text: Radiology Service Progress Note PATIENT NAME: Grupo Jackson DATE OF SERVICE: August 07, 2024 TIME: 2:47 PM PATIENT IDENTITY VERIFICATION COMPLETED USING TWO (2) IDENTIFIERS: Name and Date of confirmed by patient verbally. FALL SCREENING: Has the patient had 2 falls in the last year or 1 fall with injury or currently using an Ambulatory Assistive Device (Walker, Cane, Wheelchair, Crutches, etc.)? No PATIENT GENDER DATA: Male PATIENT RELEVANT IMPLANT DATA REVIEWED: Yes PATIENT PRESENTS WITH AN IMPLANTABLE OR ATTACHED SALARY AND WAGE ADMINISTRATOR: No RADIOLOGY DEPARTMENT: CT; Exam(s) Completed: Neck PERIPHERAL IV DATA: Not applicable SIGNED BY: RT Kyleigh(R) August 07, 2024 2:47 PM [facility] 08-07-2024 History of Present illness Narrative Radiology Service Progress Note DATE OF SERVICE: August 07, 2024 TIME: 1:19 PM PATIENT IDENTITY VERIFICATION COMPLETED USING TWO (2) STANDARD IDENTIFIERS: Name and Date of confirmed by patient verbally. FALL SCREENING: Has the patient had 2 falls in the last year or 1 fall with injury or currently using an Ambulatory Assistive Device (Walker, Cane, Wheelchair, Crutches, etc.)? No PATIENT GENDER DATA: Male PATIENT RELEVANT IMPLANT DATA REVIEWED: Yes PATIENT PRESENTS WITH AN IMPLANTABLE OR ATTACHED SALARY AND WAGE ADMINISTRATOR: No ALLERGIES: Reviewed and unchanged CONTRAST ALLERGY: NO. EXAM: MRI - CONTRAST TYPE: GROUP II PERIPHERAL IV DATA: Ambulatory: A peripheral IV was started in the Right with a Angio cath: 22 gauge. RADIOLOGY DEPARTMENT: MR; Exam(s) Completed: Spine: Lumbar spine SIGNATURE: RT Katey(R) PATIENT NAME: Grupo Jackson DATE: August 07, 2024 TIME: 1:19 PM documented in this encounter [facility] 08-07-2024 Note HNO ID: [id number] Author: SOFY HARRIS RT(R) Service: ? Author Type: Technologist Type: Progress Notes Filed: 08/07/2024 13:20 Note Text: Radiology Service Progress Note DATE OF SERVICE: August 07, 2024 TIME: 1:19 PM PATIENT IDENTITY VERIFICATION COMPLETED USING TWO (2) STANDARD IDENTIFIERS: Name and Date of confirmed by patient verbally. FALL SCREENING: Has the patient had 2 falls in the last year or 1 fall with injury or currently using an Ambulatory Assistive Device (Walker, Cane, Wheelchair, Crutches, etc.)? No PATIENT GENDER DATA: Male PATIENT RELEVANT IMPLANT DATA REVIEWED: Yes PATIENT PRESENTS WITH AN IMPLANTABLE OR ATTACHED SALARY AND WAGE ADMINISTRATOR: No ALLERGIES: Reviewed and unchanged CONTRAST ALLERGY: NO. EXAM: MRI - CONTRAST TYPE: GROUP II PERIPHERAL IV DATA: Ambulatory: A peripheral IV was started in the Right with a Angio cath: 22 gauge. RADIOLOGY DEPARTMENT: MR; Exam(s) Completed: Spine: Lumbar spine SIGNATURE: RT Katey(R) PATIENT NAME: Grupo Jackson DATE: August 07, 2024 TIME: 1:19 PM [facility] 08-07-2024 Telephone encounter Note Pt informed, verbalized understanding Anya Flores MA [facility] 08-07-2024 Miscellaneous Notes Pt informed, verbalized understanding Anya Flores MA Okay to continue augmentin for 10 more days, sometimes this takes a longer course of rx Please inform Nuno Lwoe DO The following approved medication requests have been transmitted electronically. Requested Prescriptions Signed Prescriptions Disp Refills amoxicillin-clavulanate potassium (AUGMENTIN) 875-125 mg per tablet 20 tablet 0 Sig: Take 1 tablet by mouth two times a day for 10 days. Authorizing Provider: NUNO LOWE DO When patient was last into office he was diagnosed with a right ear infection and was treated with augmentin. He finished the antibiotic on Monday. Symptoms did improve while on antibiotics but within the last day the pain has returned. questions if he should start another antibiotic wait until after CT scan. CT is scheduled for today 2:00 PM. Please advise. documented in this encounter [facility] 08-07-2024 Telephone encounter Note Okay to continue augmentin for 10 more days, sometimes this takes a longer course of rx Please inform Nuno Lowe DO The following approved medication requests have been transmitted electronically. Requested Prescriptions Signed Prescriptions Disp Refills amoxicillin-clavulanate potassium (AUGMENTIN) 875-125 mg per tablet 20 tablet 0 Sig: Take 1 tablet by mouth two times a day for 10 days. Authorizing Provider: NUNO LOWE DO [facility] 08-07-2024 Telephone encounter Note When patient was last into office he was diagnosed with a right ear infection and was treated with augmentin. He finished the antibiotic on Monday. Symptoms did improve while on antibiotics but within the last day the pain has returned. questions if he should start another antibiotic wait until after CT scan. CT is scheduled for today 2:00 PM. Please advise. [facility] 08-02-2024 Telephone encounter Note Spouse returns call to review results and message. Reviewed and all questions answered. US scheduled for 08/09/2024. Spouse will call back if any further questions or if patient decides to want to go forward with physical therapy or pain injections. Gaetano Rosales RN [facility] 08-02-2024 Miscellaneous Notes Spouse returns call to review results and message. Reviewed and all questions answered. US scheduled for 08/09/2024. Spouse will call back if any further questions or if patient decides to want to go forward with physical therapy or pain injections. Gaetano Rosales RN Patient calls and notified of results and providers instructions. Patient verbalizes understanding. Transferred to schedule US. Gaetano Rosales RN Left message to return call. Please inform patient or spouse that his lumbar xray shows some osteoarthritis and degenerative disc changes of the spine as below. It also shows concerns for plaque in the aorta. Would recommend abdominal US to make sure no start on an abdominal aneurysm as well. Xrays also document a previous fracture of a rib in the past as well as his hip surgeries Can consider PHYSICAL THERAPY or pain mgmt for injections in low back if interested Xr lumbar: Minimal grade 1 retrolisthesis at L4-5. Mild disc space narrowing L4-5 and L2-3. Scattered osteophytes and facet arthrosis. Atheromatous calcification of the aorta. Partially imaged bilateral acetabular screws in this patient who has known bilateral hip arthroplasties. Remote fracture deformity of the right 10th posterior rib. Nuno Lowe DO Patients spouse is calling in asking for results on patients xray that he had completed on 07/23/24. Please review and advise and contact spouse back with information. documented in this encounter [facility] 08-02-2024 Telephone encounter Note Patient calls and notified of results and providers instructions. Patient verbalizes understanding. Transferred to schedule US. aGetano Rosales RN [facility] 08-02-2024 Telephone encounter Note Left message to return call. [facility] 08-02-2024 Telephone encounter Note Please inform patient or spouse that his lumbar xray shows some osteoarthritis and degenerative disc changes of the spine as below. It also shows concerns for plaque in the aorta. Would recommend abdominal US to make sure no start on an abdominal aneurysm as well. Xrays also document a previous fracture of a rib in the past as well as his hip surgeries Can consider PHYSICAL THERAPY or pain mgmt for injections in low back if interested Xr lumbar: Minimal grade 1 retrolisthesis at L4-5. Mild disc space narrowing L4-5 and L2-3. Scattered osteophytes and facet arthrosis. Atheromatous calcification of the aorta. Partially imaged bilateral acetabular screws in this patient who has known bilateral hip arthroplasties. Remote fracture deformity of the right 10th posterior rib. Nuno Lowe DO [facility] 08-02-2024 Telephone encounter Note Patients spouse is calling in asking for results on patients xray that he had completed on 07/23/24. Please review and advise and contact spouse back with information. [facility] 07-23-2024 History of Present illness Narrative Radiology Service Progress Note PATIENT NAME: Grupo Jackson DATE OF SERVICE: July 23, 2024 TIME: 10:05 AM PATIENT IDENTITY VERIFICATION COMPLETED USING TWO (2) IDENTIFIERS: Name and Date of confirmed by patient verbally. FALL SCREENING: Has the patient had 2 falls in the last year or 1 fall with injury or currently using an Ambulatory Assistive Device (Walker, Cane, Wheelchair, Crutches, etc.)? No PATIENT GENDER DATA: Male PATIENT RELEVANT IMPLANT DATA REVIEWED: Not Applicable PATIENT PRESENTS WITH AN IMPLANTABLE OR ATTACHED SALARY AND WAGE ADMINISTRATOR: No RADIOLOGY DEPARTMENT: General X-ray: Exam(s) Completed: Spine X-Ray(s): Lumbar AP / LAT / L5-S1 PERIPHERAL IV DATA: Not applicable SIGNED BY: RT Campos(R) July 23, 2024 10:05 AM documented in this encounter [facility] 07-23-2024 Note HNO ID: [id number] Author: ELIZABETH RODRIGEZ RT(R) Service: Radiology Author Type: Technologist Type: Progress Notes Filed: 07/23/2024 10:15 Note Text: Radiology Service Progress Note PATIENT NAME: Grupo Jackson DATE OF SERVICE: July 23, 2024 TIME: 10:05 AM PATIENT IDENTITY VERIFICATION COMPLETED USING TWO (2) IDENTIFIERS: Name and Date of confirmed by patient verbally. FALL SCREENING: Has the patient had 2 falls in the last year or 1 fall with injury or currently using an Ambulatory Assistive Device (Walker, Cane, Wheelchair, Crutches, etc.)? No PATIENT GENDER DATA: Male PATIENT RELEVANT IMPLANT DATA REVIEWED: Not Applicable PATIENT PRESENTS WITH AN IMPLANTABLE OR ATTACHED SALARY AND WAGE ADMINISTRATOR: No RADIOLOGY DEPARTMENT: General X-ray: Exam(s) Completed: Spine X-Ray(s): Lumbar AP / LAT / L5-S1 PERIPHERAL IV DATA: Not applicable SIGNED BY: RT Campos(R) July 23, 2024 10:05 AM [facility] 07-23-2024 Instructions Nuno Lowe DO - 07/23/2024 9:39 AM EST Vitamin B complex daily as a LIQUID in the morning- needs at least 1000 mcg of vitamin b12 supplement Vitamin D3 daily as a LIQUID in the morning- need at least 2000 international unit(s) a day Can take these together in a liquid/juice MRI brain- take Valium before MRI at least [address] neck to look at neck mass/swelling Start on antibiotic for right ear infection- if not better, then the MRI will help us will send to Dr. Martinez Neurologist next for memory if needed Keep working on cutting back on beer, down to at least 1/day or less documented in this encounter [facility] 07-23-2024 Note HNO ID: [id number] Author: NUNO LOWE DO Service: ? Author Type: Physician Type: Progress Notes Filed: 07/27/2024 11:01 Note Text: CC: Grupo Herrera Neece is a 58 year old male who presents to the office for follow up HPI: Memory concerns, sometimes forgetfulness with acute memory changes. Sometimes not remembering short term. Father was diagnosed with dementia- symptoms in early 60s- worsened after anesthesia from prostate surgery. Sister also with dementia in her mid/late 60s. Has been getting some intermittent headaches, also a few episodes of dizziness, no head injuries. No obvious concussions in the past. Hx of parotid tumor, right side of face/jaw, hx of resection by ENT, feels like this may be growing again BPH, stable, taking flomax LULU, use of CPAP, feels like this helps with sleep. Does have some daytime fatigue HTN, using medications as prescribed. No CP or dyspnea or palpitations or syncope. + dizziness + Fatigue Hypothyroidism, taking synthroid as prescribed. Has some fatigue HPL, taking zocor as prescribed at 20 mg at bedtime, no SE with medication Alcohol use, admits that he drinks too much alcohol and drinks alcohol on a daily /nightly basis a few beers. He isn't currently willing to cut back or down on use. Left ear pressure and mild dizziness the last few days, no head injuries, no fevers or chills. No head injuries PAST MEDICAL HISTORY Diagnosis Date Acquired hypothyroidism Acute diverticulitis 08/2022 BPH (benign prostatic hyperplasia) Essential hypertension Hyperlipidemia LULU on CPAP [facility] PAST SURGICAL HISTORY Procedure Laterality Date ANESTHESIA TOTAL HIP ARTHROPLASTY Left 05/04/2016 Dr. Manjeet Smith ANESTHESIA TOTAL HIP ARTHROPLASTY Right 05/31/2017 Dr. Manjeet Smith; dx: R hip avascular necrosis COLONOSCOPY [facility] COLONOSCOPY 10/04/2021 benign hyperplastic polyps. repeat in 5 years based on family history of colon cancer LIGATE INTERNAL HEMORRHOIDS; SINGLE 2019, banding, internal hemorrhoids, Dr. Joaquin PAST SURGICAL HISTORY OF 2002 left thumb PAST SURGICAL HISTORY OF Right 08/08/2017 total parotidectomy; Dr. De Souza Current Outpatient Medications Medication Sig levothyroxine (SYNTHROID) 125 mcg tablet 2 tablets 3 day (Mon, Thurs, Sat) and 1 tablet 4 days a week. On an empty stomach. solifenacin (VESICARE) 10 mg tablet Take 1 tablet by mouth once daily. terbinafine HCl (LAMISIL) 250 mg tablet Take 1 tablet by mouth once daily. For toenails traZODone (DESYREL) 50 mg tablet Take 1-3 tablets by mouth daily at bedtime. finasteride (PROSCAR) 5 mg tablet Take 1 tablet by mouth once daily. lisinopril (ZESTRIL) 10 mg tablet Take 1 tablet by mouth once daily. tamsulosin (FLOMAX) 0.4 mg Take 1 capsule by mouth once daily. For urination simvastatin (ZOCOR) 20 mg tablet Take 1 tablet by mouth daily at bedtime. meloxicam (MOBIC) 15 mg tablet Take 1 tablet by mouth once daily. With food. COMPOUNDED PRESCRIPTION Bipap pressure settings 17/11 with FANDP nasal mask interface and heated humidity Dx: LULU on Bipap (Patient taking differently: Bipap pressure settings 17/11 with FANDP nasal mask interface and heated humidity Dx: LULU on Bipap Not using daily) Current Facility-Administered Medications Medication Dose Route Frequency perflutren lipid microspheres 1.3 mL in NaCl (PF) 0.9% 10 mL injection (DEFINITY) INTRAVENOUS DIRECTED PRN sodium chloride 0.9 % (flush) 10 mL (BD POSIFLUSH) 10 mL INTRAVENOUS DIRECTED PRN ALLERGIES No Known Allergies Social History Tobacco Use Smoking status: Every Day Current packs/day: 0.00 Average packs/day: 0.3 packs/day for 44.0 years (13.2 ttl pk-yrs) Types: Cigarettes Start date: 09/11/1979 Last attempt to quit: 2023 Years since quittin.8 Passive exposure: Never Smokeless tobacco: Never Vaping Use Vaping status: Never Used Substance Use Topics Alcohol use: Yes Comment: Occasional Drug use: No ROS: See HPI PE: BP 128/64 Pulse 80 Temp (Src) 97.4 (Temporal) Resp 20 Wt 215 lb (97.5kg) Gen: AANDOX3, NAD, non-toxic appearing HEENT: PERRLA, EOMs intact b/l, nares without drainage, pharynx without erythema, exudate, lesions, or drainage. Uvula midline. MMM, EAC wnl b/l, left TM wnl, right TM with erythema and fluid Neck: No LAD, no thyromegaly, no meningismus. + thickening and mass like area at angle of right jaw and inferior to right jaw with TTP without signs of warmth or abscess CV: RRR, no murmur, normal s1s2 Lungs: CTA b/l, no wheezing Obese central No edema legs, normal peripheral pulses Skin: No rashes, lesions, or wounds on exposed skin. Non focal neurologic examination CN II-XII overall intact Onychomycosis changes toenails ASSESSMENT/PLAN: 1. Cognitive impairment, mild, so stated - ICD9: 331.83, ICD10: G31.84 (primary diagnosis) MRI as ordered Labs as ordered Concerns for dementia risk du (more content not included)... [facility] 07-23-2024 History of Present illness Narrative CC: Grupo Herrera Neece is a 58 year old male who presents to the office for follow up HPI: Memory concerns, sometimes forgetfulness with acute memory changes. Sometimes not remembering short term. Father was diagnosed with dementia- symptoms in early 60s- worsened after anesthesia from prostate surgery. Sister also with dementia in her mid/late 60s. Has been getting some intermittent headaches, also a few episodes of dizziness, no head injuries. No obvious concussions in the past. Hx of parotid tumor, right side of face/jaw, hx of resection by ENT, feels like this may be growing again BPH, stable, taking flomax LULU, use of CPAP, feels like this helps with sleep. Does have some daytime fatigue HTN, using medications as prescribed. No CP or dyspnea or palpitations or syncope. + dizziness + Fatigue Hypothyroidism, taking synthroid as prescribed. Has some fatigue HPL, taking zocor as prescribed at 20 mg at bedtime, no SE with medication Alcohol use, admits that he drinks too much alcohol and drinks alcohol on a daily /nightly basis a few beers. He isn't currently willing to cut back or down on use. Left ear pressure and mild dizziness the last few days, no head injuries, no fevers or chills. No head injuries PAST MEDICAL HISTORY Diagnosis Date Acquired hypothyroidism Acute diverticulitis 08/2022 BPH (benign prostatic hyperplasia) Essential hypertension Hyperlipidemia LULU on CPAP [facility] PAST SURGICAL HISTORY Procedure Laterality Date ANESTHESIA TOTAL HIP ARTHROPLASTY Left 05/04/2016 Dr. Manjeet Smith ANESTHESIA TOTAL HIP ARTHROPLASTY Right 05/31/2017 Dr. Manjeet Smith; dx: R hip avascular necrosis COLONOSCOPY [facility] COLONOSCOPY 10/04/2021 benign hyperplastic polyps. repeat in 5 years based on family history of colon cancer LIGATE INTERNAL HEMORRHOIDS; SINGLE 2019, banding, internal hemorrhoids, Dr. Joaquin PAST SURGICAL HISTORY OF 2001 left thumb PAST SURGICAL HISTORY OF Right 08/08/2017 total parotidectomy; Dr. De Souza Current Outpatient Medications Medication Sig levothyroxine (SYNTHROID) 125 mcg tablet 2 tablets 3 day (Mon, Th, Mon) and 1 tablet 4 days a week. On an empty stomach. solifenacin (VESICARE) 10 mg tablet Take 1 tablet by mouth once daily. terbinafine HCl (LAMISIL) 250 mg tablet Take 1 tablet by mouth once daily. For toenails traZODone (DESYREL) 50 mg tablet Take 1-3 tablets by mouth daily at bedtime. finasteride (PROSCAR) 5 mg tablet Take 1 tablet by mouth once daily. lisinopril (ZESTRIL) 10 mg tablet Take 1 tablet by mouth once daily. tamsulosin (FLOMAX) 0.4 mg Take 1 capsule by mouth once daily. For urination simvastatin (ZOCOR) 20 mg tablet Take 1 tablet by mouth daily at bedtime. meloxicam (MOBIC) 15 mg tablet Take 1 tablet by mouth once daily. With food. COMPOUNDED PRESCRIPTION Bipap pressure settings 17/11 with F&P nasal mask interface and heated humidity Dx: LULU on Bipap (Patient taking differently: Bipap pressure settings 17/11 with F&P nasal mask interface and heated humidity Dx: LULU on Bipap Not using daily) Current Facility-Administered Medications Medication Dose Route Frequency perflutren lipid microspheres 1.3 mL in NaCl (PF) 0.9% 10 mL injection ([employer]) INTRAVENOUS DIRECTED PRN sodium chloride 0.9 % (flush) 10 mL (BD POSIFLUSH) 10 mL INTRAVENOUS DIRECTED PRN ALLERGIES No Known Allergies Social History Tobacco Use Smoking status: Every Day Current packs/day: 0.00 Average packs/day: 0.3 packs/day for 44.0 years (13.2 ttl pk-yrs) Types: Cigarettes Start date: 09/11/1979 Last attempt to quit: 2023 Years since quittin.8 Passive exposure: Never Smokeless tobacco: Never Vaping Use Vaping status: Never Used Substance Use Topics Alcohol use: Yes Comment: Occasional Drug use: No ROS: See HPI PE: BP 128/64 Pulse 80 Temp (Src) 97.4 (Temporal) Resp 20 Wt 215 lb (97.5kg) Gen: A&OX3, NAD, non-toxic appearing HEENT: PERRLA, EOMs intact b/l, nares without drainage, pharynx without erythema, exudate, lesions, or drainage. Uvula midline. MMM, EAC wnl b/l, left TM wnl, right TM with erythema and fluid Neck: No LAD, no thyromegaly, no meningismus. + thickening and mass like area at angle of right jaw and inferior to right jaw with TTP without signs of warmth or abscess CV: RRR, no murmur, normal s1s2 Lungs: CTA b/l, no wheezing Obese central No edema legs, normal peripheral pulses Skin: No rashes, lesions, or wounds on exposed skin. Non focal neurologic examination CN II-XII overall intact Onychomycosis changes toenails ASSESSMENT/PLAN: 1. Cognitive impairment, mild, so stated - ICD9: 331.83, ICD10: G31.84 (primary diagnosis) MRI as ordered Labs as ordered Concerns for dementia risk due to fmhx of dementia at an early age (late 50s, early 60s) in father and sister both He also has been told that he needs to cut back on alcohol intake and needs to eat a healthy diet with less processed foods and need for weight loss and more regular exercise. - MRI BRAIN WO/W IVCON - IV CONTRAST (RADIOLOGY PROCEDURE) - DIAZEPAM 10 MG TABLET 2. Essential hypertension - ICD9: 401.9, ICD10: I10 - Controlled - Continue current medications - Recommend home blood pressure monitoring, to bring results to next visit - Encouraged sodium restriction, DASH or Mediterranean diet - Recommend regular aerobic exercise - Discussed need for and benefit of weight loss. BMI 32.69 kg/(m^2) - Reviewed risks of hypertension and principles of treatment - LISINOPRIL 10 MG TABLET 3. Familial combined hyperlipidemia - ICD9: 272.2, ICD10: E78.49 rx refilled stable - SIMVASTATIN 20 MG TABLET 4. Onychomycosis - ICD9: 110.1, ICD10: B35.1 rx as below stable - TERBINAFINE HCL 250 MG TABLET 5. Acquired hypothyroidism - ICD9: 244.9, ICD10: E03.9 - Instructed patient on importance of taking on an empty stomach either first thing in the morning or at bedtime. - LEVOTHYROXINE 125 MCG TABLET 6. Benign prostatic hyperplasia with lower urinary tract symptoms, symptom details unspecified - ICD9: 600.01, ICD10: N40.1 rx refilled F/u with Urologist Needs to cut back on alcohol intake as d/w him today - TAMSULOSIN 0.4 MG CAPSULE 7. Chronic insomnia - ICD9: 780.52, ICD10: F51.04 Concerns for dementia risk due to fmhx of dementia at an early age (late 50s, early 60s) in father and sister both He also has been told that he needs to cut back on alcohol intake and needs to eat a healthy diet with less processed foods and need for weight loss and more regular exercise. - TRAZODONE 50 MG TABLET 8. Headache, worsening - ICD9: 784.0, ICD10: R51.9 Concerns for dementia risk due to fmhx of dementia at an early age (late 50s, early 60s) in father and sister both He also has been told that he needs to cut back on alcohol intake and needs to eat a healthy diet with less processed foods and need for weight loss and more regular exercise. - MRI BRAIN WO/W IVCON - IV CONTRAST (RADIOLOGY PROCEDURE) - DIAZEPAM 10 MG TABLET 9. Chronic midline low back pain without sciatica - ICD9: 724.2, 338.29, ICD10: M54.50, G89.29 Xray as ordered Hx of back pain that is chronic - XR LUMBAR GENERAL 3V AP/LAT/L5-S1 10. Proteinuria, unspecified type - ICD9: 791.0, ICD10: R80.9 Recheck UA - URINALYSIS, WITH MICROSCOPIC 11. History of head injury - ICD9: V15.59, ICD10: Z87.828 Concerns for dementia risk due to fmhx of dementia at an early age (late 50s, early 60s) in father and sister both He also has been told that he needs to cut back on alcohol intake and needs to eat a healthy diet with less processed foods and need for weight loss and more regular exercise. - MRI BRAIN WO/W IVCON - IV CONTRAST (RADIOLOGY PROCEDURE) 12. 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 Acute otitis media, right - ICD9: 382.9, ICD10: H66.91 - Will begin treatment with as per antibiotic as written, see orders - AMOXICILLIN 875 MG-POTASSIUM CLAVULANATE 125 MG TABLET Nuno Lowe DO Return if no improvement. Follow up with Nuno Lowe DO. To ER if develops chest pain, shortness of breath. Discussed risks, benefits, alternatives, and potential side effects of medications. Patient/Guardian expressed understanding and agreed with the plan. See patient instructions. Nuno Lowe DO [address] [place] [address] documented in this encounter [facility] 07-16-2024 Telephone encounter Note Prescription Refill Information The patient has been identified by name and date of : Yes Caregiver verified no other encounters exist for this prescription request: Yes Caregiver confirmed with patient/requestor that no other refills are due, in the near future, with this provider at this time: Yes The last office visit in the department: 10-23-23 Does the patient have a future office visit with this provider/department: Yes Requested Prescriptions Pending Prescriptions Disp Refills levothyroxine (SYNTHROID) 125 mcg tablet 126 tablet 3 Si tablets 3 day (Mon, Thurs, Sat) and 1 tablet 4 days a week. On an empty stomach. Abi Ramirez July 16, 2024 8:48 AM [facility] 07-16-2024 Miscellaneous Notes Prescription Refill Information The patient has been identified by name and date of : Yes Caregiver verified no other encounters exist for this prescription request: Yes Caregiver confirmed with patient/requestor that no other refills are due, in the near future, with this provider at this time: Yes The last office visit in the department: 10-23-23 Does the patient have a future office visit with this provider/department: Yes Requested Prescriptions Pending Prescriptions Disp Refills levothyroxine (SYNTHROID) 125 mcg tablet 126 tablet 3 Si tablets 3 day (Mon, Thurs, Sat) and 1 tablet 4 days a week. On an empty stomach. Abi Benitez [facility] July 16, 2024 8:48 AM documented in this encounter [facility] 04-26-2024 Telephone encounter Note Phoned Irene and went over notes below with understanding. [facility] 04-26-2024 Miscellaneous Notes Phoned Irene and went over notes below with understanding. Fasting lab orders placed. Astrid Herring APRN.CNP Patient Irene calling did not schedule his 6 month follow up after his Oct appt. Scheduled appt for early July. She is asking if he would need lab work done prior to appt? Last labs were done 10/17/2023. Pended thyroid labs if wanted, needs diagnosis. said do not call him he will not remember what to do, call her back. Please advise documented in this encounter [facility] 04-26-2024 Telephone encounter Note Fasting lab orders placed. Astrid Herring APRN.SEMICONDUCTOR MANUFACTURING TECHNICIAN [facility] 04-26-2024 Telephone encounter Note Patient Irene dhaliwal did not schedule his 6 month follow up after his Oct appt. Scheduled appt for early July. She is asking if he would need lab work done prior to appt? Last labs were done 10/17/2023. Pended thyroid labs if wanted, needs diagnosis. said do not call him he will not remember what to do, call her back. Please advise [facility] 03-27-2024 History of Present illness Narrative Images from the original note were not included. 03/27/2024 In Office Procedure -MSO Bilateral Turbinate Reduction Minor Surgery in Office -bilateral turbinate reduction Patient presents today for in Office -bilateral turbinate reduction Procedures Bilateral Turbinate Submucosal Reduction DATE OF PROCEDURE: 03/27/24 PROCEDURE PERFORMED: Bilateral Inferior Turbinate Reduction PREOPERATIVE DIAGNOSIS(ES): 1. Nasal Obstruction 2. Nasal Congestion POSTOPERATIVE DIAGNOSIS(ES): 1. Nasal Obstruction 2. Nasal Congestion INDICATIONS: Grupo Jackson 58 y.o. male has been having nasal congestion and obstruction not responsive to clinical treatment. Patient endorses that there is more obstruction is present on both sides. Risks including post-op bleeding, post-op significant pain, no improvement in symptoms amongst others were discussed and all questions answered. Patient expresses understanding and after considering risks, benefits, and alternatives, surgical management was elected. DESCRIPTION OF PROCEDURE: Time out confirming patient and procedure is performed. We then turned our attention into the nose. The head of the inferior turbinate was topically anesthetized with 1% lidocaine and phenilephrine. 2 cc of 2% lidocaine was then infused bilaterally. The Celon Radiorfrequency turbinate wand at a setting of 15 was then introduced in the usual fashion bilaterally. Afrin pledges were then placed and in-place for a couple of minutes. There was minimal bleeding. This concluded our procedure. The patient tolerated the procedure very well. EBL: Minimal. COMPLICATIONS: None. The patient tolerated the procedure well and is discharged in stable condition. Postoperative care and instructions were reviewed 01/17/2024 Follow up visit to review CT scan and Sleep study results An interactive audio/video telecommunication system which permits real time communications between the patient (at the originating site) and provider (at the distant site) was utilized to provide this Telehealth service. Verbal consent was requested and obtained previous to appointment. Appointment lasted 15 minutes. Patient is not a great candidate for HNS at this point based on latest sleep study. We'll try in-office turbinate reduction to improve BiPAP compliance. Home Sleep Test completed on 12/04/2023 Respiratory data The total number of obstructive apneas was 445 . The total number of central apneas was 6 . The total number of mixed apneas was 2 . The obstructive apnea index is 67.3 . The central apnea index was 0.9 . The mixed apnea index was 0.3 Based on 3% Calculation: The AHI3% calculation of 112.0 per hour of recording time was based on a total of 453 scored apneas and 288 scored hypopneas with 3% desaturations. Supine AHI3%:112.0 per hour. Non-supine AHI3%: 0.0 per hour. Based on 4% Calculation: The AHI4% calculation of 108.5 per hour of recording time was based on a total of 453 scored apneas and 265 scored hypopneas with 4% desaturations. Supine AHI4%: 108.5 per hour. Non-supine AHI4%: 0.0 per hour. SNORING: The percent snoring time was 19.4 %. The Snoring Count was 2319 . The Snoring Index was 350.5 . Oxygen (O2)Summary: Patient's baseline O2 saturation was 89.8 %. The patient spent 188.0 minutes at an O2 saturation ?90% (47.4 % study time); and spent 104.5 minutes ?88% (?26.3 %). The 3% O2 desaturation index (ODI3) was 109.2 events per hour sleep time. The 4% O2 desaturation index (ODI4) was 103.2 event per hour sleep time. The mean O2 was 89.9 %. The O2 nadi was 66.9% 2023 New patient visit for [facility] consult referred for an initial consultation with a long history of LULU not tolerant of PAP. Patient does not have a recent sleep study but PAP reports show patient is not compliant. 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 For daytime symptoms he endorses that there is sleepiness and fatigue. Wakes up felling not refreshed. Wenden sleepiness scale 7/24 Fatigue severity scale 35/63 Nasal obstruction and Septoplasty effectiveness scale 15/20 Nasal obstruction VAS 6.5/10 Snoring VAS 9/10 Patient reports nasal obstruction. It fluctuates. Physical Examination: Neck circumference: is significantly enlarged, specifically right side of neck where patient has extensive scar from previous tumor approach shows significant edema. APPEARANCE: Well-developed, well-nourished. COMMUNICATION: Able to communicate, no hoarseness. HEAD AND FACE: No mass or lesions, no salivary masses, normal facial strength. EYES: Ocular motility intact. EARS: Otoscopy of external auditory canals and tympanic membranes is normal, clinical speech human resources receptionist thresholds grossly intact, no mass/lesion of auricle. NOSE: Nasal valve collapse: No Septal deviation: Yesleft Turbinate hypertrophy: yes. Bilaterally 3+ Nasal mucosa is normal There are no other masses polyps or purulent drainage. MOUTH/ OCCLUSION: Tonsil size is 1 Hard palate is not high arched. Soft Palate is 3. Uvula: Enlarged and elongated. Tongue: Position noted above the occlusal plane. Modified Mallampatti tongue position: III Scalloping is noted. Tonsil size is significantly enlarged. No mass/lesion of lips, teeth, gums, hard/soft palate, tongue, or oropharynx. MAXILLOFACIAL: On frontal repose, patient shows symmetrical facial thirds, On profile view, the patient has a Class I Facial Skeletal relationship. The nasolabial angle is 100 degrees. The labial mental angle is not acute. The cervicomental angle is obtuse. Procedure: Diagnostic Nasal/ Pharyngeal Endoscopy Indication for procedure: To evaluate sinonasal and pharyngeal anatomy not visible by anterior rhinoscopy and oral cavitiy examination Anesthesia: 1% phenylephrine,4% lidocaine topical spray Description: A flexible endoscope was used to examine the left and right nasal cavities. The nasal valve areas were examined for abnormalities or collapse. The inferior and middle turbinates were evaluated and abnormalities noted. The middle and superior meastuses, and the sphenoethmoid recesses were examined and inspected for mucopurulence and polyps. The nasopharyngeal anatomy including posterior nasopharyngeal wall, auditory parris soft palate, and fossae of Rosenmuller were examined. Abnormalities were noted in the above mentioned findings. The patient tolerated the procedure without complications and was returned to ambulatory status. Findings: Internal nasal valve - no significant collapse Inferior turbinates - bilat enlarged, pale mucosa Septum - septal deviation to the left Middle meatuses - Patent and clear. Superior meatuses and sphenoethmoid recesses - patent and clear Nasopharynx - clear without lesions or masses Coupling - Positive Narrowed retropalatal space. Patient also shows edema in tongue base and oropharynx at the right side that limits lumen. No Adenoids signs of previous adenoidectomy Shaw Maneuver:III Lingual tonsils grade:II Vocal Fold Visualization:III Diagnose: LULU intolerant to PAP Neck edema post-status tumor dissection Nasal obstruction Plan: Patient might not be a good HNS candidate due to previous tumor and current significant neck edema. These anatomical findings might compromise the performance of upper airway stimulation. -Head and Neck CT scan due to previous tumor and progression of neck edema - Flonase for nasal obstruction - New home sleep test to quantify LULU severity and guide decision making process - It is explained to patient that if weight loss is achieved it can significantly improve LULU symptoms such as daytime sleepiness, irritability. There is also an overall improvement in cardiovascular and metabolic health. The loss of just 10-15% can reduce the severity of LULU by 50% in moderately obese patients. Patient is referred to Medical Weight Management program to help achieve and maintain weight loss success. documented in this encounter [facility] Work Phone: 03-06-2024 Telephone encounter Note Also when does pt need to return for appt as he does not have an upcoming appt? [facility] 03-06-2024 Miscellaneous Notes Also when does pt need to return for appt as he does not have an upcoming appt? Prescription Refill Information The patient has been identified by name and date of : Yes Caregiver verified no other encounters exist for this prescription request: Yes Caregiver confirmed with patient/requestor that no other refills are due, in the near future, with this provider at this time: Yes The last office visit in the department: 10-23-23 Does the patient have a future office visit with this provider/department: No Requested Prescriptions Pending Prescriptions Disp Refills terbinafine HCl (LAMISIL) 250 mg tablet 90 tablet 1 Sig: Take 1 tablet by mouth once daily. For toenails Abi Ramirez March 06, 2024 8:53 AM Prescription Refill Information The patient has been identified by name and date of : Yes Caregiver verified no other encounters exist for this prescription request: Yes Caregiver confirmed with patient/requestor that no other refills are due, in the near future, with this provider at this time: Yes The last office visit in the department: 10/23/23 Does the patient have a future office visit with this provider/department: No Requested Prescriptions Pending Prescriptions Disp Refills terbinafine HCl (LAMISIL) 250 mg tablet 90 tablet 1 Sig: Take 1 tablet by mouth once daily. For toenails Irene Moyer LPN March 06, 2024 9:00 AM documented in this encounter [facility] 03-06-2024 Telephone encounter Note Prescription Refill Information The patient has been identified by name and date of : Yes Caregiver verified no other encounters exist for this prescription request: Yes Caregiver confirmed with patient/requestor that no other refills are due, in the near future, with this provider at this time: Yes The last office visit in the department: 10-23-23 Does the patient have a future office visit with this provider/department: No Requested Prescriptions Pending Prescriptions Disp Refills terbinafine HCl (LAMISIL) 250 mg tablet 90 tablet 1 Sig: Take 1 tablet by mouth once daily. For toenails Abi Ramirez March 06, 2024 8:53 AM [facility] 03-06-2024 Telephone encounter Note Prescription Refill Information The patient has been identified by name and date of : Yes Caregiver verified no other encounters exist for this prescription request: Yes Caregiver confirmed with patient/requestor that no other refills are due, in the near future, with this provider at this time: Yes The last office visit in the department: 10/23/23 Does the patient have a future office visit with this provider/department: No Requested Prescriptions Pending Prescriptions Disp Refills terbinafine HCl (LAMISIL) 250 mg tablet 90 tablet 1 Sig: Take 1 tablet by mouth once daily. For toenails Irene Moyer LPN March 06, 2024 9:00 AM [facility] 02-16-2024 Telephone encounter Note Pt informed via [employer] message Anya Flores MA [facility] 02-16-2024 Miscellaneous Notes Pt informed via [employer] message Anya Flores MA This should be directed to the ordering specialist provider. Astrid Herring APRN.CNP Please see pt message - Hi Dr Lowe. Boyd and i were looking at the urine test results that The urologist did on 02-14-24. It shows something called Urobilinogen and says its abnormally high at 4.0. Dr kennedy didnt mention anything to Boyd at the visit. I wanted to bring it to your attention, to see if its something we need to be concerned with and if you can explain it to us? Thanks! Francine Jackson documented in this encounter [facility] 02-16-2024 Telephone encounter Note This should be directed to the ordering specialist provider. Astrid Herring APRN.CNP [facility] Work Phone: 02-15-2024 Telephone encounter Note Please see pt message - Hi Dr Lowe. Boyd and i were looking at the urine test results that The urologist did on 02-14-24. It shows something called Urobilinogen and says its abnormally high at 4.0. Dr kennedy didnt mention anything to Boyd at the visit. I wanted to bring it to your attention, to see if its something we need to be concerned with and if you can explain it to us? Thanks! Francine Jackson [facility] 02-15-2024 Telephone encounter Note Turned into RICHARD Flores MA [facility] 02-15-2024 Miscellaneous Notes Turned into TE Anya Flores MA documented in this encounter [facility] 02-14-2024 Instructions Alexy Enriquez MD - 02/14/2024 9:56 AM EDT STOP FINASTERIDE CONTINUE TAMSULOSIN 0.4MG AND SOLIFENACIN 10MG Bladder Irritating Foods Foods that may irritate the bladder Eliminate all the foods on this list. As improvement is noticed after a few weeks, begin to reintroduce desired foods on this list one at a time to determine which food(s) cause a problem. Many people find that they can tolerate some of the foods on this list in limited, occasional amounts. All Alcoholic Beverages Mason Beans Apples Nuts Apple juice Mayonnaise Bananas Nutrasweet Beer Onions (raw) Berry s Yeast Peaches Canned Figs Pickled corral Cantaloupes Pineapple Carbonated Drinks Plums Champagne Prunes Cheese Raisins Chicken livers [place] bread Chilies/Spicy foods Saccharin Chocolate Sour cream [place] fruits Soy sauce Coffee Strawberries corned beef Tea Cranberries Tomatoes Leroy beans Vinegar Grapes Vitamins-buffered with aspartame Caffeine Guava Yogurt Artificial Sweeteners Lemon juice Lentils Artificial Colorants Alternative foods This list offers food alternatives to the foods on the list above. Alcohol or ethan (only as flavoring) Almonds Apple (small) Blueberries Coffee (acid-free Kava) or highly roasted Extracts, cody, rum, etc Chadian sauternes Imitation sour cream Onions (cooked?) [place] juice -- reduced acid Peanuts Pears Processed cheese--non aged [place] water Strawberries -- 1/2 cup Sun tea Tomatoes -- low acid White chocolate Ethan -- late harvest Zest of orange or limes BLADDER HYGIENE CAFFEINE AND BLADDER IRRITANTS: Consuming certain foods and drinks will make your body produce more urine. Consuming irritants will bother your bladder and creat urgency and frequency. Cut down on the following irritants to help reduce your urinary symptoms: Caffeine, Artificial Sweeteners, Artificial Colorants, Alcohol TIMED VOIDING: The bladder should normally empty every 2-3 hours each day. Empty your badder this often, regardless of feeling the need to urinate. This will keep the bladder more empty and reduce your symptoms. Waiting too long until you have to urinate can result in leakage. NOCTURIA (URINATION AT NIGHT): Start to slow down fluid intake from 3:00 PM until dinner time. Try as much as possible to avoid fluid intake after dinner. Especially avoid bladder irritants in the evening: - alcohol, caffeine - artificial sweeteners, artificial colors / dyes Urinate before going to bed to empty the bladder. If you snore, let your doctor know: - snoring can indicate sleep apnea - sleep apnea is a major cause of urination at night If possible, lay down mid-day (1PM - 2PM) to help shed excess fluid. CONSTIPATION: Constipation will worsen bladder symptoms, sometimes quite severely. Please ensure you have a good bowel movement each day. Daily Miralax (polyethylene glycol) and water intake can help with this. documented in this encounter [facility] 02-14-2024 History of Present illness Narrative Images from the original note were not included. [facility] UROLOGY ESTABLISHED PATIENT CLINIC NOTE UROL [facility] PATIENT INFO: Grupo Jackson 58 year old PCP: Nuno Lowe, IMPRESSION/PLAN: 1. Overactive bladder - ICD9: 596.51, ICD10: N32.81 (primary diagnosis) Remain on Vesicare 10 mg daily, consider scheduled toileting as well. - 2. Benign prostatic hyperplasia with lower urinary tract symptoms, symptom details unspecified - ICD9: 600.01, ICD10: N40.1 May remain on tamsulosin 0.4 mg daily.-Recommend patient's stop his finasteride 3. Prostate cancer screening - ICD9: V76.44, ICD10: Z12.5 PSA should be obtained on an annual basis through his PCP. REASON FOR VISIT: Follow-up HPI: Grupo Jackson returns for continuing evaluation and management. Recent cystoscopy showed findings inconsistent with prostate obstruction. Total prostate volume was only 13 g. Subsequently recent urodynamic study showed findings consistent with bladder overactivity, see below. Since being placed on Vesicare now at 10 mg he has seen a slight improvement in his voiding function. INTERNATIONAL PROSTATE SYMPTOM SCORE (I-PSS) 1)INCOMPLETE EMPTYING Over the past month, how often have you had a sensation of not emptying your bladder completely after you finished urinating? SCORE: 0- Not at all 2)FREQUENCY Over the past month, how often have you had to urinate again less than two hours after you finished urinating? SCORE: 4- More than half the time 3)INTERMITTENCY Over the past month, how often have you found you stopped and started again several times when you urinated? SCORE: 1- Less than 1 time in 5 4)URGENCY Over the past month, how often have you found it difficult to postpone urination? SCORE: 4- More than half the time 5)WEAK STREAM Over the past month, how often have you had a weak stream? SCORE: 2- less than half the time 6)STRAINING Over the past month, how often have you had to push or strain to begin urination SCORE: 0- Not at all 7)NOCTURIA Over the past month, how many times did you most typically get up to urinate from the time you went to bed at night until the time you get up in the morning? SCORE:1 TOTAL I-PSS SCORE: 12 QUALITY OF LIFE DUE TO URINARY SYMPTOMS If you were to spend the rest of yur life with your urinary condition just the way it is now, how would you feel about that? 3- Mixed- equally satisfied and dissatisfied UROLOGICAL DATA: Urinalysis: GLUCOSE UA (POCT) Negative 02/14/2024 BILIRUBIN UA (POCT) Negative 02/14/2024 KETONE UA (POCT) Negative 02/14/2024 SPECIFIC GRAVITY UA (POCT) 1.015 02/14/2024 HEMOGLOBIN/BLOOD UA (POCT) Negative 02/14/2024 PH UA (POCT) 7.0 02/14/2024 PROTEIN UA (POCT) Negative 02/14/2024 UROBILINOGEN UA (POCT) 4.0 02/14/2024 NITRITE UA (POCT) Negative 02/14/2024 LEUKOCYTES UA (POCT) Negative 02/14/2024 COLOR UA (POCT) Yellow 02/14/2024 CLARITY UA (POCT) Clear 02/14/2024 Post Void Residual, Ultrasound: 0 cc, emptied well OTHER DATA: PSA Screening (ng/mL) Date Value 10/17/2023 0.61 10/08/2022 1.49 04/17/2021 1.66 11/21/2020 1.33 04/03/2019 1.75 02/08/2018 0.97 No results found for: ISOPSA Creatinine Date Value Ref Range Status 10/17/2023 0.98 0.73 - 1.22 mg/dL Final 04/10/2023 0.95 0.73 - 1.22 mg/dL Final 10/08/2022 0.96 0.73 - 1.22 mg/dL Final 10/09/2021 0.98 0.73 - 1.22 mg/dL Final No results found for: TESTOST, TESTFREE PMHx/PSHx: see above, otherwise unchanged Rx: reviewed and unchanged ROS: see above, otherwise unchanged Labs: None Imaging: Diagnoses: Urinary Urgency Urinary Frequency UA done: No Procedure Performed: Multichannel urodynamic testing including multichannel cystometrogram, uroflowmetry, pressure voiding study, and EMG. Was a uroflow done at some point during the study: Yes Was a cystometrogram performed: Yes Was a UPP done: No Was an EMG done: Yes Was an intraabdominal pressure recorded: Yes Where were pressure catheters placed: Bladder and Rectum Procedure: The patient verified medications and allergies. The procedure was explained to the patient. Immediately prior to the test the patient was given Keflex 500 mg #1 by mouth and Lidocaine 2% jelly 11 ml to urethra per order. UNIVERSAL PROTOCOL / SAFETY CHECKLIST A moment to CARE: Completed Procedure to be performed: Urodynamics Sign in Communication: Completed Time Out: Team Confirms the Correct Patient, Correct Procedure, Correct Site and Site Marking, Correct Position (if applicable), Prep and Dry Time (if applicable). Time: 1300 Affirmation of Time Out: N/A Sign Out Discussion: Completed Urodynamic Findings: Uroflow : Patient arrived with a minaya catheter- No. Patient voided 109.1 ml; Curve: Intermittent Post void residual 25 ml QMAX 38.5 ; QAVG 9.5 . Cystometrogram: The patient had a cystometrogram EMG: Yes First Sensation 131 ml First desire 172 ml Strong Desire 255 ml Capacity 268 ml The patient did not leak with cough. no destrusor contractions Instability associated with urge: No Instability associated with leakage: No Pressure-Flow Voiding Study: EMG: Yes Void 300.6 ml; Curve: Intermittent Post void residual: <10 ml Maximum detrusor pressure 51.5 Cm H20 Maximum flow rate: 22.2 ml/sec Average flow rate: 11.4 ml/sec UDS notes: Patient off Vesicare x7 days Plan: Patient will follow up with provider to discuss plan of care and results. Patient tolerated the procedure well. Home going instructions given. Patient able to repeat back understanding of instructions. Katharine Vargas RN cc: Héctor Ulrich MD MEDICATIONS: Current Outpatient Medications Medication Sig traZODone (DESYREL) 50 mg tablet Take 1-3 tablets by mouth daily at bedtime. solifenacin (VESICARE) 10 mg tablet Take 1 tablet by mouth once daily. finasteride (PROSCAR) 5 mg tablet Take 1 tablet by mouth once daily. lisinopril (ZESTRIL) 10 mg tablet Take 1 tablet by mouth once daily. levothyroxine (SYNTHROID) 125 mcg tablet 2 tablets 3 day (Mon, , Mon) and 1 tablet 4 days a week. On an empty stomach. terbinafine HCl (LAMISIL) 250 mg tablet Take 1 tablet by mouth once daily. For toenails tamsulosin (FLOMAX) 0.4 mg Take 1 capsule by mouth once daily. For urination simvastatin (ZOCOR) 20 mg tablet Take 1 tablet by mouth daily at bedtime. meloxicam (MOBIC) 15 mg tablet Take 1 tablet by mouth once daily. With food. COMPOUNDED PRESCRIPTION Bipap pressure settings 17/11 with F&P nasal mask interface and heated humidity Dx: LULU on Bipap (Patient taking differently: Bipap pressure settings 17/11 with F&P nasal mask interface and heated humidity Dx: LULU on Bipap Not using daily) Current Facility-Administered Medications Medication Dose Route Frequency perflutren lipid microspheres 1.3 mL in NaCl (PF) 0.9% 10 mL injection (DEFINITY) INTRAVENOUS DIRECTED PRN sodium chloride 0.9 % (flush) 10 mL (BD POSIFLUSH) 10 mL INTRAVENOUS DIRECTED PRN PHYSICAL EXAM: Ht 172.7 cm (5' 8) Wt 101.2 kg (223 lb) BMI 33.91 kg/m Body mass index is 33.91 kg/m . General: Well masculinized, well nourished male Psych: euthymic, NAD Neuro: A&Ox3 Inguinal: No lesions, adenopathy, or hernias examination deferred ALEK deferred FOLLOW UP: 6 months Alexy Enriquez M.D, MS Associate Staff [facility] Cc: Dr. Nuno Lowe, DO documented in this encounter [facility] 01-22-2024 Note HNO ID: [id number] Author: HÉCTOR ULRICH MD Service: ? Author Type: Physician Type: Progress Notes Filed: 01/22/2024 08:07 Note Text: [facility] [place] PH[facility]IC[facility] INTERPRETATION: Urodynamics Interpretation: A 6 Fr catheter was placed and secured to the patient's penis with tape and a separate rectal catheter was placed for intra-abdominal pressure measurements. The study was then run to yield results as follows: Uroflow: Intermittent and large voided volume PVR: Low CMG: The FS and FD: normal range Bladder compliance: normal Detrusor overactivity: terminal Total tolerated volume was 269ml Stress incontinence demonstrated with Valsalva during filling: No PRESSURE-FLOW VOIDING STUDY: Voided: 300ml Maximum flow rate - 22.2 ml/sec Average flow rate - 11.4 ml/sec Max voiding detrusor pressure of 51.5 cm/H2O Pressure Flow phase: Pdet max with flow was normal Abdominal strain:No and Yes EMG: DESD or abnormal patterns noted: No Impression: PFS favors unobstructed flow Terminal detrusor overactivity with low capacity Dx OAB Continue OAB pathway Héctor Ulrich MD [facility] 01-18-2024 Note HNO ID: [id number] Author: KATHARINE VARGAS RN Service: ? Author Type: Registered Nurse Type: Progress Notes Filed: 01/18/2024 13:42 Note Text: Grupo Jackson [id number] January 18, 2024 Diagnoses: Urinary Urgency Urinary Frequency UA done: No Procedure Performed: Multichannel urodynamic testing including multichannel cystometrogram, uroflowmetry, pressure voiding study, and EMG. Was a uroflow done at some point during the study: Yes Was a cystometrogram performed: Yes Was a UPP done: No Was an EMG done: Yes Was an intraabdominal pressure recorded: Yes Where were pressure catheters placed: Bladder and Rectum Procedure: The patient verified medications and allergies. The procedure was explained to the patient. Immediately prior to the test the patient was given Keflex 500 mg #1 by mouth and Lidocaine 2% jelly 11 ml to urethra per order. UNIVERSAL PROTOCOL / SAFETY CHECKLIST A moment to CARE: Completed Procedure to be performed: Urodynamics Sign in Communication: Completed Time Out: Team Confirms the Correct Patient, Correct Procedure, Correct Site and Site Marking, Correct Position (if applicable), Prep and Dry Time (if applicable). Time: 1300 Affirmation of Time Out: N/A Sign Out Discussion: Completed Urodynamic Findings: Uroflow : Patient arrived with a minaya catheter- No. Patient voided 109.1 ml; Curve: Intermittent Post void residual 25 ml QMAX 38.5 ; QAVG 9.5 . Cystometrogram: The patient had a cystometrogram EMG: Yes First Sensation 131 ml First desire 172 ml Strong Desire 255 ml Capacity 268 ml The patient did not leak with cough. no destrusor contractions Instability associated with urge: No Instability associated with leakage: No Pressure-Flow Voiding Study: EMG: Yes Void 300.6 ml; Curve: Intermittent Post void residual: <10 ml Maximum detrusor pressure 51.5 Cm H20 Maximum flow rate: 22.2 ml/sec Average flow rate: 11.4 ml/sec UDS notes: Patient off Vesicare x7 days Plan: Patient will follow up with provider to discuss plan of care and results. Patient tolerated the procedure well. Home going instructions given. Patient able to repeat back understanding of instructions. Katharine Vargas RN cc: Héctor Ulrich MD [facility] 01-18-2024 History of Present illness Narrative [employer] Renetta [id number] 1965 January 18, 2024 Diagnoses: Urinary Urgency Urinary Frequency UA done: No Procedure Performed: Multichannel urodynamic testing including multichannel cystometrogram, uroflowmetry, pressure voiding study, and EMG. Was a uroflow done at some point during the study: Yes Was a cystometrogram performed: Yes Was a UPP done: No Was an EMG done: Yes Was an intraabdominal pressure recorded: Yes Where were pressure catheters placed: Bladder and Rectum Procedure: The patient verified medications and allergies. The procedure was explained to the patient. Immediately prior to the test the patient was given Keflex 500 mg #1 by mouth and Lidocaine 2% jelly 11 ml to urethra per order. UNIVERSAL PROTOCOL / SAFETY CHECKLIST A moment to CARE: Completed Procedure to be performed: Urodynamics Sign in Communication: Completed Time Out: Team Confirms the Correct Patient, Correct Procedure, Correct Site and Site Marking, Correct Position (if applicable), Prep and Dry Time (if applicable). Time: 1300 Affirmation of Time Out: N/A Sign Out Discussion: Completed Urodynamic Findings: Uroflow : Patient arrived with a minaya catheter- No. Patient voided 109.1 ml; Curve: Intermittent Post void residual 25 ml QMAX 38.5 ; QAVG 9.5 . Cystometrogram: The patient had a cystometrogram EMG: Yes First Sensation 131 ml First desire 172 ml Strong Desire 255 ml Capacity 268 ml The patient did not leak with cough. no destrusor contractions Instability associated with urge: No Instability associated with leakage: No Pressure-Flow Voiding Study: EMG: Yes Void 300.6 ml; Curve: Intermittent Post void residual: <10 ml Maximum detrusor pressure 51.5 Cm H20 Maximum flow rate: 22.2 ml/sec Average flow rate: 11.4 ml/sec UDS notes: Patient off Vesicare x7 days Plan: Patient will follow up with provider to discuss plan of care and results. Patient tolerated the procedure well. Home going instructions given. Patient able to repeat back understanding of instructions. Katharine Vargas RN cc: Héctor Ulrich MD documented in this encounter [facility] 01-18-2024 Instructions Katharine Vargas RN - 01/18/2024 12:47 PM EDT POST PROCEDURE INSTRUCTIONS [employer] Jackson January 18, 2024 Increase your fluid intake. FOLLOW UP APPOINTMENT: 02/14/24 at 9:[address] Lara in the [address] [place] [address] office. WHEN TO CALL THE DOCTOR: If you develop fever (over 101 degrees) or chills. If you cannot urinate or empty your bladder. If you develop symptoms of a urinary tract infection such as burning or pain with urination, increased frequency of urination or foul smelling urine If you have any other questions or problems. Office phone number; [phone] documented in this encounter [facility] 01-17-2024 History of Present illness Narrative Images from the original note were not included. 01/17/2024 Follow up visit to review CT scan and Sleep study results An interactive audio/video telecommunication system which permits real time communications between the patient (at the originating site) and provider (at the distant site) was utilized to provide this Telehealth service. Verbal consent was requested and obtained previous to appointment. Appointment lasted 15 minutes. Patient is not a great candidate for HNS at this point based on latest sleep study. We'll try in-office turbinate reduction to improve BiPAP compliance. Home Sleep Test completed on 12/04/2023 Respiratory data The total number of obstructive apneas was 445 . The total number of central apneas was 6 . The total number of mixed apneas was 2 . The obstructive apnea index is 67.3 . The central apnea index was 0.9 . The mixed apnea index was 0.3 Based on 3% Calculation: The AHI3% calculation of 112.0 per hour of recording time was based on a total of 453 scored apneas and 288 scored hypopneas with 3% desaturations. Supine AHI3%:112.0 per hour. Non-supine AHI3%: 0.0 per hour. Based on 4% Calculation: The AHI4% calculation of 108.5 per hour of recording time was based on a total of 453 scored apneas and 265 scored hypopneas with 4% desaturations. Supine AHI4%: 108.5 per hour. Non-supine AHI4%: 0.0 per hour. SNORING: The percent snoring time was 19.4 %. The Snoring Count was 2319 . The Snoring Index was 350.5 . Oxygen (O2)Summary: Patient's baseline O2 saturation was 89.8 %. The patient spent 188.0 minutes at an O2 saturation ?90% (47.4 % study time); and spent 104.5 minutes ?88% (?26.3 %). The 3% O2 desaturation index (ODI3) was 109.2 events per hour sleep time. The 4% O2 desaturation index (ODI4) was 103.2 event per hour sleep time. The mean O2 was 89.9 %. The O2 nadi was 66.9% 2023 New patient visit for [facility] consult referred for an initial consultation with a long history of LULU not tolerant of PAP. Patient does not have a recent sleep study but PAP reports show patient is not compliant. 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 For daytime symptoms he endorses that there is sleepiness and fatigue. Wakes up felling not refreshed. Wenden sleepiness scale 7/24 Fatigue severity scale 35/63 Nasal obstruction and Septoplasty effectiveness scale 15/20 Nasal obstruction VAS 6.5/10 Snoring VAS 9/10 Patient reports nasal obstruction. It fluctuates. Physical Examination: Neck circumference: is significantly enlarged, specifically right side of neck where patient has extensive scar from previous tumor approach shows significant edema. APPEARANCE: Well-developed, well-nourished. COMMUNICATION: Able to communicate, no hoarseness. HEAD AND FACE: No mass or lesions, no salivary masses, normal facial strength. EYES: Ocular motility intact. EARS: Otoscopy of external auditory canals and tympanic membranes is normal, clinical speech human resources receptionist thresholds grossly intact, no mass/lesion of auricle. NOSE: Nasal valve collapse: No Septal deviation: Yesleft Turbinate hypertrophy: yes. Bilaterally 3+ Nasal mucosa is normal There are no other masses polyps or purulent drainage. MOUTH/ OCCLUSION: Tonsil size is 1 Hard palate is not high arched. Soft Palate is 3. Uvula: Enlarged and elongated. Tongue: Position noted above the occlusal plane. Modified Mallampatti tongue position: III Scalloping is noted. Tonsil size is significantly enlarged. No mass/lesion of lips, teeth, gums, hard/soft palate, tongue, or oropharynx. MAXILLOFACIAL: On frontal repose, patient shows symmetrical facial thirds, On profile view, the patient has a Class I Facial Skeletal relationship. The nasolabial angle is 100 degrees. The labial mental angle is not acute. The cervicomental angle is obtuse. Procedure: Diagnostic Nasal/ Pharyngeal Endoscopy Indication for procedure: To evaluate sinonasal and pharyngeal anatomy not visible by anterior rhinoscopy and oral cavitiy examination Anesthesia: 1% phenylephrine,4% lidocaine topical spray Description: A flexible endoscope was used to examine the left and right nasal cavities. The nasal valve areas were examined for abnormalities or collapse. The inferior and middle turbinates were evaluated and abnormalities noted. The middle and superior meastuses, and the sphenoethmoid recesses were examined and inspected for mucopurulence and polyps. The nasopharyngeal anatomy including posterior nasopharyngeal wall, auditory parris soft palate, and fossae of Rosenmuller were examined. Abnormalities were noted in the above mentioned findings. The patient tolerated the procedure without complications and was returned to ambulatory status. Findings: Internal nasal valve - no significant collapse Inferior turbinates - bilat enlarged, pale mucosa Septum - septal deviation to the left Middle meatuses - Patent and clear. Superior meatuses and sphenoethmoid recesses - patent and clear Nasopharynx - clear without lesions or masses Coupling - Positive Narrowed retropalatal space. Patient also shows edema in tongue base and oropharynx at the right side that limits lumen. No Adenoids signs of previous adenoidectomy Shaw Maneuver:III Lingual tonsils grade:II Vocal Fold Visualization:III Diagnose: LULU intolerant to PAP Neck edema post-status tumor dissection Nasal obstruction Plan: Patient might not be a good HNS candidate due to previous tumor and current significant neck edema. These anatomical findings might compromise the performance of upper airway stimulation. -Head and Neck CT scan due to previous tumor and progression of neck edema - Flonase for nasal obstruction - New home sleep test to quantify LULU severity and guide decision making process - It is explained to patient that if weight loss is achieved it can significantly improve LULU symptoms such as daytime sleepiness, irritability. There is also an overall improvement in cardiovascular and metabolic health. The loss of just 10-15% can reduce the severity of LULU by 50% in moderately obese patients. Patient is referred to Medical Weight Management program to help achieve and maintain weight loss success. documented in this encounter [facility] Work Phone: 01-16-2024 Telephone encounter Note Pharmacy verified in [facility] Patient has been identified by name and date of : Yes Patient aware RX will be sent to pharmacy. No need to notify patient. Pharmacy phones for refill(s): Requested Prescriptions Pending Prescriptions Disp Refills traZODone (DESYREL) 50 mg tablet 90 tablet 3 Sig: Take 1-3 tablets by mouth daily at bedtime. Date of last office visit : 10/23/2023 Date of next office visit : none Last 2 Encounter Wt Readings: Date: Wt: 01/03/2024 101.6 kg (224 lb) 12/27/2023 99.8 kg (220 lb) Not applicable Please advise. Abi Benitez Pss [facility] 01-16-2024 Miscellaneous Notes Pharmacy verified in [facility] Patient has been identified by name and date of : Yes Patient aware RX will be sent to pharmacy. No need to notify patient. Pharmacy phones for refill(s): Requested Prescriptions Pending Prescriptions Disp Refills traZODone (DESYREL) 50 mg tablet 90 tablet 3 Sig: Take 1-3 tablets by mouth daily at bedtime. Date of last office visit : 10/23/2023 Date of next office visit : none Last 2 Encounter Wt Readings: Date: Wt: 01/03/2024 101.6 kg (224 lb) 12/27/2023 99.8 kg (220 lb) Not applicable Please advise. Abi Benitez Pss documented in this encounter [facility] 01-03-2024 Nurse Note CYSTOSCOPY PROCEDURE History and physical exam within the last 30 days: yes. Exam notes reviewed: yes Risks, benefits, alternatives, and personnel discussed with patient who consents to proceed with Cystoscopy and Transrectal ultrasound of the prostate exam . Patient verified by name and date of : Yes Procedure/Site verified: Yes Physician: Dr. Alexy Enriquez Asst: Domingo Allison MA Audible Time Out: Yes Anesthetics given: 10 cc 2% Lidocaine-Urethral and Administered by nurse - see Pre-Procedure Nurse's Notes. Operative Findings Urethra: Normal Prostate:Bilobar hypertrophy and Nicely patent Bladder: no stones, no tumors, no lesions, trabeculated Radiologic Studies Urogram: N/A Complications: None Recommendations: Discussed findings with patient TRUS PROCEDURE without Biopsy History and physical exam within the last 30 days: yes. Exam notes reviewed: yes Informed consent obtained Yes. Discussed procedure, risks, and options with patient. Patient agrees to proceed. Pre-Op Diagnosis: BPH with LUTS, Overactive bladder Anesthetic given: None Findings Prostate volume 13.03 grams Complications: None Recommendations: Discussed findings with patient. Post Procedure Evaluation Condition Post Procedure: satisfactory Post Procedure Medications: None Comments: Have urodynamics done and follow up in 2 months Domingo Allison MA [facility] 01-03-2024 Nurse Note CYSTOSCOPY PROCEDURE History and physical exam within the last 30 days: yes. Exam notes reviewed: yes Risks, benefits, alternatives, and personnel discussed with patient who consents to proceed with Cystoscopy and Transrectal ultrasound of the prostate exam . Patient verified by name and date of : Yes Procedure/Site verified: Yes Physician: Dr. Alexy Enriquez Asst: Domingo Allison MA Audible Time Out: Yes Anesthetics given: 10 cc 2% Lidocaine-Urethral and Administered by nurse - see Pre-Procedure Nurse's Notes. Operative Findings Urethra: Normal Prostate:Bilobar hypertrophy and Nicely patent Bladder: no stones, no tumors, no lesions, trabeculated Radiologic Studies Urogram: N/A Complications: None Recommendations: Discussed findings with patient TRUS PROCEDURE without Biopsy History and physical exam within the last 30 days: yes. Exam notes reviewed: yes Informed consent obtained Yes. Discussed procedure, risks, and options with patient. Patient agrees to proceed. Pre-Op Diagnosis: BPH with LUTS, Overactive bladder Anesthetic given: None Findings Prostate volume 13.03 grams Complications: None Recommendations: Discussed findings with patient. Post Procedure Evaluation Condition Post Procedure: satisfactory Post Procedure Medications: None Comments: Have urodynamics done and follow up in 2 months Domingo Allison MA documented in this encounter [facility] 01-03-2024 Instructions Alexy Enriquez MD - 01/03/2024 9:04 AM EDT Stop your Vesicare for 1 week prior to your Urodynamic Study documented in this encounter [facility] 01-03-2024 History of Present illness Narrative Images from the original note were not included. [facility] UROLOGY PROCEDURE NOTE FLEXIBLE CYSTOURETHROSCOPY AND TRUS UROLOGY OUTPATIENT PROCEDURE NOTE UNIVERSAL PROTOCOL AND SAFETY CHECKLISTUNIVERSAL PROTOCOL / SAFETY CHECKLIST Procedure to be Performed: Cysto/TRUS Indication: BPH with LUTS Sign In: A Moment of CARE was completed. Personnel directly involved with the procedure wore the appropriate PPE (Personal Protective Equipment). Patient/Surrogate Stated/Verified: PATIENT VERIFIED(optional for EMERGENT procedures): Patient name, Date of , Relevant allergies and The intended procedure Time Out Communication: Intended patient and procedure match the source documents. Consent documented and matches the intended procedure. Sign Out: SIGN OUT (optional for EMERGENT procedures): All specimen containers correctly labeled. PHYSICIAN NOTE: FLEXIBLE CYSTOURETHROSCOPY AND TRANSRECTAL ULTRASOUND PROCEDURE DATE: January 21, 2024 FINDINGS Urethra: Normal Sphincter: Normal / Coapted Prostate: Normal lateral Lobes /normal median Lobe Bladder Neck: Patent Urothelium: normal appearing, no evidence of tumor, no erythema, no foreign body Trabeculation: No Inflammation: No Diverticulum: No Ureteral Orifices: normal appearing, orthotopic position, clear efflux bilaterally Trigone: normal appearing Procedure: Flexible cystoscopy and transrectal ultrasound Anesthesia: Lidocaine Gel Procedure Details: In the cystoscopy suite, the patient was placed in the supine position, prepped, and draped in the usual manner. Lidocaine gel was placed per urethra for local anasthesia. No beba-procedural antibiotics were given. Cystourethroscopy was performed using a flexible scope. Sterile technique was maintained throughout. The urethra, prostate, and bladder were inspected in their entirety. Specific findings from the procedure are detailed in the corresponding section of this note. The cystoscope was carefully removed. The patient was placed in the lateral decubitus position. Digital rectal exam was normal. The ultrasound probe was placed into the rectum and the prostate visualized. The prostate was visualized in sagittal and transverse planes and no hypoechoic lesion identified. The total prostate volume was 13 gm Complications: None Estimated Blood Loss: None Preoperative diagnosis: Urgent incontinence, BPH with obstruction Postoperative diagnosis: Urgent incontinence Disposition / Plan: Patient has a very normal size prostate with no signs of of bladder outlet obstruction. Would recommend urodynamic study for further evaluation. Would increase Solifenacin to 10 mg daily for now to see if this provides any improvement but patient should make sure to discontinue the medication 1 week prior to undergoing his urodynamic study. New prescription provided. Alexy Enriquez MD, MS Associate Staff [facility] documented in this encounter [facility] 12-27-2023 History of Present illness Narrative Images from the original note were not included. [facility] [place] [facility] ESTABLISHED PATIENT CLIN[facility] INFO: Grupo Jackson 58 year old PCP: Nuno Lowe DO IMPRESSION/PLAN: 1. Benign prostatic hyperplasia with lower urinary tract symptoms, symptom details unspecified - ICD9: 600.01, ICD10: N40.1 (primary diagnosis) -Continues to have symptoms of urinary urgency and frequency despite oral pharmacotherapy. Recommend further evaluation with cystoscopy/transrectal ultrasound of prostate. Patient may be candidate for minimally invasive surgical procedures such as Rezum or PVP. 2. Urgency of urination - ICD9: 788.63, ICD10: R39.15 -As above 3. Overactive bladder - ICD9: 596.51, ICD10: N32.81 -As of now remain on sulfasalazine 5 mg daily Visit complexity inherent to evaluation and management associated with medical care services that serve as the continuing focal point for all needed health care services and/or with medical care services that are part of ongoing care related to a patient s single, serious condition or a complex condition. REASON FOR VISIT: BPH management HPI: Gr[employer] Jackson returns for continuing evaluation and management. Has no history of BPH. Has been compliant on all Flomax and finasteride usage. PSA has show skin significant drop since being placed on finasteride. Continues to notice symptoms of urinary urgency and frequency despite being placed on Solifenacin 5 mg daily during his last visit. Has noticed a slight decrease in nocturia. INTERNATIONAL PROSTATE SYMPTOM SCORE (I-PSS) 1)INCOMPLETE EMPTYING Over the past month, how often have you had a sensation of not emptying your bladder completely after you finished urinating? SCORE: 0- Not at all 2)FREQUENCY Over the past month, how often have you had to urinate again less than two hours after you finished urinating? SCORE: 3- About half the time 3)INTERMITTENCY Over the past month, how often have you found you stopped and started again several times when you urinated? SCORE: 0- Not at all 4)URGENCY Over the past month, how often have you found it difficult to postpone urination? SCORE: 3- About half the time 5)WEAK STREAM Over the past month, how often have you had a weak stream? SCORE: 0- Not at all 6)STRAINING Over the past month, how often have you had to push or strain to begin urination SCORE: 0- Not at all 7)NOCTURIA Over the past month, how many times did you most typically get up to urinate from the time you went to bed at night until the time you get up in the morning? SCORE:1 TOTAL I-PSS SCORE: 7 QUALITY OF LIFE DUE TO URINARY SYMPTOMS If you were to spend the rest of yur life with your urinary condition just the way it is now, how would you feel about that? 4- Mostly dissatisfied UROLOGICAL DATA: Unable to provide urine specimen today. Urinalysis: GLUCOSE UA (POCT) Negative 10/27/2023 BILIRUBIN UA (POCT) Negative 10/27/2023 KETONE UA (POCT) Negative 10/27/2023 SPECIFIC GRAVITY UA (POCT) 1.025 10/27/2023 HEMOGLOBIN/BLOOD UA (POCT) Negative 10/27/2023 PH UA (POCT) 7.0 10/27/2023 PROTEIN UA (POCT) Negative 10/27/2023 UROBILINOGEN UA (POCT) 1.0 10/27/2023 NITRITE UA (POCT) Negative 10/27/2023 LEUKOCYTES UA (POCT) Negative 10/27/2023 COLOR UA (POCT) Yellow 10/27/2023 CLARITY UA (POCT) Clear 10/27/2023 Post Void Residual, Ultrasound: 0 cc, empties well OTHER DATA: PSA Screening (ng/mL) Date Value 10/17/2023 0.61 10/08/2022 1.49 04/17/2021 1.66 11/21/2020 1.33 04/03/2019 1.75 02/08/2018 0.97 No results found for: ISOPSA Creatinine Date Value Ref Range Status 10/17/2023 0.98 0.73 - 1.22 mg/dL Final 04/10/2023 0.95 0.73 - 1.22 mg/dL Final 10/08/2022 0.96 0.73 - 1.22 mg/dL Final 10/09/2021 0.98 0.73 - 1.22 mg/dL Final No results found for: TESTOST, TESTFREE PMHx/PSHx: see above, otherwise unchanged Rx: reviewed and unchanged ROS: see above, otherwise unchanged Labs: None Imaging: None MEDICATIONS: Current Outpatient Medications Medication Sig solifenacin (VESICARE) 5 mg tablet Take 1 tablet by mouth once daily. finasteride (PROSCAR) 5 mg tablet Take 1 tablet by mouth once daily. lisinopril (ZESTRIL) 10 mg tablet Take 1 tablet by mouth once daily. levothyroxine (SYNTHROID) 125 mcg tablet 2 tablets 3 day (Mon, Th, Sat) and 1 tablet 4 days a week. On an empty stomach. terbinafine HCl (LAMISIL) 250 mg tablet Take 1 tablet by mouth once daily. For toenails tamsulosin (FLOMAX) 0.4 mg Take 1 capsule by mouth once daily. For urination simvastatin (ZOCOR) 20 mg tablet Take 1 tablet by mouth daily at bedtime. meloxicam (MOBIC) 15 mg tablet Take 1 tablet by mouth once daily. With food. traZODone (DESYREL) 50 mg tablet Take 1-3 tablets by mouth daily at bedtime. meloxicam (MOBIC) 15 mg tablet Take 1 tablet by mouth once daily. For sciatica, With food. mupirocin (BACTROBAN) 2 % ointment Apply to affected area once daily. (Patient not taking: Reported on 12/27/2023) COMPOUNDED PRESCRIPTION Bipap pressure settings 28/07 with F&P nasal mask interface and heated humidity Dx: LULU on Bipap (Patient taking differently: Bipap pressure settings 28/07 with F&P nasal mask interface and heated humidity Dx: LULU on Bipap Not using daily) Current Facility-Administered Medications Medication Dose Route Frequency perflutren lipid microspheres 1.3 mL in NaCl (PF) 0.9% 10 mL injection (DEFINITY) INTRAVENOUS DIRECTED PRN sodium chloride 0.9 % (flush) 10 mL (BD POSIFLUSH) 10 mL INTRAVENOUS DIRECTED PRN PHYSICAL EXAM: Ht 172.7 cm (5' 8) Wt 99.8 kg (220 lb) BMI 33.45 kg/m Body mass index is 33.45 kg/m . General: Well masculinized, well nourished male Psych: euthymic, NAD Neuro: A&Ox3 Inguinal: No lesions, adenopathy, or hernias exam deferred FOLLOW UP: Cystoscopy/TRUS Alexy Enriquez M.D, MS Associate Staff [facility] [place] [facility] documented in this encounter [facility] 12-27-2023 Nurse Note Bladder scan obtained 0 ml of urine documented in this encounter [facility] 2023 History of Present illness Narrative 2023 New patient visit for [facility] consult referred for an initial consultation with a long history of LULU not tolerant of PAP. Patient does not have a recent sleep study but PAP reports show patient is not compliant. 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 For daytime symptoms he endorses that there is sleepiness and fatigue. Wakes up felling not refreshed. Wenden sleepiness scale 7/24 Fatigue severity scale 35/63 Nasal obstruction and Septoplasty effectiveness scale 15/20 Nasal obstruction VAS 6.5/10 Snoring VAS 9/10 Patient reports nasal obstruction. It fluctuates. Physical Examination: Neck circumference: is significantly enlarged, specifically right side of neck where patient has extensive scar from previous tumor approach shows significant edema. APPEARANCE: Well-developed, well-nourished. COMMUNICATION: Able to communicate, no hoarseness. HEAD AND FACE: No mass or lesions, no salivary masses, normal facial strength. EYES: Ocular motility intact. EARS: Otoscopy of external auditory canals and tympanic membranes is normal, clinical speech human resources receptionist thresholds grossly intact, no mass/lesion of auricle. NOSE: Nasal valve collapse: No Septal deviation: Yesleft Turbinate hypertrophy: yes. Bilaterally 3+ Nasal mucosa is normal There are no other masses polyps or purulent drainage. MOUTH/ OCCLUSION: Tonsil size is 1 Hard palate is not high arched. Soft Palate is 3. Uvula: Enlarged and elongated. Tongue: Position noted above the occlusal plane. Modified Mallampatti tongue position: III Scalloping is noted. Tonsil size is significantly enlarged. No mass/lesion of lips, teeth, gums, hard/soft palate, tongue, or oropharynx. MAXILLOFACIAL: On frontal repose, patient shows symmetrical facial thirds, On profile view, the patient has a Class I Facial Skeletal relationship. The nasolabial angle is 100 degrees. The labial mental angle is not acute. The cervicomental angle is obtuse. Procedure: Diagnostic Nasal/ Pharyngeal Endoscopy Indication for procedure: To evaluate sinonasal and pharyngeal anatomy not visible by anterior rhinoscopy and oral cavitiy examination Anesthesia: 1% phenylephrine,4% lidocaine topical spray Description: A flexible endoscope was used to examine the left and right nasal cavities. The nasal valve areas were examined for abnormalities or collapse. The inferior and middle turbinates were evaluated and abnormalities noted. The middle and superior meastuses, and the sphenoethmoid recesses were examined and inspected for mucopurulence and polyps. The nasopharyngeal anatomy including posterior nasopharyngeal wall, auditory parris soft palate, and fossae of Rosenmuller were examined. Abnormalities were noted in the above mentioned findings. The patient tolerated the procedure without complications and was returned to ambulatory status. Findings: Internal nasal valve - no significant collapse Inferior turbinates - bilat enlarged, pale mucosa Septum - septal deviation to the left Middle meatuses - Patent and clear. Superior meatuses and sphenoethmoid recesses - patent and clear Nasopharynx - clear without lesions or masses Coupling - Positive Narrowed retropalatal space. Patient also shows edema in tongue base and oropharynx at the right side that limits lumen. No Adenoids signs of previous adenoidectomy Shaw Maneuver:III Lingual tonsils grade:II Vocal Fold Visualization:III Diagnose: LULU intolerant to PAP Neck edema post-status tumor dissection Nasal obstruction Plan: Patient might not be a good HNS candidate due to previous tumor and current significant neck edema. These anatomical findings might compromise the performance of upper airway stimulation. -Head and Neck CT scan due to previous tumor and progression of neck edema - Flonase for nasal obstruction - New home sleep test to quantify LULU severity and guide decision making process - It is explained to patient that if weight loss is achieved it can significantly improve LULU symptoms such as daytime sleepiness, irritability. There is also an overall improvement in cardiovascular and metabolic health. The loss of just 10-15% can reduce the severity of LULU by 50% in moderately obese patients. Patient is referred to Medical Weight Management program to help achieve and maintain weight loss success. documented in this encounter [facility] Work Phone: 10-27-2023 History of Present illness Narrative Images from the original note were not included. [facility] UROLOGY NEW PATIENT CLINIC NOTE UROL [facility] PATIENT: Grupo Jackson (57 year old) PCP: Nuno Lowe DO CHIEF COMPLAINT: BPH HISTORY OF PRESENT ILLNESS: Grupo Jackson is a 57 year old male, originally from [place], [place], who presents lower urinary tract symptoms of urgency. He has a known history of BPH. Has been on Flomax for several years through his PCP. Started on Finasteride about 6 months but not seeing much improvement. Most problematic is sensation of severe urgency and has occasional post-void dribbling INTERNATIONAL PROSTATE SYMPTOM SCORE (I-PSS) 1)INCOMPLETE EMPTYING Over the past month, how often have you had a sensation of not emptying your bladder completely after you finished urinating? SCORE: 1- Less than 1 time in 5 2)FREQUENCY Over the past month, how often have you had to urinate again less than two hours after you finished urinating? SCORE: 5- Almost always 3)INTERMITTENCY Over the past month, how often have you found you stopped and started again several times when you urinated? SCORE: 0- Not at all 4)URGENCY Over the past month, how often have you found it difficult to postpone urination? SCORE: 4- More than half the time 5)WEAK STREAM Over the past month, how often have you had a weak stream? SCORE: 0- Not at all 6)STRAINING Over the past month, how often have you had to push or strain to begin urination SCORE: 0- Not at all 7)NOCTURIA Over the past month, how many times did you most typically get up to urinate from the time you went to bed at night until the time you get up in the morning? SCORE:2 TOTAL I-PSS SCORE: 12 QUALITY OF LIFE DUE TO URINARY SYMPTOMS If you were to spend the rest of yur life with your urinary condition just the way it is now, how would you feel about that? 5- Unhappy LABS: PSA Screening (ng/mL) Date Value 10/17/2023 0.61 10/08/2022 1.49 04/17/2021 1.66 11/21/2020 1.33 04/03/2019 1.75 02/08/2018 0.97 No results found for: ISOPSA Creatinine Date Value Ref Range Status 10/17/2023 0.98 0.73 - 1.22 mg/dL Final 04/10/2023 0.95 0.73 - 1.22 mg/dL Final 10/08/2022 0.96 0.73 - 1.22 mg/dL Final 10/09/2021 0.98 0.73 - 1.22 mg/dL Final OFFICE DATA: POST-VOID RESIDUAL BLADDER VOLUME: 0 cc , emptied well URINE POC URINE POC GLUCOSE UA (POCT) Negative 10/27/2023 BILIRUBIN UA (POCT) Negative 10/27/2023 KETONE UA (POCT) Negative 10/27/2023 SPECIFIC GRAVITY UA (POCT) 1.025 10/27/2023 HEMOGLOBIN/BLOOD UA (POCT) Negative 10/27/2023 PH UA (POCT) 7.0 10/27/2023 PROTEIN UA (POCT) Negative 10/27/2023 UROBILINOGEN UA (POCT) 1.0 10/27/2023 NITRITE UA (POCT) Negative 10/27/2023 LEUKOCYTES UA (POCT) Negative 10/27/2023 COLOR UA (POCT) Yellow 10/27/2023 CLARITY UA (POCT) Clear 10/27/2023 IMAGING: none REVIEW OF SYSTEMS: Reviewed and otherwise non-contributory. HISTORY: PAST MEDICAL HISTORY Diagnosis Date Acquired hypothyroidism Acute diverticulitis 08/2022 BPH (benign prostatic hyperplasia) Essential hypertension Hyperlipidemia LULU on CPAP [facility] PAST SURGICAL HISTORY Procedure Laterality Date ANESTHESIA TOTAL HIP ARTHROPLASTY Left 05/04/2016 Dr. Manjeet Smith ANESTHESIA TOTAL HIP ARTHROPLASTY Right 05/31/2017 Dr. Manjeet Smith; dx: R hip avascular necrosis COLONOSCOPY Herman COLONOSCOPY 10/04/2021 benign hyperplastic polyps. repeat in 5 years based on family history of colon cancer LIGATE INTERNAL HEMORRHOIDS; SINGLE 2019, banding, internal hemorrhoids, Dr. Joaquin PAST SURGICAL HISTORY OF 2002 left thumb PAST SURGICAL HISTORY OF Right 08/08/2017 total parotidectomy; Dr. De Souza Social History Tobacco Use Smoking status: Every Day Packs/day: .3 Types: Cigarettes Start date: 09/11/1979 Smokeless tobacco: Never Vaping Use Vaping Use: Never used Substance Use Topics Alcohol use: Yes Comment: Occasional Drug use: No FAMILY HISTORY Problem Relation Age of Onset Cancer Mother Lung Diabetes Father Heart disease Father Valvular other (Other) Father 70 Dementia Alzheimer's Disease Sister 70 dementia MEDICATIONS: Current Outpatient Medications Medication Sig mupirocin (BACTROBAN) 2 % ointment Apply to affected area once daily. finasteride (PROSCAR) 5 mg tablet Take 1 tablet by mouth once daily. lisinopril (ZESTRIL) 10 mg tablet Take 1 tablet by mouth once daily. levothyroxine (SYNTHROID) 125 mcg tablet 2 tablets 3 day (Mon, Thurs, Sat) and 1 tablet 4 days a week. On an empty stomach. terbinafine HCl (LAMISIL) 250 mg tablet Take 1 tablet by mouth once daily. For toenails tamsulosin (FLOMAX) 0.4 mg Take 1 capsule by mouth once daily. For urination simvastatin (ZOCOR) 20 mg tablet Take 1 tablet by mouth daily at bedtime. meloxicam (MOBIC) 15 mg tablet Take 1 tablet by mouth once daily. With food. traZODone (DESYREL) 50 mg tablet Take 1-3 tablets by mouth daily at bedtime. meloxicam (MOBIC) 15 mg tablet Take 1 tablet by mouth once daily. For sciatica, With food. solifenacin (VESICARE) 5 mg tablet Take 1 tablet by mouth once daily. COMPOUNDED PRESCRIPTION Bipap pressure settings 17/11 with F&P nasal mask interface and heated humidity Dx: LULU on Bipap (Patient taking differently: Bipap pressure settings 17/11 with F&P nasal mask interface and heated humidity Dx: LULU on Bipap Not using daily) Current Facility-Administered Medications Medication Dose Route Frequency perflutren lipid microspheres 1.3 mL in NaCl (PF) 0.9% 10 mL injection (DEFINITY) INTRAVENOUS DIRECTED PRN sodium chloride 0.9 % (flush) 10 mL (BD POSIFLUSH) 10 mL INTRAVENOUS DIRECTED PRN PHYSICAL EXAMINATION: VITALS: Ht 172.7 cm (5' 8) Wt 102.1 kg (225 lb) BMI 34.21 kg/m GENERAL: alert, no distress, normal affect RESPIRATORY: normal effort ABDOMEN: soft, non-tender, small scar noted in the left lower abdomen due to skin graft surgery, according the patient GENITOURINARY: Inguinal: No lesions, adenopathy, or hernias Phallus: normal, circumcised, no lesions Meatus: orthotopic, patent, no discharge Scrotum: no lesions, normal rugae Testes: Descended, nontender, and no masses bilaterally L: nl R:nl Epididymides: L nl R nl Vas deferens: palpable bilaterally Varicocele: none ALEK reveals a normal-sized prostate without nodularity or tenderness, normal anal sphincter tone EXTREMITIES: warm, no dependent edema, no malformations SKIN: no abnormal bruising, no rashes, no cyanosis NEUROLOGIC: normal gait, good manual dexterity, no paralysis ASSESSMENT/PLAN: 1. Benign prostatic hyperplasia with lower urinary tract symptoms, symptom details unspecified - ICD9: 600.01, ICD10: N40.1 (primary diagnosis) - Prostate normal on exam. Symptoms seem to be more related to bladder overactivity then bladder outlet obstruction. Patient may remain on tamsulosin and finasteride as prescribed. - BLADDER SCAN 2. Overactive bladder - ICD9: 596.51, ICD10: N32.81 -Begin trial of Solifenacin 5 mg daily. Risks, benefits, and alternatives were discussed in detail. Side effects such as dry mouth and constipation also discussed in detail. 3. Prostate cancer screening - ICD9: V76.44, ICD10: Z12.5 -PSA is stable. Patient has had significant drop with his last value secondary to finasteride usage. Consultation requested by Nuno Lowe DO [address] [facility] [address] for an opinion regarding Grupo Jackson patient and my final recommendations will be communicated back to the requesting physician by way of shared Medical record or letter via [place] mail. Alexy Enriquez MD, MS Associate Staff [facility] [place] [facility] documented in this encounter [facility] 10-27-2023 Nurse Note Bladder scan obtained 0 ml of uirne documented in this encounter [facility] 10-23-2023 History of Present illness Narrative CC: Grupo Jackson is a 57 year old male who presents to the office for physical HPI: BPH, will be seeing Urologist upcoming, PSA is stable HPL, taking zocor, no SE with medication Cholesterol, Total Date Value Ref Range Status 10/17/2023 226 (H) <200 mg/dL Final Comment: <200 mg/dL, Desirable 200-239 mg/dL, Borderline high >239 mg/dL, High HDL Cholesterol Date Value Ref Range Status 10/17/2023 62 >39 mg/dL Final Comment: 40-59 mg/dL, Acceptable >59 mg/dL, High: Negative risk factor for coronary heart disease <40 mg/dL, Low: Positive risk factor for coronary heart disease LDL Cholesterol Date Value Ref Range Status 10/17/2023 114 (H) <100 mg/dL Final Comment: <100 mg/dL, Optimal 100-129 mg/dL, Near optimal/above optimal 130-159 mg/dL, Borderline high 160-189 mg/dL, High >189 mg/dL, Very high Secondary prevention optimal LDL Cholesterol levels are recommended to be < 70 mg/dL Triglyceride Date Value Ref Range Status 10/17/2023 250 (H) <150 mg/dL Final Comment: <150 mg/dL, Normal 150-199 mg/dL, Borderline high 200-499 mg/dL, High >499 mg/dL, Very high Glucose (mg/dL) Date Value 10/17/2023 104 10/09/2021 95 Potassium (mmol/L) Date Value 10/17/2023 4.3 10/09/2021 4.4 Sodium (mmol/L) Date Value 10/17/2023 138 10/09/2021 136 Chloride (mmol/L) Date Value 10/17/2023 100 10/09/2021 97 CO2 (mmol/L) Date Value 10/17/2023 26 10/09/2021 24 Creatinine (mg/dL) Date Value 10/17/2023 0.98 10/09/2021 0.98 BUN (mg/dL) Date Value 10/17/2023 15 10/09/2021 17 Anion Gap (mmol/L) Date Value 10/17/2023 12 10/09/2021 15 Calcium (mg/dL) Date Value 10/09/2021 9.9 Calcium, Total (mg/dL) Date Value 10/17/2023 9.7 Protein, Total (g/dL) Date Value 10/17/2023 7.2 10/09/2021 8.0 Albumin (g/dL) Date Value 10/17/2023 4.5 10/09/2021 5.0 Bilirubin, Total (mg/dL) Date Value 10/17/2023 0.6 10/09/2021 0.8 Alkaline Phosphatase (U/L) Date Value 10/17/2023 75 10/09/2021 77 AST (U/L) Date Value 10/17/2023 31 10/09/2021 17 ALT (U/L) Date Value 10/17/2023 37 10/09/2021 22 Hemoglobin (g/dL) Date Value 10/17/2023 16.1 10/09/2021 16.1 Hematocrit (%) Date Value 10/17/2023 46.8 10/09/2021 48.4 WBC (k/uL) Date Value 10/17/2023 8.26 10/09/2021 11.03 Tobacco use disorder, smoking about 1/4 ppd, knows need to quit smoking, no benefit with wellbutrin and chantix in the past. Hypothyroidism, taking synthroid as prescribed TSH Date Value Ref Range Status 10/17/2023 1.040 0.270 - 4.200 mIU/L Final HTN, controlled, taking lisinopril. Denies any CP or dyspnea or LH/Dizziness LULU, he is using PAP therapy, struggles with keeping his mask on correctly as well as the soreness that it causes his face. Interested in inspire surgical procedure if would qualify PAST MEDICAL HISTORY Diagnosis Date Acquired hypothyroidism Acute diverticulitis 08/2022 BPH (benign prostatic hyperplasia) Essential hypertension Hyperlipidemia LULU on CPAP [facility] PAST SURGICAL HISTORY Procedure Laterality Date ANESTHESIA TOTAL HIP ARTHROPLASTY Left 05/04/2016 Dr. Manjeet Smith ANESTHESIA TOTAL HIP ARTHROPLASTY Right 05/31/2017 Dr. Manjeet Smith; dx: R hip avascular necrosis COLONOSCOPY Herman COLONOSCOPY 10/04/2021 benign hyperplastic polyps. repeat in 5 years based on family history of colon cancer LIGATE INTERNAL HEMORRHOIDS; SINGLE 2019, banding, internal hemorrhoids, Dr. Joaquin PAST SURGICAL HISTORY OF 2001 left thumb PAST SURGICAL HISTORY OF Right 08/08/2017 total parotidectomy; Dr. De Souza Social History: Social History Tobacco Use Smoking status: Every Day Packs/day: .3 Types: Cigarettes Start date: 09/11/1979 Smokeless tobacco: Never Vaping Use Vaping Use: Never used Substance Use Topics Alcohol use: Yes Comment: Occasional Drug use: No FAMILY HISTORY Problem Relation Age of Onset Cancer Mother Lung Diabetes Father Heart disease Father Valvular other (Other) Father 70 Dementia Alzheimer's Disease Sister 70 dementia Current Outpatient prescriptions: finasteride (PROSCAR) 5 mg tablet^Take 1 tablet by mouth once daily.^Disp: 90 tablet^Rfl: 1 lisinopril (ZESTRIL) 10 mg tablet^Take 1 tablet by mouth once daily.^Disp: 90 tablet^Rfl: 3 levothyroxine (SYNTHROID) 125 mcg tablet^2 tablets 3 day (Mon, , Mon) and 1 tablet 4 days a week. On an empty stomach.^Disp: 126 tablet^Rfl: 3 terbinafine HCl (LAMISIL) 250 mg tablet^Take 1 tablet by mouth once daily. For toenails^Disp: 90 tablet^Rfl: 1 tamsulosin (FLOMAX) 0.4 mg^Take 1 capsule by mouth once daily. For urination^Disp: 90 capsule^Rfl: 3 simvastatin (ZOCOR) 20 mg tablet^Take 1 tablet by mouth daily at bedtime.^Disp: 90 tablet^Rfl: 3 meloxicam (MOBIC) 15 mg tablet^Take 1 tablet by mouth once daily. With food.^Disp: 90 tablet^Rfl: 1 traZODone (DESYREL) 50 mg tablet^Take 1-3 tablets by mouth daily at bedtime.^Disp: 90 tablet^Rfl: 3 meloxicam (MOBIC) 15 mg tablet^Take 1 tablet by mouth once daily. For sciatica, With food.^Disp: 30 tablet^Rfl: 2 mupirocin (BACTROBAN) 2 % ointment^Apply to affected area once daily.^Disp: 15 g^Rfl: 2 albuterol HFA (PROVENTIL HFA, VENTOLIN HFA) 90 mcg/actuation inhaler^Inhale 2 Puffs as instructed every 6 hours as needed for wheezing/shortness of breath.^Disp: 1 Each^Rfl: 0 (Patient not taking: Reported on 06/21/2023) COMPOUNDED PRESCRIPTION^Bipap pressure settings 28/07 with F&P nasal mask interface and heated humidity Dx: LULU on Bipap^Disp: 1 Device^Rfl: 0 (Patient taking differently: Bipap pressure settings 28/07 with F&P nasal mask interface and heated humidity Dx: LULU on Bipap Not using daily) Allergies: ALLERGIES No Known Allergies ROS: See HPI PE: 10/23/23 1445 BP: 120/76 Pulse: 80 Resp: 16 Temp: 36.4 C (97.6 F) TempSrc: Temporal Weight: 101.2 kg (223 lb) Height: 170 cm (5' 6.93) Gen: A&O, NAD, non-toxic appearing, Pleasant, cooperative HEENT: NT/AC, PERRLA, EOMs intact b/l, nares clear and patent b/l, pharynx without erythema, exudate or lesions. Uvula midline. EACs without erythema or debris. TMs pearly harrington with intact landmarks b/l. Neck: supple, No cervical LAD, no thyromegaly, no carotid bruits CV: RRR, normal S1 and S2, no murmurs, no gallops, no rubs, Pulses 2+ and symmetric in UE and LE b/l Lungs: normal respiratory effort, CTA b/l, no wheezing or rhonchi or rales Abd: soft, obese, NT, ND, +BS, no hepatosplenomegaly MS: arthritis changes of joints Neuro: CN II-XII intact b/l, strength 5/5 b/l UE and LE, DTRs 2/4 UE and LE, sensation intact. Skin: warm, dry, intact, No rashes or lesions on exposed skin. No edema, normal pulses ASSESSMENT/PLAN: 1. Well adult exam - ICD9: V70.0, ICD10: Z00.00 (primary diagnosis) - Counseled on healthy diet and regular exercise - Discussed need for and benefit of weight loss. BMI 35.00 kg/(m^2) 2. LULU on CPAP - ICD9: 327.23, ICD10: G47.33 Referral to ENT for surgical opinion - CONSULT TO ENT 3. Benign prostatic hyperplasia with lower urinary tract symptoms, symptom details unspecified - ICD9: 600.01, ICD10: N40.1 F/u with Urologist as scheduled. 4. Essential hypertension - ICD9: 401.9, ICD10: I10 - Controlled - Recommend home blood pressure monitoring, to bring results to next visit - Encouraged sodium restriction, DASH or Mediterranean diet - Recommend regular aerobic exercise - Discussed need for and benefit of weight loss. BMI 35.00 kg/(m^2) - Smoking cessation encouraged; discussed risks to health and quitting strategies. Patient is contemplative 5. Acquired hypothyroidism - ICD9: 244.9, ICD10: E03.9 - Instructed patient on importance of taking on an empty stomach either first thing in the morning or at bedtime. 6. Familial combined hyperlipidemia - ICD9: 272.2, ICD10: E78.49 Continue statin therapy, labs are stale. Nuno Lowe DO To ER if develops chest pain, shortness of breath, or severe worsening of symptoms. Discussed risks, benefits, alternatives, and potential side effects of medications. Patient expressed understanding and agreed with the plan. Nuno Lowe DO [address] [place] [address] documented in this encounter [facility] 10-23-2023 Instructions Nuno Lowe DO - 10/23/2023 3:24 PM EST Nicoderm patches Try - 1 800 QUIT NOW documented in this encounter [facility] 10-17-2023 Miscellaneous Notes Pharmacy verified in [facility] Patient has been identified by name and date of : Yes Patient aware RX will be sent to pharmacy. No need to notify patient. Pharmacy phones for refill(s): Requested Prescriptions Pending Prescriptions Disp Refills finasteride (PROSCAR) 5 mg tablet 90 tablet 1 Sig: Take 1 tablet by mouth once daily. Date of last office visit : 04/19/2023 Date of next office visit : 10/23/2023 Last 2 Encounter Wt Readings: Date: Wt: 09/06/2023 103.2 kg (227 lb 9.6 oz) 06/21/2023 103.4 kg (228 lb) Not applicable Please advise. Abi Ramirez documented in this encounter [facility] 07-04-2023 Miscellaneous Notes Form faxed on 06/28/23 This is not urgent or emergent and can be addressed by PCP or triad on their return. Type of form: Prescription for PAP Device and Supplies from [facility]. Received to [facility] Providers office to be completed due to pt wanting this and PCP being out of the office. Form received via fax When form is completed, Fax form to [phone] Form has been forwarded to Physician Desk: Dr. Wade [facility] Provider is to line out PCP's Name and NPI number and place his there instead before faxing back. Sneha Miller Ma documented in this encounter [facility] 06-28-2023 Miscellaneous Notes Spoke with patient and notified of Dr. Lock's message. Patient voiced understanding. Gutierrez Hall, RN Left message for Mr. Jackson to call [facility] for test results. [facility] phone number provided. Madai Cruz LPN ----- Message from Baljeet Lock MD sent at 06/27/2023 4:33 PM EDT ----- Can you please let Mr. Jackson know that his Echocardiogram revealed normal LV function and no significant valve disease. Thanks, Baljeet Lock MD documented in this encounter [facility] 06-21-2023 History of Present illness Narrative Cardiology consultation at the request of Nuno Lowe MD. A copy of this consultation note will be provided to the requesting physician by way of shared Medical record or letter to requesting physician via [place] mail. Chief Complaint: Patient presents with: Consult: Fat Pad History of Present Illness: Grupo Jackson is a 57 year old male with history of essential hypertension, obesity, sleep apnea on BiPAP, BPH, dyslipidemia, smoker was referred by his primary care physician for pericardial fat pad seen on a chest x-ray. Patient denies any chest pain. Does get short of breath on exertion occasionally. Denies any orthopnea PND leg edema palpitations lightheadedness or syncope. A few weeks back he had bronchitis type symptoms and he was coughing a lot which was causing him some chest discomfort when he was coughing. He had a chest x-ray done around that time which showed the fat pad around the heart which prompted the referral to see the graphic design professor today. PAST MEDICAL HISTORY Diagnosis Date Acquired hypothyroidism Acute diverticulitis 08/2022 BPH (benign prostatic hyperplasia) Essential hypertension Hyperlipidemia LULU on CPAP [facility] PAST SURGICAL HISTORY Procedure Laterality Date ANESTHESIA TOTAL HIP ARTHROPLASTY Left 05/04/2016 Dr. Manjeet Smith ANESTHESIA TOTAL HIP ARTHROPLASTY Right 05/31/2017 Dr. Manjeet Smith; dx: R hip avascular necrosis COLONOSCOPY Herman COLONOSCOPY 10/04/2021 benign hyperplastic polyps. repeat in 5 years based on family history of colon cancer LIGATE INTERNAL HEMORRHOIDS; SINGLE 2019, banding, internal hemorrhoids, Dr. Joaquin PAST SURGICAL HISTORY OF 2001 left thumb PAST SURGICAL HISTORY OF Right 08/08/2017 total parotidectomy; Dr. De Souza FAMILY HISTORY Problem Relation Age of Onset Cancer Mother Lung Diabetes Father Heart disease Father Valvular other (Other) Father 70 Dementia Alzheimer's Disease Sister 70 dementia Social History Tobacco Use Smoking status: Every Day Packs/day: .3 Types: Cigarettes Start date: 09/11/1979 Smokeless tobacco: Never Vaping Use Vaping Use: Never used Substance Use Topics Alcohol use: Yes Comment: Occasional Drug use: No Current Outpatient Medications Medication Sig albuterol HFA (PROVENTIL HFA, VENTOLIN HFA) 90 mcg/actuation inhaler Inhale 2 Puffs as instructed every 6 hours as needed for wheezing/shortness of breath. (Patient not taking: Reported on 06/21/2023) COMPOUNDED PRESCRIPTION Bipap pressure settings 28/07 with F&P nasal mask interface and heated humidity Dx: LULU on Bipap (Patient taking differently: Bipap pressure settings 17 with F&P nasal mask interface and heated humidity Dx: LULU on Bipap Not using daily) finasteride (PROSCAR) 5 mg tablet Take 1 tablet by mouth once daily. levothyroxine (SYNTHROID) 125 mcg tablet 2 tablets 3 day (Mon, , Mon) and 1 tablet 4 days a week. On an empty stomach. lisinopril (ZESTRIL) 10 mg tablet Take 1 tablet by mouth once daily. meloxicam (MOBIC) 15 mg tablet Take 1 tablet by mouth once daily. For sciatica, With food. meloxicam (MOBIC) 15 mg tablet Take 1 tablet by mouth once daily. With food. simvastatin (ZOCOR) 20 mg tablet Take 1 tablet by mouth daily at bedtime. tamsulosin (FLOMAX) 0.4 mg Take 1 capsule by mouth once daily. For urination terbinafine HCl (LAMISIL) 250 mg tablet Take 1 tablet by mouth once daily. For toenails traZODone (DESYREL) 50 mg tablet Take 1-3 tablets by mouth daily at bedtime. varenicline (CHANTIX CONTINUING MONTH BOX) 1 mg tablet Take 1 tablet by mouth twice daily. (Patient not taking: Reported on 05/10/2023) varenicline (CHANTIX STARTING MONTH BOX) 0.5 mg (11)- 1 mg (42) tablet Take 0.5 mg by mouth once daily on Days 1 through 3, THEN 0.5 mg twice daily on Days 4 through 7, THEN 1 mg twice daily on Day 8 and thereafter Current Facility-Administered Medications Medication Dose Route Frequency perflutren lipid microspheres 1.3 mL in NaCl (PF) 0.9% 10 mL injection (DEFINITY) INTRAVENOUS DIRECTED PRN sodium chloride 0.9 % (flush) 10 mL (BD POSIFLUSH) 10 mL INTRAVENOUS DIRECTED PRN ALLERGIES No Known Allergies Review of Systems: General: No weight loss, malaise, fevers, chills, or night sweats HEENT: Negative for epistaxis Neck: Negative for pain and significant neck swelling Respiratory: Negative for cough, shortness of breath at rest or on exertion, wheezing Cardiac: Negative history of chest pain on exertion, dyspnea on exertion, orthopnea, paroxysmal nocturnal dyspnea, lower extremity edema, presyncope, syncope, or palpitations Gastrointestinal: Negative history of abdominal pain, nausea, vomiting, constipation, diarrhea, melena, or hematochezia Urinary: Negative history of dysuria, hematuria, or frequency Peripheral vascular: No claudication Musculoskeletal: Negative for joint aches/pain, neck pain, or back pain Neurologic: Negative history of dizziness/lightheadedness, vertigo, numbness/tingling of hands or feet Hematologic: Negative for easy bruising or easy bleeding. Endocrine: Negative history of obesity Skin: Negative history of rash and itching Other: The rest of the review of systems is unremarkable and negative or non-contributory Physical Examination: BP 137/78 Pulse 88 Ht 172.7 cm (5' 8) Wt 103.4 kg (228 lb) SpO2 95% BMI 34.67 kg/m BMI 34.67 kg/(m^2) General appearance: Well appearing, alert, appears to be in no acute distress, cooperative Head: Normocephalic, atraumatic HEENT: Extraocular movements intact; mucous membranes moist; no JVD Lungs: Breath sounds equal. Clear to auscultation bilaterally, no rales, rhonchi, or wheezes Heart: RRR; normal S1/S2; no murmurs/gallops/rubs Abdomen: Abdomen soft, non-distended, non-tender. NABS Extremities: No cyanosis, clubbing or edema Skin: No rashes noted Neurologic: Grossly nonfocal Psych: Normal mood/affect Cardiac Testing and Procedures: Electrocardiogram: 06/21/2023: Normal sinus rhythm at 74 bpm. I have personally reviewed the Electrocardiogram. ASSESSMENT/PLAN: 1. Primary hypertension - ICD9: 401.9, ICD10: I10 (primary diagnosis) - Controlled - Continue current medications - Recommend home blood pressure monitoring, to bring results to next visit - Encouraged sodium restriction, DASH or Mediterranean diet - Recommend regular aerobic exercise 2. 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 Some of the implications of fat pad discussed with the patient. CAD risk factors are being aggressively optimized. 3. Smoker - ICD9: 305.1, ICD10: F17.200 - Cessation encouraged. - Physiologic and physical aspects of tobacco addiction as well as strategies for quitting were discussed. - Counseling was given focusing on the harmful effects of this addiction especially given the patient's medical condition(s) which will be worsened because of the chemicals in tobacco. Patient is motivated to quit. He said his insurance co-pay was not affordable for Chantix. I have told him to talk to his primary care doctor to inquire into nicotine gum or patch. 4. Dyslipidemia - ICD9: 272.4, ICD10: E78.5 - Controlled - Counseled on healthy diet and regular exercise His primary care physician increased his simvastatin dose to 20 mg daily after last lipid panel. 10-year ASCVD risk is 17%. I will repeat a fasting lipid panel in 3 months time and if persistently above goal can increase simvastatin dose further to 40 mg daily or switch to Lipitor. 5. MOORE (dyspnea on exertion) - ICD9: 786.09, ICD10: R06.09 Patient has at least a [id number] smoking history. He gets a little short of breath occasionally on exertion which she blames it on his smoking history. I have ordered an echocardiogram to evaluate biventricular function and pulmonary pressures. Clemente Hidalgo MD documented in this encounter [facility] 05-10-2023 History of Present illness Narrative Radiology Service Progress Note PATIENT NAME: Grupo Jackson DATE OF SERVICE: May 10, 2023 TIME: 8:00 AM PATIENT IDENTITY VERIFICATION COMPLETED USING TWO (2) IDENTIFIERS: Name and Date of confirmed by patient verbally. FALL SCREENING: Has the patient had 2 falls in the last year or 1 fall with injury or currently using an Ambulatory Assistive Device (Walker, Cane, Wheelchair, Crutches, etc.)? No PATIENT GENDER DATA: Male PATIENT RELEVANT IMPLANT DATA REVIEWED: Not Applicable RADIOLOGY DEPARTMENT: General X-ray: Exam(s) Completed: Chest X-Ray PERIPHERAL IV DATA: Not applicable SIGNED BY: RT Campos(R) May 10, 2023 8:00 AM documented in this encounter [facility] 05-10-2023 History of Present illness Narrative CC: Patient presents with: Cough: Cough and congestion x 10 days HPI: Grupo Jackson is a 57 year old male who presents to the office with complaint of chest congestion and cough, nonproductive for 10 days. Symptoms are worsening Associated symptoms includes cough. Denies fever, nausea, vomiting , and diarrhea. Treatments tried include nothing so far. with no relief of symptoms. Sick contacts: yes. History of asthma, frequent episodes of bronchitis, chronic bronchitis, bronchiectasis or COPD: No Smoker: No Seasonal/environmental allergies: No The ROS is otherwise negative. The patient's pmh, medications, allergies, and past visits are reviewed. PHYSICAL EXAM: BP 128/72 Pulse 73 Temp 36.8 C (98.3 F) (Tympanic) Resp 16 Wt 102.4 kg (225 lb 12.8 oz) SpO2 95% BMI 34.33 kg/m General appearance: alert, cooperative, pleasant, in no acute distress Head: Normocephalic Eyes: EOM's intact, conjunctiva pink and moist, no icterus, sclera white, non-injected Ears: Right ear: External ear/canal- Normal, TM - clear with good landmarks. Left ear: External ear/canal- Normal, TM - clear with good landmarks Oropharynx:moist without lesions, No erythema, exudates or tonsillar hypertrophy. Heart: Negative. RRR without obvious murmur, gallop, or rubs. No ectopy. Lungs: clear to auscultation, without rales or wheeze, good air exchange PAST MEDICAL HISTORY Diagnosis Date Acquired hypothyroidism Acute diverticulitis 08/2022 BPH (benign prostatic hyperplasia) Essential hypertension Hyperlipidemia LULU on CPAP [facility] PAST SURGICAL HISTORY Procedure Laterality Date ANESTHESIA TOTAL HIP ARTHROPLASTY Left 05/04/2016 Dr. Manjeet Smith ANESTHESIA TOTAL HIP ARTHROPLASTY Right 05/31/2017 Dr. Manjeet Smith; dx: R hip avascular necrosis COLONOSCOPY Herman COLONOSCOPY 10/04/2021 benign hyperplastic polyps. repeat in 5 years based on family history of colon cancer LIGATE INTERNAL HEMORRHOIDS; SINGLE 2019, banding, internal hemorrhoids, Dr. Joaquin PAST SURGICAL HISTORY OF 2002 left thumb PAST SURGICAL HISTORY OF Right 08/08/2017 total parotidectomy; Dr. De Souza ALLERGIES Patient has no known allergies. MEDICATIONS simvastatin (ZOCOR) 20 mg tablet Take 1 tablet by mouth daily at bedtime. finasteride (PROSCAR) 5 mg tablet Take 1 tablet by mouth once daily. terbinafine HCl (LAMISIL) 250 mg tablet Take 1 tablet by mouth once daily. For toenails tamsulosin (FLOMAX) 0.4 mg Take 1 capsule by mouth once daily. For urination meloxicam (MOBIC) 15 mg tablet Take 1 tablet by mouth once daily. With food. traZODone (DESYREL) 50 mg tablet Take 1-3 tablets by mouth daily at bedtime. lisinopril (ZESTRIL) 10 mg tablet Take 1 tablet by mouth once daily. levothyroxine (SYNTHROID) 125 mcg tablet 2 tablets 3 day (Mon, Th, Sat) and 1 tablet 4 days a week. On an empty stomach. meloxicam (MOBIC) 15 mg tablet Take 1 tablet by mouth once daily. For sciatica, With food. COMPOUNDED PRESCRIPTION Bipap pressure settings 17/11 with F&P nasal mask interface and heated humidity Dx: LULU on Bipap (Patient taking differently: Bipap pressure settings 17/11 with F&P nasal mask interface and heated humidity Dx: LULU on Bipap Not using daily) varenicline (CHANTIX STARTING MONTH BOX) 0.5 mg (11)- 1 mg (42) tablet Take 0.5 mg by mouth once daily on Days 1 through 3, THEN 0.5 mg twice daily on Days 4 through 7, THEN 1 mg twice daily on Day 8 and thereafter (Patient not taking: Reported on 05/10/2023) varenicline (CHANTIX CONTINUING MONTH BOX) 1 mg tablet Take 1 tablet by mouth twice daily. (Patient not taking: Reported on 05/10/2023) FAMILY HISTORY Problem Relation Age of Onset Cancer Mother Lung Diabetes Father Heart disease Father Valvular other (Other) Father 70 Dementia Alzheimer's Disease Sister 70 dementia Social History Tobacco Use Smoking status: Every Day Packs/day: .3 Types: Cigarettes Start date: 09/11/1979 Smokeless tobacco: Never Vaping Use Vaping Use: Never used Substance Use Topics Alcohol use: Yes Comment: Occasional Drug use: No ASSESSMENT/PLAN: 1. Acute cough - ICD9: 786.2, ICD10: R05.1 (primary diagnosis) - XR CHEST 2V FRONTAL/LAT * * * * Physician Interpretation * * * * EXAMINATION: CHEST RADIOGRAPH (2 VIEW FRONTAL & LATERAL) CLINICAL HISTORY: Acute cough MQ: [id number] EXAM DATE/TIME: 05/10/2023 8:08 AM COMPARISON: Chest x-ray on 11/03/2017 RESULT: Lines, tubes, and devices: None. Lungs and pleura: No consolidation. No lung mass. No pleural effusion. No pneumothorax. Left-sided large pericardial fat pad is noted. Cardiomediastinal silhouette: Stable cardiomediastinal silhouette. Bones and soft tissues: There are degenerative changes in the spine. IMPRESSION IMPRESSION: Stable exam without acute findings. Skin Therapist: ОЛЬГА Transcribe Date/Time: May 10 2023 8:21A Dictated by : ATIYA ALEGRE MD - PREDNISONE 20 MG TABLET - ALBUTEROL SULFATE HFA 90 MCG/ACTUATION AEROSOL INHALER 2. Rhinosinusitis - ICD9: 473.9, ICD10: J31.0, J32.9 - AMOXICILLIN 875 MG-POTASSIUM CLAVULANATE 125 MG TABLET We will follow-up with cardiology. Prescription instructions reviewed with patient as applicable. Potential red flag symptoms discussed with the patient. Reviewed appropriate action plan to take if red flag symptoms occur. Patient agreeable to treatment plan. Chiqui Mejia APRN.SEMICONDUCTOR MANUFACTURING TECHNICIAN documented in this encounter [facility] 04-19-2023 History of Present illness Narrative CC: Grupo Jackson is a 57 year old male who presents to the office for follow up HPI: Hx of BPH, has been on flomax and recently started on Terazosin without improvement in symptoms. Interested in trial of another medication, no SE with medication. Trouble with urinary urgency and frequency at times as well as nocturia. PSA Screening (ng/mL) Date Value 10/08/2022 1.49 04/17/2021 1.66 11/21/2020 1.33 04/03/2019 1.75 02/08/2018 0.97 HTN, well controlled, taking lisinopril medication, no CP or dyspnea or dizziness/LH or edema legs. HPL, taking zocor, no SE with medication Cholesterol, Total Date Value Ref Range Status 04/10/2023 214 (H) <200 mg/dL Final Comment: <200 mg/dL, Desirable 200-239 mg/dL, Borderline high >239 mg/dL, High HDL Cholesterol Date Value Ref Range Status 04/10/2023 49 >39 mg/dL Final Comment: 40-59 mg/dL, Acceptable >59 mg/dL, High: Negative risk factor for coronary heart disease <40 mg/dL, Low: Positive risk factor for coronary heart disease LDL Cholesterol Date Value Ref Range Status 04/10/2023 121 (H) <100 mg/dL Final Comment: <100 mg/dL, Optimal 100-129 mg/dL, Near optimal/above optimal 130-159 mg/dL, Borderline high 160-189 mg/dL, High >189 mg/dL, Very high Secondary prevention optimal LDL Cholesterol levels are recommended to be < 70 mg/dL Triglyceride Date Value Ref Range Status 04/10/2023 222 (H) <150 mg/dL Final Comment: <150 mg/dL, Normal 150-199 mg/dL, Borderline high 200-499 mg/dL, High >499 mg/dL, Very high Glucose (mg/dL) Date Value 04/10/2023 93 10/09/2021 95 Potassium (mmol/L) Date Value 04/10/2023 4.2 10/09/2021 4.4 Sodium (mmol/L) Date Value 04/10/2023 138 10/09/2021 136 Chloride (mmol/L) Date Value 04/10/2023 99 10/09/2021 97 CO2 (mmol/L) Date Value 04/10/2023 26 10/09/2021 24 Creatinine (mg/dL) Date Value 04/10/2023 0.95 10/09/2021 0.98 BUN (mg/dL) Date Value 04/10/2023 14 10/09/2021 17 Anion Gap (mmol/L) Date Value 04/10/2023 13 10/09/2021 15 Calcium (mg/dL) Date Value 10/09/2021 9.9 Calcium, Total (mg/dL) Date Value 04/10/2023 9.9 Protein, Total (g/dL) Date Value 04/10/2023 7.4 10/09/2021 8.0 Albumin (g/dL) Date Value 04/10/2023 4.4 10/09/2021 5.0 Bilirubin, Total (mg/dL) Date Value 04/10/2023 0.4 10/09/2021 0.8 Alkaline Phosphatase (U/L) Date Value 04/10/2023 78 10/09/2021 77 AST (U/L) Date Value 04/10/2023 33 10/09/2021 17 ALT (U/L) Date Value 04/10/2023 31 10/09/2021 22 Hemoglobin (g/dL) Date Value 10/08/2022 15.7 10/09/2021 16.1 Hematocrit (%) Date Value 10/08/2022 45.7 10/09/2021 48.4 WBC (k/uL) Date Value 10/08/2022 7.02 10/09/2021 11.03 Hemoglobin A1C Date Value Ref Range Status 04/10/2023 5.3 4.3 - 5.6 % Final Comment: [place] [employer] guidelines indicate that patients with HgbA1c in the range 5.7-6.4% are at increased risk for development of diabetes, and intervention by lifestyle modification may be beneficial. HgbA1c greater or equal to 6.5% is considered diagnostic of diabetes. 10/09/2021 5.2 4.3 - 5.6 % Final Comment: [place] [employer] guidelines indicate that patients with HgbA1c in the range 5.7-6.4% are at increased risk for development of diabetes, and intervention by lifestyle modification may be beneficial. HgbA1c greater or equal to 6.5% is considered diagnostic of diabetes. 04/17/2021 5.4 4.3 - 5.6 % Final Comment: [place] [employer] guidelines indicate that patients with HgbA1c in the range 5.7-6.4% are at increased risk for development of diabetes, and intervention by lifestyle modification may be beneficial. HgbA1c greater or equal to 6.5% is considered diagnostic of diabetes. 01/02/2019 5.2 4.3 - 5.6 % Final Comment: [place] [employer] guidelines indicate that patients with HgbA1c in the range 5.7-6.4% are at increased risk for development of diabetes, and intervention by lifestyle modification may be beneficial. HgbA1c greater or equal to 6.5% is considered diagnostic of diabetes. 06/23/2017 5.6 4.3 - 5.6 % Final Hypothyroidism, taking levothyroxine TSH Date Value Ref Range Status 10/08/2022 0.271 0.270 - 4.200 mIU/L Final Toenail yellowing and thickening, soreness around nail, difficulty with cutting toenails, would like medication to try Tobacco use, interested in seeing if able to restart chantix, did well with this in the past to help him quit smoking. PAST MEDICAL HISTORY Diagnosis Date Acquired hypothyroidism Acute diverticulitis 08/2022 BPH (benign prostatic hyperplasia) Essential hypertension Hyperlipidemia LULU on CPAP [facility] PAST SURGICAL HISTORY Procedure Laterality Date ANESTHESIA TOTAL HIP ARTHROPLASTY Left 05/04/2016 Dr. Manjeet Smith ANESTHESIA TOTAL HIP ARTHROPLASTY Right 05/31/2017 Dr. Manjeet Smith; dx: R hip avascular necrosis COLONOSCOPY Herman COLONOSCOPY 10/04/2021 benign hyperplastic polyps. repeat in 5 years based on family history of colon cancer LIGATE INTERNAL HEMORRHOIDS; SINGLE 2019, banding, internal hemorrhoids, Dr. Joaquin PAST SURGICAL HISTORY OF 2002 left thumb PAST SURGICAL HISTORY OF Right 08/08/2017 total parotidectomy; Dr. De Souza Current Outpatient Medications Medication Sig meloxicam (MOBIC) 15 mg tablet Take 1 tablet by mouth once daily. With food. traZODone (DESYREL) 50 mg tablet Take 1-3 tablets by mouth daily at bedtime. terazosin (HYTRIN) 2 mg capsule Take 1 capsule by mouth daily at bedtime. For prostate lisinopril (ZESTRIL) 10 mg tablet Take 1 tablet by mouth once daily. levothyroxine (SYNTHROID) 125 mcg tablet 2 tablets 3 day (Mon, Th, Sat) and 1 tablet 4 days a week. On an empty stomach. meloxicam (MOBIC) 15 mg tablet Take 1 tablet by mouth once daily. For sciatica, With food. simvastatin (ZOCOR) 20 mg tablet Take 1 tablet by mouth daily at bedtime. finasteride (PROSCAR) 5 mg tablet Take 1 tablet by mouth once daily. varenicline (CHANTIX STARTING MONTH BOX) 0.5 mg (11)- 1 mg (42) tablet Take 0.5 mg by mouth once daily on Days 1 through 3, THEN 0.5 mg twice daily on Days 4 through 7, THEN 1 mg twice daily on Day 8 and thereafter varenicline (CHANTIX CONTINUING MONTH BOX) 1 mg tablet Take 1 tablet by mouth twice daily. terbinafine HCl (LAMISIL) 250 mg tablet Take 1 tablet by mouth once daily. For toenails tamsulosin (FLOMAX) 0.4 mg Take 1 capsule by mouth once daily. For urination HYDROcodone-acetaminophen (NORCO) 5-325 mg per tablet TAKE 1 TABLET BY MOUTH EVERY 6 HOURS NEEDED FOR PAIN FOR 3 DAYS ondansetron orally disintegrating (ZOFRAN ODT) 4 mg disintegrating tablet Take by mouth. buPROPion XL (WELLBUTRIN XL) 150 mg 24 hr tablet Take 1 tablet by mouth once daily. (Patient not taking: Reported on 09/16/2022) COMPOUNDED PRESCRIPTION Bipap pressure settings 17/11 with F&P nasal mask interface and heated humidity Dx: LULU on Bipap (Patient taking differently: Bipap pressure settings 17/ with F&P nasal mask interface and heated humidity Dx: LULU on Bipap Not using daily) No current facility-administered medications for this visit. ALLERGIES No Known Allergies Social History Tobacco Use Smoking status: Every Day Packs/day: 0.30 Types: Cigarettes Start date: 09/11/1979 Smokeless tobacco: Never Vaping Use Vaping Use: Never used Substance Use Topics Alcohol use: Yes Comment: Occasional Drug use: No ROS: See HPI PE: BP 120/70 Pulse 76 Temp (Src) 97.8 (Left Tympanic) Resp 16 Wt 221 lb (100.2kg) Gen: A&OX3, NAD, non-toxic appearing HEENT: PERRLA, EOMs intact b/l, nares without drainage, pharynx without erythema, exudate, lesions, or drainage. Uvula midline. Neck: No LAD, no thyromegaly, no meningismus. CV: RRR, no murmur Lungs: CTA b/l, no wheezing Skin: No rashes, lesions, or wounds on exposed skin. Central obesity Onychomycosis changes b/l feet of toenails diffusely with thickening and yellowing ASSESSMENT/PLAN: 1. Benign prostatic hyperplasia with lower urinary tract symptoms, symptom details unspecified - ICD9: 600.01, ICD10: N40.1 (primary diagnosis) Trial of proscar, need for urologist follow up / opinion and further testing. PSA has been normal. - CONSULT TO UROLOGY - FINASTERIDE 5 MG TABLET - FINASTERIDE 5 MG TABLET - PSA/PROSTSPECAG SCRN 2. Familial combined hyperlipidemia - ICD9: 272.2, ICD10: E78.49 - increase dose of statin as below, recheck labs in 6 months. - SIMVASTATIN 20 MG TABLET - COMP METABOLIC PANEL - CBC - LIPID PANEL BASIC 3. Screening for prostate cancer - ICD9: V76.44, ICD10: Z12.5 - Counseled on healthy diet and regular exercise - Discussed need for and benefit of weight loss. BMI 33.60 kg/(m^2) - PSA/PROSTSPECAG SCRN 4. Acquired hypothyroidism - ICD9: 244.9, ICD10: E03.9 - Instructed patient on importance of taking on an empty stomach either first thing in the morning or at bedtime. Stable - Behavioral intervention and - Continue current medications - TSH BLD - T4 FREE/FREE THYROX - T3 FREE BLD 5. Onychomycosis - ICD9: 110.1, ICD10: B35.1 Offered tester regulator referral and other testing, appears to be fungal in nature, trial of medication below. His LFts are normal - TERBINAFINE HCL 250 MG TABLET Nuno Lowe DO Return if no improvement. Follow up with Nuno Lowe DO. To ER if develops chest pain, shortness of breath. Discussed risks, benefits, alternatives, and potential side effects of medications. Patient/Guardian expressed understanding and agreed with the plan. See patient instructions. Nuno Lowe DO [address] [place] [address] documented in this encounter [facility] 04-19-2023 Miscellaneous Notes Patient's calls and states that patient had appointment today and couldn't remember everything from appointment. had noticed that Terazosin was crossed out by Dr. Lowe. checking to make sure that patient is not to take this medication anymore. states that [facility] pharmacy does not have refills for Tamsulosin. Medication never was transferred from previous pharmacy. asking if prescription can be sent to [facility]? Please review and advise, Danni Allison RN documented in this encounter [facility] 04-19-2023 Instructions Nuno Lowe DO - 04/19/2023 8:52 AM EDT Urologist- Gregg documented in this encounter [facility] 01-07-2023 Discharge summary Note Date/Time January 07, 2023 4:12pm [facility] Medical Records Department [address] [place] [address] Emergency Department Summary 01/07/23 MR#: [id number] Acct: [id number] Name: BOYD JACKSON Rep #:[id number] : 1965 57 From: Pantera Ji MD PCP: Dr. Nuno Lowe DO Status:RE G ER Location: ED HPI History of Present Illness Chief Complaint: Wound Check Informant: patient and spouse/S.O. Narrative Narrative: Patient presents with 2 days of penile and scrotal redness/swelling. It is all itchy. It is sore where the swelling is around the thurman of the glans and baseof the penis there just proximal to that, that is where the swelling is the worst. He saw urgent care and was prescribed clotrimazole, he has been using that for 1 day, and he states they prescribed him a antimicrobial topical to use if the first 1 does not work and diagnosed him with balanitis. He had regular vaginal intercourse with his significant other the night before this started. They have been for a long time and they are both monogamous with each other, with no history of STDs. She has used no agents in her vulva or vagina recently that she can think of, and she has had no discharge or infection. The patient presents here now saying that the swelling is more prominent, and in addition he has 2 patches of pruritic redness on his face thatwere not there yesterday. He states he spread the antibiotic cream on the patches on his face and came here. No fevers or chills, no systemic symptoms, no trouble urinating. He is not a diabetic. [facility] Medical History HTN (hypertension) Urinary bladder disorder Home Medications lisinopril 10 mg tablet 10 mg PO DAILY 05/24/15 [History Last Taken 08/08/17 05:00] simvastatin 40 mg tablet 40 mg PO QHS 05/24/15 [History Last Taken Unknown] Levothyroxine Sodium 112 mcg PO DAILY 05/17/17 [History Last Taken 05/31/17 06:15] cholecalciferol (vitamin D3) 50 mcg (2,000 unit) capsule (Vitamin D3) 4,000 unitPO DAILY 08/02/17 [History Last Taken Unknown] magnesium oxide 500 mg capsule 500 mg PO DAILY 08/02/17 [History Last Taken Unknown] fluconazole 150 mg tablet 150 mg PO DAILY #1 TAB 01/07/23 [Rx Last Taken Unknown] prednisone 20 mg tablet 40 mg PO DAILY #10 TABLETS 01/07/23 [Rx Last Taken Unknown] Allergy/AdvReac Type Severity Reaction Status Date / Time No Known Allergies Allergy Verified 01/07/23 15:44 Social History Smoking Status: Current every day smoker tobacco type: cigarettes ROS ROS ED Constitutional Constitutional ED: Reports chills and fever(s) Eyes Eyes: Denies blurry vision or change in vision Cardiovascular Cardiovascular: Denies chest pain or palpitations Respiratory/Chest Respiratory/Chest: Denies cough or dyspnea Gastrointestinal Gastrointestinal: Denies abdominal pain, diarrhea, melena, nausea or vomiting Genitourinary Genitourinary ED: Reports as per HPI; Denies dysuria or hematuria Musculoskeletal Musculoskeletal: Denies back pain, myalgias or neck pain Integumentary Denies abscess or rash Neurologic Neurologic: Denies headache(s), paresthesias or weakness EXAM Physical Exam Const Vital Signs: 01/07/23 15:42 Temperature 97.1 F L Temperature Source Temporal Pulse Rate 89 Respiratory Rate 16 Blood Pressure 157/90 H Blood Pressure Mean 112 Pulse Ox 98 Oxygen Delivery Method Room Air Positive well nourished and well developed General Appearance ED: well developed Eyes PERRL and EOMs intact bilaterally Resp normal respiratory effort GI normal to inspection, nondistended, normoactive bowel sounds, non-tender and non-distended Narrative: Mild diffuse swelling of the entire scrotum and penile shaft and erythema/hyperemia, the most edematous area is in a ring at the shaft of the penis just proximal to the hturman radiata, and this area is mildly tender. There is no abscess. The erythema extends proximally onto the mons pubis, as well as into the groin bilaterally, with fairly well-circumscribed edges in these areas at the edges are a little more hyperemic, there is no discharge, andthere is no tenderness in the groins or the mons. There is no tenderness in thescrotum, testicles, or in the perineum, nor is there any subcutaneous emphysema. No palpable hernias examined while standing. Back/Spine no CVA tenderness Back/Spine Narrative: F ROM Neuro oriented x3, CN's II-XII intact bilaterally and no sensory deficits noted Motor Exam: strength 5/5 throughout Psych mental status grossly normal Skin Skin Narrative: There are 2 nontender patches of erythema on his face, 1 on his left cheek and 1at the angle of his right jaw, they are not well-circumscribed, they are slightly raised, and not fluctuant with no other rashes except for the exam see above. MDM MDM MDM Narrative Medical decision making narrative: The areas of erythema on the groin bilaterally and the mons pubis are consistentwith tinea. It is unknown if this started on the glans or not, the patient states he noticed his penis and scrotum involved simultaneously when he first noticed this, I think it is probably all fungal and I agree with the topical clotrimazole. There is no way to know why he has 2 patches of itchy redness on his face and nowhere else. He does not have any systemic symptoms and his vitalsigns are unremarkable, a little hypertensive, but he is anxious as is his spouse understandably. I think putting him on prednisone may help with the symptoms, possibly the swelling. I am also prescribing him a clotrimazole. I do not think this is an acute bacterial infection, but we discussed the signs and symptoms of that, and if he gets worse on the prednisone to return to the ERimmediately and discontinue it. Otherwise I would follow-up with urology if it does not resolve. Certainly some type of contact dermatitis is in the differential as well. I do not think he needs ancillary testing emergently at this time and this does not look like Dalton's gangrene. Discharge Plan Triage Chief Complaint: Wound Check ED Provider: Pantera Ji Dx/Rx/DC Orders Clinical Impression: Tinea of scrotum Instructions: ED Fungal Skin Infection (Tinea), ED Tinea Cruris, Jock Itch Prescriptions: New fluconazole 150 mg tablet 150 mg PO DAILY Qty: 1 0RF Rx Instructions: 1 tab po once prednisone 20 mg tablet 40 mg PO DAILY Qty: 10 0RF No Action simvastatin 40 MG tablet 40 mg PO QHS lisinopril 10 MG tablet 10 mg PO DAILY Levothyroxine Sodium 112 MCG tablet 112 mcg PO DAILY magnesium oxide 500 MG capsule 500 mg PO DAILY cholecalciferol (vitamin D3) [Vitamin D3] 2,000 UNIT capsule 4,000 unit PO DAILY Primary Care Provider: Nuno Lowe Referrals: Nuno Lowe DO [Primary Care Provider] - Goyo Cisneros MD [Med Staff - Active Staff] - 1 Week if not improving Activity Restrictions/Additional Instructions: Take the fluconazole when you get it. You already had a dose of prednisone for today 01/07, so start that prescription tomorrow. Continue the clotrimazole topically 2-3 times daily. Disposition Disposition: Home, Self Care What to do if you have Problems For any increased pain, shortness of breath, bleeding, nausea or vomiting, chestpain, or any unexpected problems, contact your Primary Care Provider. Call [facility] ([phone]) or report to the closest Emergency Room. Call 911 if necessary. 01/07/23 1621 <Electronically signed by Pantera Ji MD> Cosigner Signature (if applicable): CC: Dr. uNno Lowe DO ~ Signed [facility] Work Phone: [phone] 365-731304-29-2023 Hospital Discharge instructions Additional Instructions Take the fluconazole when you get it. You already had a dose of prednisone for today 01/07, so start that prescription tomorrow. Continue the clotrimazole topically 2-3 times daily. [facility] Work Phone: 1(584) 397-990402-09-2023 Miscellaneous Notes* Telephone Encounter - Lorrie Hardy - 10/20/2022 10:46 AM EST Spoke with Pt. He stated he will have his call back to schedule his 6 month physical. Debbie Andrew * Telephone Encounter - Nuno Lowe DO - 10/20/2022 9:11 AM EST Please make sure patient is scheduled for 6 month physical in April Nuno Lowe DO documented in this encounterBlanch[facility] History of Present illness Narrative* Nuno Lowe DO - 10/20/2022 9:11 AM EST CC: Grupo Jackson is a 56 year old male who presents to the office for follow up HPI: Hypothyroidism, taking his levothyroxine, no concerns TSH Date Value Ref Range Status 10/08/2022 0.271 0.270 - 4.200 mIU/L Final Free T4 Date Value Ref Range Status 10/08/2022 1.3 0.9 - 1.7 ng/dL Final HTN, well controlled, taking his medications as prescribed. No CP or dyspnea or dizziness/LH or edema LULU, using CPAP HPL, admits that he is eating more carbohydrates recently due to recent acute diverticulitis episode BPH with LUTS, taking Flomax, still struggling with urinary urgency and frequency symptoms PAST MEDICAL HISTORY Diagnosis Date Acquired hypothyroidism Essential hypertension Hyperlipidemia LULU on CPAP [facility] PAST SURGICAL HISTORY Procedure Laterality Date ANESTHESIA TOTAL HIP ARTHROPLASTY Left 05/04/2016 Dr. Manjeet Smith ANESTHESIA TOTAL HIP ARTHROPLASTY Right 05/31/2017 Dr. Manjeet Smith; dx: R hip avascular necrosis COLONOSCOPY Herman COLONOSCOPY 10/04/2021 benign hyperplastic polyps. repeat in 5 years based on family history of colon cancer LIGATE INTERNAL HEMORRHOIDS; SINGLE 2019, banding, internal hemorrhoids, Dr. Joaquin PAST SURGICAL HISTORY OF 2002 left thumb PAST SURGICAL HISTORY OF Right 08/08/2017 total parotidectomy; Dr. De Souza Current Outpatient Medications Medication Sig amoxicillin-clavulanic acid (AUGMENTIN) 875-125 mg per tablet Take 1 tablet by mouth twice daily for 10 days. lisinopril (ZESTRIL) 10 mg tablet Take 1 tablet by mouth once daily. levothyroxine (SYNTHROID) 125 mcg tablet 2 tablets 3 day (Mon, Thurs, Sat) and 1 tablet 4 days a week. On an empty stomach. simvastatin (ZOCOR) 10 mg tablet Take 1 tablet by mouth daily at bedtime. ondansetron orally disintegrating (ZOFRAN ODT) 4 mg disintegrating tablet Take by mouth. meloxicam (MOBIC) 15 mg tablet Take 1 tablet by mouth once daily. For sciatica, With food. meloxicam (MOBIC) 15 mg tablet Take 1 tablet by mouth once daily. With food. traZODone (DESYREL) 50 mg tablet Take 1-3 tablets by mouth daily at bedtime. terazosin (HYTRIN) 2 mg capsule Take 1 capsule by mouth daily at bedtime. For prostate tamsulosin (FLOMAX) 0.4 mg Take 1 capsule by mouth once daily. For urination HYDROcodone-acetaminophen (NORCO) 5-325 mg per tablet TAKE 1 TABLET BY MOUTH EVERY 6 HOURS NEEDED FOR PAIN FOR 3 DAYS buPROPion XL (WELLBUTRIN XL) 150 mg 24 hr tablet Take 1 tablet by mouth once daily. (Patient not taking: Reported on 09/16/2022) COMPOUNDED PRESCRIPTION Bipap pressure settings 17/11 with F&P nasal mask interface and heated humidity Dx: LULU on Bipap (Patient taking differently: Bipap pressure settings 17/11 with F&P nasal maskinterface and heated humidity Dx: LULU on Bipap Not using daily) No current facility-administered medications for this visit. ALLERGIES No Known Allergies Social History Tobacco Use Smoking status: Every Day Packs/day: 0.30 Types: Cigarettes Start date: 09/11/1979 Smokeless tobacco: Never Vaping Use Vaping Use: Never used Substance Use Topics Alcohol use: Yes Comment: Occasional Drug use: No ROS: See HPI PE: BP 130/70 Pulse 80 Temp (Src) 98.1 (Left Tympanic) Resp 16 Wt 216 lb (98.0kg) Gen: A&OX3, NAD, non-toxic appearing HEENT: PERRLA, EOMs intact b/l, nares without drainage, pharynx without erythema, exudate, lesions,or drainage. Uvula midline. Neck: No LAD, no thyromegaly, no meningismus. CV: RRR, no murmur Lungs: CTA b/l, no wheezing Skin: No rashes, lesions, or wounds on exposed skin. No edema, normal pulses ASSESSMENT/PLAN: 1. Acquired hypothyroidism - ICD9: 244.9, ICD10: E03.9 (primary diagnosis) - Instructed patient on importance of taking on an empty stomach either first thing in the morning or at bedtime. Stable - Behavioral intervention, - Eat well program, and - Continue current medications 2. Chronic insomnia - ICD9: 780.52, ICD10: F51.04 rx refilled, stable - TRAZODONE 50 MG TABLET 3. Essential hypertension - ICD9: 401.9, ICD10: I10 - good control - Continue current medication(s) - Encouraged dietary sodium restriction/DASH diet - Recommended regular aerobic exercise. - Recommend home blood pressure monitoring, to bring results in on next visit - Discussed need and benefit for weight loss. - Goal of BP <130/80 4. Familial combined hyperlipidemia - ICD9: 272.2, ICD10: E78.49 Recheck labs in 6 months, may need to add on Zetia or increase statin if triglycerides remain elevated, he is aware - HGB A1C - LIPID PANEL BASIC - COMP METABOLIC PANEL 5. LULU on CPAP - ICD9: 327.23, V46.8, ICD10: G47.33, Z99.89 Continue CPAP 6. Benign prostatic hyperplasia with lower urinary tract symptoms, symptom details unspecified - ICD9: 600.01, ICD10: N40.1 - add on Terazosin, if symptoms are better controlled then ok to titrate up dose and stop the flomax - TERAZOSIN 2 MG CAPSULE - TAMSULOSIN 0.4 MG CAPSULE Nuno Lowe DO Return if no improvement. Follow up with Nuno Lowe DO. To ER if develops chest pain, shortness of breath Discussed risks, benefits, alternatives, and potential side effects of medications. Patient/Guardian expressed understanding and agreed with the plan. See patient instructions. Nuno Lowe DO [address] [place] [address] documented in this encounterBlanch[facility] Instructions* Patient Instructions* Nuno Lowe DO - 10/19/2022 4:57 PM EST Refrigerated probiotic in the evening, do not with food Option PB8 [facility]. Florastor Or Floragen ([facility]) documented in this encounterBlanchard Valley [facility]01-10-[facility]23 Miscellaneous Notes* Telephone Encounter - Carolann Ferrermehrdad FERRIS - 09/20/2022 9:56 AM EST Patient has been identified by name and date of : Spouse phones for refill(s): Requested Prescriptions Pending Prescriptions Disp Refills lisinopril (ZESTRIL) 10 mg tablet 90 tablet 3 Sig: Take 1 tablet by mouth once daily. levothyroxine (SYNTHROID) 125 mcg tablet 126 tablet 3 Si tablets 3 day (Mon, Thurs, Sat) and 1 tablet 4 days a week. On an empty stomach. simvastatin (ZOCOR) 10 mg tablet 90 tablet 3 Sig: Take 1 tablet by mouth daily at bedtime. Date of last office visit in primary care: 04/13/2022, has appt 10/19/2022 Last 2 Encounter Wt Readings: Date: Wt: 09/16/2022 97.1 kg (214 lb) 04/13/2022 93.9 kg (207 lb) Previous labs/tests for medication: Thyroid: TSH (uU/mL) Date Value 10/09/2021 0.177 Cholesterol: HDL Cholesterol (mg/dL) Date Value 04/12/2022 61 10/09/2021 47 LDL Cholesterol (mg/dL) Date Value 04/12/2022 117 10/09/2021 132 ALT (U/L) Date Value 10/09/2021 22 Non HDL Cholesterol (mg/dL) Date Value 04/12/2022 147 10/09/2021 153 Blood Pressure: BUN (mg/dL) Date Value 10/09/2021 17 Sodium (mmol/L) Date Value 10/09/2021 136 Last 1 Encounter BP Readings: Date: BP: 09/16/2022 122/80 Please advise. Thank you. Carolann Landaverde LPN Patient Irene said his next labs will be done before Oct appt. documented in this encounterBlanchard [facility]01-06-[facility] History of Present illness Narrative* Astrid Herring APRN.ISACC - 09/16/2022 2:30 PM EST Transitional Care Management Progress Note The patients TCM visit was performed within the 7 days of discharge. Patient's Date of discharge: 09/13/2021 Date of initial coordinator contact after discharge: NA Discharge diagnosis: diverticulitis Medication review completed Yes Astrid Herring APRN.[employer]ICONDUCTOR MANUFACTURING TECHNICIAN Provider Documentation: In follow-up of hospitalization, Grupo Jackson is a 56 year old male with the chief complaint ofdiverticulitis follow up. I have reviewed the patient s last hospital course including diagnostic testing performed during this hospitalization, their discharge medications, and my assessment and plan with the patient and anyfamily members present at today s visit. HPI: Went to ED 3 days ago, but sx started the evening before. Abdomen was cramping really bad, 100 temperature. Went to work the morning of 09/13 but significant pain and went to ED. Dx with diverticulitis. Was given amoxicillin, hydrocodone, ondansetron. Has since been eating light foods. Overall feeling better, some tenderness in LLQ. Is now taking a probiotic every day. PAST MEDICAL HISTORY: Reviewed and updated ALLERGIES: Reviewed and updated MEDICATIONS: Reviewed and updated SOCIAL HISTORY: Reviewed and updated FAMILY HISTORY: Reviewed and updated REVIEW OF SYSTEMS: All other systems reviewed and negative, other than HPI. PHYSICAL EXAMINATION BP 122/80 Pulse 86 Temp 98.8 Resp 16 Wt 214 lb (97.1kg) SpO2 94% General appearance: well appearing, alert, in no acute distress, and well- hydrated, well nourished,motor and sensory appear to be normal Lungs: clear to auscultation no wheezing or rhonchi Heart: RRR without murmur, gallop, or rubs. No ectopy Abdomen: Normal abdominal exam, Abdomen soft, non-tender. Bowel sounds normal. No masses, organomegaly Extremities: Extremities normal. No deformities, edema, or skin discoloration. Good capillary refill. 1. I have reviewed the patient record including associated test results during the last hospitalization Yes 2. I have reviewed Lab test Yes 3. I have reviewed Radiology test Yes 4. I reviewed assessment/plan with the patient/family member Yes ASSESSMENT/PLAN: 1. Diverticulitis - ICD9: 562.11, ICD10: K57.92 Complete antibiotic. Continue hydrocodone, Zofran prn. Discussed diet and educated on etiology and course of dx process. F/u prn. Astrid Herring APRN.ISACC Greater than 50% of 50-minute visit spent face to face with patient in counseling and education. documented in this encounterBlanchard Valley [facility]12-[facility]-2022 Miscellaneous Notes* Telephone Encounter - Carolann Landaverde LPN - 08/19/2022 12:55 PM EST Patient has been identified by name and date of : Yes Pharmacy phones for refill(s): Requested Prescriptions Pending Prescriptions Disp Refills meloxicam (MOBIC) 15 mg tablet 30 tablet 2 Sig: Take 1 tablet by mouth once daily. For sciatica, With food. Date of last office visit in primary care: 04/13/2022, no future appt scheduled Last 2 Encounter Wt Readings: Date: Wt: 04/13/2022 93.9 kg (207 lb) 12/15/2021 94.7 kg (208 lb 12.8 oz) Previous labs/tests for medication: Not applicable Please advise. Thank you. Carolann Landaverde LPN documented in this encounterBlanchard Valley [facility]12-06-[facility]22 History of Present illness Narrative* Lorrie Sanches LPN - 08/16/2022 2:35 PM EST Patient presents for Flu vaccine. Denies any problems at this time. Tolerated injection well. Lorrie Sanches LPN documented in this encounterBlanchard Valley [facility]08-03-[facility] History of Present illness Narrative* Nuno Lowe, DO - 04/13/2022 9:32 PM EDT CC:Grupo Jackson is a 56 year old male who presents to the office for 6 months follow up HPI: HTN, taking medication lisinopril as prescribed, tolerating rx well, no CP or dyspnea or dizziness/LH or edema Hypothyroidism, taking levothyroxine medication without concerns TSH Date Value Ref Range Status 10/09/2021 0.177 (L) 0.270 - 4.200 uU/mL Final Glucose (mg/dL) Date Value 10/09/2021 95 Potassium (mmol/L) Date Value 10/09/2021 4.4 Sodium (mmol/L) Date Value 10/09/2021 136 Chloride (mmol/L) Date Value 10/09/2021 97 CO2 (mmol/L) Date Value 10/09/2021 24 Creatinine (mg/dL) Date Value 10/09/2021 0.98 BUN (mg/dL) Date Value 10/09/2021 17 Anion Gap (mmol/L) Date Value 10/09/2021 15 Calcium (mg/dL) Date Value 10/09/2021 9.9 Protein, Total (g/dL) Date Value 10/09/2021 8.0 Albumin (g/dL) Date Value 10/09/2021 5.0 Bilirubin, Total (mg/dL) Date Value 10/09/2021 0.8 Alkaline Phosphatase (U/L) Date Value 10/09/2021 77 AST (U/L) Date Value 10/09/2021 17 ALT (U/L) Date Value 10/09/2021 22 Hemoglobin (g/dL) Date Value 10/09/2021 16.1 Hematocrit (%) Date Value 10/09/2021 48.4 WBC (k/uL) Date Value 10/09/2021 11.03 Hyperlipidemia, taking zocor medication, no SE that he has noticed. Low back pain, radiating into left buttock area and left posterior thigh and into left calf, comes and goes, Has been trying some NSAIDs and heating pad use with benefit that is mild. Hasn't tried anything else. No bowel or bladder changes, no incontinence. PAST MEDICAL HISTORY Diagnosis Date Acquired hypothyroidism Essential hypertension Hyperlipidemia LULU on CPAP [facility] PAST SURGICAL HISTORY Procedure Laterality Date ANESTHESIA TOTAL HIP ARTHROPLASTY Left 05/04/2016 Dr. Manjeet Smith ANESTHESIA TOTAL HIP ARTHROPLASTY Right 05/31/2017 Dr. Manjeet Smith; dx: R hip avascular necrosis COLONOSCOPY Herman COLONOSCOPY 10/04/2021 benign hyperplastic polyps. repeat in 5 years based on family history of colon cancer LIGATE INTERNAL HEMORRHOIDS; SINGLE 2019, banding, internal hemorrhoids, Dr. Joaquin PAST SURGICAL HISTORY OF 2001 left thumb PAST SURGICAL HISTORY OF Right 08/08/2017 total parotidectomy; Dr. De Souza Current Outpatient Medications Medication Sig tamsulosin (FLOMAX) 0.4 mg Take 1 capsule by mouth twice daily. For urination traZODone (DESYREL) 50 mg tablet Take 1-3 tablets by mouth daily at bedtime. lisinopril (ZESTRIL) 10 mg tablet Take 1 tablet by mouth once daily. levothyroxine (SYNTHROID) 125 mcg tablet 2 tablets 3 day (Mon, , Mon) and 1 tablet 4 days a week. On an empty stomach. simvastatin (ZOCOR) 10 mg tablet Take 1 tablet by mouth daily at bedtime. meloxicam (MOBIC) 15 mg tablet Take 1 tablet by mouth once daily. For sciatica, With food. buPROPion XL (WELLBUTRIN XL) 150 mg 24 hr tablet Take 1 tablet by mouth once daily. COMPOUNDED PRESCRIPTION Bipap pressure settings 17/11 with F&P nasal mask interface and heated humidity Dx: LULU on Bipap (Patient taking differently: Bipap pressure settings 17/11 with F&P nasal maskinterface and heated humidity Dx: LULU on Bipap Not using daily ) No current facility-administered medications for this visit. ALLERGIES No Known Allergies Social History Tobacco Use Smoking status: Former Smoker Packs/day: 0.30 Start date: 09/11/1979 Quit date: 09/16/2021 Years since quittin.5 Smokeless tobacco: Never Used Vaping Use Vaping Use: Never used Substance Use Topics Alcohol use: Yes Comment: Occasional Drug use: No ROS: See HPI PE: BP 100/60 Pulse 80 Temp (Src) 97.1 (Left Tympanic) Resp 16 Wt 207 lb (93.9kg) Gen: A&OX3, NAD, non-toxic appearing HEENT: PERRLA, EOMs intact b/l, nares without drainage, pharynx without erythema, exudate, lesions,or drainage. Uvula midline. Neck: No LAD, no thyromegaly, no meningismus. CV: RRR, no murmur Lungs: CTA b/l, no wheezing Skin: No rashes, lesions, or wounds on exposed skin. + Paraspinal muscle tension present in lumbar spine Negative SLR No edema legs, normal pulses Strength intact b/l legs ASSESSMENT/PLAN: 1. Acute bilateral low back pain with left-sided sciatica - ICD9: 724.2, 724.3, ICD10: M54.42 (primary diagnosis) Sciatica - Ice for localized tenderness - Warm moist heat for 20 min three times a day - NSAIDS- see orders - Xrays- see orders - Patient given instructions use of medications as ordered, intermittent rest, back care exercise program, improved posture, proper lifting techniques and intermittent use of heat - Follow up with me in 2-3 months or sooner if symptoms persist or worsen - XR LUMBAR GENERAL 3V AP/LAT/L5-S1 2. Essential hypertension - ICD9: 401.9, ICD10: I10 - good control - Continue current medication(s) - Encouraged dietary sodium restriction/DASH diet - Recommended regular aerobic exercise. - Recommend home blood pressure monitoring, to bring results in on next visit - Discussed need and benefit for weight loss. - Goal of BP <130/80 3. Acquired hypothyroidism - ICD9: 244.9, ICD10: E03.9 - Instructed patient on importance of taking on an empty stomach either first thing in the morning or at bedtime. Stable - Behavioral intervention and - Continue current medications 4. Familial combined hyperlipidemia - ICD9: 272.2, ICD10: E78.49 - stable, chronic Nuno Lowe DO Recheck labs fasting in 6 months Return if no improvement. Follow up with Nuno Lowe DO. To ER if develops chest pain, shortness of breath Discussed risks, benefits, alternatives, and potential side effects of medications. Patient/Guardian expressed understanding and agreed with the plan. See patient instructions. Nuno Lowe DO [address] [place] [address] documented in this encounterBlanchard Valley [facility]04-[facility] Instructions* Patient Instructions* Monique Wahl APRN.CNP - 12/15/2021 7:24 AM EDT ASSESSMENT/PLAN: 1. Allergic conjunctivitis of right eye - ICD9: 372.14, ICD10: H10.11 - see medication orders - course and contagiousness issues discussed, including hand washing. - Instructed to call if high fever, development of periorbital redness or swelling, eye pain, visual changes, concerns or if symptoms persist. - OLOPATADINE 0.1 % EYE DROPS - Follow-up with your EYE DOCTOR in 2 days if symptoms have not improved or sooner if symptoms worsen - Discussed red flags and need for immediate medical evaluation if any occur. - Discussed supportive care treatment with fluids, rest and analgesia. - Discussed expected course of illness Monique Wahl APRN.CNP [facility] of Present illness Narrative* Monique Wahl APRN.CNP - 12/15/2021 7:21 AM EDT Subjective HPI Grupo Jackson is a 56 year old male who presents with right eye irritation since last night.He has noticed increased tearing with this. Denies eye pain or injury. He denies associated URI symptoms. Denies visual changes. Has a history of hay fever. Review of Systems Constitutional: Negative for chills and fever. HENT: Negative for congestion. Eyes: Positive for discharge (increased tearing) and redness. Negative for blurred vision, double vision, photophobia and pain. Respiratory: Negative for cough. Skin: Negative. BP 140/88 Pulse 78 Temp 36.3 C (97.3 F) Resp 18 Wt 94.7 kg (208 lb 12.8 oz) SpO2 98% BMI 31.75 kg/m PAST MEDICAL HISTORY Diagnosis Date Acquired hypothyroidism Essential hypertension Hyperlipidemia ULLU on CPAP [facility] PAST SURGICAL HISTORY Procedure Laterality Date ANESTHESIA TOTAL HIP ARTHROPLASTY Left 05/04/2016 Dr. Manjeet Smith ANESTHESIA TOTAL HIP ARTHROPLASTY Right 05/31/2017 Dr. Manjeet Smith; dx: R hip avascular necrosis COLONOSCOPY Herman COLONOSCOPY 10/04/2021 benign hyperplastic polyps. repeat in 5 years based on family history of colon cancer LIGATE INTERNAL HEMORRHOIDS; SINGLE 2019, banding, internal hemorrhoids, Dr. Joaquin PAST SURGICAL HISTORY OF 2001 left thumb PAST SURGICAL HISTORY OF Right 08/08/2017 total parotidectomy; Dr. De Souza ALLERGIES Patient has no known allergies. MEDICATIONS tamsulosin (FLOMAX) 0.4 mg Take 1 capsule by mouth twice daily. For urination traZODone (DESYREL) 50 mg tablet Take 1-3 tablets by mouth daily at bedtime. lisinopril (ZESTRIL) 10 mg tablet Take 1 tablet by mouth once daily. levothyroxine (SYNTHROID) 125 mcg tablet 2 tablets 3 day (Mon, , Mon) and 1 tablet 4 days a week. On an empty stomach. simvastatin (ZOCOR) 10 mg tablet Take 1 tablet by mouth daily at bedtime. buPROPion XL (WELLBUTRIN XL) 150 mg 24 hr tablet Take 1 tablet by mouth once daily. COMPOUNDED PRESCRIPTION Bipap pressure settings 17/11 with F&P nasal mask interface and heated humidityDx: LULU on Bipap olopatadine (PATANOL) 0.1 % ophthalmic solution Use 1 Drop in the right eye twice daily for 30 days. FAMILY HISTORY Problem Relation Age of Onset Cancer Mother Lung Diabetes Father Heart disease Father Valvular other (Other) Father Dementia Social History Tobacco Use Smoking status: Former Smoker Packs/day: 0.30 Start date: 09/11/1979 Quit date: 09/16/2021 Years since quittin.2 Smokeless tobacco: Never Used Vaping Use Vaping Use: Never used Substance Use Topics Alcohol use: Yes Comment: Occasional Drug use: No Objective Physical Exam Vitals and nursing note reviewed. Constitutional: Appearance: He is obese. HENT: Nose: Nose normal. Eyes: General: Lids are normal. Right eye: No foreign body, discharge or hordeolum. Extraocular Movements: Right eye: Normal extraocular motion. Conjunctiva/sclera: Right eye: Right conjunctiva is injected. Chemosis present. No exudate or hemorrhage. Neurological: Mental Status: He is alert. ASSESSMENT/PLAN: 1. Allergic conjunctivitis of right eye - ICD9: 372.14, ICD10: H10.11 - see medication orders - course and contagiousness issues discussed, including hand washing. - Instructed to call if high fever, development of periorbital redness or swelling, eye pain, visual changes, concerns or if symptoms persist. - OLOPATADINE 0.1 % EYE DROPS - Follow-up with your EYE DOCTOR in 2 days if symptoms have not improved or sooner if symptoms worsen - Discussed red flags and need for immediate medical evaluation if any occur. - Discussed supportive care treatment with fluids, rest and analgesia. - Discussed expected course of illness Monique Wahl APRN.SEMICONDUCTOR MANUFACTURING TECHNICIAN [facility] Diagnosis Allergic conjunctivitis of right eye- Primary Other chronic allergic conjunctivitis documented [facility]* Diagnosis Acute bilateral low back pain with left-sided sciatica- Primary Essential hypertension Unspecified essential hypertension Acquired hypothyroidism Unspecified hypothyroidism Familial combined hyperlipidemia Mixed hyperlipidemia Screening for prostate cancer Special screening for malignant neoplasm of prostate documented in this encounter [facility] note* Diagnosis Need for influenza vaccination- Primary Need for prophylactic vaccination and inoculation against influenza documented in this encounter [facility] noteNo assessment information availableWPremier [facility] Work Phone: Evaluation note* Diagnosis Diverticulitis- Primary Diverticulitis of colon (without mention of hemorrhage) documented in this encounter [facility] note* Diagnosis Essential hypertension Unspecified essential hypertension Acquired hypothyroidism Unspecified hypothyroidism documented in this encounter [facility] note* Diagnosis Acquired hypothyroidism- Primary Unspecified hypothyroidism Chronic insomnia Insomnia, unspecified Essential hypertension Unspecified essential hypertension Familial combined hyperlipidemia Mixed hyperlipidemia LULU on CPAP Obstructive sleep apnea (adult) (pediatric) Benign prostatic hyperplasia with lower urinary tract symptoms, symptom details unspecified documented in this encounter [facility] note* Diagnosis Benign prostatic hyperplasia with lower urinary tract symptoms, symptom details unspecified [facility] Diagnosis Benign prostatic hyperplasia with lower urinary tract symptoms, symptom details unspecified- Primary Familial combined hyperlipidemia Mixed hyperlipidemia Screening for prostate cancer Special screening for malignant neoplasm of prostate Acquired hypothyroidism Unspecified hypothyroidism Onychomycosis Dermatophytosis of nail documented [facility]* Diagnosis Acute cough- Primary Rhinosinusitis Unspecified sinusitis (chronic) Fat pad Localized adiposity documented [facility]* Diagnosis Primary hypertension- Primary Unspecified essential hypertension Fat pad Localized adiposity Smoker Tobacco use disorder Dyslipidemia Other and unspecified hyperlipidemia MOORE (dyspnea on exertion) Other dyspnea and respiratory abnormality documented [facility] this [facility]* Diagnosis Benign prostatic hyperplasia with lower urinary tract symptoms, symptom details unspecified [facility]* Diagnosis Well adult exam- Primary Routine general medical examination at a [facility] care facility LULU on CPAP Obstructive sleep apnea (adult) (pediatric) Benign prostatic hyperplasia with lower urinary tract symptoms, symptom details unspecified Essential hypertension Unspecified essential hypertension Acquired hypothyroidism Unspecified hypothyroidism Familial combined hyperlipidemia Mixed hyperlipidemia [facility]* Diagnosis Benign prostatic hyperplasia with lower urinary tract symptoms, symptom details unspecified- Primary Overactive bladder Hypertonicity of bladder Prostate cancer screening Special screening for malignant neoplasm of prostate documented [facility]* Diagnosis BMI 34.0-34.9,adult LULU (obstructive sleep apnea) Obstructive sleep apnea (adult) (pediatric) Mass of right side of neck Nasal congestion Other diseases of nasal cavity and sinuses documented in this encounter [facility] Work Phone: Evaluation note* Diagnosis Mass of right side of neck documented in this encounter [facility] Work Phone: Evaluation note* Diagnosis Benign prostatic hyperplasia with lower urinary tract symptoms, symptom details unspecified- Primary Urgency of urination Overactive bladder Hypertonicity of bladder [facility]* Diagnosis Benign prostatic hyperplasia with lower urinary tract symptoms, symptom details unspecified- Primary documented [facility]* Diagnosis Chronic insomnia Insomnia, unspecified documented [facility]* Diagnosis Benign prostatic hyperplasia with lower urinary tract symptoms, symptom details unspecified- Primary Overactive bladder Hypertonicity of bladder Urgency of urination [facility]* Diagnosis LULU (obstructive sleep apnea)- Primary Obstructive sleep apnea (adult) (pediatric) documented in this encounter [facility] Work Phone: Evaluation note* Diagnosis Benign prostatic hyperplasia with lower urinary tract symptoms, symptom details unspecified- Primary Urgency of urination Overactive bladder Hypertonicity of bladder documented [facility]* Diagnosis Overactive bladder- Primary Hypertonicity of bladder Benign prostatic hyperplasia with lower urinary tract symptoms, symptom details unspecified Prostate cancer screening Special screening for malignant neoplasm of prostate [facility]* Diagnosis Onychomycosis Dermatophytosis of nail documented in this [facility]* Diagnosis Essential hypertension- Primary Unspecified essential hypertension Acquired hypothyroidism Unspecified hypothyroidism Dyslipidemia Other and unspecified hyperlipidemia documented [facility] this [facility]* Diagnosis Pre-operative examination- Primary Preoperative examination, unspecified Colon cancer screening Special screening for malignant neoplasms, colon Family hx of colon cancer Family history of malignant neoplasm of gastrointestinal tract Essential hypertension Unspecified essential hypertension Familial combined hyperlipidemia Mixed hyperlipidemia LULU (obstructive sleep apnea) Obstructive sleep apnea (adult) (pediatric) Urinary frequency Acquired hypothyroidism Unspecified hypothyroidism Class 1 obesity due to excess calories with body mass index (BMI) of 33.0 to 33.9 in adult, unspecified whether serious comorbidity present Former smoker Personal history of tobacco use, presenting hazards to health Acute cough [facility]* Diagnosis Pre-operative examination- Primary Preoperative examination, unspecified Colon cancer screening Special screening for malignant neoplasms, colon Family hx of colon cancer Family history of malignant neoplasm of gastrointestinal tract Essential hypertension Unspecified essential hypertension Familial combined hyperlipidemia Mixed hyperlipidemia LULU (obstructive sleep apnea) Obstructive sleep apnea (adult) (pediatric) Urinary frequency Acquired hypothyroidism Unspecified hypothyroidism Class 1 obesity due to excess calories with body mass index (BMI) of 33.0 to 33.9 in adult, unspecified whether serious comorbidity present Former smoker Personal history of tobacco use, presenting hazards to health Acquired hypothyroidism Unspecified hypothyroidism [facility] Diagnosis Pre-operative examination- Primary Preoperative examination, unspecified Colon cancer screening Special screening for malignant neoplasms, colon Family hx of colon cancer Family history of malignant neoplasm of gastrointestinal tract Essential hypertension Unspecified essential hypertension Familial combined hyperlipidemia Mixed hyperlipidemia LULU (obstructive sleep apnea) Obstructive sleep apnea (adult) (pediatric) Urinary frequency Acquired hypothyroidism Unspecified hypothyroidism Class 1 obesity due to excess calories with body mass index (BMI) of 33.0 to 33.9 in adult, unspecified whether serious comorbidity present Former smoker Personal history of tobacco use, presenting hazards to health Chronic midline low back pain without sciatica documented [facility] this [facility]* Diagnosis Pre-operative examination- Primary Preoperative examination, unspecified Colon cancer screening Special screening for malignant neoplasms, colon Family hx of colon cancer Family history of malignant neoplasm of gastrointestinal tract Essential hypertension Unspecified essential hypertension Familial combined hyperlipidemia Mixed hyperlipidemia LULU (obstructive sleep apnea) Obstructive sleep apnea (adult) (pediatric) Urinary frequency Acquired hypothyroidism Unspecified hypothyroidism Class 1 obesity due to excess calories with body mass index (BMI) of 33.0 to 33.9 in adult, unspecified whether serious comorbidity present Former smoker Personal history of tobacco use, presenting hazards to health Cognitive impairment, mild, so stated- Primary Mild cognitive impairment, so stated Essential hypertension Unspecified essential hypertension Familial combined hyperlipidemia Mixed hyperlipidemia Onychomycosis Dermatophytosis of nail Acquired hypothyroidism Unspecified hypothyroidism Benign prostatic hyperplasia with lower urinary tract symptoms, symptom details unspecified Chronic insomnia Insomnia, unspecified Headache, worsening Headache Chronic midline low back pain without sciatica Proteinuria, unspecified type History of head injury Personal history of other injury History of parotid gland excision Personal history of surgery to other organs Mass of right side of neck Swelling, mass, or lump in head and neck Acute otitis media, right Unspecified otitis media documented [facility] this [facility]* Diagnosis Pre-operative examination- Primary Preoperative examination, unspecified Colon cancer screening Special screening for malignant neoplasms, colon Family hx of colon cancer Family history of malignant neoplasm of gastrointestinal tract Essential hypertension Unspecified essential hypertension Familial combined hyperlipidemia Mixed hyperlipidemia LULU (obstructive sleep apnea) Obstructive sleep apnea (adult) (pediatric) Urinary frequency Acquired hypothyroidism Unspecified hypothyroidism Class 1 obesity due to excess calories with body mass index (BMI) of 33.0 to 33.9 in adult, unspecified whether serious comorbidity present Former smoker Personal history of tobacco use, presenting hazards to health Stenosis of abdominal aorta- Primary Congenital atresia and stenosis of aorta documented [facility] this [facility]* Diagnosis Pre-operative examination- Primary Preoperative examination, unspecified Colon cancer screening Special screening for malignant neoplasms, colon Family hx of colon cancer Family history of malignant neoplasm of gastrointestinal tract Essential hypertension Unspecified essential hypertension Familial combined hyperlipidemia Mixed hyperlipidemia LULU (obstructive sleep apnea) Obstructive sleep apnea (adult) (pediatric) Urinary frequency Acquired hypothyroidism Unspecified hypothyroidism Class 1 obesity due to excess calories with body mass index (BMI) of 33.0 to 33.9 in adult, unspecified whether serious comorbidity present Former smoker Personal history of tobacco use, presenting hazards to health Acute otitis media, right Unspecified otitis media [facility]* Diagnosis Pre-operative examination- Primary Preoperative examination, unspecified Colon cancer screening Special screening for malignant neoplasms, colon Family hx of colon cancer Family history of malignant neoplasm of gastrointestinal tract Essential hypertension Unspecified essential hypertension Familial combined hyperlipidemia Mixed hyperlipidemia LULU (obstructive sleep apnea) Obstructive sleep apnea (adult) (pediatric) Urinary frequency Acquired hypothyroidism Unspecified hypothyroidism Class 1 obesity due to excess calories with body mass index (BMI) of 33.0 to 33.9 in adult, unspecified whether serious comorbidity present Former smoker Personal history of tobacco use, presenting hazards to health History of parotid gland excision Personal history of surgery to other organs Mass of right side of neck Swelling, mass, or lump in head and neck documented in this [facility]* Diagnosis Pre-operative examination- Primary Preoperative examination, unspecified Colon cancer screening Special screening for malignant neoplasms, colon Family hx of colon cancer Family history of malignant neoplasm of gastrointestinal tract Essential hypertension Unspecified essential hypertension Familial combined hyperlipidemia Mixed hyperlipidemia LULU (obstructive sleep apnea) Obstructive sleep apnea (adult) (pediatric) Urinary frequency Acquired hypothyroidism Unspecified hypothyroidism Class 1 obesity due to excess calories with body mass index (BMI) of 33.0 to 33.9 in adult, unspecified whether serious comorbidity present Former smoker Personal history of tobacco use, presenting hazards to health Cognitive impairment, mild, so stated Mild cognitive impairment, so stated Headache, worsening Headache History of head injury Personal history of other injury documented [facility] this [facility]* Diagnosis Pre-operative examination- Primary Preoperative examination, unspecified Colon cancer screening Special screening for malignant neoplasms, colon Family hx of colon cancer Family history of malignant neoplasm of gastrointestinal tract Essential hypertension Unspecified essential hypertension Familial combined hyperlipidemia Mixed hyperlipidemia LULU (obstructive sleep apnea) Obstructive sleep apnea (adult) (pediatric) Urinary frequency Acquired hypothyroidism Unspecified hypothyroidism Class 1 obesity due to excess calories with body mass index (BMI) of 33.0 to 33.9 in adult, unspecified whether serious comorbidity present Former smoker Personal history of tobacco use, presenting hazards to health Memory loss, short term- Primary Memory loss Abnormal CT of brain Nonspecific (abnormal) findings on radiological and other examination of skull and head documented in this [facility]* Diagnosis Pre-operative examination- Primary Preoperative examination, unspecified Colon cancer screening Special screening for malignant neoplasms, colon Family hx of colon cancer Family history of malignant neoplasm of gastrointestinal tract Essential hypertension Unspecified essential hypertension Familial combined hyperlipidemia Mixed hyperlipidemia LULU (obstructive sleep apnea) Obstructive sleep apnea (adult) (pediatric) Urinary frequency Acquired hypothyroidism Unspecified hypothyroidism Class 1 obesity due to excess calories with body mass index (BMI) of 33.0 to 33.9 in adult, unspecified whether serious comorbidity present Former smoker Personal history of tobacco use, presenting hazards to health Screening for AAA (abdominal aortic aneurysm) Screening for other and unspecified cardiovascular conditions [facility]* Diagnosis Nasal obstruction- Primary Other diseases of nasal cavity and sinuses documented in this encounter [facility] Work Phone: Evaluation note* Diagnosis Pre-operative examination- Primary Preoperative examination, unspecified Colon cancer screening Special screening for malignant neoplasms, colon Family hx of colon cancer Family history of malignant neoplasm of gastrointestinal tract Essential hypertension Unspecified essential hypertension Familial combined hyperlipidemia Mixed hyperlipidemia LULU (obstructive sleep apnea) Obstructive sleep apnea (adult) (pediatric) Urinary frequency Acquired hypothyroidism Unspecified hypothyroidism Class 1 obesity due to excess calories with body mass index (BMI) of 33.0 to 33.9 in adult, unspecified whether serious comorbidity present Former smoker Personal history of tobacco use, presenting hazards to health Memory loss, short term- Primary Memory loss Abnormal CT of brain Nonspecific (abnormal) findings on radiological and other examination of skull and head documented in this [facility]* Diagnosis Pre-operative examination- Primary Preoperative examination, unspecified Colon cancer screening Special screening for malignant neoplasms, colon Family hx of colon cancer Family history of malignant neoplasm of gastrointestinal tract Essential hypertension Unspecified essential hypertension Familial combined hyperlipidemia Mixed hyperlipidemia LULU (obstructive sleep apnea) Obstructive sleep apnea (adult) (pediatric) Urinary frequency Acquired hypothyroidism Unspecified hypothyroidism Class 1 obesity due to excess calories with body mass index (BMI) of 33.0 to 33.9 in adult, unspecified whether serious comorbidity present Former smoker Personal history of tobacco use, presenting hazards to health Overactive bladder- Primary Hypertonicity of bladder Benign prostatic hyperplasia with lower urinary tract symptoms, symptom details unspecified Prostate cancer screening Special screening for malignant neoplasm of prostate Erectile dysfunction, unspecified erectile dysfunction type documented [facility]* Diagnosis Pre-operative examination- Primary Preoperative examination, unspecified Colon cancer screening Special screening for malignant neoplasms, colon Family hx of colon cancer Family history of malignant neoplasm of gastrointestinal tract Essential hypertension Unspecified essential hypertension Familial combined hyperlipidemia Mixed hyperlipidemia LULU (obstructive sleep apnea) Obstructive sleep apnea (adult) (pediatric) Urinary frequency Acquired hypothyroidism Unspecified hypothyroidism Class 1 obesity due to excess calories with body mass index (BMI) of 33.0 to 33.9 in adult, unspecified whether serious comorbidity present Former smoker Personal history of tobacco use, presenting hazards to health Acquired hypothyroidism- Primary Unspecified hypothyroidism Essential hypertension Unspecified essential hypertension Pure hypercholesterolemia Vitamin B12 deficiency Other B-complex deficiencies Vitamin D deficiency Unspecified vitamin D deficiency Hyperglycemia Other abnormal glucose Acute otitis media, right Unspecified otitis media Memory loss, short term Memory loss Familial combined hyperlipidemia Mixed hyperlipidemia Cognitive impairment, mild, so stated Mild cognitive impairment, so stated documented in [facility] encounter [facility] Diagnosis Pre-operative examination- Primary Preoperative examination, unspecified Colon cancer screening Special screening for malignant neoplasms, colon Family hx of colon cancer Family history of malignant neoplasm of gastrointestinal tract Essential hypertension Unspecified essential hypertension Familial combined hyperlipidemia Mixed hyperlipidemia LULU (obstructive sleep apnea) Obstructive sleep apnea (adult) (pediatric) Urinary frequency Acquired hypothyroidism Unspecified hypothyroidism Class 1 obesity due to excess calories with body mass index (BMI) of 33.0 to 33.9 in adult, unspecified whether serious comorbidity present Former smoker Personal history of tobacco use, presenting hazards to health Benign prostatic hyperplasia with lower urinary tract symptoms, symptom details unspecified- Primary Erectile dysfunction, unspecified erectile dysfunction type Screening for genitourinary condition Screening for other and unspecified genitourinary condition documented in this encounter [facility] Diagnosis Pre-operative examination- Primary Preoperative examination, unspecified Colon cancer screening Special screening for malignant neoplasms, colon Family hx of colon cancer Family history of malignant neoplasm of gastrointestinal tract Essential hypertension Unspecified essential hypertension Familial combined hyperlipidemia Mixed hyperlipidemia LULU (obstructive sleep apnea) Obstructive sleep apnea (adult) (pediatric) Urinary frequency Acquired hypothyroidism Unspecified hypothyroidism Class 1 obesity due to excess calories with body mass index (BMI) of 33.0 to 33.9 in adult, unspecified whether serious comorbidity present Former smoker Personal history of tobacco use, presenting hazards to health Onychomycosis Dermatophytosis of nail documented in this encounter [facility] for referral (narrative)* Diagnostic Procedure Only (Routine) - Pending Review Specialty Diagnoses / Procedures Referred By Lorena estrada Referred To Contact XR IMAGING Diagnoses Acute bilateral low back pain with left-sided sciatica Procedures XR LUMBAR GENERAL 3V AP/LAT/L5-S1 RADEX SPINE LUMBOSACRAL 2/3 VIEWS Nuno Lowe DO [address] [place] [address] Xr Imaging Referral ID Status Reason Start Date Expiration Date Visits Requested Visits Authorized [id number] Pending Review Auto-Generat ed Referral 04/13/2022 05/13/2023 1 1 [facility] for referral (narrative)* Outpatient Procedure (Routine) - Pending Review Specialty Diagnoses / Procedures Referred By Lorena estrada [facility] Diagnoses Smoker MOORE (dyspnea on exertion) Procedures ECHO ECHO TTHRC R-T 2D W/WOM-MODE COMPL SPEC&COLR D Clemente Hidalgo MD [address] [place] [address] [facility] [address] [place] [address] Referral ID Status Reason Start Date Expiration Date Visits Requested Visits Authorized [id number] Pending Review Auto-Generat ed Referral 06/20/2024 1 1 * Outpatient Procedure (Routine) - Closed Specialty Diagnoses / Procedures Referred By Lorena t Referred To [facility] Diagnoses Primary hypertension Procedures ECG COMPLETE ECG ROUTINE ECG W/LEAST 12 LDS W/I&R Clemente Hidalgo MD [address] [place] [address] [facility] [address] [place] [address] Referral ID Status Reason Start Date Expiration Date V isits Requested Visits Authorized [id number] Closed Auto-Generate d Referral 06/21/2023 06/19/2024 1 1 [facility] for referral (narrative)* Outpatient Procedure (Routine) - Pending Review Specialty Diagnoses / Procedures Referred By [place] t Referred To Contact [facility] Diagnoses Benign prostatic hyperplasia with lower urinary tract symptoms, symptom details unspecified Procedures CYSTO/TRUS ONLY CYSTOURETHROSCOPY US, TRANSRECTAL Alexy Enriquez MD [address] [place] [address] [place] [id number] Referral ID Status Reason Start Date Expiration Date Visits Requested Visits Authorized [id number] Pending Review Auto-Generat ed Referral 12/27/2023 12/26/2024 1 1 [facility] for referral (narrative)* Outpatient Procedure (Routine) - Pending Review Specialty Diagnoses / Procedures [facility] Referred To Contact [facility] Diagnoses Overactive bladder Procedures URODYNAMICS CARMEL POST-VOIDING RESIDUAL URINE&/BLADDER CAP Alexy Enriquez MD [address] [place] [id number] [address] Referral ID Status Reason Start Date Expiration Date Visits Requested Visits Authorized [id number] Pending Review Auto-Generat ed Referral 01/03/2024 01/02/2025 1 1 [facility] for referral (narrative)* Diagnostic Procedure Only (Routine) - Authorized Specialty Diagnoses / Procedures [facility] Referred To Contact US IMAGING Diagnoses Stenosis of abdominal aorta Procedures US ABD AORTA US RETROPERITONEAL REAL TIME W/IMAGE LIMITED Nuno Lowe, DO [address] [place] [address] Us Imaging [facility] Referral ID Status Reason Start Date Expiration Date Visits Requested Visits Authorized [id number] Authorized Auto-Generat ed Referral 09/01/2025 1 1 [facility] for referral (narrative)* Diagnostic Procedure Only (Routine) - Closed Specialty Diagnoses / Procedures Referred By Contac t Referred To Contact US IMAGING Diagnoses Screening for AAA (abdominal aortic aneurysm) Procedures US SCREENING FOR AAA US ABDOMINAL AORTA REAL TIME SCREEN STUDY AAA Blanche Cain PA-C [address] [place] [address] [place] [address] Referral ID Status Reason Start Date Expiration Date V isits Requested Visits Authorized [id number] Closed Auto-Generate d Referral 08/06/2024 09/05/2025 1 1 [facility] for visit Narrative* Diagnostic Procedure Only (Routine) - Closed Specialty Diagnoses / Procedures Referred By Contac t Referred To Contact XR IMAGING Diagnoses Chronic midline low back pain without sciatica Procedures XR LUMBAR GENERAL 3V AP/LAT/L5-S1 RADEX SPINE LUMBOSACRAL 2/3 VIEWS Nuno Lowe DO [address] [place] [address] [place] [address] Referral ID Status Reason Start Date Expiration Date V isits Requested Visits Authorized [id number] Closed Auto-Generate d Referral 07/23/2024 08/22/2025 1 1 [facility] Summary Purpose Family History No Family History Records FoundNo Family History Records FoundNo Family History Records FoundNo Family History Records FoundNo Family History Records FoundNo Family History Records FoundNo Family History Records FoundNo Family History Records FoundNo Family History Records Found Advance Directives No Advanced Directives Records FoundDocuments on File Type Date Recorded Patient Alterations Sewer Expl anation Advance Directive(s) 10/04/2021 8:49 AM Advance Directive(s) 09/23/2021 8:52 AM Documents on File Type Date Recorded Patient Alterations Sewer Expl anation Advance Directive(s) 10/04/2021 8:49 AM Advance Directive(s) 09/23/2021 8:52 AM Advance Directive Response Recorded Date/ Time Advance Directives No May 05, 2016 9:23am Living Will No September 13 9:54am Power of Material Reclaimer No September 13 9:54am Advance Directive Response Recorded Date/ Time Advance Directives No May 05, 2016 10:23am Living Will No January 07, 2023 3:59pm Power of Material Reclaimer No January 07 3:59pm Chief Complaint and Reason for Visit Chief Complaint ABD Chief Complaint ABD wound check Reason for Referral Specialty Diagnoses / Procedures Referred By Contac t Referred To Contact Urology Diagnoses Benign prostatic hyperplasia with lower urinary tract symptoms, symptom details unspecified Procedures CONSULT TO UROLOGY OFFICE/OUTPATIENT [facility] 60-74 MINUTES Nuno Lowe, DO [address] [place] [address] Referral ID Status Reason Start Date Expiration Date Visits Requested Visits Authorized [id number] Pending Review PCP Requested Referral 04/19/2023 04/18/2024 1 1 Specialty Diagnoses / Procedures Referred By Contac t Referred To Contact Cardiology Diagnoses Fat pad Procedures CONSULT TO CARDIOLOGY OFFICE/OUTPATIENT [facility] 60-74 MINUTES Chiqui Mejia APRN.[employer]CTOR MANUFACTURING TECHNICIAN [address] [place] [address] Referral ID Status Reason Start Date Expiration Date Visits Requested Visits Authorized [id number] Pending Review PCP Requested Referral 05/10/2023 05/09/2024 1 1 Specialty Diagnoses / Procedures Referred By Contac t Referred To Contact Ent - Otolaryngology Diagnoses LULU on CPAP Procedures CONSULT TO ENT OFFICE/OUTPATIENT [facility] 60 MINUTES Nuno Lowe, DO [address] [place] [address] Referral ID Status Reason Start Date Expiration Date Visits Requested Visits Authorized [id number] Authorized PCP Requested Referral 10/23/2023 10/22/2024 1 1 Specialty Diagnoses / Procedures Referred By Contac t Referred To Contact Sleep Lab Diagnoses LULU (obstructive sleep apnea) Procedures Home sleep test Lelo Rodriguez MD [address] [address] Referral ID Status Reason Start Date Expiration Date V isits Requested Visits Authorized [id number] Pending Review 2023 11/09/2024 1 1 Specialty Diagnoses / Procedures Referred By Lorena t Referred To Contact Radiology Diagnoses Mass of right side of neck Procedures CT soft tissue neck w IV contrast Lelo Rodriguez MD [address] [place] [phone] Referral ID Status Reason Start Date Expiration Date Visits Requested Visits Authorized [id number] Pending Review Perform Procedure 2023 11/09/2024 1 1 Specialty Diagnoses / Procedures Referred By Lorena t Referred To Contact Endocrinology Diagnoses BMI 34.0-34.9,adult LULU (obstructive sleep apnea) Lelo Rodriguez MD [address] [place] [phone] Referral ID Status Reason Start Date Expiration Date Visits Requested Visits Authorized [id number] Authorized Specialty Services Required 2023 11/09/2024 1 1 Referral ID Status Reason Start Date Expiration Date Visits Requested Visits Authorized [id number] Authorized Perform Procedure 2023 11/09/2024 1 1 Specialty Diagnoses / Procedures Referred By Lorena t Referred To Contact CT IMAGING Diagnoses History of parotid gland excision Mass of right side of neck Procedures CT NECK SOFT TISSUE WO IVCON CT SOFT TISSUE NECK W/O CONTRAST MATERIAL Nuno Lowe, DO [address] [place] [address] Ct Imaging [facility] Referral ID Status Reason Start Date Expiration Date Visits Requested Visits Authorized [id number] Additional Clinical Info Needed Auto-Generat ed Referral 08/22/2025 1 1 Specialty Diagnoses / Procedures Referred By Lorena t Referred To Contact XR IMAGING Diagnoses Chronic midline low back pain without sciatica Procedures XR LUMBAR GENERAL 3V AP/LAT/L5-S1 RADEX SPINE LUMBOSACRAL 2/3 VIEWS Nuno Lowe, DO [address] [place] [address] [place] [address] Referral ID Status Reason Start Date Expiration Date V isits Requested Visits Authorized [id number] Closed Auto-Generate d Referral 07/23/2024 08/22/2025 1 1 Specialty Diagnoses / Procedures Referred By Contac t Referred To Contact MR IMAGING Diagnoses Cognitive impairment, mild, so stated Headache, worsening History of head injury Procedures MRI BRAIN WO/W IVCON MRI BRAIN BRAIN STEM W/O W/CONTRAST MATERIAL Nuno Lowe, DO [address] [place] [address] [place] [address] Referral ID Status Reason Start Date Expiration Date Visits Requested Visits Authorized [id number] Authorized Auto-Generat ed Referral 09/05/2024 1 1 Referral ID Status Reason Start Date Expiration Date V isits Requested Visits Authorized [id number] Closed Auto-Generate d Referral 07/23/2024 09/06/2024 1 1 Referral ID Status Reason Start Date Expiration Date V isits Requested Visits Authorized [id number] Closed Auto-Generate d Referral 07/23/2024 09/05/2024 1 1 Specialty Diagnoses / Procedures Referred By Contac t Referred To Contact Neurology Diagnoses Memory loss, short term Abnormal CT of brain Procedures CONSULT TO NEUROLOGY OFFICE/OUTPATIENT NEW HIGH MDM 60 MINUTES Nuno Lowe, DO [address] [place] [address] Referral ID Status Reason Start Date Expiration Date Visits Requested Visits Authorized [id number] Authorized PCP Requested Referral 08/07/2025 1 1 Additional Source Comments (unrecognized sect ion and content) No Status Records FoundNo Status Records FoundNo Status Records FoundNo Status Records FoundNo Status Records FoundNo Status Records FoundNo Status Records FoundNo Status Records FoundNo Status Records Found INFORMATION SOURCE (unrecogn ized section and content) DATE CREATED AUTHOR 10/07/2021 [facility] DATE CREATED AUTHOR AUTHOR'S ORGANIZ ATION 01/12/2023 [facility] DATE CREATED AUTHOR AUTHOR'S ORGANIZ ATION 06/29/2023 [facility] DATE CREATED AUTHOR AUTHOR'S ORGANIZ ATION 11/12/2023 [facility] DATE CREATED AUTHOR AUTHOR'S ORGANIZ ATION 12/14/2023 [facility] DATE CREATED AUTHOR AUTHOR'S ORGANIZ ATION 12/19/2023 [facility] DATE CREATED AUTHOR AUTHOR'S ORGANIZ ATION 01/23/2024 [facility] DATE CREATED AUTHOR AUTHOR'S ORGANIZ ATION 04/16/2024 [facility] DATE CREATED AUTHOR AUTHOR'S ORGANIZ ATION 04/30/2025 [facility] Source Comments (unrecognize d section and content) In the event this informatio n is protected by the Federal Confidentiality of Alcohol and Drug Abuse Patient Records regulations: The Federal rules restrict any use of the information to criminally investigate or prosecute any alcohol or drug abuse patient.[facility] the event this information is protected by the Federal Confidentiality of Alcohol and Drug Abuse Patient Records regulations: The Federal rules restrict any use of the information to criminally investigate or prosecute any alcohol or drug abuse patient.[facility] the event this information is protected by the Federal Confidentiality of Alcohol and Drug Abuse Patient Records regulations: The Federal rules restrict any use of the information to criminally investigate or prosecute any alcohol or drug abuse patient.[facility] the event this information is protected by the Federal Confidentiality of Alcohol and Drug Abuse Patient Records regulations: The Federal rules restrict any use of the information to criminally investigate or prosecute any alcohol or drug abuse patient.[facility] the event this information is protected by the Federal Confidentiality of Alcohol and Drug Abuse Patient Records regulations: The Federal rules restrict any use of the information to criminally investigate or prosecute any alcohol or drug abuse patient.[facility] the event this information is protected by the Federal Confidentiality of Alcohol and Drug Abuse Patient Records regulations: The Federal rules restrict any use of the information to criminally investigate or prosecute any alcohol or drug abuse patient.[facility] the event this information is protected by the Federal Confidentiality of Alcohol and Drug Abuse Patient Records regulations: The Federal rules restrict any use of the information to criminally investigate or prosecute any alcohol or drug abuse patient.[facility] the event this information is protected by the Federal Confidentiality of Alcohol and Drug Abuse Patient Records regulations: The Federal rules restrict any use of the information to criminally investigate or prosecute any alcohol or drug abuse patient.[facility] the event this information is protected by the Federal Confidentiality of Alcohol and Drug Abuse Patient Records regulations: The Federal rules restrict any use of the information to criminally investigate or prosecute any alcohol or drug abuse patient.[facility] the event this information is protected by the Federal Confidentiality of Alcohol and Drug Abuse Patient Records regulations: The Federal rules restrict any use of the information to criminally investigate or prosecute any alcohol or drug abuse patient.[facility] the event this information is protected by the Federal Confidentiality of Alcohol and Drug Abuse Patient Records regulations: The Federal rules restrict any use of the information to criminally investigate or prosecute any alcohol or drug abuse patient.[facility] the event this information is protected by the Federal Confidentiality of Alcohol and Drug Abuse Patient Records regulations: The Federal rules restrict any use of the information to criminally investigate or prosecute any alcohol or drug abuse patient.[facility] the event this information is protected by the Federal Confidentiality of Alcohol and Drug Abuse Patient Records regulations: The Federal rules restrict any use of the information to criminally investigate or prosecute any alcohol or drug abuse patient.[facility] the event this information is protected by the Federal Confidentiality of Alcohol and Drug Abuse Patient Records regulations: The Federal rules restrict any use of the information to criminally investigate or prosecute any alcohol or drug abuse patient.[facility] the event this information is protected by the Federal Confidentiality of Alcohol and Drug Abuse Patient Records regulations: The Federal rules restrict any use of the information to criminally investigate or prosecute any alcohol or drug abuse patient.[facility] the event this information is protected by the Federal Confidentiality of Alcohol and Drug Abuse Patient Records regulations: The Federal rules restrict any use of the information to criminally investigate or prosecute any alcohol or drug abuse patient.[facility] the event this information is protected by the Federal Confidentiality of Alcohol and Drug Abuse Patient Records regulations: The Federal rules restrict any use of the information to criminally investigate or prosecute any alcohol or drug abuse patient.[facility] the event this information is protected by the Federal Confidentiality of Alcohol and Drug Abuse Patient Records regulations: The Federal rules restrict any use of the information to criminally investigate or prosecute any alcohol or drug abuse patient.[facility] the event this information is protected by the Federal Confidentiality of Alcohol and Drug Abuse Patient Records regulations: The Federal rules restrict any use of the information to criminally investigate or prosecute any alcohol or drug abuse patient.[facility] the event this information is protected by the Federal Confidentiality of Alcohol and Drug Abuse Patient Records regulations: The Federal rules restrict any use of the information to criminally investigate or prosecute any alcohol or drug abuse patient.[facility]In the event this information is protected by the Federal Confidentiality of Alcohol and Drug Abuse Patient Records regulations: The Federal rules restrict any use of the information to criminally investigate or prosecute any alcohol or drug abuse patient.[facility] the event this information is protected by the Federal Confidentiality of Alcohol and Drug Abuse Patient Records regulations: The Federal rules restrict any use of the information to criminally investigate or prosecute any alcohol or drug abuse patient.[facility]In the event this information is protected by the Federal Confidentiality of Alcohol and Drug Abuse Patient Records regulations: The Federal rules restrict any use of the information to criminally investigate or prosecute any alcohol or drug abuse patient.[facility] the event this information is protected by the Federal Confidentiality of Alcohol and Drug Abuse Patient Records regulations: The Federal rules restrict any use of the information to criminally investigate or prosecute any alcohol or drug abuse patient.[facility] the event this information is protected by the Federal Confidentiality of Alcohol and Drug Abuse Patient Records regulations: The Federal rules restrict any use of the information to criminally investigate or prosecute any alcohol or drug abuse patient.[facility]In the event this information is protected by the Federal Confidentiality of Alcohol and Drug Abuse Patient Records regulations: The Federal rules restrict any use of the information to criminally investigate or prosecute any alcohol or drug abuse patient.[facility]In the event this information is protected by the Federal Confidentiality of Alcohol and Drug Abuse Patient Records regulations: The Federal rules restrict any use of the information to criminally investigate or prosecute any alcohol or drug abuse patient.[facility]In the event this information is protected by the Federal Confidentiality of Alcohol and Drug Abuse Patient Records regulations: The Federal rules restrict any use of the information to criminally investigate or prosecute any alcohol or drug abuse patient.[facility]In the event this information is protected by the Federal Confidentiality of Alcohol and Drug Abuse Patient Records regulations: The Federal rules restrict any use of the information to criminally investigate or prosecute any alcohol or drug abuse patient.[facility]In the event this information is protected by the Federal Confidentiality of Alcohol and Drug Abuse Patient Records regulations: The Federal rules restrict any use of the information to criminally investigate or prosecute any alcohol or drug abuse patient.[facility]In the event this information is protected by the Federal Confidentiality of Alcohol and Drug Abuse Patient Records regulations: The Federal rules restrict any use of the information to criminally investigate or prosecute any alcohol or drug abuse patient.[facility]In the event this information is protected by the Federal Confidentiality of Alcohol and Drug Abuse Patient Records regulations: The Federal rules restrict any use of the information to criminally investigate or prosecute any alcohol or drug abuse patient.[facility]In the event this information is protected by the Federal Confidentiality of Alcohol and Drug Abuse Patient Records regulations: The Federal rules restrict any use of the information to criminally investigate or prosecute any alcohol or drug abuse patient.[facility] HospitalIn the event this information is protected by the Federal Confidentiality of Alcohol and Drug Abuse Patient Records regulations: The Federal rules restrict any use of the information to criminally investigate or prosecute any alcohol or drug abuse patient.[facility] HospitalIn the event this information is protected by the Federal Confidentiality of Alcohol and Drug Abuse Patient Records regulations: The Federal rules restrict any use of the information to criminally investigate or prosecute any alcohol or drug abuse patient.[facility] HospitalIn the event this information is protected by the Federal Confidentiality of Alcohol and Drug Abuse Patient Records regulations: The Federal rules restrict any use of the information to criminally investigate or prosecute any alcohol or drug abuse patient.[facility] HospitalIn the event this information is protected by the Federal Confidentiality of Alcohol and Drug Abuse Patient Records regulations: The Federal rules restrict any use of the information to criminally investigate or prosecute any alcohol or drug abuse patient.[facility] HospitalIn the event this information is protected by the Federal Confidentiality of Alcohol and Drug Abuse Patient Records regulations: The Federal rules restrict any use of the information to criminally investigate or prosecute any alcohol or drug abuse patient.[facility] HospitalIn the event this information is protected by the Federal Confidentiality of Alcohol and Drug Abuse Patient Records regulations: The Federal rules restrict any use of the information to criminally investigate or prosecute any alcohol or drug abuse patient.[facility] HospitalIn the event this information is protected by the Federal Confidentiality of Alcohol and Drug Abuse Patient Records regulations: The Federal rules restrict any use of the information to criminally investigate or prosecute any alcohol or drug abuse patient.[facility] HospitalIn the event this information is protected by the Federal Confidentiality of Alcohol and Drug Abuse Patient Records regulations: The Federal rules restrict any use of the information to criminally investigate or prosecute any alcohol or drug abuse patient.[facility] HospitalIn the event this information is protected by the Federal Confidentiality of Alcohol and Drug Abuse Patient Records regulations: The Federal rules restrict any use of the information to criminally investigate or prosecute any alcohol or drug abuse patient.[facility] HospitalIn the event this information is protected by the Federal Confidentiality of Alcohol and Drug Abuse Patient Records regulations: The Federal rules restrict any use of the information to criminally investigate or prosecute any alcohol or drug abuse patient.[facility] HospitalIn the event this information is protected by the Federal Confidentiality of Alcohol and Drug Abuse Patient Records regulations: The Federal rules restrict any use of the information to criminally investigate or prosecute any alcohol or drug abuse patient.[facility] HospitalIn the event this information is protected by the Federal Confidentiality of Alcohol and Drug Abuse Patient Records regulations: The Federal rules restrict any use of the information to criminally investigate or prosecute any alcohol or drug abuse patient.[facility] HospitalIn the event this information is protected by the Federal Confidentiality of Alcohol and Drug Abuse Patient Records regulations: The Federal rules restrict any use of the information to criminally investigate or prosecute any alcohol or drug abuse patient.[facility] HospitalIn the event this information is protected by the Federal Confidentiality of Alcohol and Drug Abuse Patient Records regulations: The Federal rules restrict any use of the information to criminally investigate or prosecute any alcohol or drug abuse patient.[facility] HospitalIn the event this information is protected by the Federal Confidentiality of Alcohol and Drug Abuse Patient Records regulations: The Federal rules restrict any use of the information to criminally investigate or prosecute any alcohol or drug abuse patient.[facility] HospitalIn the event this information is protected by the Federal Confidentiality of Alcohol and Drug Abuse Patient Records regulations: The Federal rules restrict any use of the information to criminally investigate or prosecute any alcohol or drug abuse patient.[facility] Reason for Visit (unrecogniz ed section and content) Reason Comments Conjunctivitis R eye redness and wa cherise x2 days Reason Comments 6 Month Exam Specialty Diagnoses / Procedures Referred By Ewaac t Referred To Contact Laboratory Medicine / LAB [facility] MA[facility] Diagnoses LABS Procedures VENIPUNCTURE LAB Nuno Lowe, DO [address] [place] [address] Lab [facility] Draw Station [address] [place] [address] Referral ID Status Reason Start Date Expiration Date V isits Requested Visits Authorized [id number] Authorized 04/17/2021 04/17/2022 99 99 Reason Onset Date Comments Immunizations 08/16/2022 Flu vaccination Specialty Diagnoses / Procedures [facility] Referred To Contact Internal Medicine / FAMILY MEDICINE Diagnoses flu vaccine Procedures NURSE Nuno Lowe, DO [address] [place] [address] Nurse, Al [address] [place] [address] Referral ID Status Reason Start Date Expiration Date V isits Requested Visits Authorized [id number] Pending Review 08/16/2022 11/14/2022 1 1 Reason Onset Date Comments Refill Request 08/19/2022 Reason Comments Hospital F/U Diverticulitis Specialty Diagnoses / Procedures [facility] Referred To Contact Family Medicine / FAMILY MEDICINE Diagnoses Follow-up examination [facility] ER follow up diverticulitis Procedures OFFICE/OUTPATIENT ESTABLISHED MOD MDM 30-39 MIN 4C EST HOSP/ER FU Astrid Herring, VEDA.SEMICONDUCTOR MANUFACTURING TECHNICIAN [address] [place] [address] Astrid Herring APRN.SEMICONDUCTOR MANUFACTURING TECHNICIAN [address] [place] [address] Referral ID Status Reason Start Date Expiration Date Visits Re quested Visits Authorized [id number] Closed 09/16/2022 09/10/2023 1 1 Reason Onset Date Comments Refill Request 09/20/2022 Reason Comments 6 Month Exam Specialty Diagnoses / Procedures Referred By Contac t Referred To Contact Family Medicine / FAMILY MEDICINE Diagnoses Follow-up exam, 3-6 months since previous exam 6 month follow up Procedures OFFICE/OUTPATIENT [facility] 30-39 MIN 4C EST Nuno Lowe, DO [address] [place] [address] Nuno Lowe, DO [address] [place] [address] Referral ID Status Reason Start Date Expiration Date Visits Re quested Visits Authorized [id number] Closed 10/19/2022 09/10/2023 1 1 Reason Comments Appointment Reason Comments Refill Request Specialty Diagnoses / Procedures Referred By Contac t Referred To Contact Family Medicine / FAMILY MEDICINE Diagnoses 6 mo follow up Procedures 4C EST Self Nuno Lowe, DO [address] [place] [address] Referral ID Status Reason Start Date Expiration Date V isits Requested Visits Authorized [id number] Outside PCP 04/18/2023 07/17/2023 1 1 Reason Comments Cough Cough and congestion x 10 days Reason Comments Consult Fat Pad Specialty Diagnoses / Procedures Referred By Contac t Referred To Contact Cardiology Diagnoses Fat pad Procedures CONSULT TO CARDIOLOGY OFFICE/OUTPATIENT [facility] 60-74 MINUTES Chiqui Mejia APRN.SEMICONDUCTOR MANUFACTURING TECHNICIAN [address] [place] [address] Referral ID Status Reason Start Date Expiration Date Visits Requested Visits Authorized [id number] Pending Review PCP Requested Referral 05/10/2023 05/09/2024 1 1 Reason Comments Results Reason Comments Forms Reason Onset Date Comments Refill Request 10/17/2023 Reason Comments Yearly Exam Reason Comments Consult Benign Prostatic Hypertrophy Specialty Diagnoses / Procedures Referred By Contac t Referred To Contact Urology Diagnoses Benign prostatic hyperplasia with lower urinary tract symptoms, symptom details unspecified Procedures CONSULT TO UROLOGY OFFICE/OUTPATIENT [facility] 60-74 MINUTES Nuno Lowe, DO [address] [place] [address] Referral ID Status Reason Start Date Expiration Date V isits Requested Visits Authorized [id number] Closed PCP Requested Referral 04/19/2023 04/18/2024 1 1 Reason Comments New Patient Visit Gr[employer] is here for a new visit regarding an [employer] consult. Specialty Diagnoses / Procedures Referred By Lorena t Referred To Contact Diagnoses Localized swelling, mass and lump, neck Procedures CHG CT SOFT TISSUE NECK W/CONTRAST MATERIAL [facility] [address] [place] [address] Referral ID Status Reason Start Date Expiration Date Visits Re quested Visits Authorized [id number] 1 1 Specialty Diagnoses / Procedures Referred By Lorena t Referred To Contact Radiology Diagnoses Mass of right side of neck Procedures CT soft tissue neck w IV contrast Lelo Rodriguez MD [address] [address] Referral ID Status Reason Start Date Expiration Date Visits Requested Visits Authorized [id number] Authorized Perform Procedure 2023 11/09/2024 1 1 Reason Comments Follow Up Benign Prostatic Hypertrophy Reason Onset Date Comments Refill Request 01/16/2024 Reason Comments Urinary Frequency UDS Urinary Urgency Reason Comments Patient Question Reason Onset Date Comments Refill Request 03/06/2024 Reason Onset Date Comments Refill Request 07/02/2024 Reason Onset Date Comments Refill Request 07/16/2024 Reason Comments 6 Month Exam Reason Comments Results xray from 07/23 Reason Comments Ear Problem Reason Comments Radiology CT Specialty Diagnoses / Procedures Referred By Lorena t Referred To Contact CT IMAGING Diagnoses History of parotid gland excision Mass of right side of neck Procedures CT NECK SOFT TISSUE WO IVCON CT SOFT TISSUE NECK W/O CONTRAST MATERIAL LoweNuno L, DO [address] [place] [address] [place] [address] Referral ID Status Reason Start Date Expiration Date V isits Requested Visits Authorized [id number] Closed Auto-Generate d Referral 07/23/2024 09/06/2024 1 1 Specialty Diagnoses / Procedures Referred By Lorena t Referred To Contact MR IMAGING Diagnoses Cognitive impairment, mild, so stated Headache, worsening History of head injury Procedures MRI BRAIN WO/W IVCON MRI BRAIN BRAIN STEM W/O W/CONTRAST MATERIAL Nuno Lowe, DO [address] [place] [address] [place] [address] Referral ID Status Reason Start Date Expiration Date V isits Requested Visits Authorized [id number] Closed Auto-Generate d Referral 07/23/2024 09/05/2024 1 1 Reason Comments Radiology US Specialty Diagnoses / Procedures Referred By Contac t Referred To Contact US IMAGING Diagnoses Screening for AAA (abdominal aortic aneurysm) Procedures US SCREENING FOR AAA US ABDOMINAL AORTA REAL TIME SCREEN STUDY AAA Blanche Cain PA-C [address] [place] [address] [place] [address] Referral ID Status Reason Start Date Expiration Date V isits Requested Visits Authorized [id number] Closed Auto-Generate d Referral 08/06/2024 09/05/2025 1 1 Reason Comments Follow-up Reason Comments New Patient Memory loss, abnorma l CT of Brain. Specialty Diagnoses / Procedures Referred By Contac t Referred To Contact Neurology Diagnoses Memory loss, short term Abnormal CT of brain Procedures CONSULT TO NEUROLOGY OFFICE/OUTPATIENT NEW HIGH MDM 60 MINUTES Nuno Lowe, DO [address] [place] [address] Referral ID Status Reason Start Date Expiration Date V isits Requested Visits Authorized [id number] Closed PCP Requested Referral 08/07/2024 08/07/2025 1 1 Reason Comments Follow Up Benign Prostatic Hypertrophy Reason Comments Orders Reason Comments Follow Up Ear Problem Reason Comments Established Patient 6 month follow up Reason Onset Date Comments Refill Request 03/19/2025 Reason Comments Patient Update Care Teams (unrecognized sec tion and content) Migratory Farm Hand Relationship Specialty Start Date End Date Nuno Lowe, DO [address] [place], [place] [id number] PCP - General Family Practice 07/06/16 Migratory Farm Hand Relationship Specialty Start Date End Date Nuno Lowe, DO [address] [place] [address] PCP - General Family Practice 07/06/16 Migratory Farm Hand Relationship Specialty Start Date End Date Nuno Lowe, DO [address] [place] [address] PCP - General Family Medicine 07/06/16 Migratory Farm Hand Relationship Specialty Start Date End Date Nuno Lowe, DO [address] [place] [address] PCP - General Family Medicine 07/06/16 Migratory Farm Hand Relationship Specialty Start Date End Date Nuno Lowe, DO [address] [facility] [place] [address] PCP - General Family Medicine 07/06/16 Migratory Farm Hand Relationship Specialty Start Date End Date Nuno Lowe, DO [address] [facility] [address] PCP - General Family Medicine 07/06/16 Migratory Farm Hand Relationship Specialty Start Date End Date Nuno Lowe DO [address] [facility] [place] [address] PCP - General Family Medicine 07/06/16 Team Status: Active Member Role Status Dates Dr. Nuno Lowe , Family Provider Active Dr. Nuno Lowe , DO Primary Care Provider Active Team Status: Inactive Member Role Status Dates Dr. Nuno Lowe , Primary Care Provider Active Dr. Vikash King DO Attending Provider, Emergency Provider Active Team Status: Inactive Member Role Status Dates Dr. Nuno Lowe DO Primary Care Provider Active Dr. Pantera Ji MD Emergency Provider Active Migratory Farm Hand Relationship Specialty Start Date End Date Nuno Lowe, DO [address] [facility] [address] PCP - General Family Medicine 07/06/16 Migratory Farm Hand Relationship Specialty Start Date End Date Nuno Lowe DO [address] [place] [address] PCP - General Family Medicine 07/06/16 Migratory Farm Hand Relationship Specialty Start Date End Date Nuno Lowe, [address] [facility] [place] [address] PCP - General Family Medicine 07/06/16 Migratory Farm Hand Relationship Specialty Start Date End Date Nuno Lowe, DO [address] [facility] [place] [address] PCP - General Family Medicine 07/06/16 Migratory Farm Hand Relationship Specialty Start Date End Date Nuno Lowe, [address] [facility] [place] [address] PCP - General Family Medicine 07/06/16 Migratory Farm Hand Relationship Specialty Start Date End Date Nuno Lowe DO [address] [facility] [place] [address] PCP - General Family Medicine 07/06/16 Migratory Farm Hand Relationship Specialty Start Date End Date Nuno Lowe, [address] [facility] [place] [address] PCP - General Family Medicine 07/06/16 Migratory Farm Hand Relationship Specialty Start Date End Date Nuno Lowe, [address] [facility] [place] [address] PCP - General Family Medicine 07/06/16 Migratory Farm Hand Relationship Specialty Start Date End Date Nuno Lowe, [address] [facility] [place] [address] PCP - General Family Medicine 11/22/23 Migratory Farm Hand Relationship Specialty Start Date End Date Nuno Lowe, [address] [facility] [place] [address] PCP - General Family Medicine 11/22/23 Migratory Farm Hand Relationship Specialty Start Date End Date Nuno Lowe, [address] [place] [address] PCP - General Family Medicine 07/06/16 Migratory Farm Hand Relationship Specialty Start Date End Date Nuno Lowe, [address] [place] [address] PCP - General Family Medicine 07/06/16 Migratory Farm Hand Relationship Specialty Start Date End Date Nuno Lowe, [address] [place] [address] PCP - General Family Medicine 07/06/16 Migratory Farm Hand Relationship Specialty Start Date End Date Nuno Lowe DO [address] [place] [address] PCP - General Family Medicine 07/06/16 Migratory Farm Hand Relationship Specialty Start Date End Date Nuno Lowe DO [address] [place] [address] PCP - General Family Medicine 11/22/23 Migratory Farm Hand Relationship Specialty Start Date End Date Nuno Lowe DO [address] [place] [address] PCP - General Family Medicine 07/06/16 Migratory Farm Hand Relationship Specialty Start Date End Date Nuno Lowe DO [address] [place] [address] PCP - General Family Medicine 07/06/16 Migratory Farm Hand Relationship Specialty Start Date End Date Nuno Lowe, [address] [place] [address] PCP - General Family Medicine 07/06/16 Migratory Farm Hand Relationship Specialty Start Date End Date Nuno Lowe DO [address] [facility] [place] [address] PCP - General Family Medicine 07/06/16 Migratory Farm Hand Relationship Specialty Start Date End Date Nuno Lowe DO [address] [place] [address] PCP - General Family Medicine 07/06/16 Migratory Farm Hand Relationship Specialty Start Date End Date Nuno Lowe DO [address] [place] [address] PCP - General Family Medicine 07/06/16 Migratory Farm Hand Relationship Specialty Start Date End Date Nuno Lowe DO [address] [place] [address] PCP - General Family Medicine 07/06/16 Migratory Farm Hand Relationship Specialty Start Date End Date Nuno Lowe DO [address] [place] [address] PCP - General Family Medicine 07/06/16 Migratory Farm Hand Relationship Specialty Start Date End Date Nuno Lowe DO [address] [facility] [place] [address] PCP - General Family Medicine 07/06/16 Migratory Farm Hand Relationship Specialty Start Date End Date Nuno Lowe DO [address] [facility] [place] [address] PCP - General Family Medicine 07/06/16 Migratory Farm Hand Relationship Specialty Start Date End Date Nuno Lowe DO [address] [facility] [place] [address] PCP - General Family Medicine 07/06/16 Migratory Farm Hand Relationship Specialty Start Date End Date Nuno Lowe DO [address] [place] [address] PCP - General Family Medicine 07/06/16 Migratory Farm Hand Relationship Specialty Start Date End Date Nuno Lowe DO [address] [facility] [place] [address] PCP - General Family Medicine 07/06/16 Migratory Farm Hand Relationship Specialty Start Date End Date Nuno Lowe DO [address] [facility] [place] [address] PCP - General Family Medicine 11/22/23 Migratory Farm Hand Relationship Specialty Start Date End Date Nuno Lowe DO [address] [facility] [place] [address] PCP - General Family Medicine 07/06/16 Marissa Montoya, COMMERCIAL CONSTRUCTION SUPERINTENDENT.SEMICONDUCTOR MANUFACTURING TECHNICIAN [address] [place] [address] Office Lead Family Medicine 08/18/24 Astrid Herring, COMMERCIAL CONSTRUCTION SUPERINTENDENT.SEMICONDUCTOR MANUFACTURING TECHNICIAN [address] [facility] [place] [address] Office Lead Family Medicine 08/18/24 Migratory Farm Hand Relationship Specialty Start Date End Date Nuno Lowe DO [address] [place] [address] PCP - General Family Medicine 07/06/16 Marissa Montoya, COMMERCIAL CONSTRUCTION SUPERINTENDENT.SEMICONDUCTOR MANUFACTURING TECHNICIAN [address] [facility] [address] Office Lead Family Medicine 08/18/24 Astrid Herring, COMMERCIAL CONSTRUCTION SUPERINTENDENT.SEMICONDUCTOR MANUFACTURING TECHNICIAN [address] [place] [address] Office Lead Family Medicine 08/18/24 Migratory Farm Hand Relationship Specialty Start Date End Date Nuno Lowe DO [address] [facility] [place] [address] PCP - General Family Medicine 07/06/16 Marissa Montoya, COMMERCIAL CONSTRUCTION SUPERINTENDENT.SEMICONDUCTOR MANUFACTURING TECHNICIAN [address] [facility] [place] [address] Office Lead Family [facility] 08/18/24 Astrid Herring, COMMERCIAL CONSTRUCTION SUPERINTENDENT.SEMICONDUCTOR MANUFACTURING TECHNICIAN [address] [facility] [place] [address] Office Lead Family Medicine 08/18/24 Migratory Farm Hand Relationship Specialty Start Date End Date Nuno Lowe DO [address] [facility] [place] [address] PCP - General Family Medicine 07/06/16 Migratory Farm Hand Relationship Specialty Start Date End Date Nuno Lowe DO [address] [facility] [place] [address] PCP - General Family Medicine 07/06/16 Marissa Montoya, COMMERCIAL CONSTRUCTION SUPERINTENDENT.SEMICONDUCTOR MANUFACTURING TECHNICIAN [address] [facility] [place] [address] Office Lead Family Medicine 08/18/24 Astrid Herring, COMMERCIAL CONSTRUCTION SUPERINTENDENT.SEMICONDUCTOR MANUFACTURING TECHNICIAN [address] [facility] [place] [address] [facility] Migratory Farm Hand Relationship Specialty Start Date End Date Nuno Lowe DO [address] [facility] [place] [address] PCP - General Family Medicine 07/06/16 Marissa Montoya, COMMERCIAL CONSTRUCTION SUPERINTENDENT.SEMICONDUCTOR MANUFACTURING TECHNICIAN [address] [facility] [place] [address] [facility] 08/[facility]/24 Carrier ClinicAstrid, COMMERCIAL CONSTRUCTION SUPERINTENDENT.SEMICONDUCTOR MANUFACTURING TECHNICIAN [address] [facility] [place] [address] [facility] 08/18/24 Migratory Farm Hand Relationship Specialty Start Date End Date Nuno Lowe DO [address] [facility] [place] [address] PCP - General Family Medicine 07/06/16 Marissa Montoya, COMMERCIAL CONSTRUCTION SUPERINTENDENT.SEMICONDUCTOR MANUFACTURING TECHNICIAN [address] [facility] [place] [place] [address] [facility] 08/18/24 Carrier ClinicAstrid, COMMERCIAL CONSTRUCTION SUPERINTENDENT.SEMICONDUCTOR MANUFACTURING TECHNICIAN [address] [facility] [place] [address] [facility] 08/18/24 Migratory Farm Hand Relationship Specialty Start Date End Date Nuno Lowe DO [address] [facility] [place] [address] PCP - General Family Medicine 07/06/16 Marissa Montoya, COMMERCIAL CONSTRUCTION SUPERINTENDENT.SEMICONDUCTOR MANUFACTURING TECHNICIAN [address] [facility] [place] [address] Office Lead Family Medicine 08/18/24 11/29/24 Astrid Herring, COMMERCIAL CONSTRUCTION SUPERINTENDENT.SEMICONDUCTOR MANUFACTURING TECHNICIAN [address] [facility] [place] [address] [facility] 08/18/24 Migratory Farm Hand Relationship Specialty Start Date End Date Nuno Lowe DO [address] [facility] [place] [address] PCP - General Family Medicine 07/06/16 Astrid Herring, COMMERCIAL CONSTRUCTION SUPERINTENDENT.SEMICONDUCTOR MANUFACTURING TECHNICIAN [address] [place] [address] [facility] 08/18/24 Kaylin Mishra, COMMERCIAL CONSTRUCTION SUPERINTENDENT.SEMICONDUCTOR MANUFACTURING TECHNICIAN [address] [place] [address] [facility] 02/24/25 Migratory Farm Hand Relationship Specialty Start Date End Date Nuno Lowe DO [address] [facility] [place] [address] PCP - General Family Medicine 07/06/16 Astrid Herring, COMMERCIAL CONSTRUCTION SUPERINTENDENT.SEMICONDUCTOR MANUFACTURING TECHNICIAN [address] [place] [address] [facility] 08/18/24 Kaylin Mishra, COMMERCIAL CONSTRUCTION SUPERINTENDENT.SEMICONDUCTOR MANUFACTURING TECHNICIAN [address] [facility] [place] [address] [facility] 02/24/25 Migratory Farm Hand Relationship Specialty Start Date End Date Nuno Lowe DO [address] [facility] [place] [address] PCP - General Family Medicine 07/06/16 Astrid Herring, COMMERCIAL CONSTRUCTION SUPERINTENDENT.SEMICONDUCTOR MANUFACTURING TECHNICIAN [address] [place] [address] [facility] 08/18/24 Kaylin Mishra, VEDA.SEMICONDUCTOR MANUFACTURING TECHNICIAN [address] [place] [address] [facility] 02/24/25 Goals (unrecognized section and content) Goals may be documented in a n alternate sectionGoals may be documented in an alternate section FOR RECORDS PERTAINING TO PATIENTS WHO ARE OR HAVE BEEN ENROLLED IN A CHEMICAL DEPENDENCY/SUBSTANCEABUSE PROGRAM, SOME INFORMATION MAY BE OMITTED. This clinical summary was aggregated from multiple sources. Caution should be exercised in using it in the provision of clinical care. This summary normalizes information from multiple sources, and as a consequence, information in this document may materially change the coding, format and clinical context of patient data. In addition, data may be omitted in some cases. CLINICAL DECISIONS SHOULD BE BASED ON THE PRIMARY CLINICAL RECORDS. [facility]. provides no warranty or guarantee of the accuracy or completeness of information in this document.
[2025-05-11 09:06] VITALS: BP 146/89; PULSE 65; RESP 16; TEMP 36.4; O2SAT 99
== END 2025-05-11 09:40 | disposition home or self-care (01) ==
PROVIDERS: Emergency Provider Emergency Medicine; PCP Student in an Organized Health Care Education/Training Program; Visit Provider Emergency Medicine
DX: M54.50 Low back pain, unspecified (principal); I10 Essential (primary) hypertension; F17.210 Nicotine dependence, cigarettes, uncomplicated; Z79.899 Other long term (current) drug therapy
CPT/HCPCS: 99283